=== PATIENT | female | born 1995 | race Caucasian/White ===

== ENCOUNTER 2021-12-31 08:42 | Emergency (ER) | payer MEDICAID, SELFPAY ==
[2021-12-31 08:51] VITALS: BP 98/46; PULSE 76; RESP 18; TEMP 36.6; BMI 28.2
--- NOTE | 2021-12-31 09:33 | ED.GENADULT ---
HPI - General Adult General Chief complaint: Sore Throat Stated complaint: Swollen lymph node right side, ear ache Time Seen by Provider: 12/31/21 08:46 Source: patient History of Present Illness HPI narrative: Patient is a 26-year-old woman with a 2 day history of sore throat, ear pain, swollen glands. No fever. She took her 1-year-old to the zoo the other day, otherwise no ill exposure. She has been drinking tea with honey, has not needed any medication for pain. Swallowing without difficulty, but throat is pretty sore. Sore throat is limited to the right side. She took a COVID test at home and it was negative. No cough or shortness of breath. No unusual rashes, vomiting, or other complaints. Related Data Home Medications Medication Instructions Recorded Confirmed No Known Home Medications 12/31/21 12/31/21 Allergies Allergy/AdvReac Type Severity Reaction Status Date / Time No Known Drug Allergies Allergy Verified 12/31/21 09:04 Review of Systems Status of ROS: Reports: 6 or more systems reviewed and unremarkable except as noted in History and below [facility] Medical History (Updated 12/31/21 @ 09:53 by Marbella Bran RN) No significant past medical history Social History Smoking Status: Never smoker Do you use any of these nicotine containing products: None Second hand tobacco smoke exposure: No How often do you have a drink containing alcohol: monthly or less How often do you have six or more drinks on one occasion: Never AUDIT-C Alcohol total score: 1 Non-prescribed substance use: denies use and other Non-prescribed substance use details: none service: No Exam Narrative: Exam Narrative: Afebrile, well-appearing. Voice is normal. Const: Vital Signs, click to edit/add: Vital Signs - 24 hr 12/31/21 08:51 12/31/21 09:51 Temperature 97.9 F 97.9 F Pulse Rate [Apical ] 76 Respiratory Rate 18 Blood Pressure [Ri ght Upper Arm] 98/46 L Documenting provider has reviewed patient's vital signs: yes Common normals: no apparent distress, oriented x3 and no limitations General appearance: cooperative and comfortable Orientation/consciousness: Yes awake, Yes oriented to person and Yes oriented to place HENMT: Common normals: normocephalic, external ears normal, TM's normal bilaterally and external nose normal Head and scalp: normocephalic Face and sinus: normal facial exam and sinuses nontender Nose: external nose normal and nares normal External ear: external ears normal Tympanic membrane: TM's normal bilaterally Throat: posterior oropharynx normal and uvula midline Other: Small amount of purulence on the right tonsil. No edema. Left tonsil is normal. No evidence of peritonsillar abscess. Eye: Common normals: PERRL and conjunctivae normal Conjunctiva: conjunctiva(e) normal Sclera: sclerae normal Pupil: PERRL Neck & C-Spine: Common normals: full ROM and no lymphadenopathy Resp: Common normals: normal respiratory effort and clear to auscultation bilaterally Effort & inspection: able to speak in complete sentences Auscultation: clear to auscultation bilaterally Neuro: Common normals: oriented x3 Sensorium/orientation: awake, oriented to person and oriented to place Course Course Hospital Course: We will obtain a stool of for strep screening. Discussed that tonsillitis can be caused by viruses, other bacteria or strep. If strep is positive will treat with antibiotics, otherwise recommend supportive care, she can take ibuprofen or Tylenol if needed, at this point she says she has not needed anything other than tea with honey. Return for acute worsening such as high fevers, inability to swallow secretions, severe pain. Vital Signs Vital signs: Initial Vital Signs Temperature 97.9 F 12/31/21 08:51 Temperature Source Temporal Artery Scan 12/31/21 08:51 Pulse Rate 76 12/31/21 08:51 Pulse Rhythm 12/31/21 08:51 Respiratory Rate 18 12/31/21 08:51 Respiratory Effort 12/31/21 08:51 Respiratory Depth Normal 12/31/21 08:51 Respiratory Pattern 12/31/21 08:51 Blood Pressure 98/46 L 12/31/21 08:51 Blood Pressure Mean 63 12/31/21 08:51 Blood Pressure Position Supine 12/31/21 08:51 Oxygen Delivery Method 12/31/21 08:51 Vital Signs Temperature 97.9 F 12/31/21 08:51 Pulse Rate 76 12/31/21 08:51 Respiratory Rate 18 12/31/21 08:51 Blood Pressure 98/46 L 12/31/21 08:51 Temperature 97.9 F 12/31/21 09:51 Pulse Rate 76 12/31/21 08:51 Respiratory Rate 18 12/31/21 08:51 Blood Pressure 98/46 L 12/31/21 08:51 Discharge Plan Discharge Clinical Impression: Acute tonsillitis Patient Disposition: Home, Self-Care Condition: Stable Instructions: Tonsillitis (ED) Additional Instructions: If needed, ibuprofen or Tylenol for pain. Otherwise, continue with tea and honey. Return for severe pain, inability to swallow secretions, high fever. We will call if strep screen is positive. Activity Level: No Restrictions Prescriptions: No Action No Known Home Medications 0RF Stand Alone Forms: [employer] Info Instructions
[2021-12-31 09:51] VITALS: TEMP 36.6
[2021-12-31 10:50] LABS: Strep A DNA Probe* NOT DETECTED (No Detected)
== END 2021-12-31 09:40 | disposition home or self-care (01) ==
LOC: ED 09:45
PROVIDERS: Emergency Provider Emergency Medicine
DX: J03.90 Acute tonsillitis, unspecified (principal)
CPT/HCPCS: 87651; 99283; 99284

== ENCOUNTER 2022-04-02 21:56 | Emergency (ER) | payer MEDICAID, SELFPAY ==
[2022-04-02 23:11] VITALS: BP 101/66; PULSE 99; RESP 18; TEMP 36.6; O2SAT 98; BMI 28.2
--- NOTE | 2022-04-02 23:23 | ED.EYEPROB ---
HPI - Eye Problem General Time Seen by Provider: 23:23 Date Seen: 04/02/22 Chief complaint: Eye Problems Stated complaint: Right eye injury Time Seen by Provider: 04/02/22 23:23 Source: patient and RN notes reviewed Mode of arrival: ambulatory Limitations: no limitations History of Present Illness HPI Narrative: Patient is a very pleasant 27-year-old female non who tonight was playing with her son and got poked in the eye. This occurred approximately 1700 hours. Unfortunately her pain has been increasing. She describes this as on the outer upper aspect of the eye. She is unable to open her eye at this time. It continues to tear as well. She has not taken any medication for pain. She denies use of contacts or any other previous I issue. She is preferring to stay in the dark is light causes her discomfort. Related Data Home Medications Medication Instructions Recorded Confirmed No Known Home Medications 12/31/21 04/02/22 Allergies Allergy/AdvReac Type Severity Reaction Status Date / Time No Known Drug Allergies Allergy Verified 04/02/22 23:20 [facility] Medical History (Updated 04/02/22 @ 23:43 by Clari Merchant MD) No significant past medical history Social History Smoking Status: Never smoker Do you use any of these nicotine containing products: None Second hand tobacco smoke exposure: No How often do you have a drink containing alcohol: monthly or less How often do you have six or more drinks on one occasion: Never AUDIT-C Alcohol total score: 1 Non-prescribed substance use: denies use and other Non-prescribed substance use details: none service: No Exam Narrative: Exam Narrative: Patient is clearly uncomfortable when I enter the room. It is dark. She is holding her eyes shut. She is cooperative and is able to open her eyes slightly. She does have pain with direct and consensual pupillary constriction. EOM is full. No obvious bleeding no obvious deformity. Tetracaine is applied to the right eye and patient has significant relief. EOM is full. Pupils are reactive. Pupil is clear. Floor sign staining is accomplished. Under slit lamp examination patient has a large corneal abrasion the 10 30 to 11:30 position right cornea. No significant thickness compromise. No foreign bodies are noted. Erythromycin ribbon is applied. Patient tolerates procedure well and is feeling significant relief. Const: Vital Signs, click to edit/add: Vital Signs - 24 hr 04/02/22 23:11 04/02/22 23:30 Temperature 97.8 F 97.8 F Pulse Rate [Femora l] 99 Respiratory Rate 18 Blood Pressure [Ri ght Upper Arm] 101/66 Pulse Oximetry 98 Oxygen Delivery Me thod Room Air Course Vital Signs Vital signs: Initial Vital Signs Temperature 97.8 F 04/02/22 23:11 Temperature Source Temporal Artery Scan 04/02/22 23:11 Pulse Rate 99 04/02/22 23:11 Respiratory Rate 18 04/02/22 23:11 Blood Pressure 101/66 04/02/22 23:11 Blood Pressure Mean 77 04/02/22 23:11 Blood Pressure Position Sitting 04/02/22 23:11 Pulse Oximetry 98 04/02/22 23:11 Oxygen Delivery Method 04/02/22 23:11 Vital Signs Temperature 97.8 F 04/02/22 23:11 Pulse Rate 99 04/02/22 23:11 Respiratory Rate 18 04/02/22 23:11 Blood Pressure 101/66 04/02/22 23:11 Pulse Oximetry 98 04/02/22 23:11 Oxygen Delivery Method 04/02/22 23:11 Temperature 97.8 F 04/02/22 23:30 Pulse Rate 99 04/02/22 23:11 Respiratory Rate 18 04/02/22 23:11 Blood Pressure 101/66 04/02/22 23:11 Pulse Oximetry 98 04/02/22 23:11 Oxygen Delivery Method 04/02/22 23:11 MDM - Eye Problem MDM Narrative Medical decision making narrative: 1. Corneal abrasion-patient will apply erythromycin 1/2 inch ribbon Q 6-8 hours. She will follow-up with [facility] tomorrow. I provided the phone number for her. Ibuprofen 800 mg is given here in the ED and I would like her to continue this every 8 hours at home if possible. Will also give her a small amount of Vicodin 5/325 1-2 tabs p.o. q.4-6 hours p.r.n.. 8. Via [employer]. 2. Disposition-patient will be discharged home. Should return for worsening symptoms. Tetanus updated in 2019. Medical Records Attestation: I reviewed the patient's medical records. Discharge Plan Discharge Clinical Impression: Corneal abrasion Patient Disposition: Home, Self-Care Condition: Improved Additional Instructions: Erythromycin ointment 1/2 inch to the bottom of the eyelid every 6-8 hours. Ibuprofen 800 mg every 8 hours as needed for pain. You may use Vicodin sparingly if you have continued pain. Please follow-up at [facility] for follow-up. The phone number is [phone]. Prescriptions: No Action No Known Home Medications Follow Up/Referrals: Provider,Not a Local [Primary Care Provider] - Stand Alone Forms: [employer] Info Instructions
[2022-04-02 23:30] VITALS: TEMP 36.6
[2022-04-02] MEDS: IBUPROFEN 400 MG TABLET 800 MG PO (23:30)
--- OUTSIDE RECORDS SUMMARY | 2022-04-02 23:51 | XMS_ITS | Encounter Summary ---
:1995 Author Organization [place] Address [address] [place] [id number] Care Team Providers Name Role Phone Thad Mckeon PA-C Primary Care Provider [phone] Thad Mckeon PA-C Unavailable [phone] Reason for Visit Reason Comments Derm Problem Entered automatically based on patient selection in [employer]. Encounter Details Date Type Department Care Team Description 06/25/2021 E-Visit [facility] Ben Riggins Derm P roblem (Entered [facility] automatically based ... Dena [address] [place] [phone] Social History Tobacco Use Types Packs/Day Years Used Date Former Smoker 0 0 Smokeless Tobacco: Never Used Alcohol Use Standard Drinks/Week Comments Not Currently 0 (1 standard drink = 0.6 oz pure alcoho l) very little Alcohol Habits Answer Date Recorded How often do you have a drink containing alcohol? Not asked How many drinks containing alcohol do you have on a Not aske d typical day when you are drinking? How often do you have six or more drinks on one occasion? No t asked Comment: very little 03/09/2019 Sex Assigned at Date Recorded Female 12/21/2020 8:52 AM CDT documented as of this encounter Miscellaneous Notes Telephone Encounter - Ben Riggins PA-C - 06/25/2021 3:08 PM CST Provider E-Visit time total (minutes): 3 [facility] documented in this encounter Plan of Treatment Upcoming Encounters Date Type Specialty Care Team Description 05/08/2022 Office Visit Family Practice Kyle Hidalgo PA-C [address] [address] [phone] (Wo rk) 05/08/2022 Lab Lab documented as of this encounter Visit Diagnoses Diagnosis Impetigo - Primary documented in this encounter Additional Health Concerns Assessment Noted Time PHQ-9 Depression Total Score: 7 01/15/2021 7:02 AM CDT documented as of this encounter Care Teams Bag Maker Relationship Specialty Start Date End Date Thad Mckeon, PCP - General Physician Clinical Research Spec - 02/17/14 AD Medical Thad Mckeon, Assigned PCP 12/23/20 [place] [id number] [address] [id number] documented as of this encounter
--- OUTSIDE RECORDS SUMMARY | 2022-04-02 23:51 | XMS_ITS | Encounter Summary ---
:1995 Author Organization [place] Address [address] [place] [address] Care Team Providers Name Role Phone Thad Mckeon PA-C Primary Care Provider [phone] Thad Mckeon PA-C Unavailable [phone] Encounter Details Date Type Department Care Team Description 03/31/2022 Travel Social History Tobacco Use Types Packs/Day Years [...] Date Recorded Female 12/21/2020 8:52 AM CDT COVID-19 Exposure Response Date Recorded In the last 10 days, have you been in contact with No / Unsu re 03/31/2022 3:21 PM CDT someone who was confirmed or suspected to have Coronavirus/COVID-19? documented as of this encounter Plan of Treatment Upcoming Encounters Date Type Specialty Care Team Description 05/08/2022 Office Visit Family Practice Kyle Hidalgo PA-C [address] [address] [phone] (Wo rk) 05/08/2022 Lab Lab documented as of this encounter Visit Diagnoses Not on filedocumented in this encounter Additional Health Concerns Assessment Noted Time PHQ-9 Depression Total Score: 7 01/15/2021 7:02 AM CDT documented as of this encounter Care Teams Vault Service Mechanic Relationship Specialty Start Date End Date Thad Mckeon, PCP - General Physician Steamer Operator - 02/17/14 AD Medical Thad Mckeon, Assigned PCP 12/23/[place] [address] [address] [address] documented as of this encounter
--- OUTSIDE RECORDS SUMMARY | 2022-04-02 23:51 | XMS_ITS | Encounter Summary ---
:1995 Author Organization [place] Address [address] [place] [address] Care Team Providers Name Role Phone Thad Mckeon PA-C Primary Care Provider [phone] Thad Mckeon PA-C Unavailable [phone] Reason for Visit Reason Comments A.D.H.D Encounter Details Date Type Department Care Team Description 02/26/2022 Virtual Visit [facility] Thad Mckeon ty (Primary Dx); Clinic [place] AD Persaud Attention deficit hyperactivity disorder (ADHD), predominantly inattentive type [id number] [address] [address] [place] [phone] Social History Tobacco Use Types Packs/Day Years [...] AM CDT documented as of this encounter Patient Instructions Patient InstructionsPeThad zepeda PA-C - 02/26/2022 2:30 PM CDT Gabapentin is the anxiety medication I was talking about using at a low dose at night. We could consider this or restarting your ADHD medication. documented in this encounter Progress Notes Thad Mckeon PA-C - 02/26/2022 2:30 PM CDT Ruthie is a 26 year old who is being evaluated via a billable video visit. How would you like to obtain your AVS? [facility] [employer] If the video visit is dropped, the invitation should be resent by: Text to cell phone: [phone] Will anyone else be joining your video visit? No Assessment & Plan 1. Anxiety Consider gabapentin for anxiety if she is not in a few months. Discussed using selective serotonin reuptake inhibitor medication which she has done in the past but not really done well on. Shesrikanthll let me know. 2. Attention deficit hyperactivity disorder (ADHD), predominantly inattentive type Will get in touch with me (messaging ok) if she wants to restart something for this. Return in about 3 months (around 05/29/2022) for depression/anxiety med check, ADHD med check. Thad Mckeon PA-C [facility] Ruthie is a 26 year old, presenting for the following health issues: A.D.H.D History of Present Illness Reason for visit: Past reasons. adhd trouble listening She eats 2-3 servings of fruits and vegetables daily.She consumes 0 sweetened beverage(s) daily.She exercises with enough effort to increase her heart rate 30 to 60 minutes per day. She exercises with enough effort to increase her heart rate 6 days per week. She is taking medications regularly. From [email or web address] message/evisit: adhd is heavy at the moment.. I have trouble focusing listening staying on task finishing the firsttest that I started without jumping to a new one I have trouble relaxing I cannot relax until the house is completely spotless I have troubles turning my brain off at night. And I feel that I am easilyaggravated when I don???t have my cleaning tasks done. And my anxiety isn???t as bad as my lack of focus but I feel like my anxiety would be better if I could focus a bit more. i???m also wondering if there???s a prescription estrogen or hormone balance that I could try some thing a little bit more holistic first diving into the ADD medication right away again if that does not work then I would like to explore our options with the ADD medicine again Trying for second baby- if not in a month or so she would consider Rx but now was just calling in to discuss options. Having trouble at work with focus and attention. Sleeping ok Review of Systems Constitutional, HEENT, cardiovascular, pulmonary, gi and gu systems are negative, except as otherwise noted. Objective Vitals: No vitals were obtained today due to virtual visit. Physical Exam GENERAL: Healthy, alert and no distress EYES: Eyes grossly normal to inspection. No discharge or erythema, or obvious scleral/conjunctival abnormalities. RESP: No audible wheeze, cough, or visible cyanosis. No visible retractions or increased work of breathing. SKIN: Visible skin clear. No significant rash, abnormal pigmentation or lesions. NEURO: Cranial nerves grossly intact. Mentation and speech appropriate for age. PSYCH: Mentation appears normal, affect normal/bright, judgement and insight intact, normal speech and appearance well-groomed. Video-Visit Details Video Start Time: 226p Type of service: Video Visit Video End Time:2:43 PM Originating Location (pt. Location): Home Distant Location (provider location): [facility] Platform used for Video Visit: Tori . .. documented in this encounter Plan of Treatment Upcoming Encounters Date Type Specialty Care Team Description 05/08/2022 Office Visit Family [facility] Kyle Hidalgo PA-C [address] [address] [place], [place] [address] (Wo rk) 05/08/2022 Lab Lab documented as of this encounter Visit Diagnoses Diagnosis Anxiety - Primary Anxiety state, unspecified Attention deficit hyperactivity disorder (ADHD), predominantly inattentive type documented in this encounter Additional Health Concerns Assessment Noted Time PHQ-9 Depression Total Score: 7 01/15/2021 7:02 AM CDT documented as of this encounter Care Teams Wireless Watcher Relationship Specialty Start Date End Date Thad Mckeon, PCP - General Physician Distillery Manager - 02/17/14 AD Medical Thad Mckeon, Assigned PCP 12/23/20 [address]anjiv [address] [facility] [place] [address] documented as of this encounter
--- OUTSIDE RECORDS SUMMARY | 2022-04-02 23:51 | XMS_ITS | Encounter Summary ---
:1995 Author Organization [place] Address [facility] [place] [place] [address] Care Team Providers Name Role Phone Thad Mckeon PA-C Primary Care Provider [phone] Thad Mckeon PA-C Unavailable [phone] Reason for Visit Reason Comments Derm Problem Entered automatically based on patient selection in [employer]. Encounter Details Date Type Department Care Team Description 07/11/2021 E-Visit [facility] Thad Mckeon ([facility] [place] PA-C automatically based ... [address] [address] [address] [place], [place] [id number] [phone] Social History Tobacco Use Types Packs/Day Years [...] Patient Instructions Patient InstructionsPeThad zepeda PA-C - 07/11/2021 4:15 PM FINANCIAL SERVICES OFFICER Dear Ruthie Nieto After reviewing your responses, I've been able to diagnose you with tinea which is a common skin condition caused by a fungal infection. There are many common names for this depending on where it is located and it's appearance (jock itch, athlete's foot, ringworm, etc). Based on your responses, I have recommended Lamisil or Gold Freed powder to treat this. Please followthe instructions on the medication. If you experience irritation of your skin, new rash, or any other new symptoms, you should stop using this medication and contact your primary care provider. If this treatment does not work for you in 2 weeks or after completing treatment, please plan to follow-up with your primary care provider to evaluate in-person. Self-care: Wash all items that come into contact with infected skin: Wash all towels, clothes, and bedding in hot water. Use laundry soap. Clean shower stalls, mats, and floors with a germ-killing or fungus-killing saw cleaner. Do not share personal items: Do not share towels, brushes, ross, or hair accessories. Keep your skin, hair, and nails clean and dry: Bathe every day, and dry your skin before you put medicine on the infected area. Wash your hands often. Do not scratch your sores. This may cause the infection to spread. Avoid infected pets: A patch of missing fur is a sign of infection in a pet. Take your infected pet to a housekeeping staff for treatment. Contact your primary healthcare provider if: You have a fever. Your infection continues to spread after 7 days of treatment. Your rash is not gone in 2 weeks. The area around your rash becomes red, warm, tender, swollen, or smells bad. You have questions or concerns about your condition or care. Thanks for choosing?us?as your health health care marketing specialist, Thad Mckeon PA-C NCIAL SERVICES OFFICER documented in this encounter Miscellaneous Notes Telephone Encounter - Thad Mckeon PA-C - 07/12/2021 10:06 AM FINANCIAL SERVICES OFFICER Provider E-Visit time total (minutes): 5 NCIAL SERVICES OFFICER documented in this encounter Plan of Treatment Upcoming Encounters Date Type Specialty Care Team Description 05/08/2022 Office Visit Family [facility] Kyle Hidalgo PA-C [address] [address] [phone] (Wo rk) 05/08/2022 Lab Lab documented as of this encounter Visit Diagnoses Diagnosis Rash and nonspecific skin eruption - Katerina nadeem Rash and other nonspecific skin eruption documented in this encounter Additional Health Concerns Assessment Noted Time PHQ-9 Depression Total Score: 7 01/15/2021 7:02 AM CDT documented as of this encounter Care Teams Contract Associate Manager Relationship Specialty Start Date End Date Thad Mckeon, PCP - General Physician Industrial Refrigeration Mechanic - 02/17/14 AD Medical Thad Mckeon, Assigned PCP 12/23/20 [place] [address] [address] [address] documented as of this encounter
--- OUTSIDE RECORDS SUMMARY | 2022-04-02 23:51 | XMS_ITS | Encounter Summary ---
:1995 Author Organization [place] Address [address] [place] [address] Care Team Providers Name Role Phone Thad Mckeon PA-C Primary Care Provider [phone] Thad Mckeon PA-C Unavailable [phone] Reason for Visit Reason Comments Video Visit Weight Problem Encounter Details Date Type Department Care Team Description 09/24/2021 Virtual Visit [facility] Thad Mckeon Class 1 obesity without serious comorbidity with body mass index (BMI) of 31.0 to 31.9 in adult, unspecified obesity type (Primary Dx); [facility] PA-C History of cold sores [address] [address] [place] [address] [id number] Social History Tobacco Use Types Packs/Day Years [...] AM CDT documented as of this encounter Progress Thad Gama PA-C - 09/24/2021 10:00 AM CDT Ruthie is a 26 year old who is being evaluated via a billable video visit. How would you like to obtain your AVS? MyChart If the video visit is dropped, the invitation should be resent by: Text to cell phone: [phone] Will anyone else be joining your video visit? No Video Start Time: 1018a Assessment & Plan Class 1 obesity without serious comorbidity with body mass index (BMI) of 31.0 to 31.9 in adult, unspecified obesity type Doing well- at some point still want BP and weight (this visit was to be in person but had to be changed due to household emergency). Will refill. - phentermine (ADIPEX-P) 15 MG capsule; Take 1 capsule (15 mg) by mouth every morning History of cold sores Refilled per request. - valACYclovir (VALTREX) 500 MG tablet; Take 1 tablet (500 mg) by mouth daily BMI: Estimated body mass index is 31.24 kg/m?? as calculated from the following: Height as of 02/20/21: 1.645 m (5' 4.75). Weight as of 02/20/21: 84.5 kg (186 lb 4.8 oz). Weight management plan: Discussed healthy diet and exercise guidelines Return in about 3 months (around 12/25/2021) for Physical Exam- Wellness. Thad Mckeon PA-C [facility] Ruthie is a 26 year old who presents for the following health issues HPI Medication Followup of Phentermine ?? Taking Medication as prescribed: yes ?? Side Effects: None ?? Medication Helping Symptoms: Unsure, no scale at home In [place] Ruthie tried Topamax to assist with weight loss but did not tolerate it well Now she just started on phentermine 08/23/21. BMI was right at 30/31 and she had concerns over this and looking ahead to having another in the next year or so. Does not have scale at home- does feel some appetite suppression with the medication but is able to still eat. No palpitations, headache or insomnia. Review of Systems Constitutional, HEENT, cardiovascular, pulmonary, [...] normal speech and appearance well-groomed. Video-Visit Details Type of service: Video Visit Video End Time:10:31 AM Originating Location (pt. Location): Home Distant Location (provider location): [facility] documented in this encounter Plan of Treatment Upcoming Encounters Date Type Specialty Care Team Description 05/08/2022 Office Visit [facility] Kyle Hidalgo PA-C [address] [place], [place] [address] (Wo rk) 05/08/2022 Lab Lab documented as of this encounter Visit Diagnoses Diagnosis Class 1 obesity without serious comorbid ity with body mass index (BMI) of 31.0 to 31.9 in adult, unspecified obesity type - Primary History of cold sores Personal history of other infectious and parasitic disease documented in this encounter Additional Health Concerns Assessment Noted Time PHQ-9 Depression Total Score: 7 01/15/2021 7:02 AM CDT documented as of this encounter Care Teams Superintendent Circus Relationship Specialty Start Date End Date Thad Mckeon, PCP - General Physician Rfid Manager - 02/17/14 AD Medical Thad Mckeon, Assigned PCP 12/23/20 [place] [address] [place] [address] documented as of this encounter
--- OUTSIDE RECORDS SUMMARY | 2022-04-02 23:51 | XMS_ITS | Encounter Summary ---
:1995 Author Organization [place] Address [address] [place] [address] Care Team Providers Name Role Phone Thad Mckeon PA-C Primary Care Provider [phone] Thad Mckeon PA-C Unavailable [phone] Reason for Referral Medication Prior Authorization - Authorized Specialty Diagnoses / Procedures Referred By Contact Refer red To Contact Diagnoses BMI 31.0-31.9,adult Thad Mckeon PA-C [address] [place] [address] Referral ID Status Reason Start Date Expiration Date Visits V isits Requested Authorized [id number] Authorized 07/24/2021 11/21/2021 1 1 [employer]AT[employer] INSTRUCTOR Reason for Visit Reason Comments Other Entered automatically based on patient selection in Private Practice. Encounter Details Date Type Department Care Team Description [facility] [place] [id number] [address] [address] [address]... [place], [place] [id number] [phone] Social History Tobacco Use Types Packs/Day Years [...] Patient Instructions Patient InstructionsPeThad zepeda PA-C - 08/23/2021 9:20 AM WASTEWATER TREATMENT PLANT INSTRUCTOR Thank you for choosing us for your care. I have placed an order for a prescription so that you can start treatment. View your full visit summary for details by clicking on the link below. Your pharmacist will able to address any questions you may have about the medication. If you're not feeling better within 5-7 days, please schedule an appointment. You can schedule an appointment right here in [facility], or call [phone] If the visit is for the same symptoms as your eVisit, we'll refund the cost of your eVisit if seen within seven days. [employer]ATER [employer]ANT INSTRUCTOR documented in this encounter Miscellaneous Notes Telephone Encounter - Thad Mckeon PA-C - 08/23/2021 9:37 AM WASTEWATER TREATMENT PLANT INSTRUCTOR Provider E-Visit time total (minutes): 5 [employer]ATER [employer]ATMENT [employer]ANT INSTRUCTOR documented in this encounter Plan of Treatment Upcoming Encounters Date Type Specialty Care Team Description 05/08/2022 Office Visit Family [facility] Kyle Hidalgo PA-C [address] [address] [place], [place] [address] (Wo rk) 05/08/2022 Lab Lab documented as of this encounter Visit Diagnoses Diagnosis BMI 31.0-31.9,adult - Primary Body Mass Index 31.0-31.9, adult documented in this encounter Additional Health Concerns Assessment Noted Time PHQ-9 Depression Total Score: 7 01/15/2021 7:02 AM CDT documented as of this encounter Care Teams Radiology Aide Relationship Specialty Start Date End Date Thad Mckeon, PCP - General Physician Mannequin Mold Maker - 02/17/14 AD Medical Thad Mckeon, Assigned PCP 12/23/20 [place] [address] [place] [address] documented as of this encounter
--- OUTSIDE RECORDS SUMMARY | 2022-04-02 23:51 | XMS_ITS | Encounter Summary ---
:1995 Author Organization [place] Address [facility] [place] [address] Care Team Providers Name Role Phone Thad Mckeon PA-C Primary Care Provider [phone] Thad Mckeon PA-C Unavailable [phone] Reason for Visit Reason Comments Other Entered automatically based on patient selection in [facility]. Encounter Details Date Type Department Care Team Description 02/21/2022 E-Visit [facility] Thad Mckeon Other (Entered Clinic [place] [id number] [address] [address]... [place], [place] [id number] [phone] Social History Tobacco Use Types Packs/Day Years [...] this encounter Miscellaneous Notes Telephone Encounter - Azul Lozano, RN - 02/24/2022 8:25 AM CDT Pt has video appt scheduled on 02/26/22. Azul Morris, RN Telephone Encounter - Thad Mckeon PA-C - 02/21/2022 9:40 AM CDT Provider E-Visit time total (minutes): Please see if she will schedule a video visit with me next week to talk more about all she included in this visit. Thanks! Thad documented in this encounter Plan of Treatment Upcoming Encounters Date Type Specialty Care Team Description 05/08/2022 Office Visit Family Practice Kyle Hidalgo PA-C [address] [address] [address] (Wo rk) 05/08/2022 Lab Lab documented as of this encounter Visit Diagnoses Diagnosis ERRONEOUS ENCOUNTER--DISREGARD - Primary documented in this encounter Additional Health Concerns Assessment Noted Time PHQ-9 Depression Total Score: 7 01/15/2021 7:02 AM CDT documented as of this encounter Care Teams Boat Carpenter Relationship Specialty Start Date End Date Thad Mckeon, PCP - General Physician Geothermal Powerplant Supervisor - 02/17/14 AD Medical Thad Mckeon, Assigned PCP 12/23/20 [place] [address] [address] [address] documented as of this encounter
--- OUTSIDE RECORDS SUMMARY | 2022-04-02 23:51 | XMS_ITS | Encounter Summary ---
:1995 Author Organization [place] Address [address] [place] [address] Care Team Providers Name Role Phone Thad Mckeon PA-C Primary Care Provider [phone] Thad Mckeon PA-C Unavailable [phone] Reason for Visit Reason Comments Telephone Weight Loss Encounter Details Date Type Department Care Team Description 03/12/2021 Virtual Visit [facility] Thad Mckeon Class 1 obesity without serious comorbidity with body mass index (BMI) of 31.0 to 31.9 in adult, unspecified obesity type (Primary Dx); [facility] Encounter for initial prescription of co ntraceptive pills; [address] [address] [address] [place] [phone] Social History Tobacco Use Types Packs/Day Years [...] Exposure Response Date Recorded In the last month, have you been in contact with No / Unsure 03/12/2021 10:20 AM CDT someone who was confirmed or suspected to have Coronavirus / COVID-19? documented as of this encounter Progress Notes Thad Mckeon PA-C - 03/12/2021 10:15 AM CDT Ruthie is a 26 year old who is being evaluated via a billable video visit. How would you like to obtain your AVS? MyChart If the video visit is dropped, the invitation should be resent by: Text to cell phone: [phone] Will anyone else be joining your video visit? No Video Start Time: 10:34 AM Assessment & Plan Class 1 obesity without serious comorbidity with body mass index (BMI) of 31.0 to 31.9 in adult, unspecified obesity type We decided on topamax after discussion of options. It seems that this will be a good option as she does wake at night and then will find herself eating. Start at night. Plan to increase dose as tolerated at night. Can add daytime dosing if she is doing well. She can mychart message me for this. - topiramate (TOPAMAX) 25 MG tablet; Take 1 tablet (25 mg) by mouth At Bedtime Encounter for initial prescription of contraceptive pills She is not on control right now. PAP is up to date. Physical in 6 months is fine. - levonorgestrel-ethinyl estradiol (AVIANE) 0.1-20 MG-MCG tablet; Take 1 tablet by mouth daily History of cold sores Needed daily dosing rather than dosing for outbreaks. - valACYclovir (VALTREX) 500 MG tablet; Take 1 tablet (500 mg) by mouth daily Return in about 6 months (around 09/09/2021) for Physical Exam- Wellness. Thad Mckeon PA-C [facility] Ruthie is a 26 year old who presents for the following health issues HPI Patient would like to discuss medication for weight loss. Had baby 10 months ago but feels that this is more than just baby weight. In the past she exercised, lifted weights. Is at a stand still with her weight right now. Walks twice daily, sit ups and squats. Eats organic, home cooked meals. Trying ketogenic. Eats breakfast and then generally not again until dinner. Doesn't snack throughout the day. Does admit that if she is up at 3am with her son she will start craving things that are not good for her. This is probably the hardest thing for her. Did not have glucose problems in . Recent thyroid lab was normal. Wt Readings from Last 4 Encounters: 02/20/21 84.5 kg (186 lb 4.8 oz) 03/09/19 74.1 kg (163 lb 6.4 oz) 08/12/18 71.3 kg (157 lb 1.6 oz) 11/12/17 72.6 kg (160 lb) Estimated body mass index is 31.24 kg/m?? as calculated from the following: Height as of 02/20/21: 1.645 m (5' 4.75). Weight as of 02/20/21: 84.5 kg (186 lb 4.8 oz). Complete Weight Managment Plan in the progress note from the Adult Preventative or Medicare smartsets, use phrase .WEIGHTPLAN, or choose an option from Weight Management Resources smartset below. Review of Systems Constitutional, HEENT, cardiovascular, pulmonary, [...] Type of service: Video Visit Video End Time:11:11 AM Originating Location (pt. Location): Home Distant Location ([facility] Platform used for Video Visit: Tori documented in this encounter Plan of Treatment Upcoming Encounters Date Type Specialty Care Team Description 05/08/2022 Office Visit Family Practice Kyle Hidalgo PA-C [address] [place] [address] (Wo rk) 05/08/2022 Lab Lab documented as of this encounter Visit Diagnoses Diagnosis Class 1 obesity without serious comorbid ity with body mass index (BMI) of 31.0 to 31.9 in adult, unspecified obesity type - Primary Encounter for initial prescription of co ntraceptive pills General counseling for prescription of o ral contraceptives History of cold sores Personal history of other infectious and parasitic disease documented in this encounter Additional Health Concerns Assessment Noted Time PHQ-9 Depression Total Score: 7 01/15/2021 7:02 AM CDT documented as of this encounter Care Teams Vat Washer Relationship Specialty Start Date End Date Thad Mckeon, PCP - General Physician Sleep Technician - 02/17/14 AD Medical Thad Mckeon, Assigned PCP 12/23/20 [place] [address] [place] [address] documented as of this encounter
--- OUTSIDE RECORDS SUMMARY | 2022-04-02 23:51 | XMS_ITS | Encounter Summary ---
:1995 Author Organization [place] Address [address] [place] [address] Care Team Providers Name Role Phone Thad Mckeon PA-C Primary Care Provider [phone] Thad Mckeon PA-C Unavailable [phone] Encounter Details Date Type Department Care Team Description 02/20/2021 Travel Social History Tobacco Use Types Packs/Day [...] been in contact with No / Unsure 02/20/2021 10:30 AM CDT someone who was confirmed or suspected to have Coronavirus / COVID-19? documented as of this encounter Plan of Treatment Upcoming Encounters Date Type Specialty Care Team Description 05/08/2022 Office Visit Family Practice Kyle Hidalgo PA-C [address] [address] [address] (Wo rk) 05/08/2022 Lab Lab documented as of this encounter Visit Diagnoses Not on filedocumented in this encounter Additional Health Concerns Assessment Noted Time PHQ-9 Depression Total Score: 7 01/15/2021 7:02 AM CDT documented as of this encounter Care Teams Steam Shovel Operator Relationship Specialty Start Date End Date Thad Mckeon, PCP - General Physician Movie Critic - 02/17/14 AD Medical Thad Mckeon, Assigned PCP 12/23/[place] [address] [address] [address] documented as of this encounter
--- OUTSIDE RECORDS SUMMARY | 2022-04-02 23:51 | XMS_ITS | Encounter Summary ---
:1995 Author Organization [place] Address [address] [place] [address] Care Team Providers Name Role Phone Thad Mckeon PA-C Primary Care Provider [phone] Thad Mckeon PA-C Unavailable [phone] Encounter Details Date Type Department Care Team Description 03/12/2021 Travel Social History Tobacco Use Types Packs/Day [...] Office Visit Family Practice Kyle Hidalgo PA-C [address] [address] [address] (Wo rk) 05/08/2022 Lab Lab documented as of this encounter Visit Diagnoses Not on filedocumented in this encounter Additional Health Concerns Assessment Noted Time PHQ-9 Depression Total Score: 7 01/15/2021 7:02 AM CDT documented as of this encounter Care Teams Plant Chief Relationship Specialty Start Date End Date Thad Mckeon, PCP - General Physician Crop Roller - 02/17/14 AD Medical Thad Mckeon, Assigned PCP 12/23/[place] [address] [address] [address] documented as of this encounter
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
--- OUTSIDE RECORDS SUMMARY | 2022-04-02 23:52 | XMS_ITS | Encounter Summary ---
:1995 Author Organization [place] Address [address] [place] [address]. [place] [address] Care Team Providers Name Role Phone Thad Mckeon PA-C Primary Care Provider [phone] Thad Mckeon PA-C Unavailable [phone] Thad Mckeon PA-C Unavailable [phone] Reason for Visit Reason Comments Derm Problem Encounter Details Date Type Department Care Team Description 10/05/2017 Office Visit [facility] Thad Mckeon [facility] AD Persaud ENCOUNTER--DISREGARD [place] [address] [facility] (Primary Dx) [facility], [address] [place] [address] [place], [place] [phone] (Wo rk) [address] [phone] Social History Tobacco Use Types Packs/Day Years Used Date Former Smoker Smokeless Tobacco: Never Used Alcohol Use Standard Drinks/Week Comments No 0 (1 standard drink = 0.6 oz pure alcoho l) Sex Assigned at Date Recorded Female 12/21/2020 8:52 AM CDT documented as of this encounter Progress Notes Thad Mckeon PA-C - 10/05/2017 8:00 AM CDT This encounter was opened in error. Please disregard. documented in this encounter Plan of Treatment Upcoming Encounters Date Type Specialty Care Team Description 05/08/2022 Office Visit Family [facility] Kyle Hidalgo PA-C [address] [address] [address] (Wo rk) 05/08/2022 Lab Lab documented as of this encounter Visit Diagnoses Diagnosis ERRONEOUS ENCOUNTER--DISREGARD - Primary documented in this encounter Additional Health Concerns Assessment Noted Time PHQ-9 Depression Total Score: 3 04/15/2017 10:35 AM CD T documented as of this encounter Care Teams Tire Buffer Relationship Specialty Start Date End Date Thad Mckeon, PCP - General Physician Ore Digger - 02/17/14 AD Medical Thad Mckeon, PCP - Assigned PCP 12/16/13 09/07/18 [place] [address] [address] [address] Thad Mckeon, Assigned PCP 12/16/13 [place] [address] [address] [address] documented as of this encounter
--- OUTSIDE RECORDS SUMMARY | 2022-04-02 23:52 | XMS_ITS | Encounter Summary ---
:1995 Author Organization [place] Address [address] [place] [address] Care Team Providers Name Role Phone Thad Mckeon PA-C Primary Care Provider [phone] Thad Mckeon PA-C Unavailable Reason for Visit Reason Onset Date Comments Depression Entered automaticall y based on patient selection in [facility]. Depression 07/23/2020 Encounter Details Date Type Department Care Team Description 07/23/2020 E-Visit [facility] Thad Mckeon (Entered Clinic Evelyne Persaud PA-C automatically based [address] [address] [address] on... [place], [place] [id number] [phone] Social History Tobacco Use Types Packs/Day Years Used Date Former Smoker Smokeless Tobacco: Never Used Alcohol Use Standard Drinks/Week Comments Yes 0 (1 standard drink = 0.6 oz [...] as of this encounter Patient Instructions Patient InstructionsThad Mckeon PA-C - 07/23/2020 4:35 AM BYPRODUCTS OPERATOR Images from the original note were not included. Depression: Tips to Help Yourself As your healthcare providers help treat your depression, you can also help yourself. Keep in mind that your illness affects you emotionally, physically, mentally, and socially. So full recovery will take time. Take care of your body and your soul, and be patient with yourself as you get better. Self-care ?? Educate yourself. Read about treatment and medicine options. If you have the energy, attend localconferences or support groups. Keep a list of useful websites and helpful books and use them as needed. This illness is not your fault. Don???t blame yourself for your depression. ?? Manage early symptoms. If you notice symptoms returning, experience triggers, or identify other factors that may lead to a depressive episode, get help as soon as possible. Ask trusted friends and family to monitor your behavior and let you know if they see anything of concern. ?? Work with your provider. Find a provider you can trust. Communicate honestly with that person andshare information on your treatment for depression and your reaction to medicines. ?? Be prepared for a crisis. Know what to do if you experience a crisis. Keep the phone number of a crisis hotline and know the location of your community's urgent care centers and the closest emergency department. ?? Hold off on big decisions. Depression can cloud your judgment. So wait until you feel better before making major life decisions, such as changing jobs, moving, or getting or . ?? Be patient. Recovering from depression is a process. Don???t be discouraged if it takes some timeto feel better. ?? Keep it simple. Depression saps your energy and concentration. So you won???t be able to do all the things you used to do. Set small goals and do what you can. ?? Be with others. Don???t isolate yourself--you???ll only feel worse. Try to be with other people. And take part in fun activities when you can. Go to a movie, ballgame, worship service, or social event. Talk openly with people you can trust. And accept help when it???s offered. Take care of your body People with depression often lose the desire to take care of themselves. That only makes their problems worse. During treatment and afterward, make a point to: ?? Exercise. It???s a great way to take care of your body. And studies have shown that exercise helps fight depression. Aim for 30 minutes of moderate activity a day. Walking in small blocks of time (5-10 minutes) is a good way to start, but anything that gets you moving (gardening, house cleaning) counts. ?? Don't use drugs and alcohol. These may ease the pain in the short term. But they???ll only make your problems worse in the long run. ?? Get relief from stress. Ask your healthcare provider for relaxation exercises and techniques to help relieve stress. Consider activities like meditation, yoga, or Johnathon Chi. ?? Eat right. A balanced and healthy diet helps keep your body healthy. ?? Get adequate sleep. Aim for 8 hours per night. Too much or too little sleep can cause other physical and emotional problems. [employer] last reviewed this educational content on 06/05/2019 ?? 6717-5691 [employer]. [address] [place] [address]. All rights reserved. This information is not intended as a substitute for professional medical care. Always follow your healthcare professional's instructions. ODUCTS OPERATOR documented in this encounter Miscellaneous Notes Telephone Encounter - Thad Mckeon PA-C - 07/23/2020 7:16 AM BYPRODUCTS OPERATOR Provider E-Visit time total (minutes): 10 PHQ 06/12/2016 04/15/2017 07/23/2020 PHQ-9 Total Score 10 3 14 Q9: Thoughts of better off /self-harm past 2 weeks Not at all Not at all Not at all BEATRIZ-7 SCORE 07/28/2016 04/15/2017 07/23/2020 Total Score - - - Total Score - - 17 (severe anxiety) Total Score 9 8 17 ODUCTS OPERATOR documented in this encounter Plan of Treatment Upcoming Encounters Date Type Specialty Care Team Description 05/08/2022 Office Visit Family [facility] Kyle Hidalgo PA-C [address] [address] [address] (Wo rk) 05/08/2022 Lab Lab documented as of this encounter Visit Diagnoses Diagnosis Moderate Depression [296.32] Major depressive disorder, recurrent epi sode, moderate Generalized anxiety disorder documented in this encounter Additional Health Concerns Assessment Noted Time PHQ-9 Depression Total Score: 14 07/24/2020 7:07 AM CS T documented as of this encounter Care Teams Boilermaker Pipe Fitter Relationship Specialty Start Date End Date Thad Mckeon, PCP - General Physician Boilermaker Fitter - 02/17/14 AD Medical Thad Mckeon, Assigned PCP 12/16/13 [place] [address] [address] [address] documented as of this encounter
--- OUTSIDE RECORDS SUMMARY | 2022-04-02 23:52 | XMS_ITS | Encounter Summary ---
:1995 Author Organization [place] Address [address] [place] [address] Care Team Providers Name Role Phone Thad Mckeon PA-C Primary Care Provider [phone] Thad Mckeon PA-C Unavailable [phone] Encounter Details Date Type Department Care Team Description 09/13/2018 Travel Social History Tobacco Use Types Packs/Day Years Used Date Former Smoker Smokeless Tobacco: Never Used Alcohol Use Standard Drinks/Week Comments No 0 (1 standard drink = 0.6 oz pure alcoho l) Sex Assigned at Date Recorded Female 12/21/2020 8:52 AM CDT documented as of this encounter Plan of Treatment Upcoming Encounters Date Type Specialty Care Team Description 05/08/2022 Office Visit Family Practice [facility] Hidalgo [facility]-C [address] [facility] [place], [place] [address] (Wo rk) 05/08/2022 Lab Lab documented as of this encounter Visit Diagnoses Not on filedocumented in this encounter Additional Health Concerns Assessment Noted Time PHQ-9 Depression Total Score: 3 04/15/2017 10:35 AM CD T documented as of this encounter Care Teams Electrotyper Relationship Specialty Start Date End Date Thad Mckeon, PCP - General Physician Firmware Software Verification Engineer - 02/17/14 AD Medical Thad Mckeon, Assigned PCP 12/16/13 [place] [address] [place] [address] documented as of this encounter
--- OUTSIDE RECORDS SUMMARY | 2022-04-02 23:52 | XMS_ITS | Encounter Summary ---
:1995 Author Organization [place] Address [address] [place] [address] Care Team Providers Name Role Phone Thad Mckeon PA-C Primary Care Provider [phone] Thad Mckeon PA-C Unavailable [phone] Encounter Details Date Type Department Care Team Description 03/09/2019 Travel Social History Tobacco Use Types Packs/Day [...] Office Visit Family Practice Kyle Hidalgo PA-C [address] [address] [place], [place] [address] (Wo rk) 05/08/2022 Lab Lab documented as of this encounter Visit Diagnoses Not on filedocumented in this encounter Additional Health Concerns Assessment Noted Time PHQ-9 Depression Total Score: 3 04/15/2017 10:35 AM CD T documented as of this encounter Care Teams Analysis Lead Relationship Specialty Start Date End Date Thad Mckeon, PCP - General Physician Sample Patternmaker - 02/17/14 AD Medical Tahd Mckeon, Assigned PCP 12/16/13 PASanjiv [address] [facility] [place] [address] documented as of this encounter
--- OUTSIDE RECORDS SUMMARY | 2022-04-02 23:52 | XMS_ITS | Encounter Summary ---
:1995 Author Organization [place] Address [address] [place] [address] Care Team Providers Name Role Phone Thad Mckeon PA-C Primary Care Provider [phone] Thad Mckeon PA-C Unavailable [phone] Encounter Details Date Type Department Care Team Description 02/15/2019 Travel Social History Tobacco Use Types Packs/Day [...] Office Visit Family Practice [facility] Hidalgo PA-C [address] [facility] [place], [place] [address] (Wo rk) 05/08/2022 Lab Lab documented as of this encounter Visit Diagnoses Not on filedocumented in this encounter Additional Health Concerns Assessment Noted Time PHQ-9 Depression Total Score: 3 04/15/2017 10:35 AM CD T documented as of this encounter Care Teams Imaging Technician Relationship Specialty Start Date End Date Thad Mckeon, PCP - General Physician Mexican Food Maker - 02/17/14 AD Medical Thad Mckeon, Assigned PCP 12/16/13 [place] [address] [place] [address] documented as of this encounter
--- OUTSIDE RECORDS SUMMARY | 2022-04-02 23:52 | XMS_ITS | Encounter Summary ---
:1995 Author Organization [place] Address [address] [place] [address] Care Team Providers Name Role Phone Thad Mckeon PA-C Primary Care Provider [phone] Thad Mckeon PA-C Unavailable [phone] Thad Mckeon PA-C Unavailable [phone] Encounter Details Date Type Department Care Team Description 08/12/2018 Travel Social History Tobacco Use Types Packs/Day [...] Office Visit Family Practice Kyle Hidalgo PA-C [address] [address] [place], [place] [address] (Wo rk) 05/08/2022 Lab Lab documented as of this encounter Visit Diagnoses Not on filedocumented in this encounter Additional Health Concerns Assessment Noted Time PHQ-9 Depression Total Score: 3 04/15/2017 10:35 AM CD T documented as of this encounter Care Teams Intensive Care Anaesthetist Relationship Specialty Start Date End Date Thad Mckeon, PCP - General Physician Boat Builder - 02/17/14 PALaceyC Medical Thad Mckeon, PCP - Assigned PCP 12/16/13 09/07/18 [place] [address] [address] 1917368 Thad Mckeon, Assigned PCP 12/16/13 [place] [address] [address] [address] documented as of this encounter
--- OUTSIDE RECORDS SUMMARY | 2022-04-02 23:52 | XMS_ITS | Encounter Summary ---
:1994 Author Organization [place] Address [facility] [place] [address] Care Team Providers Name Role Phone Thad Mckeon PA-C Primary Care Provider [phone] Thad Mckeon PA-C Unavailable [phone] Reason for Visit Reason Onset Date Comments Panel Management 09/24/2018 pap Encounter Details Date Type Department Care Team Description 09/24/2018 [facility] Thad Mckeon Panel Management (pap) Clinic [place]aud [address] [place] [address] [place], [place] [phone] (Wo rk) [address] [phone] Social History Tobacco Use Types Packs/Day Years Used Date Former Smoker Smokeless Tobacco: Never Used Alcohol Use Standard Drinks/Week Comments No 0 (1 standard drink = 0.6 oz pure alcoho l) Sex Assigned at Date Recorded Female 12/21/2020 8:52 AM CDT documented as of this encounter Miscellaneous Notes Telephone Encounter - Isa Saab MA - 10/12/2018 8:41 AM CDT 3rd attempt Letter sent Isa Saab MA Telephone Encounter - Isa Saab MA - 10/04/2018 11:07 AM CDT 2nd attempt LMTCB to clinic Isa Saab MA Telephone Encounter - Isa Saab MA - 09/24/2018 9:39 AM CDT Panel Management Review Patient has the following on her problem list: None Composite cancer screening Chart review shows that this patient is due/due soon for the following Pap Smear Summary: Patient is due/failing the following: PAP and PHYSICAL Action needed: Patient needs office visit for physical w/pap. Type of outreach: Sent Activehours message. Questions for provider review: None Isa Saab MA Chart routed to Care Team . documented in this encounter Plan of Treatment Upcoming Encounters Date Type Specialty Care Team Description 05/08/2022 Office Visit Family Practice Kyle Hidalgo PA-C [address] [address] [address] (Wo rk) 05/08/2022 Lab Lab documented as of this encounter Visit Diagnoses Not on filedocumented in this encounter Additional Health Concerns Assessment Noted Time PHQ-9 Depression Total Score: 3 04/15/2017 10:35 AM CD T documented as of this encounter Care Teams Transportation Maintenance Operator Relationship Specialty Start Date End Date Thad Mckeon, PCP - General Physician Senior C Software Developer - 02/17/14 AD Medical Thad Mckeon, Assigned PCP 12/16/13 [place] [address] [address] [address] documented as of this encounter
--- OUTSIDE RECORDS SUMMARY | 2022-04-02 23:52 | XMS_ITS | Encounter Summary ---
:1994 Author Organization [place] Address [facility] [place] [address] Care Team Providers Name Role Phone Thad Mckeon PA-C Primary Care Provider [phone] Thad Mckeon PA-C Unavailable [phone] Reason for Visit Reason Comments Telephone Urinary Problem Encounter Details Date Type Department Care Team Description 09/13/2018 Office Visit [facility] Thad Mckeon (Primary Dx); Clinic [place] AD Persaud Acne, unspecified acne type; [place] [address] Ye[address] infection of the vagina [address], [address] [place] [address] [place], [place] [phone] (Wo rk) [address] [phone] Social History Tobacco Use Types Packs/Day Years Used Date Former Smoker Smokeless Tobacco: Never Used Alcohol Use Standard Drinks/Week Comments No 0 (1 standard drink = 0.6 oz pure alcoho l) Sex Assigned at Date Recorded Female 12/21/2020 8:52 AM CDT documented as of this encounter Progress Notes Thad Mckeon PA-C - 09/13/2018 3:40 PM CDT Ruthie Nieto is a 23 year old female who is being evaluated via a telephone visit. The patient has been notified of following (by Juan Alberto) Isa Saab MA We have found that certain health care needs can be provided without the need for a physical exam. This service lets us provide the care you need with a short phone conversation. If a prescription is necessary we can send it directly to your pharmacy. If lab work is needed we can place an order for that and you can then stop by our lab to have the test done at a later time. This telephone visit will be conducted via 3 way call with the you (the patient) , the physician/provider, and a me all on the line at the same time. This allows your physician/provider to have the phone conversation with you while I will be taking notes for your medical record. We will have full access to your [facility] medical record during this entire phone call. Since this is like an office visit, will bill your insurance company for this service. Please check with your medical insurance if this type of telephone/virtual is covered . You may be responsible forthe cost of this service if insurance coverage is denied. The typical cost is $30 (10min), $59(11-20min) and $85 (21-30min) If during the course of the call the physician/provider feels a telephone visit is not appropriate, you will not be charged for this service Consent has been obtained for this service by care steam gigger: yes. See the scanned image in the medical record. Additional provider notes: Phone call earlier today: Patient calling with complaints of a bladder infections. Symptoms include low back pain, frequency,urgency and pain with urination. ?? Patient scheduled for a lab only appointment today at 10am for UA and then a telephone appointment at 3:40pm. Would like to be called sooner if possible as she has to work at 4pm. ?? [phone] ?? Sylvia Howell RN Ruthie reports low back pain, minor dysuria and vaginal itching. Also yesterday had horrible diarrheaand vomiting but this has resolved. Is in new relationship and that person just got tested for STD's. They are expecting those results today or tomorrow. She is not having any unusual discharge at thistime. No fever, no abd pain. Pertinent parts of the the patient's medical history reviewed and confirmed by the provider. Total time of call between patient and provider was 9 minutes Thad Mckeon PA-C ( signature) I have reviewed the note as documented above. This accurately captures the substance of my conversation with the patient Assessment/Plan: 1. Dysuria UA unimpressive but will culture to be sure. Treat first for yeast and await culture. If her partners STD screening comes back ++ agree to treat her empirically for this as well. - Wet prep - Urine Culture Aerobic Bacterial 2. Acne, unspecified acne type Refilled. - clindamycin phos-benzoyl perox (DUAC) 1.2-5 % external gel; Apply 0.5 inches topically At Bedtime Dispense: 45 g; Refill: 11 3. Yeast infection of the vagina Start treatment for yeast. If back pain and symptoms do not fully clear up she will follow up. Also due for PAP and she agrees to schedule this soon. - fluconazole (DIFLUCAN) 150 MG tablet; Take 1 tablet (150 mg) by mouth once for 1 dose Dispense: 1 tablet; Refill: 0 documented in this encounter Plan of Treatment Upcoming Encounters Date Type Specialty Care Team Description 05/08/2022 Office Visit Family [facility] Kyle Hidalgo PA-C [address] [place] [address] (Wo rk) 05/08/2022 Lab Lab documented as of this encounter Procedures Procedure Name Priority Date/Time Associated Diagnosis Comme nts WET PREPARATION Routine 09/13/2018 2:07 PM Dysuria Result s for this CDT procedure are i n the results section. URINE CULTURE Routine 09/13/2018 9:50 AM Dysuria Results for this CDT procedure are i n the results section. documented in this encounter Results (ABNORMAL) Wet prep (09/13/2018 2:07 PM CDT) Component Value Ref Test Analysis Performed At Patholo gist Range Method Time Signature Specimen Vagina [place] Description [facility] Wet Prep No clue cells 09/13/2018 [facility] seen 2:15 PM CDT [facility] [place] Wet Prep No Trichomonas 09/13/2018 [facility] seen 2:15 PM CDT [facility] Wet Prep Yeast seen (A) 09/13/2018 [facility] 2:15 PM CDT [facility] Specimen Anatomical Collection Method Collection Time Receive d Time (Source) Location / / Volume Laterality Specimen from 09/13/2018 2:07 PM 09/14/19 19 2:08 vagina CDT PM CDT (specimen) Thad Mckeon PA-C LAB - MICRO GENERAL ORDERABL ES Performing Organization Address City/[facility]/ZIP Code Phon e Number [address] [address] Urine Culture Aerobic Bacterial (09/13/2018 9:50 AM CDT) Patholo gist Method Time Signature Specimen Midstream [place] Description Urine [facility] Culture Micro No growth 09/14/2018 [facility] 11:45 AM [facility] [place] Specimen (Source) Anatomical Collection Method Collection Time Re ceived Time Location / / Volume Laterality Examination of 09/13/2018 9:50 09/13/2018 3:56 midstream urine AM CDT PM CDT specimen (procedure) Thad Mckeon PA-C LAB - MICRO GENERAL ORDERABL ES Performing Organization Address City/[facility] Code Phon e Number [address] [address] documented in this encounter Visit Diagnoses Diagnosis Dysuria - Primary Acne, unspecified acne type Yeast infection of the vagina Candidiasis of vulva and vagina documented in this encounter Additional Health Concerns Assessment Noted Time PHQ-9 Depression Total Score: 3 04/15/2017 10:35 AM CD T documented as of this encounter Care Teams Electrical Experimental Mechanic Relationship Specialty Start Date End Date Thad Mckeon, PCP - General Physician Analytics Developer - 02/17/14 AD Medical Thad Mckeon, Assigned PCP 12/16/13 [place] [address] [address] [address] documented as of this encounter
--- OUTSIDE RECORDS SUMMARY | 2022-04-02 23:52 | XMS_ITS | Encounter Summary ---
:1994 Author Organization [place] Address [facility] [address] Care Team Providers Name Role Phone Thad Mckeon PA-C Primary Care Provider [phone] Thad Mckeon PA-C Unavailable [phone] Reason for Visit Reason Onset Date Comments Urinary Problem 09/13/2018 Bladder infection? Encounter Details Date Type Department Care Team Description 09/13/2018 Telephone [facility] Thad Mckeon y Problem Clinic [place] (Bladder infection?) [address] [facility], [address] [place] [address] [address] [place] [address] [place], [place] [phone] (Wo rk) [address] [phone] Social History Tobacco Use Types Packs/Day Years Used Date Former Smoker Smokeless Tobacco: Never Used Alcohol Use Standard Drinks/Week Comments No 0 (1 standard drink = 0.6 oz pure alcoho l) Sex Assigned at Date Recorded Female 12/21/2020 8:52 AM CDT documented as of this encounter Miscellaneous Notes Telephone Encounter - Sylvia Howell RN - 09/13/2018 7:56 AM CDT Patient calling with complaints of a bladder infections. Symptoms include low back pain, frequency, urgency and pain with urination. Patient scheduled for a lab only appointment today at 10am for UA and then a telephone appointment at 3:40pm. Would like to be called sooner if possible as she has to work at 4pm. [phone] Sylvia Howell RN documented in this encounter Plan of Treatment Upcoming Encounters Date Type Specialty Care Team Description 05/08/2022 Office Visit Family Practice Kyle Hidalgo PA-C [address] [place], [place] [address] (Wo rk) 05/08/2022 Lab Lab documented as of this encounter Results (ABNORMAL) UA reflex to Microscopic and Culture (09/13/2018 9:50 AM CDT) [facility] Method Time Signature Color Urine Yellow 09/13/2018 [facility] 12:34 PM [facility]INICS [facility] Appearance Urine Clear 09/13/2018 [facility] 12:34 PM [facility] Glucose Urine Negative NEG^Negat 09/13/2018 [place] pepper mg/dL 12:34 PM [facility] Bilirubin Urine Negative NEG^Negat 09/13/2018 [facility] pepper 12:34 PM [facility] Ketones Urine Negative NEG^Negat 09/13/2018 [facility] pepper mg/dL 12:34 PM [facility] Specific [place]onson 1.010 1.003 - 09/13/2018 [place] Urine 1.035 12:34 PM [facility] Blood Urine Negative NEG^Negat 09/13/2018 [facility] pepper 12:34 PM [facility] pH Urine 6.5 5.0 - 7.0 09/13/2018 [place] pH 12:34 PM [facility] Protein Albumin Negative NEG^Negat 09/13/2018 [place] Urine pepper mg/dL 12:34 PM [facility] Urobilinogen 0.2 0.2 - 1.0 09/13/2018 [place] Urine EU/dL 12:34 PM [facility] Nitrite Urine Negative NEG^Negat 09/13/2018 [facility] pepper 12:34 PM [facility] Leukocyte Small (A) NEG^Negat 09/13/2018 [place] Esterase Urine pepper 12:34 PM CLINICS CDT [facility] Source Midstream 09/13/2018 [place] Urine 9:52 AM [facility] Specimen (Source) Anatomical Collection Method Collection Time Re ceived Time Location / / Volume Laterality Examination of 09/13/2018 9:50 09/13/2018 9:52 midstream urine AM CDT AM CDT specimen (procedure) Thad Mckeon PA-C LAB - URINE ORDERABLES Performing Organization Address City/State/ZIP Code Phon e Number [facility] [address] documented in this encounter Visit Diagnoses Diagnosis Dysuria - Primary documented in this encounter Additional Health Concerns Assessment Noted Time PHQ-9 Depression Total Score: 3 04/15/2017 10:35 AM CD T documented as of this encounter Care Teams Firmware Engineer Relationship Specialty Start Date End Date Thad Mckeon, PCP - General Physician Dressmaker Helper - 02/17/14 AD Medical Thad Mckeon, Assigned PCP 12/16/13 [place] [address] [place] [address] documented as of this encounter
--- OUTSIDE RECORDS SUMMARY | 2022-04-02 23:52 | XMS_ITS | Encounter Summary ---
:1995 Author Organization [place] Address [facility] [place] [address] Care Team Providers Name Role Phone Thad Mckeon PA-C Primary Care Provider [phone] Thad Mckeon PA-C Unavailable [phone] Thad Mckeon PA-C Unavailable [phone] Reason for Visit Reason Comments Recheck Medication Encounter Details Date Type Department Care Team Description 11/12/2017 Office Visit [facility] Thad Mckeon Screen for STD (sexually transmitted disease) (Primary Dx); [facility] [place] AD Persaud Attention deficit hyperactivity disorder (ADHD), predominantly inattentive type; [place] [address] History of cold sores; Road, [address] [place], [place] [id number] Social History Tobacco Use Types Packs/Day Years Used Date Former Smoker Smokeless Tobacco: Never Used Alcohol Use Standard Drinks/Week Comments No 0 (1 standard drink = 0.6 oz pure alcoho l) Sex Assigned at Date Recorded Female 12/21/2020 8:52 AM CDT documented as of this encounter Last Filed Vital Signs Vital Sign Reading Time Taken Comments Blood Pressure 100/64 11/12/2017 9:05 AM CDT Pulse 84 11/12/2017 9:05 AM CDT Temperature 36.4 ??C (97.6 ??F) 11/12/2017 9:05 AM CDT Respiratory Rate 16 11/12/2017 9:05 AM CDT Oxygen Saturation 100% 11/12/2017 9:05 AM CDT Inhaled Oxygen Concentration - - Weight 72.6 kg (160 lb) 11/12/2017 9:05 AM CDT Height 167.6 cm (5' 6) 11/12/2017 9:05 AM CDT Body Mass Index 25.82 11/12/2017 9:05 AM CDT documented in this encounter Progress Notes Thad Mckeon PA-C - 11/12/2017 9:00 AM CDT SUBJECTIVE: Ruthie Nieto is a 22 year old female who presents to clinic today for the following health issues: History of Present Illness Diet: Gluten-free/reduced Frequency of exercise: 2-3 days/week Duration of exercise: 30-45 minutes Taking medications regularly: Yes Medication side effects: None Additional concerns today: No Medication Followup of Ritalin ?? Taking Medication as prescribed: yes ?? Side Effects: Irritable if taken every day for like a week ?? Medication Helping Symptoms: yes Last visit for ADHD was in July. Ruthie is here to refill her Ritalin. No concerns over this today. She feels the dosing is still fine. 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 Additional concerns today is that she found a bump that may be a skin tag on her right upper thighand one on her left side of her vagina. She is still having concerns over the sexual encounter from last year and wants this to be checked today. Would like STD screening today as well. HPV questions. Herpes testing and future HIV testing again. She currently has a steady boyfriend. Gonorrhea and Chlamydia testing again today, no vaginal discharge symptoms today. Problem list and histories reviewed & adjusted, as indicated. Additional history: as documented ROS: Constitutional, HEENT, cardiovascular, pulmonary, gi and gu systems are negative, except as otherwise noted. OBJECTIVE: BP 100/64 (BP Location: Right arm, Patient Position: Sitting, Cuff Size: Adult Regular) Pulse 84 Temp 97.6 ??F (36.4 ??C) (Oral) Resp 16 Ht 5' 6 (1.676 m) Wt 160 lb (72.6 kg) SpO2 100% BMI 25.82 kg/m2 Body mass index is 25.82 kg/(m^2). GENERAL: healthy, alert and no distress (female): normal female external genitalia, normal urethral meatus, vaginal mucosa, no discharge MS: no gross musculoskeletal defects noted, no edema SKIN: macule - right upper, inner thigh- 2mm, flat, flesh colored PSYCH: mentation appears normal, affect normal/bright and anxious Diagnostic Test Results: pending ASSESSMENT/PLAN: 1. Screen for STD (sexually transmitted disease) Discussed that testing for HPV goes along usually with her PAP and that she is not due for that until 2019. I eased her concerns over this and she is willing to wait until then for screening. She was worried about the flat lesion on her thigh possibly being a wart so we treated it with liquid nitrogentoday x 3. Discussed other STD screening as well today. She is currently in a monogamous relationship and just having ongoing concerns regarding the encounter from last year. - Neisseria gonorrhoeae PCR - Chlamydia trachomatis PCR - Herpes Simplex Virus 1 and 2 IgG 2. Attention deficit hyperactivity disorder (ADHD), predominantly inattentive type Refilled today. - methylphenidate (RITALIN LA) 20 MG CP24; Take 20 mg by mouth daily Dispense: 30 capsule; Refill: 0 - methylphenidate (RITALIN LA) 20 MG CP24; Take 20 mg by mouth daily Dispense: 30 capsule; Refill: 0 - methylphenidate (RITALIN LA) 20 MG CP24; Take 20 mg by mouth daily Dispense: 30 capsule; Refill: 0 3. History of cold sores Refilled. - valACYclovir (VALTREX) 1000 mg tablet; Take 2 tablets (2,000 mg) by mouth 2 times daily For 1 day Dispense: 4 tablet; Refill: 5 4. Encounter for immunization Second injection given today. HPV again discussed. - HUMAN PAPILLOMA VIRUS (GARDASIL 9) [facility]ACCINE [facility] documented in this encounter Nursing Notes Isa Saab MA - 11/12/2017 9:00 AM CDT Prior to injection verified patient identity using patient's name and date of . Due to injection administration, patient instructed to remain in clinic for 15 minutes afterwards, and to report any adverse reaction to me immediately. Screening Questionnaire for Adult Immunization Are you sick today? No Do you have allergies to medications, food, a vaccine component or latex? No Have you ever had a serious reaction after receiving a vaccination? No Do you have a long-term health problem with heart disease, lung disease, asthma, kidney disease, metabolic disease (e.g. diabetes), anemia, or other blood disorder? No Do you have cancer, leukemia, HIV/AIDS, or any other immune system problem? No In the past 3 months, have you taken medications that affect your immune system, such as prednisone,other steroids, or anticancer drugs; drugs for the treatment of rheumatoid arthritis, Crohn???s disease, or psoriasis; or have you had radiation treatments? No Have you had a seizure, or a brain or other nervous system problem? No During the past year, have you received a transfusion of blood or blood products, or been given immune (gamma) globulin or antiviral drug? No For women: Are you or is there a chance you could become during the next month? No Have you received any vaccinations in the past 4 weeks? No Immunization questionnaire answers were all negative. Per orders of JARRET Tillman, injection of HPV given by Isa Saab. Patient instructed to remain in clinic for 15 minutes afterwards, and to report any adverse reaction to me immediately. Screening performed by Isa Saab on 11/12/2017 at 11:20 AM. documented in this encounter Plan of Treatment Upcoming Encounters Date Type Specialty Care Team Description 05/08/2022 Office Visit Family [facility] Kyle Hidalgo PA-C [address] [address] [place], [place] [address] (Wo rk) 05/08/2022 Lab Lab documented as of this encounter Procedures Procedure Name Priority Date/Time Associated Diagnosis Comme nts HC DESTRUCT BENIGN Routine 11/12/2017 1:32 PM Screen for STD LESION, UP TO 14 CDT (sexually transmitted disease) NEISSERIA Routine 11/12/2017 9:59 AM Screen for STD Results for this GONORRHOEAE PCR CDT (sexually procedure ar e in transmitted disease) the res ults section. CHLAMYDIA Routine 11/12/2017 9:59 AM Screen for STD Results for this TRACHOMATIS PCR CDT (sexually procedure ar e in transmitted disease) the res ults section. HERPES SIMPLEX VIRUS Routine 11/12/2017 9:44 AM Screen for STD Results for this TYPE 1 AND 2 IGG CDT (sexually procedure a re in transmitted disease) the res ults section. documented in this encounter Results Chlamydia trachomatis PCR (11/12/2017 9:59 AM CDT) Patholo gist Method Time Signature Specimen Vagina 11/12/2017 [facility] Description 10:01 AM CDT [facility] Chlamydia Negative NEG^Negat 11/13/2017 [facility] Trachomatis PCR pepper 1:52 PM CDT [facility] Comment: Negative for C. trachomatis rRNA by colin scription mediated amplification. A negative result by office machine embossograph operator media susana amplification does not preclude the presence of C. trachomatis infection because results are dependent on proper and adequate collection, absence of inhibitors, and sufficient rRNA to be detected. Specimen Anatomical Collection Method Collection Time Receive d Time (Source) Location / / Volume Laterality Specimen from 11/12/2017 9:59 AM 11/13/19 18 vagina CDT 10:00 AM CDT (specimen) Thad Mckeon PA-C LAB - MICRO GENERAL ORDERABL ES Performing Organization Address City/State/ZIP Code Phon e Number [id number] [place] [id number] [place] [address] Neisseria gonorrhoeae PCR (11/12/2017 9:59 AM CDT) Analysis Performed At Patho logist Time Signature Specimen Vagina 11/12/2017 [facility] Descrip 10:01 AM CDT [facility] N Gonorrhea Negative NEG^Negati 11/13/2017 [facility] PCR ve 1:52 PM CDT [facility] Comment: Negative for N. gonorrhoeae rRNA by oclin scription mediated amplification. A negative result by office machine embossograph operator media susana amplification does not preclude the presence of N. gonorrhoeae infection because results are dependent on proper and adequate collection, absence of inhibitors, and sufficient rRNA to be detected. Specimen Anatomical Collection Method Collection Time Receive d Time (Source) Location / / Volume Laterality Specimen from 11/12/2017 9:59 AM 11/13/19 18 vagina CDT 10:00 AM CDT (specimen) Thad Mckeon PA-C LAB - MICRO GENERAL ORDERABL ES Performing Organization Address City/[facility]/ZIP Code Phon e Number [address] [id number] (ABNORMAL) Herpes Simplex Virus 1 and 2 IgG (11/12/2017 9:44 AM CDT) Analysis Performed At Patho logist Time Signature Herpes Simplex >8.0 (H) 0.0 - 0.8 11/13/2017 [facility] Virus Type 1 AI 10:40 AM CDT [facility] Comment: Positive. ??IgG antibody to HSV-1 detect ed. Antibody index (AI) values reflect quali tative changes in antibody concentration that cannot be directly as sociated with clinical condition or disease state. Herpes Simplex <0.2 0.0 - 0.8 AI 11/13/2017 10:40 AM [facility] MD Virus Type 2 IgG CDT [facility] Comment: No HSV-2 IgG antibodies detected. Antibody index (AI) values reflect quali tative changes in antibody concentration that cannot be directly as sociated with clinical condition or disease state. Specimen Anatomical Collection Method Collection Time Receive d Time (Source) Location / / Volume Laterality Blood specimen 11/12/2017 9:44 AM 018 9:46 (specimen) CDT AM CDT Thad Mckeon PA-C LAB - BLOOD ORDERABLES Performing Organization Address City/[facility]/ZIP Code Phon e Number [address] documented in this encounter Visit Diagnoses Diagnosis Screen for STD (sexually transmitted dis ease) - Primary Screening examination for venereal disea se Attention deficit hyperactivity disorder (ADHD), predominantly inattentive type History of cold sores Personal history of other infectious and parasitic disease Encounter for immunization Need for other specified prophylactic va ccination against single bacterial disease documented in this encounter Additional Health Concerns Assessment Noted Time PHQ-9 Depression Total Score: 3 04/15/2017 10:35 AM CD T documented as of this encounter Care Teams Director Treasurer Relationship Specialty Start Date End Date Thad Mckeon, PCP - General Physician Children'S Tutor Nursery - 02/17/14 AD Medical Thad Mckeon, PCP - Assigned PCP 12/16/13 09/07/18 [place] [id number] [address] [id number] Thad Mckeon, Assigned PCP 12/16/13 [place] [id number] [address] [id number] documented as of this encounter
--- OUTSIDE RECORDS SUMMARY | 2022-04-02 23:52 | XMS_ITS | Encounter Summary ---
:1995 Author Organization [place] Address [address] [place] [address]. [place] [address] Care Team Providers Name Role Phone Thad Mckeon PA-C Primary Care Provider [phone] Thad Mckeon PA-C Unavailable [phone] Encounter Details Date Type Department Care Team Description 09/13/2018 [facility] Thad Mckeon [place]-C [address] [facility], [address] [place] [address] [address] [place] [address] [place] [address] [phone] Social History Tobacco Use Types Packs/Day Years Used Date Former Smoker Smokeless Tobacco: Never Used Alcohol Use Standard Drinks/Week Comments No 0 (1 standard drink = 0.6 oz pure alcoho l) Sex Assigned at Date Recorded Female 12/21/2020 8:52 AM CDT documented as of this encounter Miscellaneous Notes Telephone Encounter - Elisabeth Olmstead RN - 09/13/2018 1:31 PM CDT Patient wanting to know the plan of care for the UA that was taken this morning. Anxious during call. Wants to know if she has a bladder infection or a yeast infection as soon as possible. Elisabeth Olmstead RN Flex documented in this encounter Plan of Treatment Upcoming Encounters Date Type Specialty Care Team Description 05/08/2022 Office Visit Family [facility] Kyle Hidalgo PA-C [address] [address] [phone] (Wo rk) 05/08/2022 Lab Lab documented as of this encounter Visit Diagnoses Not on filedocumented in this encounter Additional Health Concerns Assessment Noted Time PHQ-9 Depression Total Score: 3 04/15/2017 10:35 AM CD T documented as of this encounter Care Teams Cotton Jammer Relationship Specialty Start Date End Date Thad Mckeon, PCP - General Physician Set Illustrator - 02/17/14 AD Medical Thad Mckeon, Assigned PCP 12/16/13 [place] [id number] [address] [id number] documented as of this encounter
--- OUTSIDE RECORDS SUMMARY | 2022-04-02 23:52 | XMS_ITS | Encounter Summary ---
:1995 Author Organization [place] Address [address] [place] [address]. [place] [address] Care Team Providers Name Role Phone Thad Mckeon PA-C Primary Care Provider [phone] Thad Mckeon PA-C Unavailable [phone] Reason for Visit Reason Onset Date Comments Refill Request 09/09/2018 valACYclovir (VALTRE X) 1000 mg tablet Encounter Details Date Type Department Care Team Description 09/09/2018 Refill [facility] Thad Mckeon Refill Request Clinic [place] AD [place] (valACYclovir (VALTREX) [facility], [address] [place] [address] 1000 mg tablet) [address] [place] [address] [place], [place] [phone] (Wo rk) [address] [phone] Social History Tobacco Use Types Packs/Day Years Used Date Former Smoker Smokeless Tobacco: Never Used Alcohol Use Standard Drinks/Week Comments No 0 (1 standard drink = 0.6 oz pure alcoho l) Sex Assigned at Date Recorded Female 12/21/2020 8:52 AM CDT documented as of this encounter Miscellaneous Notes Telephone Encounter - Sylvia Howell RN - 09/10/2018 10:21 AM CST Routing refill request to provider for review/approval because: Labs not current: No creatinine on file. Sylvia Howell RN PTIONIST SECRETARY Telephone Encounter - Joe Good - 09/10/2018 8:50 AM CST Requested Prescriptions Pending Prescriptions Disp Refills ??? valACYclovir (VALTREX) 1000 mg tablet [Pharmacy Med Name: VALACYCLOVIR HCL 1 GRAM TABLET] 4 tablet 3 Last Written Prescription Date: 07/29/2018 Last Fill Quantity: 4 tablet, # refills: 4 Last office visit: 08/12/2018 with prescribing provider: 08/12/2018 Future Office Visit: ' Sig: TAKE 2 TABLETS (2,000 MG) BY MOUTH 2 TIMES DAILY FOR 1 DAY Antivirals for Herpes Protocol Failed - 09/09/2018 4:30 PM Failed - Normal serum creatinine on file in past 12 months No lab results found. Passed - Patient is age 12 or older Passed - Recent (12 mo) or future (30 days) visit within the authorizing provider's specialty Patient had office visit in the last 12 months or has a visit in the next 30 days with authorizing provider or within the authorizing provider's specialty. See Patient Info tab in inbasket, or Choose Columns in Meds & Orders section of the refill encounter. Passed - Medication is active on med list Good Diaz XRT PTIONIST SECRETARY documented in this encounter Plan of Treatment Upcoming Encounters Date Type Specialty Care Team Description 05/08/2022 Office Visit Family [facility] Kyle Hidalgo PA-C [address] [address] [place], [place] [address] (Wo rk) 05/08/2022 Lab Lab documented as of this encounter Visit Diagnoses Diagnosis History of cold sores Personal history of other infectious and parasitic disease documented in this encounter Additional Health Concerns Assessment Noted Time PHQ-9 Depression Total Score: 3 04/15/2017 10:35 AM CD T documented as of this encounter Care Teams Seo Executive Relationship Specialty Start Date End Date Thad Mckeon, PCP - General Physician Heel Room Supervisor - 02/17/14 AD Medical Thad Mckeon, Assigned PCP 12/16/13 [place] [address] [place] [address] documented as of this encounter
--- OUTSIDE RECORDS SUMMARY | 2022-04-02 23:52 | XMS_ITS | Encounter Summary ---
:1995 Author Organization [place] Address [address] [place] [address] Care Team Providers Name Role Phone Thad Mckeon PA-C Primary Care Provider [phone] Thad Mckeon PA-C Unavailable [phone] Thad Mckeon PA-C Unavailable [phone] Reason for Visit Reason Onset Date Comments Medication Request 01/12/2018 Encounter Details Date Type Department Care Team Description 01/12/2018 Telephone [facility] Thad Mckeon Medication Request [place] [address] [facility], [address] [place] [address] [address] [place] [address] [place], [place] [phone] (Wo rk) [address] [phone] Social History Tobacco Use Types Packs/Day Years Used Date Former Smoker Smokeless Tobacco: Never Used Alcohol Use Standard Drinks/Week Comments No 0 (1 standard drink = 0.6 oz pure alcoho l) Sex Assigned at Date Recorded Female 12/21/2020 8:52 AM CDT documented as of this encounter Miscellaneous Notes Telephone Encounter - Lizz Canada RN - 01/12/2018 10:49 AM CDT PCP: The Pt called in to report that she accidently threw away both her Ritalin prescriptions from 12/13/17 and 01/13/18. I checked the [place] [employer] and the last fill of Ritalin was on 10/07/17. The Pt reports she takes the medication on an as needed basis and is now starting school back up. Advised the Pt that the provider can decide whether or not to fill the medications again at their discretion. Advised the Pt controlled substances need to be responsibility handed, including the paper script itself. Please advise. Lizz Canada, YNES -- [facility] documented in this encounter Plan of Treatment Upcoming Encounters Date Type Specialty Care Team Description 05/08/2022 Office Visit Family Practice Kyle Hidalgo PA-C [address] [address] [phone] (Wo rk) 05/08/2022 Lab Lab documented as of this encounter Visit Diagnoses Not on filedocumented in this encounter Additional Health Concerns Assessment Noted Time PHQ-9 Depression Total Score: 3 04/15/2017 10:35 AM CD T documented as of this encounter Care Teams Shake Cutter Relationship Specialty Start Date End Date Thad Mckeon, PCP - General Physician Oracle Adf Developer - 02/17/14 PA-C Medical Thad Mckeon, PCP - Assigned PCP 12/16/13 09/07/18 PA-C [address] [address] [id number] Thad Mckeon, Assigned PCP 12/16/13 PA-C [address] [address] [id number] documented as of this encounter
--- OUTSIDE RECORDS SUMMARY | 2022-04-02 23:52 | XMS_ITS | Encounter Summary ---
:1995 Author Organization [place] Address [address] [place] [address]. [place] [address] Care Team Providers Name Role Phone Thad Mckeon PA-C Primary Care Provider [phone] Thad Mckeon PA-C Unavailable [phone] Thad Mckeon PA-C Unavailable [phone] Reason for Visit Reason Onset Date Comments Pain 12/04/2017 Encounter Details Date Type Department Care Team Description 12/04/2017 Telephone [facility] [place] [address] [facility], [address] [place] [address] [address] [place] [address] [place] [address] [phone] Social History Tobacco Use Types Packs/Day Years Used Date Former Smoker Smokeless Tobacco: Never Used Alcohol Use Standard Drinks/Week Comments No 0 (1 standard drink = 0.6 oz pure alcoho l) Sex Assigned at Date Recorded Female 12/21/2020 8:52 AM CDT documented as of this encounter Miscellaneous Notes Telephone Encounter - Jessi Hendricks RN - 12/08/2017 11:19 AM CDT This has been done by PCP Jessi Hendricks RN Telephone Encounter - Jessi Hendricks RN - 12/04/2017 2:08 PM CDT Pt calling to check on STD labs- Loader Operator/Ground Leader did inform her of results. She is asking for pain med for dental pain- She states she had teeth pulled last week and was fittedfor bridge. My mouth just hurst so bad She states [facility] is closed today. She has tried OTC pain relievers they do not work Advised [facility] should have some one vocational examiner that she can discuss pain with and they should be able to give her RX if appropriate. She said the message just said go to the emergency room if you have a dental emergency Pt then hung up the phone I am at work I have to go RX monitoring program ([place]) reviewed: MEDICAL FIELD REPRESENTATIVE reviewed- no concerns Jessi Hendricks RN [employer] profile: [email or web address] documented in this encounter Plan of Treatment Upcoming Encounters Date Type Specialty Care Team Description 05/08/2022 Office Visit Family Practice Kyle Hidalgo PA-C [address] [address] [phone] (Wo rk) 05/08/2022 Lab Lab documented as of this encounter Visit Diagnoses Not on filedocumented in this encounter Additional Health Concerns Assessment Noted Time PHQ-9 Depression Total Score: 3 04/15/2017 10:35 AM CD T documented as of this encounter Care Teams Manufacturing Planner Relationship Specialty Start Date End Date Thad Mckeon, PCP - General Physician Drawing In Machine Tender - 02/17/14 AD Medical Thad Mckeon, PCP - Assigned PCP 12/16/13 09/07/18 [place] [address] [address] [id number] Thad Mckeon, Assigned PCP 12/16/13 [place] [address] [place] [address] documented as of this encounter
--- OUTSIDE RECORDS SUMMARY | 2022-04-02 23:52 | XMS_ITS | Encounter Summary ---
:1995 Author Organization [facility] Address [facility] [place] [address] Care Team Providers Name Role Phone Thad Mckeon PA-C Primary Care Provider [phone] Thad Mckeon PA-C Unavailable [phone] Reason for Visit Reason Comments Breast Problem Encounter Details Date Type Department Care Team Description 02/20/2021 Office Visit [facility] Thad Mckeon ous cyst (Primary Dx); Clinic Arcadiaginger Persaud PA-C Insect stings, undetermined intent, subs equent encounter; [address] [address] [address] Cellulitis of right lower extremity; [place] Hair loss [id number] [phone] Social History Tobacco Use Types Packs/Day Years [...] / COVID-19? documented as of this encounter Last Filed [...] Mass Index 31.24 02/20/2021 10:38 AM CDT documented in this encounter Patient Instructions Patient InstructionsPeThad zepeda PA-C - 02/20/2021 10:45 AM CDT Images from the original note were not included. Patient Education Epidermoid Cyst, No Infection An epidermoid cyst is a small abnormal growth in the top layers of the skin. It's filled with keratin, the same proteins that make up your hair and nails. An epidermoid cyst may incorrectly be called asebaceous cyst. Some general facts about epidermoid cysts: ?? An epidermoid cyst is a sac filled with material from skin secretions. It can grow anywhere on the body. But it's most often found on the face, behind the ears, and on the chest or upper back. It often has an open, enlarged pore in the middle of it. ?? The material in the cyst is often cheesy, fatty, or oily. The material can be thick (like cottagecheese) or liquid. ?? The area around the cyst may smell bad. If the cyst breaks open, the material inside it often smells bad too. ?? The cyst is usually firm and you can usually move it slightly if you try. ?? The cyst can be smaller than a pea or as large as a few inches. ?? It's usually not painful, unless it becomes inflamed or infected. Causes Epidermoid cysts are caused when skin (epidermal) cells move under the skin surface, or are covered over by it. These cells continue to multiply, like skin does normally. They then form a wall around themselves (cyst) and secrete normal skin material (keratin). In most cases, epidermoid cysts occur for no known reason. They may also occur because of an injury to the skin or from acne ?? Symptoms Symptoms of an epidermoid cyst include: ?? Feeling a lump just beneath the skin ?? It may or may not be painful ?? The cyst may or may not smell bad ?? The cyst may become inflamed or red ?? The cyst may leak fluid or thick material Home care Epidermoid cysts often go away without any treatment. If your cyst doesn???t go away, and it bothersyou, it may be drained or removed. If the cyst drains on its own, it may return. Resist the temptation to squeeze, pop, stick a needle in it, or cut it open. This often leads to an infection and scarring. If it gets severely inflamed or infected, seek medical care. Be sure to clean the cyst area when bathing or showering. Watch for the signs of infection listed below. Follow-up care Follow up with your healthcare provider, or as advised. When to seek medical advice Call your healthcare provider right away if any of these occur: ?? Swelling, redness, or pain ?? Pus coming from the cyst ?? Fever [employer] last reviewed this educational content on 01/03/2019 ?? [id number] [employer]. All rights reserved. This information is not intended as a substitute for professional medical care. Always follow your healthcare professional's instructions. documented in this encounter Progress Notes Thad Mckeon PA-C - 02/20/2021 10:45 AM CDT Assessment & Plan Sebaceous cyst Discussed this today. Hand out given on AVS. This is most likely benign and not of significant concern- if it becomes larger, painful or signs of infection she will let me know. Insect stings, undetermined intent, subsequent encounter - cephALEXin (KEFLEX) 500 MG capsule; Take 1 capsule (500 mg) by mouth 3 times daily for 10 days Cellulitis of right lower extremity I do think we should try an abx at this point. It may be just allergic/inflammation still but will have her start Keflex- follow up if not improving. - cephALEXin (KEFLEX) 500 MG capsule; Take 1 capsule (500 mg) by mouth 3 times daily for 10 days Hair loss Check labs. Likely due to recent . - CBC with platelets; Future - TSH with free T4 reflex; Future - CBC with platelets - TSH with free T4 reflex BMI: Estimated body mass index is 31.24 kg/m?? as calculated from the following: Height as of this encounter: 1.645 m (5' 4.75). Weight as of this encounter: 84.5 kg (186 lb 4.8 oz). Weight management plan: Discussed healthy diet and exercise guidelines Return in about 1 week (around 2021) for if symptoms worsen or fail to improve. Thad Mckeon PA-C [facility] [place] Hendricks is a 25 year old who presents for the following health issues HPI Concern - lump under right armpit Onset: about 1 month ago Description: Intensity: moderate, 6/10 Progression of Symptoms: same Accompanying Signs & Symptoms: hair loss Previous history of similar problem: no Precipitating factors: Worsened by: nothing Alleviating factors: Improved by: nothing Therapies tried and outcome: warm compress-did not help with the symptoms. She has had concerns about this before. It has not necessarily changed. Sometimes painful but not bothering her too much. Just has concerns about what it could be. Hair loss- childbirth 9 months ago and now clumps of hair loss. Insect bite- was stung by a wasp on 02/15/21. Treated in the ED and given prednisone but she was unable to tolerate this. It is spreading more. Pain and itching have been improving. Review of Systems Constitutional, HEENT, cardiovascular, pulmonary, gi and gu systems are negative, except as otherwise noted. Objective BP 92/60 (BP Location: Right arm, Patient Position: Sitting, Cuff Size: Adult Large) Pulse 80 Temp 98 ??F (36.7 ??C) (Oral) Resp 16 Ht 1.645 m (5' 4.75) Wt 84.5 kg (186 lb 4.8 oz) LMP (LMPUnknown) SpO2 98% No BMI 31.24 kg/m?? Body mass index is 31.24 kg/m??. Physical Exam GENERAL: healthy, alert and no distress BREAST: axillary findings: - small smooth, mobile cyst present in right axilla. MS: no gross musculoskeletal defects noted, no edema SKIN: insect bite visible on right thigh above the knee. Slight warmth noted, non tender. The area has grown to approx 10 cm in size. PSYCH: mentation appears normal, affect normal/bright LYMPH: no cervical, supraclavicular, axillary, or inguinal adenopathy Results for orders placed or performed in visit on 02/20/21 (from the past 24 hour(s)) CBC with platelets Result Value Ref Range WBC Count 8.7 4.0 - 11.0 10e3/uL RBC Count 4.92 3.80 - 5.20 10e6/uL Hemoglobin 14.5 11.7 - 15.7 g/dL Hematocrit 43.2 35.0 - 47.0 % MCV 88 78 - 100 fL MCH 29.5 26.5 - 33.0 pg MCHC 33.6 31.5 - 36.5 g/dL RDW 13.2 10.0 - 15.0 % Platelet Count 303 150 - 450 10e3/uL documented in this encounter Nursing Notes Michelle Perrin CMA - 02/20/2021 10:45 AM CDT Chief Complaint Patient presents with ??? Breast Problem Initial BP 92/60 (BP Location: Right arm, Patient Position: Sitting, Cuff Size: Adult Large) Pulse80 Temp 98 ??F (36.7 ??C) (Oral) Resp 16 Ht 1.645 m (5' 4.75) Wt 84.5 kg (186 lb 4.8 oz) LMP (LMP Unknown) SpO2 98% No BMI 31.24 kg/m?? Estimated body mass index is 31.24kg/m?? as calculated from the following: Height as of this encounter: 1.645 m (5' 4.75). Weight as of this encounter: 84.5 kg (186 lb 4.8 oz). BP completed using cuff size large right arm Michelle Perrin CMA documented in this encounter Plan of Treatment Upcoming Encounters Date Type Specialty Care Team Description 05/08/2022 Office Visit Family Practice Kyle Hidalgo PA-C [address] [place] [place] [address] (Wo rk) 05/08/2022 Lab Lab documented as of this encounter Procedures Procedure Name Priority Date/Time Associated Diagnosis Comme nts TSH WITH FREE T4 Routine 02/20/2021 11:07 AM Hair loss Resu lts for this REFLEX CDT procedure are i n the results section. CBC WITH PLATELETS Routine 02/20/2021 11:07 AM Hair loss Re sults for this CDT procedure are i n the results section. documented in this encounter Results TSH with free T4 reflex (02/20/2021 11:07 AM CDT) P athologist Signature TSH 0.88 0.40 - 4.00 02/21/2021 [facility] mU/L 11:30 AM CDT Specimen Anatomical Collection Method / Collection Time Recei quinten Time (Source) Location / Volume Laterality Blood STRUCTURE OF RIGHT Venipuncture / 02/20/2021 11:07 HAND / Unknown Unknown AM CDT 11:07 AM CDT Thad Mckeon PA-C LAB - BLOOD ORDERABLES Performing Organization Address City/State/ZIP Code Phon e Number OX LABORATORY [place], [place] [phone] [facility] [id number] [place] [address] Lab (no room number, 1st floor of clinic) OX LAB[facility]ATORY [place], [place] [phone] [facility] [phone], [facility] [address] Lab (no room number, 1st floor of clinic) CBC with platelets (02/20/2021 11:07 AM CDT) P athologist Signature WBC Count 8.7 4.0 - 11.0 02/20/2021 LABORATORY 10e3/uL 11:45 AM CDT RBC Count 4.92 3.80 - 02/20/2021 LABORATORY 5.20 11:45 AM CDT 10e6/uL Hemoglobin 14.5 11.7 - 02/20/2021 LABORATORY 15.7 g/dL 11:45 AM CDT Hematocrit 43.2 35.0 - 02/20/2021 LABORATORY 47.0 % 11:45 AM CDT MCV 88 78 - 100 02/20/2021 LABORATORY fL 11:45 AM CDT MCH 29.5 26.5 - 02/20/2021 LABORATORY 33.0 pg 11:45 AM CDT MCHC 33.6 31.5 - 02/20/2021 LABORATORY 36.5 g/dL 11:45 AM CDT RDW 13.2 10.0 - 02/20/2021 LABORATORY 15.0 % 11:45 AM CDT Platelet Count 303 150 - 450 02/20/2021 LABORATORY 10e3/uL 11:45 AM CDT Specimen Anatomical Collection Method / Collection Time Recei quinten Time (Source) Location / Volume Laterality Blood STRUCTURE OF RIGHT Venipuncture / 02/20/2021 11:07 UPPER LIMB / Unknown AM CDT 11:07 AM CDT Unknown Thad Mckeon PA-C LAB - BLOOD ORDERABLES Performing Organization Address City/State/ZIP Code Phon e Number LABORATORY [facility] [place] [address] Lab [address] [facility] Lab (no room number, 1st floor of clinic) LABORATORY [facility] [place] [address], Clinic [facility] [place] Lab [facility] [address] [facility] Lab (no room number, 1st floor of clinic) documented in this encounter Visit Diagnoses Diagnosis Sebaceous cyst - Primary Insect stings, undetermined intent, subs equent encounter Cellulitis of right lower extremity Cellulitis and abscess of leg, except fo ot Hair loss Alopecia, unspecified documented in this encounter Additional Health Concerns Assessment Noted Time PHQ-9 Depression Total Score: 7 01/15/2021 7:02 AM CDT documented as of this encounter Care Teams Coding Coordinator Relationship Specialty Start Date End Date Thad Mckeon, PCP - General Physician Special Education Kindergarten Teacher - 02/17/14 AD Medical Thad Mckeon, Assigned PCP 12/23/20 [place] [address] [place] [address] documented as of this encounter
--- OUTSIDE RECORDS SUMMARY | 2022-04-02 23:52 | XMS_ITS | Encounter Summary ---
:1995 Author Organization [facility] Address [address] [place] [address] Care Team Providers Name Role Phone Thad Mckeon PA-C Primary Care Provider [phone] Thad Mckeon PA-C Unavailable [phone] Thad Mckeon PA-C Unavailable [phone] Reason for Visit Reason Comments Derm Problem Refill Request Encounter Details Date Type Department Care Team Description 08/12/2018 Office Visit [facility] Jeyson Lopez (Primary Dx); Clinic Lynne Paez MD Attention deficit hyperactivity disorder (ADHD), predominantly inattentive type; [place] [address] [facility] [address] [place] [phone] Social History Tobacco Use Types Packs/Day Years Used Date Former Smoker Smokeless Tobacco: Never Used Alcohol Use Standard Drinks/Week Comments No 0 (1 standard drink = 0.6 oz pure alcoho l) Sex Assigned at Date Recorded Female 12/21/2020 8:52 AM CDT documented as of this encounter Last Filed Vital Signs Vital Sign Reading Time Taken Comments Blood Pressure 106/54 08/12/2018 10:52 AM SENIOR NET APPLICATION DEVELOPER Pulse 104 08/12/2018 10:52 AM SENIOR NET APPLICATION DEVELOPER Temperature 36.5 ??C (97.7 ??F) 08/12/2018 10:52 AM SENIOR NET APPLICATION DEVELOPER Respiratory Rate 16 08/12/2018 10:52 AM SENIOR NET APPLICATION DEVELOPER Oxygen Saturation - - Inhaled Oxygen Concentration - - Weight 71.3 kg (157 lb 1.6 oz) 08/12/2018 10:52 AM SENIOR NET APPLICATION DEVELOPER Height 167.6 cm (5' 6) 08/12/2018 10:52 AM SENIOR NET APPLICATION DEVELOPER Body Mass Index 25.36 08/12/2018 10:52 AM SENIOR NET APPLICATION DEVELOPER documented in this encounter Progress Notes Jeyson Lopze MD - 08/12/2018 10:40 AM CST Images from the original note were not included. HPI SUBJECTIVE: Ruthie Nieto is a 23 year old female who presents to clinic today for the following health issues: Rash ?? Duration: 3 days ?? Description Location: under bottom lip Itching: mild ?? Intensity: mild ?? Accompanying signs and symptoms: redness and crusty ?? History (similar episodes/previous evaluation): YES-similar episodes ?? Precipitating or alleviating factors: New exposures: None Recent travel: no ?? Therapies tried and outcome: patient requesting a oral pill Persistent crusting sore on chin. No injury, just seemed to start on it's own. Otherwise feeling well, no flu or URI sx. Does get cold sores, this is very different. Is concerned about potential spread. Also wondering about grabbing next round of Ritalin. 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 Uses med for school, work, will not necessarily use when off of work or school. Review of Systems Constitutional: Negative for fever and malaise/fatigue. HENT: Negative for congestion and sore throat. Respiratory: Negative for cough. Skin: Positive for rash. Physical Exam Constitutional: No distress. HENT: Head: Right Ear: Tympanic membrane, external ear and ear canal normal. Left Ear: Tympanic membrane, external ear and ear canal normal. Mouth/Throat: Oropharynx is clear and moist. No oropharyngeal exudate. Eyes: Conjunctivae are normal. Cardiovascular: Normal rate, regular rhythm and normal heart sounds. Pulmonary/Chest: Effort normal and breath sounds normal. Lymphadenopathy: She has no cervical adenopathy. Skin: Skin is warm and dry. No rash noted. Nursing note and vitals reviewed. (L01.00) Impetigo (primary encounter diagnosis) Comment: printed Rx for oral provided, advised to try topical first, may fill oral in 3d if not resolving Plan: mupirocin (BACTROBAN) 2 % external ointment, cefdinir (OMNICEF) 300 MG capsule (F90.0) Attention deficit hyperactivity disorder (ADHD), predominantly inattentive type Comment: stable use, refill Plan: methylphenidate (RITALIN LA) 20 MG 24 hr capsule, methylphenidate (RITALIN LA) 20 MG 24 hr capsule, methylphenidate (RITALIN LA) 20 MG 24 hr capsule (Z23) Need for HPV vaccination Comment: Plan: HUMAN PAPILLOMAVIRUS VACCINE, ADMIN 1st VACCINE RTC in 6m Jeyson Lopez MD OR NET APPLICATION DEVELOPER documented in this encounter Nursing Notes Michelle Perrin CMA - 08/12/2018 10:40 AM CST Chief Complaint Patient presents with ??? Derm Problem ??? Refill Request Initial BP 106/54 (BP Location: Right arm, Patient Position: Sitting, Cuff Size: Adult Regular) Pulse 104 Temp 97.7 ??F (36.5 ??C) (Oral) Resp 16 Ht 1.676 m (5' 6) Wt 71.3 kg (157 lb 1.6 oz) LMP 07/19/2018 BMI 25.36 kg/m?? Estimated body mass index is 25.36 kg/m?? as calculated from thefollowing: Height as of this encounter: 1.676 m (5' 6). Weight as of this encounter: 71.3 kg (157 lb 1.6 oz). BP completed using cuff size regular right arm Michelle Perrin CMA OR NET APPLICATION DEVELOPER Isa Saab MA - 08/12/2018 10:40 AM CST Screening Questionnaire for Adult Immunization Are you [...] answers were all negative. Per orders of Dr. Lopez, injection of HPV given by Isa Saab. Patient instructed to remain in clinic for 15 minutes afterwards, and to report any adverse reaction to me immediately. Screening performed by Isa Saab on 08/12/2018 at 11:32 AM. OR NET APPLICATION DEVELOPER documented in this encounter Plan of Treatment Upcoming Encounters Date Type Specialty Care Team Description 05/08/2022 Office Visit [facility] Kyle Hidalgo PA-C [address] [facility] [place] [place] [address] (Wo rk) 05/08/2022 Lab Lab documented as of this encounter Visit Diagnoses Diagnosis Impetigo - Primary Attention deficit hyperactivity disorder (ADHD), predominantly inattentive type Need for HPV vaccination Need for prophylactic vaccination and in oculation against other viral diseases documented in this encounter Additional Health Concerns Assessment Noted Time PHQ-9 Depression Total Score: 3 04/15/2017 10:35 AM CD T documented as of this encounter Care Teams Client Account Representative Relationship Specialty Start Date End Date Thad Mckeon, PCP - General Physician Skinning Machine Feeder - 02/17/14 AD Medical Thad Mckeon, PCP - Assigned PCP 12/16/13 09/07/18 PA-C [address] [address] [address] Thad Mckeon, Assigned PCP 12/16/13 ZULEIKA-C [address] [place] [id number] documented as of this encounter
--- OUTSIDE RECORDS SUMMARY | 2022-04-02 23:52 | XMS_ITS | Encounter Summary ---
:1995 Author Organization [facility] Address [address] [place] [address] Care Team Providers Name Role Phone Thad Mckeon PA-C Primary Care Provider [phone] Thad Mckeon PA-C Unavailable [phone] Thad Mckeon PA-C Unavailable [phone] Encounter Details Date Type Department Care Team Description 07/07/2018 Office Visit [facility] Thad Mckeon GINA W (Primary Dx) Clinic [place] [address] [address] [facility], [address] [place] [address] [place], [place] [phone] (Wo rk) [address] [phone] Social History Tobacco Use Types Packs/Day Years Used Date Former Smoker Smokeless Tobacco: Never Used Alcohol Use Standard Drinks/Week Comments No 0 (1 standard drink = 0.6 oz pure alcoho l) Sex Assigned at Date Recorded Female 12/21/2020 8:52 AM CDT documented as of this encounter Progress Notes Thad Mckeon PA-C - 07/07/2018 9:40 AM CST Patient no-showed today's appointment; appointment was for physical. 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 documented in this encounter Plan of Treatment Upcoming Encounters Date Type Specialty Care Team Description 05/08/2022 Office Visit Family [facility] Kyle Hidalgo PA-C [address] [address] [place] [address] (Wo rk) 05/08/2022 Lab Lab documented as of this encounter Visit Diagnoses Diagnosis NO SHOW - Primary documented in this encounter Additional Health Concerns Assessment Noted Time PHQ-9 Depression Total Score: 3 04/15/2017 10:35 AM CD T documented as of this encounter Care Teams General Activities Therapist Relationship Specialty Start Date End Date Thad Mckeon, PCP - General Physician Body And Fender Worker - 02/17/14 AD Medical Thad Mckeon, PCP - Assigned PCP 12/16/13 09/07/18 AD [id number] [address] [id number] Thad Mckeon, Assigned PCP 12/16/13 [place] [address] [place] [place] [id number] documented as of this encounter
--- OUTSIDE RECORDS SUMMARY | 2022-04-02 23:52 | XMS_ITS | Encounter Summary ---
:1995 Author Organization [facility] Address [address] [place] [address]. [place] [address] Care Team Providers Name Role Phone Thad Mckeon PA-C Primary Care Provider [phone] Thad Mckeon PA-C Unavailable [phone] Thad Mckeon PA-C Unavailable [phone] Reason for Visit Reason Onset Date Comments Medication Refill 07/29/2018 valACYclovir (VALTRE X) 1000 mg tablet Encounter Details Date Type Department Care Team Description 07/29/2018 Refill [facility] Thad Mckeon ti Refill Clinic [place] Persaud (valACYclovir (VALTREX) [facility], [address] [place] [address] 1000 mg tablet) [address] [place] [address] [place], [place] [phone] (Wo rk) [address] [phone] Social History Tobacco Use Types Packs/Day Years Used Date Former Smoker Smokeless Tobacco: Never Used Alcohol Use Standard Drinks/Week Comments No 0 (1 standard drink = 0.6 oz pure alcoho l) Sex Assigned at Date Recorded Female 12/21/2020 8:52 AM CDT documented as of this encounter Miscellaneous Notes Telephone Encounter - Sylvia Howell RN - 07/29/2018 2:28 PM CST Routing refill request to provider for review/approval because: Labs not current: No current creatinine on file. Sylvia Howell RN QUALITY MANAGER Telephone Encounter - Diana Valerio - 07/29/2018 1:35 PM CST Images from the original note were not included. Requested Prescriptions Pending Prescriptions Disp Refills ??? valACYclovir (VALTREX) 1000 mg tablet [Pharmacy Med Name: VALACYCLOVIR HCL 1 GRAM TABLET] 4 tablet 4 Last Written Prescription Date: 11/12/17 Last Fill Quantity: 4, # refills: 5 Last Office Visit: 05/04/2018 Mike Return in about 3 months (around 08/04/2018) for Med Check. Future Office Visit: Sig: TAKE 2 TABLETS (2,000 MG) BY MOUTH 2 TIMES DAILY FOR 1 DAY Antivirals for Herpes Protocol Failed - 07/29/2018 12:41 PM Failed - Normal serum creatinine on [...] - Medication is active on med list QUALITY MANAGER documented in this encounter Plan of Treatment Upcoming Encounters Date Type Specialty Care Team Description 05/08/2022 Office Visit Family [facility] Kyle Hidalgo PA-C [address] [address] [place] [address] (Wo rk) 05/08/2022 Lab Lab documented as of this encounter Visit Diagnoses Diagnosis History of cold sores Personal history of other infectious and parasitic disease documented in this encounter Additional Health Concerns Assessment Noted Time PHQ-9 Depression Total Score: 3 04/15/2017 10:35 AM CD T documented as of this encounter Care Teams Applied Psychology Professor Relationship Specialty Start Date End Date Thad Mckeon, PCP - General Physician Tooling Mechanic - 02/17/14 AD Medical Thad Mckeon, PCP - Assigned PCP 12/16/13 09/07/18 [place] [address] [address] [id number] Thad Mckeon, Assigned PCP 12/16/13 [place] [address] [address] [id number] documented as of this encounter
--- OUTSIDE RECORDS SUMMARY | 2022-04-02 23:52 | XMS_ITS | Encounter Summary ---
:1995 Author Organization [facility] Address [facility] [place] [address] Care Team Providers Name Role Phone Thad Chaidez PA-C Primary Care Provider [phone] Thad Chaidez PA-C Unavailable [phone] Reason for Visit Reason Comments Fertility options Physical physical and pap Encounter Details Date Type Department Care Team Description 03/09/2019 [facility] at a [facility] care facility (Primary Dx); Clinic Lynne Persaud PA-C History of cold sores; [place] [address] [facility] Screening for cervical cancer [facility], [address] [place] [address] [place], [place] [phone] (Wo rk) [id number] [phone] Social History Tobacco Use Types Packs/Day Years [...] Sign Reading Time Taken Comments Blood Pressure 110/70 03/09/2019 1:20 PM CDT Pulse 100 03/09/2019 1:20 PM CDT Temperature 36.7 ??C (98.1 ??F) 03/09/2019 1:20 PM CDT Respiratory Rate 16 03/09/2019 1:20 PM CDT Oxygen Saturation - - Inhaled Oxygen Concentration - - Weight 74.1 kg (163 lb 6.4 oz) 03/09/2019 1:20 PM CDT Height - - Body Mass Index 26.37 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 See your health care provider every year in order to o Review health changes. o Discuss preventive care. o Review your medicines if your doctor has prescribed any. ??? You should be tested each year for STDs (sexually transmitted diseases). ??? Talk to your provider about how often you should have cholesterol testing. ??? Get a Pap test every three years. If you have an abnormal result, your doctor may have you test more often. ??? If you are at risk for diabetes, you should have a diabetes test (fasting glucose). Shots: ??? Get a flu shot each year. ??? Get a tetanus shot every 10 years. ??? Consider getting the shot (vaccine) that prevents cervical cancer (Gardasil). Nutrition: ??? Eat at least 5 servings of fruits and vegetables each day. ??? Eat whole-grain bread, whole-wheat pasta and brown rice instead of white grains and rice. ??? Get adequate Calcium and Vitamin D. Lifestyle ??? Exercise at least 150 minutes a week each week (30 minutes a day, 5 days a week). This will helpyou control your weight and prevent disease. ??? Limit alcohol to one drink per day. ??? No smoking. ??? Wear sunscreen to prevent skin cancer. ??? See your dentist every six months for an exam and cleaning. documented in this encounter Progress Notes Thad Chaidez PA-C - 03/09/2019 1:20 PM CDT SUBJECTIVE: CC: Ruthie Jensen is an 24 year old woman who presents for preventive health visit. Healthy Habits: ?? Do you get at least three servings of calcium containing foods daily (dairy, green leafy vegetables, etc.)? yes ?? Amount of exercise or daily activities, outside of work: 3 day(s) per week ?? Problems taking medications regularly No ?? Medication side effects: No ?? Have you had an eye exam in the past two years? no ?? Do you see a dentist twice per year? yes ?? Do you have sleep apnea, excessive snoring or daytime drowsiness?no FERTILITY OPTIONS: Not getting positives ever with the ovulation kits. Periods lately all clots not painful though. Every 30 days cycle. Has been actively trying to get with her boyfriend for 7 months. Today's PHQ-2 Score: PHQ-2 (??1998 Pfizer) 03/09/2019 11/12/2017 Q1: Little interest or pleasure in doing things 0 0 Q2: Feeling down, depressed or hopeless 0 0 PHQ-2 Score 0 0 Q1: Little interest or pleasure in doing things - Not at all Q2: Feeling down, depressed or hopeless - Not at all PHQ-2 Score - 0 Abuse: Current or Past(Physical, Sexual or Emotional)- NO Do you feel safe in your environment? YES Social History Tobacco Use ??? Smoking status: Former Smoker ??? Smokeless tobacco: Never Used Substance Use Topics ??? Alcohol use: Yes Alcohol/week: 0.0 oz Comment: very little If you drink alcohol do you typically have >3 drinks per day or >7 drinks per week? No Reviewed orders with patient. Reviewed health maintenance and updated orders accordingly - Yes Labs reviewed in EPIC Mammogram not appropriate for this patient based on age. Pertinent mammograms are reviewed under the imaging tab. History of abnormal Pap smear: NO - age 21-29 PAP every 3 years recommended PAP / HPV 08/20/2015 PAP NIL Reviewed and updated as needed this visit by clinical staff Tobacco Allergies Meds Problems Med Hx Surg Hx Fam Hx Soc Hx Reviewed and updated as needed this visit by Provider ROS: CONSTITUTIONAL: NEGATIVE for fever, chills, change in weight INTEGUMENTARU/SKIN: NEGATIVE for worrisome rashes, moles or lesions EYES: NEGATIVE for vision changes or irritation ENT: NEGATIVE for ear, mouth and throat problems RESP: NEGATIVE for significant cough or SOB BREAST: NEGATIVE for masses, tenderness or discharge CV: NEGATIVE for chest pain, palpitations or peripheral edema GI: NEGATIVE for nausea, abdominal pain, heartburn, or change in bowel habits : NEGATIVE for unusual urinary or vaginal symptoms. Periods are regular. MUSCULOSKELETAL: NEGATIVE for significant arthralgias or myalgia NEURO: NEGATIVE for weakness, dizziness or paresthesias PSYCHIATRIC: NEGATIVE for changes in mood or affect OBJECTIVE: BP 110/70 (BP Location: Right arm, Patient Position: Sitting, Cuff Size: Adult Regular) Pulse 100 Temp 98.1 ??F (36.7 ??C) (Oral) Resp 16 Wt 74.1 kg (163 lb 6.4 oz) LMP 02/21/2019 BMI 26.37kg/m?? EXAM: GENERAL: healthy, alert and no distress EYES: Eyes grossly normal to inspection, PERRL and conjunctivae and sclerae normal HENT: ear canals and TM's normal, nose and mouth without ulcers or lesions NECK: no adenopathy, no asymmetry, masses, or scars and thyroid normal to palpation RESP: lungs clear to auscultation - no rales, rhonchi or wheezes BREAST: normal without masses, tenderness or nipple discharge and no palpable axillary masses or adenopathy CV: regular rate and rhythm, normal S1 S2, no S3 or S4, no murmur, click or rub, no peripheral edemaand peripheral pulses strong ABDOMEN: soft, nontender, no hepatosplenomegaly, no masses and bowel sounds normal MS: no gross musculoskeletal defects noted, no edema SKIN: no suspicious lesions or rashes NEURO: Normal strength and tone, mentation intact and speech normal PSYCH: mentation appears normal, affect normal/bright Diagnostic Test Results: Labs reviewed in Epic ASSESSMENT/PLAN: 1. Routine general medical examination at a health care facility She is a very difficult blood draw, will pend labs for future right now. - Lipid panel reflex to direct LDL Fasting; Future - Comprehensive metabolic panel; Future - TSH with free T4 reflex; Future - CBC with platelets; Future - Vitamin D Deficiency; Future 2. History of cold sores Refilled. - valACYclovir (VALTREX) 1000 mg tablet; Take 2 tablets (2,000 mg) by mouth 2 times daily For 1 day Dispense: 4 tablet; Refill: 3 3. Screening for cervical cancer - Pap imaged thin layer screen reflex to HPV if ASCUS - recommend age 25 - 29 COUNSELING: Reviewed preventive health counseling, as reflected in patient instructions Estimated body mass index is 26.37 kg/m?? as calculated from the following: Height as of 08/12/18: 1.676 m (5' 6). Weight as of this encounter: 74.1 kg (163 lb 6.4 oz). Weight management plan: Discussed healthy diet and exercise guidelines reports that she has quit smoking. She has never used smokeless tobacco. Counseling Resources: ATP IV Guidelines Pooled Cohorts Equation Calculator Breast Cancer Risk Calculator FRAX Risk Assessment ICSI Preventive Guidelines Dietary Guidelines for Americans, 2009 [employer] My[employer]ate ASA Prophylaxis Lung CA Screening Thad Chaidez PA-C [facility] documented in this encounter Nursing Notes Michelle Perrin CMA - 03/09/2019 1:20 PM CDT Chief Complaint Patient presents with ??? Fertility options ??? Physical physical and pap Initial BP 110/70 (BP Location: Right arm, Patient Position: Sitting, Cuff Size: Adult Regular) Pulse 100 Temp 98.1 ??F (36.7 ??C) (Oral) Resp 16 Wt 74.1 kg (163 lb 6.4 oz) LMP 02/21/2019 BMI 26.37 kg/m?? Estimated body mass index is 26.37 kg/m?? as calculated from the following: Height as of 08/12/18: 1.676 m (5' 6). Weight as of this encounter: 74.1 kg (163 lb 6.4 oz). BP completed using cuff size regular RIGHT arm Michelle Perrin CMA documented in this encounter Plan of Treatment Upcoming Encounters Date Type Specialty Care Team Description 05/08/2022 Office Visit [facility] Kyle Hidalgo PA-C [address] [place], [place] [address] (Wo rk) 05/08/2022 Lab Lab documented as of this encounter Procedures Procedure Name Priority Date/Time Associated Diagnosis Comme nts PAP IMAGED THIN Routine 03/09/2019 1:59 PM Screening for Resul ts for this LAYER SCREEN CDT cervical cancer procedure ar e in the results section. documented in this encounter Results Pap imaged thin layer screen reflex to HPV if ASCUS - recommend age 25 - 29 (03/09/2019 1:59 PM CDT) Component Value Ref Test Analysis Performed At [facility] Range Method Time Signature PAP NIL COPATH Copath Report COPATH Patient Name: RUTIHE JENSEN MR#: [id number] Specimen #: [id number] Collected: 03/09/2019 Received: 03/11/2019 Reported: 03/15/2019 13:46 Ordering Phy(s): THAD CHAIDEZ For improved result formatting, select 'View Enhanced Report Format' under Linked Documents section. SPECIMEN/STAIN PROCESS: Pap imaged thin layer prep screening (Surepath, FocalPoint w ith guided screening) ? Pap-Cyto x 1, Pap with reflex to HPV if ASCUS x 1 SOURCE: Cervical, endocervical ---- Pap imaged thin layer prep screening (Surepath, FocalPoint with guided screening) SPECIMEN ADEQUACY: Satisfactory for evaluation. -Transformation zone component absent. CYTOLOGIC INTERPRETATION: Negative for intraepithelial lesion or malignancy Electronically signed out by: Beatrice RICH (ASCP) CLINICAL HISTORY: LMP: 02/21/2019 Previous normal pap Date of Last Pap: 08/20/2015, Papanicolaou Test Limitations: ??Cervical cytology is a sc reening test with limited sensitivity; regular screening is critical for cancer prevention; Pap tests are p rimarily effective for the diagnosis/prevention of squamous cell carcinoma, not adenocarcinomas or other cancer s. COLLECTION SITE: Client: ??[facility] Location: [facility] (R) The technical component of this testing was completed at the [facility], with the professional compo nent performed at the [facility], [address], [place] [address] ([phone]) Specimen (Source) Anatomical Collection Method Collection Time Re ceived Time Location / / Volume Laterality Cytologic 03/09/2019 1:59 03/11/2019 material PM CDT 10:40 AM CDT (specimen) Thad Chaidez PA-C LAB - [facility] CLINICAL SPECIM EN Performing Organization Address City/State/ZIP Code Phon e Number COPATH documented in this encounter Visit Diagnoses Diagnosis Routine general medical examination at a health care facility - Primary History of cold sores Personal history of other infectious and parasitic disease Screening for cervical cancer Screening for malignant neoplasm of the cervix documented in this encounter Additional Health Concerns Assessment Noted Time PHQ-9 Depression Total Score: 3 04/15/2017 10:35 AM CD T documented as of this encounter Care Teams Computer Forensics Technician Relationship Specialty Start Date End Date Thad Chaidez, PCP - General Physician Pulpwood Dealer - 02/17/14 [facility] Thad Chaidez, Assigned PCP 12/16/13 [place] [id number] [facility] [place] [address] documented as of this encounter
--- OUTSIDE RECORDS SUMMARY | 2022-04-02 23:52 | XMS_ITS | Encounter Summary ---
:1995 Author Organization [facility] Address [address] [place] [id number] Care Team Providers Name Role Phone Thad Mckeon PA-C Primary Care Provider [phone] Thad Mckeon PA-C Unavailable [phone] Thad Mckeon PA-C Unavailable [phone] Reason for Visit Reason Onset Date Comments Medication Refill 09/15/2017 traZODone (DESYREL) 50 MG tablet Encounter Details Date Type Department Care Team Description 09/15/2017 Refill [facility] Thad Mckeon [facility] [place] Persaud (traZODone (DESYREL) [id number] MG tablet) [address] [place] [address] [place], [place] [phone] (Wo rk) [address] [phone] Social History Tobacco Use Types Packs/Day Years Used Date Former Smoker Smokeless Tobacco: Never Used Alcohol Use Standard Drinks/Week Comments No 0 (1 standard drink = 0.6 oz pure alcoho l) Sex Assigned at Date Recorded Female 12/21/2020 8:52 AM CDT documented as of this encounter Miscellaneous Notes Telephone Encounter - Ana Laura Hicks - 10/09/2017 3:27 PM CDT Alprazolam Rx was faxed to [facility], pharmacy will notify patient when ready to be picked up. 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 Sylvia Howell RN Telephone Encounter - Diana Valerio - 09/15/2017 10:38 AM CDT Requested Prescriptions Pending Prescriptions Disp Refills ??? traZODone (DESYREL) 50 MG tablet [Pharmacy Med Name: TRAZODONE 50 MG TABLET] 30 tablet 1 Last Written Prescription Date: 07/13/17 Last Fill Quantity: 30, # refills: 1 Last Office Visit: 07/13/2017 Future Office Visit: Sig: TAKE 1 TABLET (50 MG) BY MOUTH NIGHTLY NEEDED FOR SLEEP Serotonin Modulators Failed 09/15/2017 1:56 AM Failed - No positive test in past 12 months Passed - Recent (12 mo) or future (30 days) visit within the authorizing provider's specialty Patient had office visit in the last 12 months or has a visit in the next 30 days with authorizing provider or within the authorizing provider's specialty. See Patient Info tab in inbasket, or Choose Columns in Meds & Orders section of the refill encounter. Passed - Patient is age 18 or older Passed - No active on record documented in this encounter Plan of Treatment Upcoming Encounters Date Type Specialty Care Team Description 05/08/2022 Office Visit Family Practice Kyle Hidalgo PA-C [address] [place], [place] [address] (Wo rk) 05/08/2022 Lab Lab documented as of this encounter Visit Diagnoses Diagnosis Insomnia, unspecified type documented in this encounter Additional Health Concerns Assessment Noted Time PHQ-9 Depression Total Score: 3 04/15/2017 10:35 AM CD T documented as of this encounter Care Teams Technology Recruiter Relationship Specialty Start Date End Date Thad Mckeon, PCP - General Physician Industrial Hygiene Technician - 02/17/14 [facility] Thad Mckeon, PCP - Assigned PCP 12/16/13 09/07/18 [place] [id number] [address] [address] Thad Mckeon, Assigned PCP 12/16/13 [place] [address] [address] [address] documented as of this encounter
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
--- OUTSIDE RECORDS SUMMARY | 2022-04-02 23:52 | XMS_ITS | Encounter Summary ---
:1995 Author Organization [facility] Address [facility]ly [facility] [place] [address] Care Team Providers Name Role Phone Thad Mckeon PA-C Primary Care Provider [phone] Thad Mckeon PA-C Unavailable [phone] Reason for Visit Reason Comments Other Entered automatically based on patient selection in [facility]. Encounter Details Date Type Department Care Team Description 01/14/2021 E-Visit [facility] Thad Mckeon Other (Entered Clinic Evelyne [place] [address] [address] [address] [address]... [place], [place] [id number] [phone] Social History Tobacco Use Types Packs/Day Years [...] Patient Instructions Patient InstructionsPeThad zepeda PA-C - 01/14/2021 10:40 AM CDT Thank you for choosing us for your care. Based on your symptoms and length of illness, I do not think that you need a prescription at this time. Please follow the care advise I've provided and use the over the counter medications to help relieve your symptoms. View your full visit summary for details by clicking on the link below. If you're not feeling better within 2-3 days, please respond to this message and we can consider if a prescription is needed. You can schedule an appointment right here in [facility], or call [phone] the visit is for the same symptoms as your eVisit, we'll refund the cost of your eVisit if seen within seven days. documented in this encounter Miscellaneous Notes Telephone Encounter - Thad Mckeon PA-C - 01/14/2021 10:57 AM CDT Provider E-Visit time total (minutes): 5 documented in this encounter Plan of Treatment Upcoming Encounters Date Type Specialty Care Team Description 05/08/2022 Office Visit [facility] [facility]C [address] [facility] [place] [address] (Wo rk) 05/08/2022 Lab Lab documented as of this encounter Visit Diagnoses Diagnosis Axillary mass, unspecified laterality - Primary documented in this encounter Additional Health Concerns Assessment Noted Time PHQ-9 Depression Total Score: 7 01/15/2021 7:02 AM CDT documented as of this encounter Care Teams Shellfish Dredge Operator Relationship Specialty Start Date End Date Thad Mckeon, PCP - General Physician Control Supervisor - 02/17/14 AD Medical Thad Mckeon, Assigned PCP 12/23/[place] [address] [address] [address] documented as of this encounter
--- OUTSIDE RECORDS SUMMARY | 2022-04-02 23:52 | XMS_ITS | Encounter Summary ---
:1995 Author Organization [facility] Address [address] [place] [address] Care Team Providers Name Role Phone Thad Mckeon PA-C Primary Care Provider [phone] Thad Mckeon PA-C Unavailable [phone] Thad Mckeon PA-C Unavailable [phone] Reason for Visit Reason Onset Date Comments No Show 10/15/2017 Encounter Details Date Type Department Care Team Description 10/15/2017 Office Visit [facility] Thad Mckeon NO [place] W (Primary Dx) Clinic [place] Persaud [address] [address] [address] [facility], [address] [place] [address] [place], [place] [phone] (Wo rk) [id number] [phone] Social History Tobacco Use Types Packs/Day Years Used Date Former Smoker Smokeless Tobacco: Never Used Alcohol Use Standard Drinks/Week Comments No 0 (1 standard drink = 0.6 oz pure alcoho l) Sex Assigned at Date Recorded Female 12/21/2020 8:52 AM CDT documented as of this encounter Progress Notes Isa Saab MA - 10/15/2017 8:00 AM CDT HPI This patient was a no show for this scheduled appointment. documented in this encounter Plan of Treatment Upcoming Encounters Date Type Specialty Care Team Description 05/08/2022 Office Visit Family [facility] Kyle Hidalgo PA-C [address] [address] [address] (Wo rk) 05/08/2022 Lab Lab documented as of this encounter Visit Diagnoses Diagnosis NO SHOW - Primary documented in this encounter Additional Health Concerns Assessment Noted Time PHQ-9 Depression Total Score: 3 04/15/2017 10:35 AM CD T documented as of this encounter Care Teams Marine Insulator Relationship Specialty Start Date End Date Thad Mckeon, PCP - General Physician [employer]ometric[employer] Professor - 02/17/14 AD Medical Thad Mckeon, PCP - Assigned PCP 12/16/13 09/07/18 [place] [address] [address] [place] [address] Thad Mckeon, Assigned PCP 12/16/13 [place] [address] [address] [address] documented as of this encounter
--- OUTSIDE RECORDS SUMMARY | 2022-04-02 23:52 | XMS_ITS | Encounter Summary ---
:1995 Author Organization [facility] Address [address] [place] [id number] Care Team Providers Name Role Phone Thad Mckeon PA-C Primary Care Provider [phone] Thad Mckeon PA-C Unavailable [phone] Reason for Visit Reason Comments Flank Pain Encounter Details Date Type Department Care Team Description 02/03/2020 Emergency [facility] RameshElmer ferrer, Flank pain; [facility] Emergency Dep t Kidney stone; [address] [facility] Non-intractable vomiting wit h nausea, unspecified vomiting type; [place], [place] , incidental [id number] [facility] [address] [place] [address] (Wo rk) Social History Tobacco Use Types [...] Sign Reading Time Taken Comments Blood Pressure 118/72 02/03/2020 4:25 AM CDT Pulse 88 02/03/2020 4:25 AM CDT Temperature 37.1 ??C (98.7 ??F) 02/03/2020 1:49 AM CDT Respiratory Rate 18 02/03/2020 4:25 AM CDT Oxygen Saturation 99% 02/03/2020 4:25 AM CDT Inhaled Oxygen Concentration - - Weight - - Height - - Body Mass Index - - documented in this encounter Discharge Instructions Discharge InstructionsElmer Mac MD - 02/03/2020 4:00 AM CDT Discharge Instructions Kidney Stones Kidney stones are a common problem that can cause a lot of pain but fortunately are usually not dangerous and can be generally treated with medicine at home. However, sometimes your condition may be worse than it seemed at first, or may get worse with time. You need to follow-up with your regular doctor within 3 days. Most kidney stones will pass on their own, but occasionally stones may need to be removed by an urologist. We will send you home with a urine strainer. Be sure to urinate into this, or urinate into a container and pour the urine through the fine filter to catch the kidney stone as it comes out. The stone will seem like a pebble or grain of sand. Be sure to save this in a Ziploc?? bag and take it to the doctor???s office with you. Return to the Emergency Department if: Your pain is not controlled. You are vomiting and can???t keep fluids or medications down. You develop fever (>101). You feel much more ill or develop new symptoms. What can I do to help myself? Be sure to drink plenty of fluids. Staying active is good, and may help the stone to pass. You may do whatever you feel up to doing without restrictions. Treatment: Non-steroidal anti-inflammatory drugs (NSAIDs). This includes prescription medicines like Toradol?? (ketorolac) and non-prescription medicines like Advil?? (ibuprofen) and Nuprin?? (ibuprofen). These pain relievers are very effective for kidney stones. Narcotic pain pills. If you have been given a narcotic such as Vicodin?? (hydrocodone with acetaminophen), Percocet?? (oxycodone with acetaminophen), or codeine, do not drive for four hours after you have taken it. If the narcotic contains Tylenol?? (acetaminophen), do not take Tylenol?? with it. All narcotics will cause constipation, so eat a high fiber diet. Nausea medication. Nausea and vomiting are common with kidney stones, so your physician may send youhome with medicine for this. Flomax?? (tamsulosin). This medicine is sometimes used for men with prostate problems, but also can help kidney stones to pass. This medicine can lower blood pressure, and you may feel faint, especially when you first stand up. Be sure to get up gradually, sit down if you feel faint, and avoid activity where feeling faint would be dangerous, such as climbing ladders. If you were given a prescription for [...] call or return to the Emergency Department. Opioid Medication Information Pain medications are among the most commonly prescribed medicines, so we are including this information for all our patients. If you did not receive pain medication or get a prescription for pain medicine, you can ignore it. You may have been given a prescription for an opioid (narcotic) pain medicine and/or have received apain medicine while here in the Emergency Department. These medicines can make you drowsy or impaired. You must not drive, operate dangerous equipment, or engage in any other dangerous activities whiletaking these medications. If you drive while taking these medications, you could be arrested for DUI, or driving under the influence. Do not drink any alcohol while you are taking these medications. Opioid pain medications can cause addiction. If you have a history of chemical dependency of any type, you are at a higher risk of becoming addicted to pain medications. Only take these prescribed medications to treat your pain when all other options have been tried. Take it for as short a time and asfew doses as possible. Store your pain pills in a secure place, as they are frequently stolen and provide a dangerous opportunity for children or visitors in your house to start abusing these powerful medications. We will not replace any lost or stolen medicine. As soon as your pain is better, you should flush all your remaining medication. Many prescription pain medications contain Tylenol?? (acetaminophen), including Vicodin??, Tylenol #3??, [place]??, Lortab??, and Percocet??. You should not take any extra pills of Tylenol?? if you are using these prescription medications or you can get very sick. Do not ever take more than 3000 mg of acetaminophen in any 24 hour period. All opioids tend to cause constipation. Drink plenty of water and eat foods that have a lot of fiber, such as fruits, vegetables, prune juice, apple juice and high fiber cereal. Take a laxative if you don???t move your bowels at least every other day. Miralax??, Milk of Magnesia, Colace??, or Senna?? can be used to keep you regular. Remember that you can always come back to the Emergency Department if you are not able to see your regular doctor in the amount of time listed above, if you get any new symptoms, or if there is anything that worries you. documented in this encounter Medications at Time of Discharge Medication Sig Dispensed Refills Start Date End Date HYDROcodone-acetaminophen Take 1 tablet by 10 tablet 0 01/0503/12/2021 (NORCO) 5-325 MG tablet mouth every 6 hours as needed for severe pain valACYclovir (VALTREX) Take 2 tablets 4 tablet 3 9 02/21/2021 1000 mg (2,000 mg) by mouth tabletIndications: 2 times daily For 1 History of cold sores day documented as of this encounter ED Notes Clari Yeung RN - 02/03/2020 2:33 AM CDT Pt had large emesis. Olga Canas RN - 02/03/2020 1:48 AM CDT Pt to ER with c/o left flank pain hx of recent kidney stone pt is 25 weeks preg now with increasing pain Elmer Mac MD - 02/03/2020 1:46 AM CDT History Chief Complaint: Flank Pain HPI Ruthie Nieto is a 25 week 24 year old female who is who presents with flank pain. Per the patient, she's had left-sided non-radiating flank pain for the past two days along with urinary frequency. She was diagnosed with kidney stones yesterday and passed 1. An ultrasound was not performed and she was diagnosed based on a urinalysis. Today, she woke up about 1.5 hours ago with sharp pain. She took 1 regular strenght Tylenol for the pain. Denies dysuria, abdominal cramping, constipation, or recent falls or trauma. Allergies: No known drug allergies. Medications: Valtrex Past Medical History: Anxiety ADHD Past Surgical History: Ankle surgery, unspecified [place] teeth extraction Family History: Brother: Anxiety disorder Father: Anxiety disorder, depression, psoriasis Mother: Anxiety disorder, depression Sister: Anxiety disorder Social History: Smoking Status: Former Smoker (Quit 2016) Smokeless Tobacco: Never Used Alcohol Use: Not Currently Drug Use: Negative PCP: Thad Mckeon Marital Status: Single Review of Systems Gastrointestinal: Negative for constipation. Genitourinary: Positive for flank pain and frequency. Negative for dysuria. All other systems reviewed and are negative. Physical Exam Patient Vitals for the past 24 hrs: BP Temp Temp src Pulse Resp SpO2 02/03/20 0149 115/66 98.7 ??F (37.1 ??C) Oral 97 18 100 % Physical Exam General: The patient is alert, in no respiratory distress. HENT: Mucous membranes moist. Cardiovascular: Regular rate and rhythm. Good pulses in all four extremities. Normal capillary refill and skin turgor. Respiratory: Lungs are clear. No nasal flaring. No retractions. No wheezing, no crackles. Gastrointestinal: Abdomen soft. No guarding, no rebound. No palpable hernias. Gravid abdomen. Minimal left flank tenderness. Musculoskeletal: No gross deformity. Skin: No rashes or petechiae. Neurologic: The patient is alert and oriented x3. GCS 15. No testable cranial nerve deficit. Followscommands with clear and appropriate speech. Gives appropriate answers. Good strength in all extremities. No gross neurologic deficit. Gross sensation intact. Pupils are round and reactive. No meningismus. Lymphatic: No cervical adenopathy. No lower extremity swelling. Psychiatric: The patient is non-tearful. Emergency Department Course Imaging: Radiology findings were communicated with the patient who voiced understanding of the findings. US Renal Complete Final Result IMPRESSION: 1. Mild bilateral hydronephrosis, right greater than left. 2. Left intrarenal stones. US Renal Complete 1. Mild bilateral hydronephrosis, right greater than left. 2. Left intrarenal stones. Reading per radiology. Laboratory: Laboratory findings were communicated with the patient who voiced understanding of the findings. BMP: Calcium 8.3(L) o/w WNL (Creatinine 0.56) UA with micro: Blood Moderate(A), RBC 23(H), Bacteria Few(A), Squamous epithelial 2(H), Mucous Present(A) o/w WNL Urine Culture: In process Interventions: 0210: Oxycodone, 5 mg, Oral 0314: Zofran, 4 mg, IV 0315: Morphine, 4 mg, IV 0344: Morphine, 4 mg, IV Emergency Department Course: 0155 Nursing notes and vitals reviewed. 0200 I performed an exam of the patient as documented above. 0211 The patient provided a urine sample here in the emergency department. This was sent for laboratory testing, findings above. 0235 The patient was sent for an US while in the emergency department, results above. 0310 IV was inserted and blood was drawn for laboratory testing, results above. Patient rechecked and updated. 0425 Findings and plan explained to the patient. Patient discharged home with instructions regardingsupportive care, medications, and reasons to return. The importance of close follow-up was reviewed.The patient was prescribed hydrocodone-acetaminophen. Impression & Plan Medical Decision Making: Ruthie Nieto is a 24 year old female who presents to the emergency department today for evaluation of left flank pain. The patient reports that she has passed a kidney stone raising the risk this being a kidney stone as a cause. I did question her about trauma vaginal bleeding discharge or lossof fluid to suggest a related complication. There was no trauma. I felt this is not related to diverticulitis or other cause. BMP was checked due to the likelihood of kidney stone creatinine is normal. An ultrasound was performed which showed hydronephrosis bilaterally and kidney stones on the left. This would fit her clinical picture a CT scan or x-ray are not indicated I discussed with the patient. I did not want start her on Flomax or ibuprofen. She was written for pain medication discharged to follow-up with both her OB as well as urology as an outpatient but her pain is improved. Patient was discharged home comfortable without significant pain to close follow-up. Diagnosis: ICD-10-CM 1. Flank pain R10.9 2. Kidney stone N20.0 3. Non-intractable vomiting with nausea, unspecified vomiting type R11.2 4. , incidental Z33.1 Disposition: Patient was discharged home. Discharge Medications: New Prescriptions HYDROCODONE-ACETAMINOPHEN (NORCO) 5-325 MG TABLET Take 1 tablet by mouth every 6 hours as needed for severe pain Scribe Disclosure: I, Shane Salinas, am serving as a scribe at 1:57 AM on 02/03/2020 to document services personally performed by Elmer Mac MD based on my observations and the provider's statements to me. [facility] EMERGENCY DEPARTMENT Elmer Mac MD 02/03/20 0407 documented in this encounter Miscellaneous Notes Result Encounter Note - Ravindra Patterson RN - 02/03/2020 4:27 AM CDT Emergency Dept/Urgent Care discharge antibiotic (if prescribed): None No changes in treatment per Urine culture protocol. documented in this encounter Plan of Treatment Upcoming Encounters Date Type Specialty Care Team Description 05/08/2022 Office Visit Family [facility] Kyle Hidalgo PA-C [id number] [address] [phone] (Wo rk) 05/08/2022 Lab Lab documented as of this encounter Procedures Procedure Name Priority Date/Time Associated Comments Diagnosis BASIC METABOLIC PANEL STAT 02/03/2020 3:10 AM Results for this CDT procedure are i n the results section. US RENAL COMPLETE STAT 02/03/2020 2:59 AM Resu lts for this CDT procedure are i n the results section. ROUTINE UA WITH STAT 02/03/2020 2:11 AM Result s for this MICROSCOPIC CDT procedure are i n the results section. URINE CULTURE STAT 02/03/2020 2:11 AM Flank pain Results for this CDT procedure are i n the results section. documented in this encounter Results (ABNORMAL) Basic metabolic panel (02/03/2020 3:10 AM CDT) P athologist Signature Sodium 136 133 - 144 02/03/2020 [facility] mmol/L 3:48 AM [facility] Potassium 3.5 3.4 - 5.3 02/03/2020 [facility] mmol/L 3:48 AM [facility] Chloride 108 94 - 109 02/03/2020 [facility] mmol/L 3:48 AM [facility] Carbon Dioxide 22 20 - 32 02/03/2020 [facility] mmol/L 3:53 AM [facility] Anion Gap 6 3 - 14 02/03/2020 [facility] mmol/L 3:53 AM [facility] Glucose 91 70 - 99 02/03/2020 [facility] mg/dL 3:53 AM [facility] Urea Nitrogen 9 7 - 30 02/03/2020 [facility] mg/dL 3:53 AM [facility] Creatinine 0.56 0.52 - 02/03/2020 [facility] 1.04 mg/dL 3:53 AM [facility] GFR Estimate >90 >60 02/03/2020 [facility] mL/min/{1. 3:53 AM [facility] 73_m2} HOSPITAL Comment: Non GFR Calc Starting 06/22/2018, serum creatinine ba sed estimated GFR (eGFR) will be calculated using the Chronic Kidney Dise ase Epidemiology Collaboration (CKD-EPI) equation. GFR Estimate If >90 >60 mL/min/{1.73_m2} 02/03/2020 3: 53 AM [facility] CDT HOSPITAL Comment: GFR Calc Starting 06/22/2018, serum creatinine ba sed estimated GFR (eGFR) will be calculated using the Chronic Kidney Dise ase Epidemiology Collaboration (CKD-EPI) equation. Calcium 8.3 (L) 8.5 - 10.1 mg/dL 02/03/2020 3:53 AM CDT [facility] Specimen Anatomical Collection Method Collection Time Receive d Time (Source) Location / / Volume Laterality Blood specimen 02/03/2020 3:10 AM 020 3:16 (specimen) CDT AM CDT Elmer Mac MD LAB - BLOOD ORDERABLES Performing Organization Address City/State/ZIP Code Phon e Number M [place] [address] [address] [place], [place] [address] [phone] [facility] [address] [place], [place] [address] [place] [address] US Renal Complete (02/03/2020 2:59 AM CDT) Anatomical Region Laterality Modality Abdomen/Pelvis Ultrasound Specimen (Source) Anatomical Collection Method Collection Time Re ceived Time Location / / Volume Laterality 02/03/2020 2:35 AM CDT Impressions 02/03/2020 3:26 AM CDT IMPRESSION: 1. ??Mild bilateral hydronephrosis, righ t greater than left. 2. ??Left intrarenal stones. Narrative 02/03/2020 3:26 AM CDT EXAM: US RENAL COMPLETE LOCATION: [facility] DATE/TIME: 02/03/2020 2:35 AM INDICATION: Hematuria. . COMPARISON: None. TECHNIQUE: Routine bilateral renal and b ladder ultrasound. FINDINGS: RIGHT KIDNEY: 11.2 x 4.7 x 5.2 cm. Mild hydronephrosis. LEFT KIDNEY: 11.8 x 5.8 x 5.1 cm. Mild h ydronephrosis. A few intrarenal stones measuring up to 8 mm. BLADDER: Normal. Procedure Note Santy Arauz MD - 02/03/2020Form atting of this note might be different from the original. EXAM: US RENAL COMPLETE LOCATION: [facility] DATE/TIME: 02/03/2020 2:35 AM INDICATION: Hematuria. . COMPARISON: None. TECHNIQUE: Routine bilateral renal and b ladder ultrasound. FINDINGS: RIGHT KIDNEY: 11.2 x 4.7 x 5.2 cm. Mild hydronephrosis. LEFT KIDNEY: 11.8 x 5.8 x 5.1 cm. Mild h ydronephrosis. A few intrarenal stones measuring up to 8 mm. BLADDER: Normal. IMPRESSION: 1. Mild bilateral hydronephrosis, right greater than left. 2. Left intrarenal stones. Elmer Mac MD IMG US ORDERABLES Urine Culture (02/03/2020 2:11 AM CDT) Component Value Ref Test Analysis Performed At [facility] Range Method Time Signature Specimen Midstream Urine INFECTIOUS Description [facility] Special Specimen received 02/03/2020 INFECTIOUS Requests in preservative 5:10 AM [facility] Culture Micro 10,000 to 50,000 colonies/mL 020 INFECTIOUS urogenital morgan 6:45 AM CDT [facility] Susceptibility testing not routinely done [facility], [facility] Specimen (Source) Anatomical Collection Method Collection Time Re ceived Time Location / / Volume Laterality Examination of 02/03/2020 2:11 02/03/2020 2:21 midstream urine AM CDT AM CDT specimen (procedure) Elmer Mac MD LAB - MICRO GENERAL ORDERABL ES Performing Organization Address City/State/ZIP Code Phon e Number INFECTIOUS [facility] [address] [facility] [address] LABORATORY, [facility] (ABNORMAL) UA with Microscopic (02/03/2020 2:11 AM CDT) [facility] Method Time Signature Color Urine Straw 02/03/2020 [facility] 2:31 AM [facility] Appearance Urine Clear 02/03/2020 [facility] 2:31 AM [facility] Glucose Urine Negative NEG^Negat 02/03/2020 [place] pepper mg/dL 2:31 AM [facility] Bilirubin Urine Negative NEG^Negat 02/03/2020 [place] pepper 2:31 AM [facility] Ketones Urine Negative NEG^Negat 02/03/2020 [place] pepper mg/dL 2:31 AM [facility] Specific [place] 1.008 1.003 - 02/03/2020 [facility] Urine 1.035 2:31 AM [facility] Blood Urine Moderate (A) NEG^Negat 02/03/2020 [place] pepper 2:31 AM [facility] pH Urine 6.5 5.0 - 7.0 02/03/2020 [place] pH 2:31 AM [facility] Protein Albumin Negative NEG^Negat 02/03/2020 [place] Urine pepper mg/dL 2:31 AM [facility] Urobilinogen Normal 0.0 - 2.0 02/03/2020 [place] mg/dL mg/dL 2:31 AM [facility] Nitrite Urine Negative NEG^Negat 02/03/2020 [place] pepper 2:31 AM [facility] Leukocyte Negative NEG^Negat 02/03/2020 [place] Esterase Urine pepper 2:31 AM [facility] Source Midstream 02/03/2020 [place] Urine 2:11 AM [facility] WBC Urine 5 0 - 5 02/03/2020 [facility] /HPF 2:31 AM [facility] RBC Urine 23 (H) 0 - 2 02/03/2020 [place] /HPF 2:31 AM [facility] Bacteria Urine Few (A) NEG^Negat 02/03/2020 [place] pepper /HPF 2:31 AM [facility] Squamous 2 (H) 0 - 1 02/03/2020 [place] Epithelial /HPF /HPF 2:31 AM [facility] Mucous Urine Present (A) NEG^Negat 02/03/2020 [place] pepper /LPF 2:31 AM [facility] Specimen (Source) Anatomical Collection Method Collection Time Re ceived Time Location / / Volume Laterality Examination of 02/03/2020 2:11 02/03/2020 2:21 midstream urine AM [facility] specimen (procedure) Elmer Mac MD LAB - URINE ORDERABLES Performing Organization Address City/State/ZIP Code Phon e Number M [facility] [address] [place], [place] [address] [facility] [address] [place], [place] [address] [phone] documented in this encounter Visit Diagnoses Diagnosis Flank pain Abdominal pain, unspecified site Kidney stone Calculus of kidney Non-intractable vomiting with nausea, un specified vomiting type , incidental state, incidental documented in this encounter Administered Medications Inactive Administered Medications - up to 3 most recent administrations Medication Order MAR Action Action Date Dose Rate Site lidocaine (LMX4) cream Topical, EVERY 1 HOUR PRN, pain, with VA D insertion or accessing implanted port., Starting on Thu02/03/20 at 0312, Do NOT give if patient has a history of allergy to any local anesthetic or any adin prod uct. Apply at least 30 minutes prior to VAD insertion or port access. In divided dos es as needed for size of site for insertion with MAX Dose: 2.5 g (?? of 5 g tube) lidocaine 1 % 0.1-1 mL 0.1-1 mL, Other, EVERY 1 HOUR PRN, mild pain with VAD insertion., Starting on Thu02/03/20 at 0312, Do NOT give if patient has a history of allergy to any local anesthetic or any adin product. MAX dose 1 mL subcu taneous OR intradermal in divided doses as needed for VAD insertion. morphine (PF) 4 MG/ML injection Starting on Thu02/03/20 at 0313, For 1 d Missael gallegos Pamela: cabinet override For ordered IV doses 0.1-15 mg give IV Push undiluted over 4-5 minutes. morphine (PF) injection 4 mg Given 02/03/2020 3:44 AM CDT 4 mg 4 mg, Intravenous, ONCE PRN, other, pain control or improvement in physical function. Hold dose for analgesic side effects., Starting on Thu02/03/20 at 0312, For 1 dose, Notify the provider to assess for uncontrolled pain or analgesic side effects. Hold while on IV BALLOON TESTER or with regular IV opioid dosing. For ordered IV doses 0.1-15 mg give IV Push undiluted over 4-5 minutes. Given 02/03/2020 3:15 AM CDT 4 mg ondansetron (ZOFRAN) injection 4 mg Given 02/03/2020 3:14 AM CDT 4 mg 4 mg, Intravenous, EVERY 30 MIN PRN, nausea, vomiting, Administer over 2-5 Minutes, Starting on Thu02/03/20 at 0312, For 3 doses, May repeat in 30 minutes as needed, up to 3 doses. Irritant. For ordered IV doses 0.1-4 mg, give IV Push undiluted over 2-5 minutes. oxyCODONE (ROXICODONE) tablet 5 mg Given 02/03/2020 2:10 AM CDT 5 mg 5 mg, Oral, ONCE, On Thu02/03/20 at 0206, For 1 dose sodium chloride (PF) 0.9% PF flush 3 mL 3 mL, Intracatheter, EVERY 1 MIN PRN, li ne flush, for peripheral IV flush post IV meds, Starting on Thu02/03/20 at 0312 sodium chloride (PF) 0.9% PF flush 3 mL 3 mL, Intracatheter, EVERY 8 HOURS, Firs t dose on Thu02/03/20 at 0313, And Q1H PRN, to lock peripheral IV dormant line. documented in this encounter Active and Recently Administered Medications Times are shown in CDT. Scheduled Medication Order 02/01/2020 02/02/2020 02/03/2020 morphine (PF) injection 4 mg 034 2 (Canceled Entry - Provider: Orders Generic Provider - Comment: Automatically canceled at discontinue of medication order) 4 mg, Intravenous, ONCE, Administer over 4-5 Minutes, Thu02/03/20 at 0342, For 1 dose, For ordered IV doses 0.1-15 mg give IV Push undiluted over 4-5 minutes. ondansetron (ZOFRAN-ODT) ODT tab 4 mg 0247 (Canceled Entry - Provider: Orders Generic Provider - Comment: Automatically canceled at discontinue of medication order) 4 mg, Oral, ONCE, Thu02/03/20 at 0247, F or 1 dose, With dry hands, peel back foil backing and gently remove tablet. Do not push oral disintegrating tablet through foil backing. Administer immediately on tongue and oral disintegrating tablet d issolves in seconds, then swallow with saliva. Liquid not required. oxyCODONE (ROXICODONE) tablet 5 mg (COMPLETED) 0210 (Given - Provider: Clari Yeung RN) 5 mg, Oral, ONCE, Thu02/03/20 at 0206, For 1 dose sodium chloride (PF) 0.9% PF flush 3 mL 0313 (Canceled Entry - Provider: Orders Generic Provider - Comment: Automatically canceled at discontinue of medication order) 3 mL, Intracatheter, EVERY 8 HOURS, Firs t dose on Thu02/03/20 at 0313, And Q1H PRN, to lock peripheral IV dormant line. PRN Medication Order 02/01/2020 02/02/2020 02/03/2020 lidocaine (LMX4) cream Topical, EVERY 1 HOUR PRN, pain, with VA D insertion or accessing implanted port., Starting Thu02/03/20 at 0312, Do NOT give if patient has a history of allergy to any local anesthetic or any adin pro duct. Apply at least 30 minutes prior to VAD insertion or port access. In divided doses as needed for size of site for insertion with MAX Dose: 2.5 g (?? of 5 g tube) lidocaine 1 % 0.1-1 mL 0.1-1 mL, Other, EVERY 1 HOUR PRN, mild pain with VAD insertion., Starting Thu02/03/20 at 0312, Do NOT give if patient has a history of allergy to any local anesthetic or any adin product. MAX dose 1 mL subcutaneous OR intradermal in divided doses as needed for V AD insertion. morphine (PF) injection 4 mg (COMPLETED) 314 (Given - Provider: Olga Canas, RN)343 (Given - Provider: Olga Canas, RN) 4 mg, Intravenous, ONCE PRN, other, pain control or improvement in physical function. Hold dose for analgesic side effects., Starting Thu02/03/20 at 0312, For 1 dose, Notify the provider to assess for u ncontrolled pain or analgesic side effec ts. Hold while on IV BALLOON TESTER or with regular IV opioid dosing. For ordered IV doses 0.1-15 mg give IV Push undiluted over 4-5 minutes. ondansetron (ZOFRAN) injection 4 mg 313 (Given - Provider: Olga Canas, RN) 4 mg, Intravenous, EVERY 30 MIN PRN, romana sea, vomiting, Administer over 2-5 Minutes, Starting Thu02/03/20 at 0312, For 3 doses, May repeat in 30 minutes as needed, up to 3 doses. Irritant. For ordered IV doses 0.1-4 mg, give IV Push undiluted over 2-5 minutes. sodium chloride (PF) 0.9% PF flush 3 mL 3 mL, Intracatheter, EVERY 1 MIN PRN, li ne flush, for peripheral IV flush post IV meds, Starting Thu02/03/20 at 0312 documented in this encounter Additional Health Concerns Assessment Noted Time PHQ-9 Depression Total Score: 3 04/15/2017 10:35 AM CD T documented as of this encounter Care Teams Crown Buffer Relationship Specialty Start Date End Date Thad Mckeon, PCP - General Physician Pattern Marking Supervisor - 02/17/14 AD Medical Thad Mckeon, Assigned PCP 12/16/13 [place] [address] [place] [address] documented as of this encounter
--- OUTSIDE RECORDS SUMMARY | 2022-04-02 23:52 | XMS_ITS | Encounter Summary ---
:1995 Author Organization [place] Address [address] [place] [address] Care Team Providers Name Role Phone Thad Mckeon PA-C Primary Care Provider [phone] Thad Mckeon PA-C Unavailable [phone] Encounter Details Date Type Department Care Team Description 09/13/2018 [facility] Dysuria Laboratory [address] [place] [address] Social History Tobacco Use Types Packs/Day Years [...] Office Visit Family Practice Kyle Hidalgo PA-C [address] [address] [place], [place] [address] (Wo rk) 05/08/2022 Lab Lab documented as of this encounter Procedures Procedure Name Priority Date/Time Associated Comments Diagnosis URINE MICROSCOPIC Routine 09/13/2018 9:50 AM Dysuria Resu lts for this CDT procedure are i n the results section. UA MACROSCOPIC WITH Routine 09/13/2018 9:50 AM Dysuria Re sults for this REFLEX TO MICROSCOPIC CDT proced ure are in AND CULTURE the results section. documented in this encounter Results (ABNORMAL) Urine Microscopic (09/13/2018 9:50 AM CDT) Analysis Performed At Patho logist Time Signature WBC Urine 0 - 5 OTO5^0 - 5 09/13/2018 [facility] /HPF 12:34 PM CDT [facility] RBC Urine O - 2 OTO2^O - 2 09/13/2018 [facility] /HPF 12:34 PM CDT [facility] Squamous Few FEW^Few 09/13/2018 [place] Epithelial /LPF /LPF 12:34 PM CDT [facility] Urine [place] Bacteria Urine Few (A) NEG^Negati 09/13/2018 [place] ve /HPF 12:34 PM CDT [facility] Specimen Anatomical Collection Method Collection Time Receive d Time (Source) Location / / Volume Laterality 09/13/2018 9:50 AM 9 9:52 CDT AM CDT Thad Mckeon PA-C LAB - URINE ORDERABLES Performing Organization Address City/State/ZIP Code Phon e Number [facility] [place] [address] (ABNORMAL) UA reflex to Microscopic and Culture (09/13/2018 9:50 AM CDT) Patholo gist Method Time Signature Color Urine Yellow 09/13/2018 [facility] 12:34 PM [facility] Appearance Urine Clear 09/13/2018 [facility] 12:34 PM [facility] Glucose Urine Negative NEG^Negat 09/13/2018 [place] pepper mg/dL 12:34 PM [facility] Bilirubin Urine Negative NEG^Negat 09/13/2018 [place] pepper 12:34 PM [facility] Ketones Urine Negative NEG^Negat 09/13/2018 [place] pepper mg/dL 12:34 PM [facility] Specific Fate 1.010 1.003 - 09/13/2018 [place] Urine 1.035 12:34 PM [facility] Blood Urine Negative NEG^Negat 09/13/2018 [place] pepper 12:34 PM [facility] pH Urine 6.5 5.0 - 7.0 09/13/2018 [place] pH 12:34 PM [facility] Protein Albumin Negative NEG^Negat 09/13/2018 [place] Urine pepper mg/dL 12:34 PM [facility] Urobilinogen 0.2 0.2 - 1.0 09/13/2018 [place] Urine EU/dL 12:34 PM [facility] Nitrite Urine Negative NEG^Negat 09/13/2018 [place] pepper 12:34 PM [facility] Leukocyte Small (A) NEG^Negat 09/13/2018 [place] Esterase Urine pepper 12:34 PM [facility] Source Midstream 09/13/2018 [place] Urine 9:52 AM T [facility] Specimen (Source) Anatomical Collection Method Collection Time Re ceived Time Location / / Volume Laterality Examination of 09/13/2018 9:50 09/13/2018 9:52 [place]stream urine AM CDT AM CDT specimen (procedure) Thad Mckeon PA-C LAB - URINE ORDERABLES Performing Organization Address City/State/ZIP Code Phon e Number [facility] [address] [place] [address] documented in this encounter Visit Diagnoses Diagnosis Dysuria documented in this encounter Additional Health Concerns Assessment Noted Time PHQ-9 Depression Total Score: 3 04/15/2017 10:35 AM CD T documented as of this encounter Care Teams Youth Advocate Relationship Specialty Start Date End Date Thad Mckeon, PCP - General Physician Time Stamp Assembler - 02/17/14 AD Medical Thad Mckeon, Assigned PCP 12/16/13 [place] [address] [place] [address] documented as of this encounter
--- OUTSIDE RECORDS SUMMARY | 2022-04-02 23:52 | XMS_ITS | Encounter Summary ---
:1995 Author Organization [place] Address [address] [place] [address] Care Team Providers Name Role Phone Thad Mckeon PA-C Primary Care Provider [phone] Thad Mckeon PA-C Unavailable [phone] Thad Mckeon PA-C Unavailable [phone] Encounter Details Date Type Department Care Team Description 06/23/2018 Travel Social History Tobacco Use Types Packs/Day [...] Office Visit Family Practice Kyle Hidalgo PA-C [address] [place], [place] [address] (Wo rk) 05/08/2022 Lab Lab documented as of this encounter Visit Diagnoses Not on filedocumented in this encounter Additional Health Concerns Assessment Noted Time PHQ-9 Depression Total Score: 3 04/15/2017 10:35 AM CD T documented as of this encounter Care Teams Manager Labor Relations Relationship Specialty Start Date End Date Thad Mckeon, PCP - General Physician School Secretary - 02/17/14 [facility] Medical Thad Mckeon, PCP - Assigned PCP 12/16/13 09/07/18 [place] [address] [address] [id number] Thad Mckeon, Assigned PCP 12/16/13 [place] [address] [address] [address] documented as of this encounter
--- OUTSIDE RECORDS SUMMARY | 2022-04-02 23:52 | XMS_ITS | Encounter Summary ---
:1995 Author Organization [place] Address [address] [place] [address] Care Team Providers Name Role Phone Thad Mckeon PA-C Primary Care Provider [phone] Thad Mckeon PA-C Unavailable [phone] Encounter Details Date Type Department Care Team Description 02/16/2021 Travel Social History Tobacco Use Types Packs/Day [...] Office Visit Family Practice Kyle Hidalgo PA-C [address] [address] [address] (Wo rk) 05/08/2022 Lab Lab documented as of this encounter Visit Diagnoses Not on filedocumented in this encounter Additional Health Concerns Assessment Noted Time PHQ-9 Depression Total Score: 7 01/15/2021 7:02 AM CDT documented as of this encounter Care Teams Education Supervisor Relationship Specialty Start Date End Date Thad Mckeon, PCP - General Physician Security Professional - 02/17/14 AD Medical Thad Mckeon, Assigned PCP 12/23/20 [place] [address] [address] [address] documented as of this encounter
--- OUTSIDE RECORDS SUMMARY | 2022-04-02 23:52 | XMS_ITS | Encounter Summary ---
:1995 Author Organization [place] Address [facility] [place] [address] Care Team Providers Name Role Phone Thad Mckeon PA-C Primary Care Provider [phone] Thad Mckeon PA-C Unavailable [phone] Reason for Visit Reason Comments Other Entered automatically based on patient selection in [employer]. Encounter Details Date Type Department Care Team Description 12/21/2020 E-Visit [facility] Thad Mckeon Other (Entered Clinic [place]ely[place] [address] [address] [address] [address]... [place], [place] [id number] [phone] Social History Tobacco Use Types Packs/Day Years [...] Patient Instructions Patient InstructionsPeThad zepeda PA-C - 12/21/2020 9:00 AM CDT Thank you for choosing us [...] can schedule an appointment right here in [employer], or call [phone] If the visit is for the same symptoms as your eVisit, we'll refund the cost of your eVisit if seen within seven days. Thank you for choosing us for your care. Given your symptoms, I would like you to do a lab-only visit to determine what is causing them. I have placed the orders. Please schedule an appointment with the lab right here in [employer], or call [phone]. I will let you know when the results are back and next steps to take. documented in this encounter Miscellaneous Notes Telephone Encounter - Thad Mckeon PA-C - 12/22/2020 7:19 AM CDT Provider E-Visit time total (minutes): 5 documented in this encounter Plan of Treatment Upcoming Encounters Date Type Specialty Care Team Description 05/08/2022 Office Visit Family Practice Kyle Hidalgo PA-C [address] [address] [address] (Wo rk) 05/08/2022 Lab Lab Scheduled Orders Name Type Priority Associated Diagnoses Order S chedule UA reflex to Microscopic Lab Routine Vaginal itching Expected: 12/22/2020 and Culture (Approximate), Expires: 12/22/2021 documented as of this encounter Visit Diagnoses Diagnosis Vaginal itching - Primary Pruritus of genital organs documented in this encounter Additional Health Concerns Assessment Noted Time PHQ-9 Depression Total Score: 14 07/24/2020 7:07 AM CS T documented as of this encounter Care Teams Floral Clerk Relationship Specialty Start Date End Date Thad Mckeon, PCP - General Physician Food Cooking Machine Operator - 02/17/14 PA-C Medical Thad Mckeon, Assigned PCP 12/16/13 PA-C [address] [place] [address] documented as of this encounter
--- OUTSIDE RECORDS SUMMARY | 2022-04-02 23:52 | XMS_ITS | Encounter Summary ---
:1995 Author Organization [place] Address [facility] [address] Care Team Providers Name Role Phone Thad Mckeon PA-C Primary Care Provider [phone] Thad Mckeon PA-C Unavailable [phone] Thad Mckeon PA-C Unavailable [phone] Reason for Visit Reason Comments RECHECK STD screening Encounter Details Date Type Department Care Team Description 07/13/2017 Office Visit [facility] Thad Mckeon Attenfabian ion deficit hyperactivity disorder (ADHD), predominantly inattentive type (Primary Dx); Clinic [place] AD Persaud Screen for STD (sexually transmitted dis ease); [place] [address] [address] Acne, unspecified acne type; Road, [address] [place], [place] Need for HPV vaccine; [place] [address] History of cold sores; [id number] Insomnia, unspecified type Social History Tobacco Use Types Packs/Day Years Used Date Former Smoker Smokeless Tobacco: Never Used Alcohol Use Standard Drinks/Week Comments No 0 (1 standard drink = 0.6 oz pure alcoho l) Sex Assigned at Date Recorded Female 12/21/2020 8:52 AM CDT documented as of this encounter Last Filed Vital Signs Vital Sign Reading Time Taken Comments Blood Pressure 96/60 07/13/2017 8:48 AM TIME STAMP ASSEMBLER Pulse 84 07/13/2017 8:48 AM TIME STAMP ASSEMBLER Temperature 36.7 ??C (98 ??F) 07/13/2017 8:48 AM TIME STAMP ASSEMBLER Respiratory Rate 16 07/13/2017 8:48 AM TIME STAMP ASSEMBLER Oxygen Saturation - - Inhaled Oxygen Concentration - - Weight 72.6 kg (160 lb) 07/13/2017 8:48 AM TIME STAMP ASSEMBLER Height - - Body Mass Index 25.82 04/15/2017 9:45 AM CDT documented in this encounter Patient Instructions Patient InstructionsSchIsa regan MA - 07/13/2017 8:25 AM CST Preventive Health Recommendations Female Ages 18 to 25 Yearly exam: ??? See your health care provider every year in order to o Review health changes. o Discuss preventive care. o Review your medicines if your doctor has prescribed any. ??? You should be tested each year for STDs (sexually transmitted diseases). ??? After age 20, talk to your provider about how often you should have cholesterol testing. ??? Starting at age 21, get a Pap test every three years. If [...] instead of white grains and rice. ??? Talk to your provider about Calcium and Vitamin D. Lifestyle ??? Exercise at least 150 minutes a week each week (30 minutes a day, 5 days a week). This will helpyou control your weight and prevent disease. ??? Limit alcohol to one drink per day. ??? No smoking. ??? Wear sunscreen to prevent skin cancer. ??? See your dentist every six months for an exam and cleaning. STAMP ASSEMBLER documented in this encounter Progress Notes Thad Mckeon PA-C - 07/13/2017 8:40 AM CST SUBJECTIVE: Ruthie Nieto is a 22 year old female who presents to clinic today for the following health issues: Patient here for follow up to previous visit for more STD screenings. Last fall she was exposed to and contracted Chlamydia. This was a very upsetting experience for Ruthie. She was re-screened for Chlamydia a couple weeks later but we discussed that testing for other STD's such as HIV should wait for a couple months after potential exposure. She is here for that today. She does ask for Gonorrhea/Chlamydia screening today as she has had a new sexual partner since this time. She is not having any symptoms. She notes that she is not sleeping as well lately. Wondering Trazodone refill. Cold sores- worse in winter. Taking Valtrex more often than usual. In two weeks had three outbreaks. Ritalin- due for refills. Takes daily and this is working well for her. Problem list and histories reviewed & adjusted, as indicated. Additional history: as documented Labs reviewed in [facility] Reviewed and updated as needed this visit by clinical staff Tobacco Allergies Meds Problems Med Hx Surg Hx Fam Hx Soc Hx Reviewed and updated as needed this visit by Provider ROS: Constitutional, HEENT, cardiovascular, pulmonary, gi and gu systems are negative, except as otherwise noted. OBJECTIVE: BP 96/60 (BP Location: Right arm, Patient Position: Sitting, Cuff Size: Adult Regular) Pulse 84 Temp 98 ??F (36.7 ??C) (Oral) Resp 16 Wt 160 lb (72.6 kg) BMI 25.82 kg/m2 Body mass index is 25.82 kg/(m^2). GENERAL: healthy, alert and no distress CV: regular rate and rhythm, normal S1 S2, no S3 or S4, no murmur MS: no gross musculoskeletal defects noted, no edema SKIN: no suspicious lesions or rashes PSYCH: mentation appears normal, affect normal/bright and a little anxious Diagnostic Test Results: pending ASSESSMENT/PLAN: 1. Attention deficit hyperactivity disorder (ADHD), predominantly inattentive type Refilled. 3 month refills OK with phone visit. 6 month OV follow up. - methylphenidate (RITALIN LA) 20 MG CP24; Take 20 mg by mouth daily Dispense: 30 capsule; Refill: 0 - methylphenidate (RITALIN LA) 20 MG CP24; Take 20 mg by mouth daily Dispense: 30 capsule; Refill: 0 - methylphenidate (RITALIN LA) 20 MG CP24; Take 20 mg by mouth daily Dispense: 30 capsule; Refill: 0 2. Screen for STD (sexually transmitted disease) Screening done today. Follow up per labs. - HIV Antigen Antibody Combo - Hepatitis C Screen Reflex to HCV RNA Quant and Genotype - Anti Treponema - Chlamydia trachomatis PCR - Neisseria gonorrhoeae PCR 3. Acne, unspecified acne type Refilled. - clindamycin-benzoyl Per, Refr, (DUAC) 1.2-5 % GEL; Apply 0.5 inches topically At Bedtime Dispense:45 g; Refill: 11 4. Need for HPV vaccine - C HUMAN PAPILLOMA VIRUS VACCINE (GARDASIL 9) 3 DOSE IM 5. History of cold sores Discussed if rate of cold sore outbreaks continue as they were a couple weeks ago we may want to consider daily dosing. If it calms down then this is fine for now. - valACYclovir (VALTREX) 1000 mg tablet; Take 2 tablets (2,000 mg) by mouth 2 times daily For 1 day Dispense: 4 tablet; Refill: 5 6. Insomnia, unspecified type Refilled. Follow up if insomnia continues. - traZODone (DESYREL) 50 MG tablet; Take 1 tablet (50 mg) by mouth nightly as needed for sleep Dispense: 30 tablet; Refill: 1 Thad Mckeon PA-C [facility] STAMP ASSEMBLER documented in this encounter Plan of Treatment Upcoming Encounters Date Type Specialty Care Team Description 05/08/2022 Office Visit Family Practice Kyle Hidalgo PA-C [address] [address] [place] [address] (Wo rk) 05/08/2022 Lab Lab documented as of this encounter Procedures Procedure Name Priority Date/Time Associated Diagnosis Comme nts NEISSERIA Routine 07/13/2017 9:38 AM Screen for STD Results for this GONORRHOEAE PCR TIME STAMP ASSEMBLER (sexually procedure ar e in transmitted disease) the res ults section. CHLAMYDIA Routine 07/13/2017 9:38 AM Screen for STD Results for this TRACHOMATIS PCR TIME STAMP ASSEMBLER (sexually procedure ar e in transmitted disease) the res ults section. HIV ANTIGEN ANTIBODY Routine 07/13/2017 9:14 AM Screen for STD Results for this COMBO TIME STAMP ASSEMBLER (sexually procedure are i n transmitted disease) the res ults section. HEPATITIS C SCREEN Routine 07/13/2017 9:14 AM Screen for STD R esults for this REFLEX TO HCV RNA TIME STAMP ASSEMBLER (sexually procedure are in QUANT AND GENOTYPE transmitted disease) t he results section. ANTI TREPONEMA Routine 07/13/2017 9:14 AM Screen for STD Resul ts for this TIME STAMP ASSEMBLER (sexually procedure are i n transmitted disease) the res ults section. documented in this encounter Results Neisseria gonorrhoeae PCR (07/13/2017 9:38 AM TIME STAMP ASSEMBLER) Analysis Performed At [facility] logist Time Signature Specimen Vagina 07/13/[address] [facility] Descrip 9:44 AM TIME STAMP ASSEMBLER [facility] N Gonorrhea Negative NEG^Negati 07/14/2017 [facility] PCR ve 1:30 PM TIME STAMP ASSEMBLER TESTING LAB Comment: Negative for N. gonorrhoeae rRNA by colin scription mediated amplification. A negative result by cash register balancer media susana amplification does not preclude the presence of N. gonorrhoeae infection because results are dependent on proper and adequate collection, absence of inhibitors, and sufficient rRNA to be detected. Specimen Anatomical Collection Method Collection Time Receive d Time (Source) Location / / Volume Laterality Specimen from 07/13/2017 9:38 AM 07/13/19 18 9:43 vagina TIME STAMP ASSEMBLER AM TIME STAMP ASSEMBLER (specimen) Thad Mckeon PA-C LAB - MICRO GENERAL ORDERABL ES Performing Organization Address City/State/ZIP Code Phon e Number [facility] [address] [place] [address] [facility] [address] [place] [address] Chlamydia trachomatis PCR (07/13/2017 9:38 AM TIME STAMP ASSEMBLER) Patholo gist Method Time Signature Specimen Vagina 07/13/2017 [place] Description 9:44 AM TIME STAMP ASSEMBLER [facility] Chlamydia Negative NEG^Negat 07/14/2017 [facility] Trachomatis PCR pepper 1:30 PM TIME STAMP ASSEMBLER TESTING LAB Comment: Negative for C. trachomatis rRNA by colin scription mediated amplification. A negative result by cash register balancer media susana amplification does not preclude the presence of C. trachomatis infection because results are dependent on proper and adequate collection, absence of inhibitors, and sufficient rRNA to be detected. Specimen Anatomical Collection Method Collection Time Receive d Time (Source) Location / / Volume Laterality Specimen from 07/13/2017 9:38 AM 07/13/19 9:43 vagina TIME STAMP ASSEMBLER AM TIME STAMP ASSEMBLER (specimen) Thad Mckeon PA-C LAB - MICRO GENERAL ORDERABL ES Performing Organization Address City/[facility]/ZIP Code Phon e Number [facility] [address] [place] [id number] [place] [address] Anti Treponema (07/13/2017 9:14 AM TIME STAMP ASSEMBLER) Analysis Performed At Path logist Time Signature Treponema Negative NEG^Negati 07/14/2017 [facility] ve 10:42 AM TIME STAMP ASSEMBLER [facility] Specimen Anatomical Collection Method Collection Time Receive d Time (Source) Location / / Volume Laterality Blood specimen 07/13/2017 9:14 AM 018 9:19 (specimen) TIME STAMP ASSEMBLER AM TIME STAMP ASSEMBLER Thad Mckeon PA-C LAB - BLOOD ORDERABLES Performing Organization Address City/[facility]/ZIP Code Phon e Number [address] Hepatitis C Screen Reflex to HCV RNA Quant and Genotype (07/13/2017 9:14 AM TIME STAMP ASSEMBLER) Patholo gist Method Time Signature Hepatitis C Nonreactive NR^Nonrea 07/13/2017 [facility] Antibody ctive 9:07 PM TIME STAMP ASSEMBLER [facility] Comment: Assay performance characteristics have n ot been established for newborns, infants, and children Specimen Anatomical Collection Method Collection Time Receive d Time (Source) Location / / Volume Laterality Blood specimen 07/13/2017 9:14 AM 018 9:19 (specimen) TIME STAMP ASSEMBLER AM TIME STAMP ASSEMBLER Thad Mckeon PA-C LAB - BLOOD ORDERABLES Performing Organization Address City/[facility]/ZIP Code Phon e Number [place] [id number] [facility] HIV Antigen Antibody Combo (07/13/2017 9:14 AM TIME STAMP ASSEMBLER) [facility] Method Time Signature HIV Antigen Nonreactive NR^Nonrea 07/13/2017 [facility] ctive 9:01 PM TIME STAMP ASSEMBLER [place] [facility] Comment: HIV-1 p24 Ag & HIV-1/HIV-2 Ab N ot Detected Specimen Anatomical Collection Method Collection Time Receive d Time (Source) Location / / Volume Laterality Blood specimen 07/13/2017 9:14 AM 018 9:19 (specimen) TIME STAMP ASSEMBLER AM TIME STAMP ASSEMBLER Thad Mckeon PA-C LAB - BLOOD ORDERABLES Performing Organization Address City/State/ZIP Code Phon e Number [address] documented in this encounter Visit Diagnoses Diagnosis Attention deficit hyperactivity disorder (ADHD), predominantly inattentive type - Primary Screen for STD (sexually transmitted dis ease) Screening examination for venereal disea se Acne, unspecified acne type Need for HPV vaccine Need for prophylactic vaccination and in oculation against other viral diseases History of cold sores Personal history of other infectious and parasitic disease Insomnia, unspecified type documented in this encounter Additional Health Concerns Assessment Noted Time PHQ-9 Depression Total Score: 3 04/15/2017 10:35 AM CD T documented as of this encounter Care Teams Gravity Prospector Relationship Specialty Start Date End Date Thad Mckeon PCP - General Physician Glazier Stained Glass - 02/17/14 AD Medical Thad Mckeon, PCP - Assigned PCP 12/16/13 09/07/18 [place] [address] [place] [address] Thad Mckeon, Assigned PCP 12/16/13 [place] [address] [address] [place] [id number] documented as of this encounter
--- OUTSIDE RECORDS SUMMARY | 2022-04-02 23:52 | XMS_ITS | Encounter Summary ---
:1995 Author Organization [place] Address [address] [place] [address] Care Team Providers Name Role Phone Thad Mckeon PA-C Primary Care Provider [phone] Thad Mckeon PA-C Unavailable [phone] Thad Mckeon PA-C Unavailable [phone] Reason for Visit Reason Onset Date Comments Telephone 05/04/2018 Recheck Medication 05/04/2018 A.D.H.D 05/04/2018 Encounter Details Date Type Department Care Team Description 05/04/2018 Virtual Visit [facility] Thad Mckeon [facility] tion deficit hyperactivity disorder (ADHD), predominantly inattentive type; [facility] [place] Anxiety [place] [address] [facility], [address] [place] [address] [phone] Social History Tobacco Use Types Packs/Day Years Used Date Former Smoker Smokeless Tobacco: Never Used Alcohol Use Standard Drinks/Week Comments No 0 (1 standard drink = 0.6 oz pure alcoho l) Sex Assigned at Date Recorded Female 12/21/2020 8:52 AM CDT documented as of this encounter Progress Notes Thad Mckeon PA-C - 05/04/2018 4:40 PM CDT Ruthie Nieto is a 23 year old female who is being evaluated via a telephone visit. The patient has been notified of following (by Nathaniel Saab MA We have found that certain [...] We will have full access to your [facility] medical record during this entire phone call. [...] been obtained for this service by care meat service team member: yes. See the scanned image in the medical record. Additional provider notes: Patient calling in today to discuss medications. Needs refills today. 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 She has been taking her Ritalin daily. Has been out of it for about two weeks and can feel the difference in motivation and feels very tired without it. Anxiety is low right now. 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 Wondering about refilling in case of need at that time. Has not been taking xanax at all lately. I have reviewed the note as documented above. This accurately captures the substance of my conversation with the patient, Thad Mckeon PA-C Total time of call between patient and provider was 8 minutes Assessment/Plan: 1. Attention deficit hyperactivity disorder (ADHD), predominantly inattentive type Refilled today. Follow up 3 months. - methylphenidate (RITALIN LA) 20 MG CP24; Take 20 mg by mouth daily Dispense: 30 capsule; Refill: 0 - methylphenidate (RITALIN LA) 20 MG CP24; Take 20 mg by mouth daily Dispense: 30 capsule; Refill: 0 - methylphenidate (RITALIN LA) 20 MG CP24; Take 20 mg by mouth daily Dispense: 30 capsule; Refill: 0 2. Anxiety Refilled today. - ALPRAZolam (XANAX) 0.5 MG tablet; TAKE 1 TABLET BY MOUTH 3 TIMES DAILY NEEDED FOR ANXIETY Dispense: 20 tablet; Refill: 0 documented in this encounter Plan of Treatment Upcoming Encounters Date Type Specialty Care Team Description 05/08/2022 Office Visit Family Practice Kyle Hidalgo PA-C [address] [address] [address] (Wo rk) 05/08/2022 Lab Lab documented as of this encounter Visit Diagnoses Diagnosis Attention deficit hyperactivity disorder (ADHD), predominantly inattentive type Anxiety Anxiety state, unspecified documented in this encounter Additional Health Concerns Assessment Noted Time PHQ-9 Depression Total Score: 3 04/15/2017 10:35 AM CD T documented as of this encounter Care Teams Block Tester Relationship Specialty Start Date End Date Thad Mckeon, PCP - General Physician Wire Harness Design Engineer - 02/17/14 AD Medical Thad Mckeon, PCP - Assigned PCP 12/16/13 09/07/18 [place] [address] [address] [place] [address] Thad Mckeon, Assigned PCP 12/16/13 [place] [address] [place] [place] [address] documented as of this encounter
--- OUTSIDE RECORDS SUMMARY | 2022-04-02 23:52 | XMS_ITS | Encounter Summary ---
:1995 Author Organization [place] Address [facility] [place] [address] Care Team Providers Name Role Phone Thad Mckeon PA-C Primary Care Provider [phone] Thad Mckeon PA-C Unavailable [phone] Reason for Visit Reason Comments Allergic Rhinitis Entered automatically based on patient selection in [employer]. Encounter Details Date Type Department Care Team Description 02/18/2021 E-Visit [facility] Thad Mckeon Allerg ic Rhinitis Clinic Evelyne Persaud PA-C (Entered automatically [address] [address] [address] [place], [place] [address] [phone] Social History Tobacco Use Types Packs/Day Years [...] / COVID-19? documented as of this encounter Patient Instructions Patient InstructionsPeThad zepeda PA-C - 02/18/2021 10:50 AM CDT Jonathan Hendricks- I won't charge for this visit since we saw each other today! Thanks for choosing us as your health ocular care aide, Thad Mckeon PA-C documented in this encounter Miscellaneous Notes Telephone Encounter - Thad Mckeon PA-C - 02/20/2021 1:12 PM CDT Provider E-Visit time total (minutes): 0 documented in this encounter Plan of Treatment Upcoming Encounters Date Type Specialty Care Team Description 05/08/2022 Office Visit Family Practice Kyle Hidalgo PA-C [address] [address] [address] (Wo rk) 05/08/2022 Lab Lab documented as of this encounter Visit Diagnoses Diagnosis ERRONEOUS ENCOUNTER--DISREGARD - Primary documented in this encounter Additional Health Concerns Assessment Noted Time PHQ-9 Depression Total Score: 7 01/15/2021 7:02 AM CDT documented as of this encounter Care Teams Manager Card Relationship Specialty Start Date End Date Thad Mckeon, PCP - General Physician Landing Worker - 02/17/14 AD Medical Thad Mckeon, Assigned PCP 12/23/[place] [address] [address] [place] [address] documented as of this encounter
--- OUTSIDE RECORDS SUMMARY | 2022-04-02 23:52 | XMS_ITS | Encounter Summary ---
:1995 Author Organization [place] Address [facility] [place] [address] Care Team Providers Name Role Phone Thad Mckeon PA-C Primary Care Provider [phone] Thad Mckeon PA-C Unavailable [phone] Thad Mckeon PA-C Unavailable [phone] Reason for Visit Reason Onset Date Comments Medication Refill 10/07/2017 ALPRAZolam (XANAX) 0 .5 MG tablet Encounter Details Date Type Department Care Team Description 10/07/2017 Refill [facility] Thad Mckeon tion Refill Clinic [place] Persaud (ALPRAZolam (XANAX) [address] MG tablet) [address] [place] [address] [place], [place] [phone] (Wo rk) [address] [phone] Social History Tobacco Use Types Packs/Day Years Used Date Former Smoker Smokeless Tobacco: Never Used Alcohol Use Standard Drinks/Week Comments No 0 (1 standard drink = 0.6 oz pure alcoho l) Sex Assigned at Date Recorded Female 12/21/2020 8:52 AM CDT documented as of this encounter Miscellaneous Notes Telephone Encounter - Diana Valerio - 10/07/2017 1:59 PM CDT ALPRAZolam (XANAX) 0.5 MG tablet Sig: Take 1 tablet (0.5 mg) by mouth 3 times daily as needed for anxiety Last Written Prescription Date: 05/12/17 Last Fill Quantity: 20, # refills: 0 Last Office Visit with [facility] prescribing provider: 07/13/2017 Next 5 appointments (look out 90 days) Oct 15, 2017 8:00 AM CDT SHORT with Thad Mckeon PA-C [facility] [address] [place] [address], [address] [address] Routing refill request to provider for review/approval because: Drug not on the [facility], [facility] or [facility] refill protocol or controlled substance DUC Osorio October 07, 2017 1:59 PM documented in this encounter Plan of Treatment Upcoming Encounters Date Type Specialty Care Team Description 05/08/2022 Office Visit Family Practice Kyle Hidalgo PA-C [address] [address] [place] [place] [address] (Wo rk) 05/08/2022 Lab Lab documented as of this encounter Visit Diagnoses Diagnosis Anxiety Anxiety state, unspecified documented in this encounter Additional Health Concerns Assessment Noted Time PHQ-9 Depression Total Score: 3 04/15/2017 10:35 AM CD T documented as of this encounter Care Teams Search Optimization Analyst Relationship Specialty Start Date End Date Thad Mckeon, PCP - General Physician Lye Boiler - 02/17/14 AD Medical Thad Mckeon, PCP - Assigned PCP 12/16/13 09/07/18 [place] [address] [address] [address] Thad Mckeon, Assigned PCP 12/16/13 [place] [address] [place] [address] documented as of this encounter
--- OUTSIDE RECORDS SUMMARY | 2022-04-02 23:53 | XMS_ITS | Encounter Summary ---
:1995 Author Organization [facility] Address [address] [place] [address] Care Team Providers Name Role Phone hTad Mckeon PA-C Primary Care Provider [phone] Thad Mckeon PA-C Unavailable [phone] Thad Mckeon PA-C Unavailable [phone] Reason for Visit Reason Onset Date Comments Refill Request 10/08/2016 Ritalin Encounter Details Date Type Department Care Team Description 10/08/2016 Refill [facility] Thad Mckeon Refill Request Clinic [place] ([place]) [address] [place] [address] [place], [place] [phone] (Wo rk) [address] [phone] Social History Tobacco Use Types Packs/Day Years Used Date Former Smoker Smokeless Tobacco: Never Used Alcohol Use Standard Drinks/Week Comments No 0 (1 standard drink = 0.6 oz pure alcoho l) Sex Assigned at Date Recorded Female 12/21/2020 8:52 AM CDT documented as of this encounter Miscellaneous Notes Telephone Encounter - Rene Wick - 10/24/2016 10:00 AM CDT 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 John Paul Hicks Flat Knitter 10/24/16 Telephone Encounter - Thad Mckeon PA-C - 10/16/2016 5:19 PM CDT I understand Telephone Encounter - Irasema Jose RN - 10/14/2016 1:17 PM CDT Pt. Calls back unhappy about message below. Advised to schedule an lab only appt. But pt. became angry about having to do so; she reports she took a home test and it was negative and states this is all that she should have to do given she may have missed carried. Triage informed patient of result note: Notes Recorded by Thad Mckeon PA-C on 10/06/2016 at 12:53 PM Please call Ruthie. ??Her hcg is going down. ??We do need to keep going until it is zero. ??Have her come in on Thursday for another check. Has lab only appt for tomorrow at 10:00am Routing to PCP as fyi. Anything else needed? Irasema Jose RN, BSN, PHN Telephone Encounter - Sylvia Howell RN - 10/14/2016 9:01 AM CDT LMOM for patient to call clinic back. Sylvia Howell RN Telephone Encounter - Thad Mckeon PA-C - 10/10/2016 3:31 PM CDT Regarding the message on 10/02/16......Im concerned about her making these decisions on her own. I understand her distress with the blood draws however.... I need her to understand it would be me giving her the Rx that is a risky category in . Can she do one more Hcg for me before I give her this Rx please? Let me know what she says. Thad Maza Telephone Encounter - Sylvia Howell RN - 10/08/2016 3:44 PM CDT WELCOME HOSTESS checked 10/08/2016: 08/14/2016 METHYLPHENIDATE ER 20 MG CAP 30.00 07/28/2016 METHYLPHENIDATE LA 20 MG CAP 15.00 07/28/2016 ALPRAZOLAM 0.5 MG TABLET 20.00 06/13/2016 METHYLPHENIDATE 10 MG TABLET 30.00 06/12/2016 ALPRAZOLAM 0.5 MG TABLET 20.00 04/14/2016 ALPRAZOLAM 0.5 MG TABLET 15.00 03/14/2016 TEMAZEPAM 15 MG CAPSULE 30.00 01/17/2016 TEMAZEPAM 15 MG CAPSULE 30.00 01/15/2016 ALPRAZOLAM 0.5 MG TABLET 10.00 12/25/2015 ALPRAZOLAM 0.5 MG TABLET 10.00 12/20/2015 TEMAZEPAM 15 MG CAPSULE 30.00 11/23/2015 TEMAZEPAM 15 MG CAPSULE 30.00 10/10/2015 HYDROCODON-ACETAMINOPHEN 5-325 15.00 Sylvia Howell RN Telephone Encounter - Rene Wick - 10/08/2016 12:50 PM CDT Controlled Substance Refill Request for Ritalin Problem List Complete: No PROVIDER TO CONSIDER COMPLETION OF PROBLEM LIST AND OVERVIEW/CONTROLLED SUBSTANCE AGREEMENT Last Written Prescription Date: 08/14/2016 Last Fill Quantity: 30, # refills: 0 Last Office Visit with [facility] primary care provider: 08/14/2016 Future Office visit: Controlled substance agreement on file: No. Processing: Patient will bean picker machine operator in clinic WELCOME HOSTESS checked in past 6 months? No, route to RN documented in this encounter Plan of Treatment Upcoming Encounters Date Type Specialty Care Team Description 05/08/2022 Office Visit Family Practice Kyle Hidalgo PA-C [address] [address] [address] (Wo rk) 05/08/2022 Lab Lab documented as of this encounter Visit Diagnoses Diagnosis ADD (attention deficit hyperactivity dis order, inattentive type) Attention deficit disorder with hyperact ivity documented in this encounter Additional Health Concerns Assessment Noted Time PHQ-9 Depression Total Score: 10 06/13/2016 7:26 AM CS T documented as of this encounter Care Teams Elevator Mechanic Apprentice Relationship Specialty Start Date End Date Thad Mckeon, PCP - General Physician Metal Sprayer - 02/17/14 AD Medical Thad Mckeon, PCP - Assigned PCP 12/16/13 09/07/18 [place] [address] [address] [address] Thad Mckeon, Assigned PCP 12/16/13 [place] [address] [address] [address] documented as of this encounter
--- OUTSIDE RECORDS SUMMARY | 2022-04-02 23:53 | XMS_ITS | Encounter Summary ---
:1995 Author Organization [place] Address [facility] [place] [address] Care Team Providers Name Role Phone Thad Mckeon PA-C Primary Care Provider [phone] Thad Mckeon PA-C Unavailable [phone] Thad Mckeon PA-C Unavailable [phone] Reason for Visit Reason Onset Date Comments Refill Request 07/09/2016 venlafaxine (EFFEXOR -XR) 37.5 MG 24 hr capsule Encounter Details Date Type Department Care Team Description 07/09/2016 Refill [facility] Thad Mckeon Refill Request Clinic [place] (venlafaxine [address] [place] (EFFEXOR-XR) 37.5 MG 24 [address] [place] [address] hr capsule) [place], [place] [phone] (Wo rk) [address] [phone] Social History Tobacco Use Types Packs/Day Years Used Date Former Smoker Smokeless Tobacco: Never Used Alcohol Use Standard Drinks/Week Comments No 0 (1 standard drink = 0.6 oz pure alcoho l) Sex Assigned at Date Recorded Female 12/21/2020 8:52 AM CDT documented as of this encounter Miscellaneous Notes Telephone Encounter - Katelyn Rivera, YNES - 07/09/2016 8:44 AM CST Due for one month follow up visit, letter sent to schedule appt Prescription approved per [facility] Refill Protocol Katelyn Rivera RN BS OPEDICS TEACHER Telephone Encounter - Diana Valerio - 07/09/2016 8:08 AM CST venlafaxine (EFFEXOR-XR) 37.5 MG 24 hr capsule Sig: Take 1 capsule daily for 14 days, then take 2 capsules daily. Last Written Prescription Date: 06/12/16 Last Fill Quantity: 46, # refills: 0 Last Office Visit with [facility] primary care provider: 06/12/2016 Last PHQ-9 score on record= PHQ-9 SCORE 06/12/2016 Total Score - Total Score 10 DUC Osorio OPEDICS TEACHER documented in this encounter Plan of Treatment Upcoming Encounters Date Type Specialty Care Team Description 05/08/2022 Office Visit Family Practice Kyle Hidalgo PA-C [address] [address] [address] (Wo rk) 05/08/2022 Lab Lab documented as of this encounter Visit Diagnoses Diagnosis Anxiety - Primary Anxiety state, unspecified documented in this encounter Additional Health Concerns Assessment Noted Time PHQ-9 Depression Total Score: 10 06/13/2016 7:26 AM CS T documented as of this encounter Care Teams Machinist Apprentice Relationship Specialty Start Date End Date Thad Mckeon, PCP - General Physician Geothermal Heat Pump Machinist - 02/17/14 AD Medical Thad Mckeon, PCP - Assigned PCP 12/16/13 09/07/18 [place] [address] [address] [address] Thad Mckeon, Assigned PCP 12/16/13 [place] [address] [address], [place] [address] documented as of this encounter
--- OUTSIDE RECORDS SUMMARY | 2022-04-02 23:53 | XMS_ITS | Encounter Summary ---
:1995 Author Organization [place] Address [address] [place] [address]. [place] [address] Care Team Providers Name Role Phone hTad Mckeon PA-C Primary Care Provider [phone] Thad Mckeon PA-C Unavailable [phone] Thad Mckeon PA-C Unavailable [phone] Reason for Visit Reason Onset Date Comments STD 05/11/2017 Encounter Details Date Type Department Care Team Description 05/11/2017 Telephone [facility] [place] [address] [facility], [address] [place] [address] [address] [place] [address] [place] [address] [phone] Social History Tobacco Use Types Packs/Day Years Used Date Former Smoker Smokeless Tobacco: Never Used Alcohol Use Standard Drinks/Week Comments No 0 (1 standard drink = 0.6 oz pure alcoho l) Sex Assigned at Date Recorded Female 12/21/2020 8:52 AM CDT documented as of this encounter Miscellaneous Notes Telephone Encounter - Sylvia Howell RN - 05/12/2017 11:04 AM CST Patient was seen today by Thad and symptoms were discussed. Sylvia Howell RN NTIA PROGRAM DIRECTOR Telephone Encounter - Thad Mckeon PA-C - 05/11/2017 2:00 PM DEMENTIA PROGRAM DIRECTOR Did her symptoms go away and come back? Any itching? It is not recommended to retest this soon if wedo retest. She could have a yeast infection from the ABX however. Thad NTIA PROGRAM DIRECTOR Telephone Encounter - Jessi Hendricks RN - 05/11/2017 10:24 AM CST Pt calling c/o I am still having symptoms Recent positive chlamydia. She is having smelly discharge She took full dose of the Zithromax, has not been sexually active since last encounter. She states the last person she was with got tested for everything and he was negative except for the chlamydia. Pt wonders if should have extended treatment for chlamydia. Maintenance Shop Manager advised should be seen if still symptomatic. Pt declined OV - Wants PCP to review and advised Jessi Hendricks RN NTIA PROGRAM DIRECTOR documented in this encounter Plan of Treatment Upcoming Encounters Date Type Specialty Care Team Description 05/08/2022 Office Visit Family Practice [facility]idal[facility] [address] [facility] [place] [place] [address] (Wo rk) 05/08/2022 Lab Lab documented as of this encounter Visit Diagnoses Not on filedocumented in this encounter Additional Health Concerns Assessment Noted Time PHQ-9 Depression Total Score: 3 04/15/2017 10:35 AM CD T documented as of this encounter Care Teams Pie Chef Relationship Specialty Start Date End Date Thad Mckeon PCP - General Physician Milliner Helper - 02/17/14 AD Medical Thad Mckeon PCP - Assigned PCP 12/16/13 09/07/18 [facility] [address] [place] [address] Thad Mckeon, Assigned PCP 12/16/13 [facility] [address] [place] [address] documented as of this encounter
--- OUTSIDE RECORDS SUMMARY | 2022-04-02 23:53 | XMS_ITS | Encounter Summary ---
:1995 Author Organization [place] Address [address] [place] [address] Care Team Providers Name Role Phone Thad Mckeon PA-C Primary Care Provider [phone] Thad Mckeon PA-C Unavailable [phone] Thad Mckeon PA-C Unavailable [phone] Reason for Visit Reason Onset Date Comments No Show 05/19/2016 Encounter Details Date Type Department Care Team Description 05/19/2016 Office Visit [facility] Thad Mckeon NO GINA W (Primary Dx) Clinic [place] [address] [place] [address] [facility], [address] [place] [address] [place], [place] [phone] (Wo rk) [address] [phone] Social History Tobacco Use Types Packs/Day Years Used Date Former Smoker Smokeless Tobacco: Never Used Alcohol Use Standard Drinks/Week Comments No 0 (1 standard drink = 0.6 oz pure alcoho l) Sex Assigned at Date Recorded Female 12/21/2020 8:52 AM CDT documented as of this encounter Progress Notes Tamia Morfin - 05/19/2016 11:22 AM CST This patient was a no show for this scheduled appointment. CLEANER documented in this encounter Plan of Treatment Upcoming Encounters Date Type Specialty Care Team Description 05/08/2022 Office Visit Family [facility] Kyle Hidalgo PA-C [address] [address] [address] (Wo rk) 05/08/2022 Lab Lab documented as of this encounter Visit Diagnoses Diagnosis NO SHOW - Primary documented in this encounter Additional Health Concerns Assessment Noted Time PHQ-9 Depression Total Score: 8 03/15/2016 7:23 AM CDT documented as of this encounter Care Teams Lead Massage Therapist Relationship Specialty Start Date End Date Thad Mckeon, PCP - General Physician Risk Assessor - 02/17/14 AD Medical Thad Mckeon, PCP - Assigned PCP 12/16/13 09/07/18 [place] [address] [address] [id number] Thad Mckeon, Assigned PCP 12/16/13 [place] [address] [address] [place] [address] documented as of this encounter
--- OUTSIDE RECORDS SUMMARY | 2022-04-02 23:53 | XMS_ITS | Encounter Summary ---
:1995 Author Organization [place] Address [facility] [place] [address] Care Team Providers Name Role Phone Thad Mckeon PA-C Primary Care Provider [phone] Thad Mckeon PA-C Unavailable [phone] Thad Mckeon PA-C Unavailable [phone] Reason for Visit Reason Comments Recheck Medication Encounter Details Date Type Department Care Team Description 07/28/2016 Office Visit [facility] Thad Mckeon (Primary Dx); Clinic [place] AD Persaud ADD (attention deficit hyperactivity dis order, inattentive type); [place] [address] [facility] Screen for STD (sexually transmitted dis ease); Road, [address] [place], [place] Need for diphtheria-tetanus- pertussis (Tdap) vaccine [place], [place] [phone] Social History Tobacco Use Types Packs/Day Years Used Date Former Smoker Smokeless Tobacco: Never Used Alcohol Use Standard Drinks/Week Comments No 0 (1 standard drink = 0.6 oz pure alcoho l) Sex Assigned at Date Recorded Female 12/21/2020 8:52 AM CDT documented as of this encounter Last Filed Vital Signs Vital Sign Reading Time Taken Comments Blood Pressure 90/58 07/28/2016 9:55 AM SALES AND CATERING COORDINATOR Pulse 80 07/28/2016 9:55 AM SALES AND CATERING COORDINATOR Temperature 36.8 ??C (98.2 ??F) 07/28/2016 9:55 AM SALES AND CATERING COORDINATOR Respiratory Rate 24 07/28/2016 9:55 AM SALES AND CATERING COORDINATOR Oxygen Saturation - - Inhaled Oxygen Concentration - - Weight 79.8 kg (176 lb) 07/28/2016 9:55 AM SALES AND CATERING COORDINATOR Height - - Body Mass Index 28.41 10/23/2015 9:59 AM CDT documented in this encounter Progress Notes Thad Mckeon PA-C - 07/28/2016 9:17 AM CST SUBJECTIVE: Ruthie Nieto is a 21 year old female who presents to clinic today for the following health issues: Anxiety Follow-Up ?? Status since last visit: Improved ?? Other associated symptoms: ?? Complicating factors: Significant life event: No Current substance abuse: None Depression symptoms: No BEATRIZ-7 SCORE 01/16/2016 03/14/2016 06/12/2016 Total Score - - - Total Score 15 7 7 GAD7 ?? Amount of exercise or physical activity: None ?? Problems taking medications regularly: No ?? Medication side effects: none ?? Diet: regular (no restrictions) Doing well on Effexor, less anxiety and feeling no side effects to mention. Would like to continue. PROBLEMS TO ADD ON... STD check- new partner and wants to have testing for everything. Feeling very anxious however about this today, does not like blood draws. ADD meds today? Tested in childhood. Last time took something was late HS, 10/11th grade. Thinks wason quite high dose at that time. Problem list and histories reviewed & adjusted, as indicated. Additional history: as documented Problem list, Medication list, Allergies, and Medical/Social/Surgical histories reviewed in EPIC andupdated as appropriate. ROS: Constitutional, HEENT, cardiovascular, pulmonary, gi and gu systems are negative, except as otherwise noted. OBJECTIVE: BP 90/58 mmHg Pulse 80 Temp(Src) 98.2 ??F (36.8 ??C) (Oral) Resp 24 Wt 176 lb (79.833 kg) Body mass index is 28.42 kg/(m^2). GENERAL: healthy, alert and no distress MS: no gross musculoskeletal defects noted, no edema SKIN: no suspicious lesions or rashes PSYCH: mentation appears normal, anxious, judgement and insight intact and appearance well groomed Diagnostic Test Results: none ASSESSMENT/PLAN: 1. Anxiety Stay at 75mg for now, doing well. Follow up 6 months, sooner prn. - venlafaxine (EFFEXOR-XR) 75 MG 24 hr capsule; Take 1 capsule (75 mg) by mouth daily Dispense: 90 capsule; Refill: 1 - ALPRAZolam (XANAX) 0.5 MG tablet; Take 1 tablet (0.5 mg) by mouth 3 times daily as needed for anxiety Dispense: 20 tablet; Refill: 0 2. ADD (attention deficit hyperactivity disorder, inattentive type) Trial of this for 2 weeks, call to update me on dosing. - methylphenidate (RITALIN LA) 20 MG CP24; Take 20 mg by mouth daily Dispense: 15 capsule; Refill: 0 3. Screen for STD (sexually transmitted disease) - Chlamydia trachomatis PCR - Neisseria gonorrhoeae PCR - HIV Antigen Antibody Combo - Anti Treponema - Hepatitis C Screen Reflex to HCV RNA Quant and Genotype 4. Need for uisrpkjyot-dfjomeq-zzpedfhyr (Tdap) vaccine - TDAP (ADACEL AGES 11-64) Thad Mckeon PA-C [facility] S AND CATERING COORDINATOR documented in this encounter Nursing Notes Isa Saab MA - 07/28/2016 10:20 AM CST Screening Questionnaire for Adult Immunization [...] No Immunization questionnaire answers were all negative. MNVFC doesn't apply on this patient Per orders of JARRTE Tillman, injection of Tdap given by Isa Saab. Patient instructed toremain in clinic for 20 minutes afterwards, and to report any adverse reaction to me immediately. Screening performed by Isa Saab on 07/28/2016 at 10:20 AM. S AND CATERING COORDINATOR Isa Saab MA - 07/28/2016 9:58 AM CST Chief Complaint Patient presents with ??? Recheck Medication Initial BP 90/58 mmHg Pulse 80 Temp(Src) 98.2 ??F (36.8 ??C) (Oral) Resp 24 Wt 176 lb (79.833 kg) Estimated body mass index is 28.42 kg/(m^2) as calculated from the following: Height as of 10/22/16: 5' 6 (1.676 m). Weight as of this encounter: 176 lb (79.833 kg). BP completed using cuff size: regular Isa Saab MA S AND CATERING COORDINATOR documented in this encounter Plan of Treatment Upcoming Encounters Date Type Specialty Care Team Description 05/08/2022 Office Visit Family Practice Kyle Hidalgo PA-C [address] [address] [phone] (Wo rk) 05/08/2022 Lab Lab documented as of this encounter Procedures Procedure Name Priority Date/Time Associated Diagnosis Comme nts NEISSERIA Routine 07/28/2016 10:46 Screen for STD Results f or this GONORRHOEAE PCR AM SALES AND CATERING COORDINATOR (sexually procedure ar e in transmitted disease) the res ults section. CHLAMYDIA Routine 07/28/2016 10:46 Screen for STD Results f or this TRACHOMATIS PCR AM SALES AND CATERING COORDINATOR (sexually procedure ar e in transmitted disease) the res ults section. HIV ANTIGEN ANTIBODY Routine 07/28/2016 10:21 Screen for STD R esults for this COMBO AM SALES AND CATERING COORDINATOR (sexually procedure are i n transmitted disease) the res ults section. HEPATITIS C SCREEN Routine 07/28/2016 10:21 Screen for STD Res ults for this REFLEX TO HCV RNA AM SALES AND CATERING COORDINATOR (sexually procedure are in QUANT AND GENOTYPE transmitted disease) t he results section. ANTI TREPONEMA Routine 07/28/2016 10:21 Screen for STD Results for this AM SALES AND CATERING COORDINATOR (sexually procedure are i n transmitted disease) the res ults section. documented in this encounter Results Neisseria gonorrhoeae PCR (07/28/2016 10:46 AM SALES AND CATERING COORDINATOR) Component Value Ref Test Analysis Performed At Fits.me Range Method Time Signature Specimen Vagina [facility] N Gonorrhea Negative NEG [facility] Negative for N. gonorrhoeae rRNA by transcripti on mediated amplification. [facility] A negative result by transc ription mediated amplification does not preclude the [facility] presence of N. gonorrhoeae infection because re sults are dependent on proper BANK and adequate collection, absence of inhibitors, and suffici ent rRNA to be detected. Specimen Anatomical Collection Method Collection Time Receive d Time (Source) Location / / Volume Laterality Specimen from 07/28/2016 10:46 07/28/2016 vagina AM SALES AND CATERING COORDINATOR 10:51 AM SALES AND CATERING COORDINATOR (specimen) Thad Mckeon PA-C LAB - MICRO GENERAL ORDERABL ES Performing Organization Address City/State/ZIP Code Phon e Number [address] [address] [facility] [place] [address] Chlamydia trachomatis PCR (07/28/2016 10:46 AM SALES AND CATERING COORDINATOR) Component Value Ref Test Analysis Performed At [facility] Range Method Time Signature Specimen Vagina [facility] Chlamydia Negative NEG [facility] Trachomatis Negative for C. trachomatis rRNA by aircraft mechanic electrical and radio mediated amplification. [facility] PCR A negative result by transc ription mediated amplification does not preclude the [facility] presence of C. trachomatis infection because re sults are dependent on proper BANK and adequate collection, absence of inhibitors, and suffici ent rRNA to be detected. Specimen Anatomical Collection Method Collection Time Receive d Time (Source) Location / / Volume Laterality Specimen from 07/28/2016 10:46 07/28/2016 vagina AM SALES AND CATERING COORDINATOR 10:51 AM SALES AND CATERING COORDINATOR (specimen) Thad Mckeon PA-C LAB - MICRO GENERAL ORDERABL ES Performing Organization Address City/State/ZIP Code Phon e Number [address] [address] Hepatitis C Screen Reflex to HCV RNA Quant and Genotype (07/28/2016 10:21 AM SALES AND CATERING COORDINATOR) Component Value Ref Test Analysis Performed At [facility] gist Range Method Time Signature Hepatitis C Nonreactive NR [facility] Antibody Assay performance character istics have not been established for newborns, [place] MEDICAL infants, and children [facility] Specimen Anatomical Collection Method Collection Time Receive d Time (Source) Location / / Volume Laterality Blood specimen 07/28/2016 10:21 7 (specimen) AM SALES AND CATERING COORDINATOR 10:26 AM SALES AND CATERING COORDINATOR Thad Mckeon PA-C LAB - BLOOD ORDERABLES Performing Organization Address City/State/ZIP Code Phon e Number [address] [address] [place] Anti Treponema (07/28/2016 10:21 AM SALES AND CATERING COORDINATOR) Analysis Performed At Path logist Time Signature Treponema Negative NEG [facility] Antibody [facility] Specimen Anatomical Collection Method Collection Time Receive d Time (Source) Location / / Volume Laterality Blood specimen 07/28/2016 10:21 7 (specimen) AM SALES AND CATERING COORDINATOR 10:26 AM SALES AND CATERING COORDINATOR Thad Mckeon PA-C LAB - BLOOD ORDERABLES Performing Organization Address City/State/ZIP Code Phon e Number [address] [address] [facility] HIV Antigen Antibody Combo (07/28/2016 10:21 AM SALES AND CATERING COORDINATOR) [facility] gist Method Time Signature HIV Antigen Nonreactive NR [facility] Antibody HIV-1 p24 Ag & HIV-1/HIV-2 Ab Not Detected [place] [facility] Combo [facility] Specimen Anatomical Collection Method Collection Time Receive d Time (Source) Location / / Volume Laterality Blood specimen 07/28/2016 10:21 7 (specimen) AM SALES AND CATERING COORDINATOR 10:26 AM SALES AND CATERING COORDINATOR Thad Mckeon PA-C LAB - BLOOD ORDERABLES Performing Organization Address City/State/ZIP Code Phon e Number [facility] [address] [place] [address] [place] documented in this encounter Visit Diagnoses Diagnosis Anxiety - Primary Anxiety state, unspecified ADD (attention deficit hyperactivity dis order, inattentive type) Attention deficit disorder with hyperact ivity Screen for STD (sexually transmitted dis ease) Screening examination for venereal disea se Need for flnrubmayt-euctylo-aefbvybff (T dap) vaccine Need for prophylactic vaccination with c ombined fklyzinfhf-souzupo-snlevjbkg (DTP) vaccine documented in this encounter Additional Health Concerns Assessment Noted Time PHQ-9 Depression Total Score: 10 06/13/2016 7:26 AM CS T documented as of this encounter Care Teams Chief Vendor Quality Relationship Specialty Start Date End Date Thad Mckeon, PCP - General Physician [employer] Apprentice - 02/17/14 AD Medical Thad Mckeon, PCP - Assigned PCP 12/16/13 09/07/18 [place] [id number] [address] [place] [id number] Thad Mckeon, Assigned PCP 12/16/13 [place] [id number] [address] [address] documented as of this encounter
--- OUTSIDE RECORDS SUMMARY | 2022-04-02 23:53 | XMS_ITS | Encounter Summary ---
:1995 Author Organization [place] Address [address] [place] [address] Care Team Providers Name Role Phone Thad Mckeon PA-C Primary Care Provider [phone] Thad Mckeon PA-C Unavailable [phone] Thad Mckeon PA-C Unavailable [phone] Reason for Visit Reason Onset Date Comments Medication Request 04/14/2016 Alprazolam 0.5mg Encounter Details Date Type Department Care Team Description 04/14/2016 [facility] Thad Mckeon Mediclizett tion Request Clinic [place] AD Persaud (Alprazolam 0.5mg) [facility], [address] [place] [address] [address] [place] [address] [place], [place] [phone] (Wo rk) [address] [phone] Social History Tobacco Use Types Packs/Day Years Used Date Former Smoker Smokeless Tobacco: Never Used Alcohol Use Standard Drinks/Week Comments No 0 (1 standard drink = 0.6 oz pure alcoho l) Sex Assigned at Date Recorded Female 12/21/2020 8:52 AM CDT documented as of this encounter Miscellaneous Notes Telephone Encounter - Page, Jessi Salas RN - 05/03/2016 9:36 AM CDT Contact pt she did get RX and we did schedule appt for 05/19/16 Jessi Hendricks RN Telephone Encounter - Thad Mckeon PA-C - 04/14/2016 3:34 PM CDT Oh my goodness, this poor girl. Please make sure she schedules something soon. I will refill Rx. Thad Telephone Encounter - Sylvia Howell RN - 04/14/2016 9:58 AM CDT Patient calling requesting a refill of her Alprazolam 0.5mg. States she has not had to use it in a long time, but her boyfriend just committed suicide and is having a difficult time right now. Requesting a refill to get her through the next week or so and then she will schedule a follow up appointmentwith Thad. Please approve. [phone] Sylvia Howell RN documented in this encounter Plan of Treatment Upcoming Encounters Date Type Specialty Care Team Description 05/08/2022 Office Visit Family [facility] Hidalgo [facility]-C [address] [facility] [place] [address] (Wo rk) 05/08/2022 Lab Lab documented as of this encounter Visit Diagnoses Diagnosis Anxiety - Primary Anxiety state, unspecified documented in this encounter Additional Health Concerns Assessment Noted Time PHQ-9 Depression Total Score: 8 03/15/2016 7:23 AM CDT documented as of this encounter Care Teams Branch Examiner Relationship Specialty Start Date End Date Thad Mckeon, PCP - General Physician Director Economic - 02/17/14 AD Medical Thad Mckeon, PCP - Assigned PCP 12/16/13 09/07/18 PA-C [address] [address], [place] [address] Thad Mckeon, Assigned PCP 12/16/13 PA-C [address] [address] [address] documented as of this encounter
--- OUTSIDE RECORDS SUMMARY | 2022-04-02 23:53 | XMS_ITS | Encounter Summary ---
:1995 Author Organization [place] Address [address] [place] [address] Care Team Providers Name Role Phone Thad Mckeon PA-C Primary Care Provider [phone] Thad Mckeon PA-C Unavailable [phone] Thad Mckeon PA-C Unavailable [phone] Reason for Visit Reason Onset Date Comments Telephone 03/14/2016 Recheck Medication 03/14/2016 Encounter Details Date Type Department Care Team Description 03/14/2016 Virtual Visit [facility] Thad Mckeon ty (Primary Dx); Clinic [place] AD Persaud Other insomnia [place] [address] [facility], [address] [place] [phone] Social History Tobacco Use Types Packs/Day Years Used Date Former Smoker Smokeless Tobacco: Never Used Alcohol Use Standard Drinks/Week Comments No 0 (1 standard drink = 0.6 oz pure alcoho l) Sex Assigned at Date Recorded Female 12/21/2020 8:52 AM CDT documented as of this encounter Progress Notes Thad Mckeon PA-C - 03/14/2016 9:19 AM CDT Ruthie Nieto is a 21 year old female who is being evaluated via a telephone visit. The patient has been notified of following: This telephone visit will be conducted via a call between you and your physician/provider. We have found that certain health care [...] the test done at a later time. We will bill your insurance company for this service. Please check with your medical insurance if this type of visit is covered. You may be responsible for the cost of this type of visit if insurance coverage is denied. The typical cost is $30 (10min), $59 (11-20min) and $85 (21-30min). Most often these visits are shorter than 10 minutes. If during the course of the call the physician/provider feels a telephone visit is not appropriate, you will not be charged for this service. Consent has been obtained for this service by 2 care team members: yes. See the scanned image in themedical record. Ruthie Nieto complains of Telephone and Recheck Medication I have reviewed and updated the patient's Past Medical History, Social History, Family History and Medication List. ALLERGIES Review of patient's allergies indicates no known allergies. Isa Saab MA (MA signature) Additional provider notes: Ruthie calling for med review and anxiety check in. Has a couple new meds per derm for her face. Things are going OK. Got out of her exercise routine due to a wedding and somerecent stress. OFP against former fiance due to some threats. Feeling a little edgy. Able to fall asleep but waking 2-3 times at night. PHQ-9 score: PHQ-9 SCORE 03/14/2016 Total Score - Total Score 8 BEATRIZ-7 SCORE 08/16/2014 01/16/2016 03/14/2016 Total Score 2 - - Total Score - 15 7 Assessment/Plan: 1. Anxiety Offered mental health referral, she declined for now. Follow up in office in 6 months, sooner prn. - escitalopram (LEXAPRO) 20 MG tablet; Take 1 tablet (20 mg) by mouth daily Dispense: 90 tablet; Refill: 1 2. Other insomnia Ok to try taking 2 tabs to see if helps stay asleep longer. Call for refill sooner if needed. - temazepam (RESTORIL) 15 MG capsule; Take 1-2 capsules (15-30 mg) by mouth nightly as needed for sleep Dispense: 30 capsule; Refill: 3 I have reviewed the note as documented above. This accurately captures the substance of my conversation with the patient, Thad Mckeon PA-C Total time of call between patient and provider was 6 minutes documented in this encounter Plan of Treatment Upcoming Encounters Date Type Specialty Care Team Description 05/08/2022 Office Visit [facility][1] Kyle Hidalgo PA-C [address] [address] [phone] (Wo rk) 05/08/2022 Lab Lab documented as of this encounter Visit Diagnoses Diagnosis Anxiety - Primary Anxiety state, unspecified Other insomnia documented in this encounter Additional Health Concerns Assessment Noted Time PHQ-9 Depression Total Score: 8 03/15/2016 7:23 AM CDT documented as of this encounter Care Teams Facilities Management Executive Relationship Specialty Start Date End Date Thad Mckeon, PCP - General Physician Direct Marketing Specialist - 02/17/14 AD Medical Thad Mckeon, PCP - Assigned PCP 12/16/13 09/07/18 [place] [id number] [address] [address] Thad Mckeon, Assigned PCP 12/16/13 [place] [address] [address] [address] documented as of this encounter
--- OUTSIDE RECORDS SUMMARY | 2022-04-02 23:53 | XMS_ITS | Encounter Summary ---
:1995 Author Organization [facility] Address [address] [place] [address] Care Team Providers Name Role Phone Thad Mckeon PA-C Primary Care Provider [phone] Thad Mckeon PA-C Unavailable [phone] Thad Mckeon PA-C Unavailable [phone] Reason for Visit Reason Comments ER F/U Encounter Details Date Type Department Care Team Description 09/25/2016 Office Visit [facility] Thad Mckeon in early Clinic [place] (Primary [place] [address] [facility], [address] [place] [address] [place], [place] [phone] (Wo rk) [address] [phone] Social History Tobacco Use Types Packs/Day Years Used Date Former Smoker Smokeless Tobacco: Never Used Alcohol Use Standard Drinks/Week Comments No 0 (1 standard drink = 0.6 oz pure alcoho l) Sex Assigned at Date Recorded Female 12/21/2020 8:52 AM CDT documented as of this encounter Last Filed Vital Signs Vital Sign Reading Time Taken Comments Blood Pressure 94/56 09/25/2016 11:16 AM CDT Pulse 76 09/25/2016 11:16 AM CDT Temperature 36.7 ??C (98 ??F) 09/25/2016 11:16 AM CDT Respiratory Rate 20 09/25/2016 11:16 AM CDT Oxygen Saturation - - Inhaled Oxygen Concentration - - Weight 74.8 kg (165 lb) 09/25/2016 11:16 AM CDT Height - - Body Mass Index 26.63 09/24/2016 3:12 PM CDT documented in this encounter Progress Notes Thad Mckeon PA-C - 09/25/2016 11:00 AM CDT SUBJECTIVE: Ruthie Nieto is a 21 year old female who presents to clinic today for the following health issues: ED/UC Followup: Facility: [facility] Date of visit: 09/24/16 Reason for visit: vaginal bleeding with Current Status: still bleeding a little bit Ruthie had a positive urine test here in the clinic two days ago. Yesterday she began having vaginal bleeding with mild cramping. Dark bleeding and some clots in toilet. This started yesterdayat about 12:30 pm. Went to the ED at [facility] after calling here. They did an US that was non conclusive for confirming an intrauterine . Additionally they were not able to get blood from her todo a blood type or serum HCG. She is here today for follow up. She has not had anymore bleeding and denies any pain or vaginal discharge. Problem list and histories reviewed & adjusted, as indicated. Additional history: as documented Reviewed and updated as needed this visit by clinical staff Tobacco Allergies Meds Problems Med Hx Surg Hx Fam Hx Soc Hx Reviewed and updated as needed this visit by Provider ROS: Constitutional, HEENT, cardiovascular, pulmonary, gi and gu systems are negative, except as otherwise noted. OBJECTIVE: BP 94/56 (BP Location: Right arm, Patient Position: Chair, Cuff Size: Adult Regular) Pulse 76 Temp 98 ??F (36.7 ??C) (Oral) Resp 20 Wt 165 lb (74.8 kg) LMP 08/27/2016 (Approximate) BMI 26.63 kg/m2 Body mass index is 26.63 kg/(m^2). GENERAL: healthy, alert and no distress MS: no gross musculoskeletal defects noted, no edema SKIN: no suspicious lesions or rashes PSYCH: mentation appears normal, affect normal/bright Diagnostic Test Results: Results for orders placed or performed in visit on 09/25/16 HCG quantitative Result Value Ref Range HCG Quantitative Serum 35 (H) 0 - 5 IU/L ASSESSMENT/PLAN: 1. Bleeding in early Will check HCG today but blood draw was very difficult for her. Sent STAT. Not able to obtain enoughfor Typing. Will have to do serial testing. She is not currently having pain or bleeding. She would like to wait until Thursday for the next testing due to her difficulty with blood draws. I think this is OK and she will go to the ED if she develops pain or bleeding sooner. - HCG quantitative Thad Mckeon PA-C [facility] documented in this encounter Nursing Notes Isa Saab MA - 09/25/2016 11:00 AM CDT Chief Complaint Patient presents with ??? ER F/U Initial BP 94/56 (BP Location: Right arm, Patient Position: Chair, Cuff Size: Adult Regular) Pulse76 Temp 98 ??F (36.7 ??C) (Oral) Resp 20 Wt 165 lb (74.8 kg) LMP 08/27/2016 (Approximate) BMI 26.63 kg/m2 Estimated body mass index is 26.63 kg/(m^2) as calculated from the following: Height as of 09/24/16: 5' 6 (1.676 m). Weight as of this encounter: 165 lb (74.8 kg). Medication Reconciliation: complete Isa Saab MA documented in this encounter Plan of Treatment Upcoming Encounters Date Type Specialty Care Team Description 05/08/2022 Office Visit Family Practice Kyle Hidalgo PA-C [address] TASHA CORDON [address] (Wo rk) 05/08/2022 Lab Lab documented as of this encounter Procedures Procedure Name Priority Date/Time Associated Comments Diagnosis HCG QUANTITATIVE Routine 09/25/2016 11:39 Bleeding in early Re sults for this AM CDT procedure are i n the results section. documented in this encounter Results (ABNORMAL) HCG quantitative (10/01/2016 9:37 AM CDT) [facility] gist Method Time Signature HCG Quantitative 11 (H) 0 - 5 [place] Serum IU/L [facility] Specimen Anatomical Collection Method Collection Time Receive d Time (Source) Location / / Volume Laterality Blood specimen 10/01/2016 9:37 AM 017 9:38 (specimen) CDT AM CDT Thad Mckeon PA-C LAB - BLOOD ORDERABLES Performing Organization Address City/[facility]/ZIP [facility] Phon e Number [facility] [address] [place] [address] (ABNORMAL) HCG quantitative (09/25/2016 11:39 AM CDT) [facility] gist Method Time Signature HCG Quantitative 35 (H) 0 - 5 [place] Serum IU/L [facility] Specimen Anatomical Collection Method Collection Time Receive d Time (Source) Location / / Volume Laterality Blood specimen 09/25/2016 11:39 7 (specimen) AM CDT 11:40 AM CDT Thad Mckeon PA-C LAB - BLOOD ORDERABLES Performing Organization Address City/[facility] Phon e Number [facility] [address] [place] [address] documented in this encounter Visit Diagnoses Diagnosis Bleeding in early - Primary Unspecified hemorrhage in early pregnanc y, unspecified as to episode of care documented in this encounter Additional Health Concerns Assessment Noted Time PHQ-9 Depression Total Score: 10 06/13/2016 7:26 AM CS T documented as of this encounter Care Teams Buffing Machine Operator Relationship Specialty Start Date End Date Thad Mckeon, PCP - General Physician Mathematics Lecturer - 02/17/14 AD Medical Thad Mckeon, PCP - Assigned PCP 12/16/13 09/07/18 [place] [address] KRYSTLE MARTINEZ, TASHA [id number] Thad Mckeon, Assigned PCP 12/16/13 [place] [address] KRYSTLE MARTINEZ, TASHA [id number] documented as of this encounter
--- OUTSIDE RECORDS SUMMARY | 2022-04-02 23:53 | XMS_ITS | Encounter Summary ---
:1995 Author Organization [facility] Address [address] [place] [address] Care Team Providers Name Role Phone Thad Mckeon PA-C Primary Care Provider [phone] Thad Mckeon PA-C Unavailable [phone] Thad Mckeon PA-C Unavailable [phone] Reason for Visit Reason Onset Date Comments Refill Request 02/13/2017 Valtrex Encounter Details Date Type Department Care Team Description 02/13/2017 Refill [facility] Thad Mckeon Refill Request Clinic [place]aud (Valtrex) [address] [place] [address] [place], [place] [phone] (Wo rk) [address] [phone] Social History Tobacco Use Types Packs/Day Years Used Date Former Smoker Smokeless Tobacco: Never Used Alcohol Use Standard Drinks/Week Comments No 0 (1 standard drink = 0.6 oz pure alcoho l) Sex Assigned at Date Recorded Female 12/21/2020 8:52 AM CDT documented as of this encounter Miscellaneous Notes Telephone Encounter - Sylvia Howell RN - 02/13/2017 2:24 PM CDT Prescription approved per [facility] Refill Protocol. Sylvia Howell, RN Telephone Encounter - Janee Stallings - 02/13/2017 7:44 AM CDT Valtrex-pt has job interview and has cold sores Last Written Prescription Date: 08/14/16 Last Fill Quantity: 4, # refills: 6 Last Office Visit with [facility] or [facility] prescribing provider: 09/25/16 w/Thad Mckeon No results found for: CR documented in this encounter Plan of Treatment Upcoming Encounters Date Type Specialty Care Team Description 05/08/2022 Office Visit Family Practice Kyle Hidalgo PA-C [address] TASHA CORDON [phone] (Wo rk) 05/08/2022 Lab Lab documented as of this encounter Visit Diagnoses Diagnosis History of cold sores Personal history of other infectious and parasitic disease documented in this encounter Additional Health Concerns Assessment Noted Time PHQ-9 Depression Total Score: 10 06/13/2016 7:26 AM CS T documented as of this encounter Care Teams Contact And Service Clerks Supervisor Relationship Specialty Start Date End Date Thad Mckeon, PCP - General Physician Hardboard Press Operator - 02/17/14 [facility] Thad Mckeon, PCP - Assigned PCP 12/16/13 09/07/18 RODRIGOC [address] TASHA GUARDADO [address] Thad Mckeon, Assigned PCP 12/16/13 PALaceyC [address] TASHA GUARDADO [address] documented as of this encounter
--- OUTSIDE RECORDS SUMMARY | 2022-04-02 23:53 | XMS_ITS | Encounter Summary ---
:1994 Author Organization [facility] Address [address] [place] [address] Care Team Providers Name Role Phone Thad Mckeon PA-C Primary Care Provider [phone] Thad Mckeon PA-C Unavailable [phone] Thad Mckeon PA-C Unavailable [phone] Reason for Visit Reason Onset Date Comments Telephone 08/14/2016 RECHECK 08/14/2016 Encounter Details Date Type Department Care Team Description 08/14/2016 Virtual Visit [facility] Thad Mckeon ( attention deficit hyperactivity disorder, inattentive type) (Primary Dx); Clinic [place]aud History of cold sores [place] [address] [facility], [address] [place] [address] [phone] Social History Tobacco Use Types Packs/Day Years Used Date Former Smoker Smokeless Tobacco: Never Used Alcohol Use Standard Drinks/Week Comments No 0 (1 standard drink = 0.6 oz pure alcoho l) Sex Assigned at Date Recorded Female 12/21/2020 8:52 AM CDT documented as of this encounter Progress Notes Ana Laura Hicks - 08/14/2016 11:51 AM CST Spoke with pt informed that Rx is at front end architect ready and for order picker/assembler. John Paul Hicks Multi Township Assessor Thad Rinaldi PA-C - 08/14/2016 8:42 AM CST Ruthie Nieto is a 21 year old [...] themedical record. Ruthie Nieto complains of Telephone I have reviewed and updated the patient's Past Medical History, Social History, Family History and Medication List. ALLERGIES Review of patient's allergies indicates no known allergies. Isa Saba MA (MA signature) Additional provider notes: Ruthie is calling to discuss her start of medication for ADD. We discussedthis at an OV on 07/28/16 and decided to start her on Ritalin. She is now taking 20mg ritalin daily without problem. No sleep problems or trouble with appetite. She would like to continue on this. 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 Describes lesions on mouth/lips with pain and tingling. Uses nail english remover and organic powder to drythem out. Tried Abreva but didn't work. Wondering about an Rx. Assessment/Plan: 1. ADD (attention deficit hyperactivity disorder, inattentive type) Refilled for 3 months, follow up at that time. - methylphenidate (RITALIN LA) 20 MG CP24; Take 20 mg by mouth daily Dispense: 30 capsule; Refill: 0 - methylphenidate (RITALIN LA) 20 MG CP24; Take 20 mg by mouth daily Dispense: 30 capsule; Refill: 0 - methylphenidate (RITALIN LA) 20 MG CP24; Take 20 mg by mouth daily Dispense: 30 capsule; Refill: 0 2. History of cold sores - valACYclovir (VALTREX) 1000 mg tablet; Take 2 tablets (2,000 mg) by mouth 2 times daily Dispense: 4 tablet; Refill: 6 I have reviewed the note as documented above. This accurately captures the substance of my conversation with the patient, Thad Mckeon PA-C Total time of call between patient and provider was 7 minutes MOTIVE PRODUCT SPECIALIST documented in this encounter Plan of Treatment Upcoming Encounters Date Type Specialty Care Team Description 05/08/2022 Office Visit [facility] Kyle Hidalgo PA-C [address] [facility] [place], [place] [address] (Wo rk) 05/08/2022 Lab Lab documented as of this encounter Visit Diagnoses Diagnosis ADD (attention deficit hyperactivity dis order, inattentive type) - Primary Attention deficit disorder with hyperact ivity History of cold sores Personal history of other infectious and parasitic disease documented in this encounter Additional Health Concerns Assessment Noted Time PHQ-9 Depression Total Score: 10 06/13/2016 7:26 AM CS T documented as of this encounter Care Teams Bicycle Mechanic Relationship Specialty Start Date End Date Thad Mckeon, PCP - General Physician Hurricane Tracker - 02/17/14 AD Medical Thad Mckeon, PCP - Assigned PCP 12/16/13 09/07/18 [place] [address] TASHA GUARDADO [address] Thad Mckeon, Assigned PCP 12/16/13 [place] [address] TASHA GUARDADO [address] documented as of this encounter
--- OUTSIDE RECORDS SUMMARY | 2022-04-02 23:53 | XMS_ITS | Encounter Summary ---
:1994 Author Organization [facility] Address [address] [place] [address] Care Team Providers Name Role Phone Thad Mckeon PA-C Primary Care Provider [phone] Thad Mckeon PA-C Unavailable [phone] Thad Mckeon PA-C Unavailable [phone] Reason for Visit Reason Onset Date Comments Refill Request 01/14/2016 Escitalopram 10mg 05/21 Refill Request 01/14/2016 Trazodone 50mg Encounter Details Date Type Department Care Team Description 01/14/2016 Refill [facility] Thad Mckeon Refill Request Clinic [place] AD Persaud (Escitalopram 10mg [facility], [id number] [place] [address] 01/14/16); Refill [address] [place] [address] Request (Trazodone 50mg [place], [place] [phone] (Wo rk) 01/14/16) [address] [phone] Social History Tobacco Use Types Packs/Day Years Used Date Former Smoker Smokeless Tobacco: Never Used Alcohol Use Standard Drinks/Week Comments No 0 (1 standard drink = 0.6 oz pure alcoho l) Sex Assigned at Date Recorded Female 12/21/2020 8:52 AM CDT documented as of this encounter Miscellaneous Notes Telephone Encounter - Marbella Rolle - 09/25/2016 11:43 AM CDT Encounter found during QC. Close encounter. Telephone Encounter - Marbella Rolle - 01/14/2016 9:48 AM CDT Escitalopram 10mg Last Written Prescription Date: 12/18/15 Last Fill Quantity: 30, # refills: 0 Last Office Visit with [facility] primary care provider: 11/21/15 Next 5 appointments (look out 90 days) Jan 15, 2016 6:00 PM SHORT with Thad Mckeon PA-C [facility] [address] [address] Last PHQ-9 score on record= PHQ-9 SCORE 08/16/2014 Total Score 2 Trazodone 50mg Last Written Prescription Date: 11/21/15 Last Fill Quantity: 30, # refills: 0 Last Office Visit with [facility], P or [facility] prescribing provider: 11/21/15 Future Office visit: Next 5 appointments (look out 90 days) Jan 15, 2016 6:00 PM SHORT with Thad Mckeon PA-C [facility] [address] [address] Routing refill request to provider for review/approval because: Drug not active on patient's medication list documented in this encounter Plan of Treatment Upcoming Encounters Date Type Specialty Care Team Description 05/08/2022 Office Visit Family Practice Kyle Hidalgo PA-C [address] [address] MARTINEZ [place] [address] (Wo rk) 05/08/2022 Lab Lab documented as of this encounter Visit Diagnoses Diagnosis Anxiety - Primary Anxiety state, unspecified documented in this encounter Care Teams Topographical Field Assistant Relationship Specialty Start Date End Date Thad Mckeon, PCP - General Physician Marine Animal Trainer - 02/17/14 AD Medical Thad Mckeon, PCP - Assigned PCP 12/16/13 09/07/18 [place] [address] TASHA GUARDADO [id number] Thad Mckeon, Assigned PCP 12/16/13 [place] [address] TASHA GUARDADO [id number] documented as of this encounter
--- OUTSIDE RECORDS SUMMARY | 2022-04-02 23:53 | XMS_ITS | Encounter Summary ---
:1994 Author Organization [facility] Address [address] [place] [address] Care Team Providers Name Role Phone Thad Mckeon PA-C Primary Care Provider [phone] Thad Mckeon PA-C Unavailable [phone] Thad Mckeon PA-C Unavailable [phone] Encounter Details Date Type Department Care Team Description 09/29/[address] [facility] Ble eding in early [facility] (Primary Dx) [facility], [address] [place] [address] Social History Tobacco Use [...] Office Visit Family Practice Kyle Hidalgo PA-C [address] [address] [place], [place] [address] (Wo rk) 05/08/2022 Lab Lab documented as of this encounter Procedures Procedure Name Priority Date/Time Associated Comments Diagnosis HCG QUANTITATIVE Routine 09/29/2016 9:41 AM Bleeding in early Results for this CDT procedure are i n the results section. documented in this encounter Results (ABNORMAL) HCG, quantitative, (09/29/2016 9:41 AM CDT) [facility] gist Method Time Signature HCG Quantitative 25 (H) 0 - 5 [place] Serum IU/L [facility] Specimen Anatomical Collection Method Collection Time Receive d Time (Source) Location / / Volume Laterality Blood specimen 09/29/2016 9:41 AM 017 9:46 (specimen) CDT AM CDT Thad Mckeon PA-C LAB - BLOOD ORDERABLES Performing Organization Address City/State/ZIP Code Phon e Number [facility] [address] [place] [address] documented in this encounter Visit Diagnoses Diagnosis Bleeding in early - Primary Unspecified hemorrhage in early pregnanc y, unspecified as to episode of care documented in this encounter Additional Health Concerns Assessment Noted Time PHQ-9 Depression Total Score: 10 06/13/2016 7:26 AM CS T documented as of this encounter Care Teams Biopsychologist Relationship Specialty Start Date End Date Tahd Mckeon, PCP - General Physician Car Sander - 02/17/14 AD Medical Thad Mckeon, PCP - Assigned PCP 12/16/13 09/07/18 [place] [address] TASHA GUARDADO [address] Thad Mckeon, Assigned PCP 12/16/13 [place] [address] TASHA GUARDADO [address] documented as of this encounter
--- OUTSIDE RECORDS SUMMARY | 2022-04-02 23:53 | XMS_ITS | Encounter Summary ---
:1994 Author Organization [facility] Address [address] [place] [address]. [place] [address] Care Team Providers Name Role Phone Thad Mckeon PA-C Primary Care Provider [phone] Thad Mckeon PA-C Unavailable [phone] Thad Mckeon PA-C Unavailable [phone] Reason for Visit Reason Onset Date Comments Refill Request 03/11/2016 escitalopram (LEXAPR O) 20 MG tablet Encounter Details Date Type Department Care Team Description 03/11/2016 Refill [facility] Thad Mckeon Refill Request Clinic [place] AD [place]aud (escitalopram (LEXAPRO) [facility], [address] [place] [address] 20 MG tablet) [address] [place] [address] [place], [place] [phone] (Wo rk) [address] [phone] Social History Tobacco Use Types Packs/Day Years Used Date Former Smoker Smokeless Tobacco: Never Used Alcohol Use Standard Drinks/Week Comments No 0 (1 standard drink = 0.6 oz pure alcoho l) Sex Assigned at Date Recorded Female 12/21/2020 8:52 AM CDT documented as of this encounter Miscellaneous Notes Telephone Encounter - Aidee Harris RN - 03/13/2016 12:08 PM CDT Pt called back and scheduled telephone visit for tomorrow Aidee Harris RN, BSN Telephone Encounter - Aidee Harris RN - 03/13/2016 9:22 AM CDT LMTRC See plan below Aidee Harris RN, MONETN Telephone Encounter - Diana Valerio - 03/11/2016 11:45 AM CDT escitalopram (LEXAPRO) 20 MG tablet Last Written Prescription Date: 01/15/16 Last Fill Quantity: 30, # refills: 1 Last Office Visit with [facility] primary care provider: 01/15/16 Last PHQ-9 score on record= PHQ-9 SCORE 01/16/2016 Total Score - Total Score 4 From last Visit: ? ASSESSMENT/PLAN:? 1. Anxiety Increase Lexapro to 20mg, follow up phone or OV for refills. MARC Osorio documented in this encounter Plan of Treatment Upcoming Encounters Date Type Specialty Care Team Description 05/08/2022 Office Visit Family Practice Kyle Hidalgo PA-C [address] [address] [place] [address] (Wo rk) 05/08/2022 Lab Lab documented as of this encounter Visit Diagnoses Diagnosis Anxiety - Primary Anxiety state, unspecified documented in this encounter Additional Health Concerns Assessment Noted Time PHQ-9 Depression Total Score: 4 01/17/2016 7:15 AM CDT documented as of this encounter Care Teams Card Clothier Relationship Specialty Start Date End Date Thad Mckeon, PCP - General Physician Contact Acid Plant Operator - 02/17/14 AD Medical Thad Mckeon, PCP - Assigned PCP 12/16/13 09/07/18 [place] [address] TASHA GUARDADO [id number] Thad Mckeon, Assigned PCP 12/16/13 RODRIGOC [address] TASHA GUARDADO [id number] documented as of this encounter
--- OUTSIDE RECORDS SUMMARY | 2022-04-02 23:53 | XMS_ITS | Encounter Summary ---
:1994 Author Organization [facility] Address [address] [place] [address] Care Team Providers Name Role Phone Thad Mckeon PA-C Primary Care Provider [phone] Thad Mckeon PA-C Unavailable [phone] Thad Mckeon PA-C Unavailable [phone] Reason for Visit Reason Onset Date Comments No Show 07/08/2016 Encounter Details Date Type Department Care Team Description 07/08/2016 Office Visit [facility] Thad Mckeon NO GINA W (Primary Dx) Clinic [place] [address] [place] [address] [facility], [address] [place] [address] [place], [place] [phone] (Wo rk) [address] [phone] Social History Tobacco Use Types Packs/Day Years Used Date Former Smoker Smokeless Tobacco: Never Used Alcohol Use Standard Drinks/Week Comments No 0 (1 standard drink = 0.6 oz pure alcoho l) Sex Assigned at Date Recorded Female 12/21/2020 8:52 AM CDT documented as of this encounter Progress Notes Isa Saab, GERA - 07/08/2016 9:16 AM CST This patient was a no show for this scheduled appointment. MONITOR documented in this encounter Plan of Treatment Upcoming Encounters Date Type Specialty Care Team Description 05/08/2022 Office Visit Family [facility] Kyle Hidalgo PA-C [address] TASHA CORDON [address] (Wo rk) 05/08/2022 Lab Lab documented as of this encounter Visit Diagnoses Diagnosis NO SHOW - Primary documented in this encounter Additional Health Concerns Assessment Noted Time PHQ-9 Depression Total Score: 10 06/13/2016 7:26 AM CS T documented as of this encounter Care Teams Certified Home Health Aide Relationship Specialty Start Date End Date Thad Mckeon, PCP - General Physician Jackhammer Splitter Operator - 02/17/14 AD Medical Thad Mckeon, PCP - Assigned PCP 12/16/13 09/07/18 [place] [address] TASHA GUARDADO [address] Thad Mckeon, Assigned PCP 12/16/13 [place] [address] TASHA GUARDADO [address] documented as of this encounter
--- OUTSIDE RECORDS SUMMARY | 2022-04-02 23:53 | XMS_ITS | Encounter Summary ---
:1995 Author Organization [facility] Address [address] [place] [address] Care Team Providers Name Role Phone Thad Mckeon PA-C Primary Care Provider [phone] Thad Mckeon PA-C Unavailable [phone] Thad Mckeon PA-C Unavailable [phone] Reason for Visit Reason Comments Derm Problem Encounter Details Date Type Department Care Team Description 05/19/2017 Office Visit [facility] Thad Mckeon Local infection of [facility] [place] skin and subcutaneous [address] [address] [facility] ([facility], [address] [place] [phone] Social History Tobacco Use Types Packs/Day Years Used Date Former Smoker Smokeless Tobacco: Never Used Alcohol Use Standard Drinks/Week Comments No 0 (1 standard drink = 0.6 oz pure alcoho l) Sex Assigned at Date Recorded Female 12/21/2020 8:52 AM CDT documented as of this encounter Last Filed Vital Signs Vital Sign Reading Time Taken Comments Blood Pressure 100/66 05/19/2017 9:07 AM REGIONAL OPERATIONS MANAGER Pulse 92 05/19/2017 9:07 AM REGIONAL OPERATIONS MANAGER Temperature 36.3 ??C (97.4 ??F) 05/19/2017 9:07 AM REGIONAL OPERATIONS MANAGER Respiratory Rate 20 05/19/2017 9:07 AM REGIONAL OPERATIONS MANAGER Oxygen Saturation - - Inhaled Oxygen Concentration - - Weight 70.8 kg (156 lb) 05/19/2017 9:07 AM REGIONAL OPERATIONS MANAGER Height - - Body Mass Index 25.18 04/15/2017 9:45 AM CDT documented in this encounter Progress Notes Thad Mckeon PA-C - 05/19/2017 9:00 AM CST SUBJECTIVE: Ruthie Nieto is a 22 year old female who presents to clinic today for the following health issues: Rash ?? Duration: couple days ?? Description Location: mid back Itching: moderate - was, not today ?? Intensity: moderate ?? Accompanying signs and symptoms: None ?? History (similar episodes/previous evaluation): None ?? Precipitating or alleviating factors: New exposures: clothes detergant recently Recent travel: no ?? Therapies tried and outcome: anti-itch cream, benadryl Ruthie is her for eval of a body rash. She has concerns over scabies as she read up about this due toher symptoms. She believes it could be possible with her last boyfriend, she never slept at his place but he was in her bed. He is not returning her calls right now so she is unsure of his symptoms. He is the personfrom which she contracted Chlamydia however. She is still having some vaginal concerns but today it is a small bump on the outer right side of her genitalia. It is painful mostly because she tried popping it this AM. She did put heat on it also which made it feel better. No vaginal discharge noted. Problem list and histories reviewed & adjusted, as indicated. Additional history: as documented Reviewed and updated as needed this visit by clinical staffTobacco Allergies Problems Med Hx Surg Hx Fam Hx Soc Hx Reviewed and updated as needed this visit by Provider ROS: Constitutional, HEENT, cardiovascular, pulmonary, gi and gu systems are negative, except as otherwise noted. OBJECTIVE: BP 100/66 (BP Location: Right arm, Patient Position: Sitting, Cuff Size: Adult Regular) Pulse 92 Temp 97.4 ??F (36.3 ??C) (Oral) Resp 20 Wt 156 lb (70.8 kg) LMP 04/19/2017 BMI 25.18 kg/m2 Body mass index is 25.18 kg/(m^2). GENERAL: healthy, alert and no distress (female): normal female external genitalia, normal urethral meatus, vaginal mucosa, no discharge-left side of labia majora with two sebaceous, small 1-2mm lesion present MS: no gross musculoskeletal defects noted, no edema SKIN: a few scattered papules noted on her back that are lightly erythematous and not concerning PSYCH: mentation appears normal, affect normal/bright and anxious Diagnostic Test Results: none ASSESSMENT/PLAN: 1. Local infection of skin and subcutaneous tissue Discussed no popping or picking at the genital area. Can put on ABX ointment and do Sitz bath. - mupirocin (BACTROBAN) 2 % ointment; Apply topically 3 times daily for 5 days Dispense: 22 g; Refill: 1 Thad Mckeon PA-C [facility] ONAL OPERATIONS MANAGER documented in this encounter Plan of Treatment Upcoming Encounters Date Type Specialty Care Team Description 05/08/2022 Office Visit Family Practice Kyle Hidalgo PA-C [address] [address] [phone] (Wo rk) 05/08/2022 Lab Lab documented as of this encounter Visit Diagnoses Diagnosis Local infection of skin and subcutaneous tissue - Primary Unspecified local infection of skin and subcutaneous tissue documented in this encounter Additional Health Concerns Assessment Noted Time PHQ-9 Depression Total Score: 3 04/15/2017 10:35 AM CD T documented as of this encounter Care Teams Machine Feeder Raw Stock Relationship Specialty Start Date End Date Thad Mckeon, PCP - General Physician Media Planner / Buyer - 02/17/14 AD Medical Thad Mckeon, PCP - Assigned PCP 12/16/13 09/07/18 [place] [id number] [address] [id number] Thad Mckeon, Assigned PCP 12/16/13 [place] [id number] [address] [address] documented as of this encounter
--- OUTSIDE RECORDS SUMMARY | 2022-04-02 23:53 | XMS_ITS | Encounter Summary ---
:1995 Author Organization [facility] Address [address] [place] [address] Care Team Providers Name Role Phone Thad Mckeon PA-C Primary Care Provider [phone] Thad Mckeon PA-C Unavailable [phone] Thad Mckeon PA-C Unavailable [phone] Encounter Details Date Type Department Care Team Description 05/26/2017 Orders Only [facility] Ble eding in early ; [facility] Exposure to chlamydia; [facility] for STD (sexually transmitted disease) [address] [place] [address] Social History Tobacco Use [...] Office Visit Family Practice Kyle Hidalgo PA-C [address] [address] [place], [place] [address] (Wo rk) 05/08/2022 Lab Lab documented as of this encounter Procedures Procedure Name Priority Date/Time Associated Diagnosis Comme nts NEISSERIA Routine 05/26/2017 8:16 AM Exposure to Results f or this GONORRHOEAE PCR ORACLE HRMS CONSULTANT chlamydia procedure are in Screen for STD the results (sexually section. transmitted disease) CHLAMYDIA Routine 05/26/2017 8:16 AM Exposure to Results f or this TRACHOMATIS PCR ORACLE HRMS CONSULTANT chlamydia procedure are in Screen for STD the results (sexually section. transmitted disease) documented in this encounter Results Neisseria gonorrhoeae PCR (05/26/2017 8:16 AM ORACLE HRMS CONSULTANT) Analysis Performed At Patho logist Time Signature Specimen Urine 05/26/2017 [facility] Descrip 8:18 AM ORACLE HRMS CONSULTANT [facility] N Gonorrhea Negative NEG^Negati 05/27/2017 INFECTIOUS PCR ve 1:29 PM ORACLE HRMS CONSULTANT DIS[facility]STIC LAB[facility] Comment: Negative for N. gonorrhoeae rRNA by colin scription mediated amplification. A negative result by plate worker media susana amplification does not preclude the presence of N. gonorrhoeae infection because results are dependent on proper and adequate collection, absence of inhibitors, and sufficient rRNA to be detected. Specimen Anatomical Collection Method Collection Time Receive d Time (Source) Location / / Volume Laterality Urine specimen 05/26/2017 8:16 AM 017 8:18 (specimen) ORACLE HRMS CONSULTANT AM ORACLE HRMS CONSULTANT Thad Mckeon PA-C LAB - MICRO GENERAL ORDERABL ES Performing Organization Address City/State/ZIP Code Phon e Number INFECTIOUS DISEASES [address] [place] [address] DIAGNOSTIC LABORATORY, [facility] [place] [address] [place] [facility] [address] [place], [place] [phone] [place] [address] DIAGNOSTIC LABORATORY Chlamydia trachomatis PCR (05/26/2017 8:16 AM ORACLE HRMS CONSULTANT) Patholo gist Method Time Signature Specimen Urine 05/26/2017 [facility] Description 8:18 AM [facility] Chlamydia Negative NEG^Negat 05/27/2017 INFECTIOUS Trachomatis PCR pepper 1:29 PM ORACLE HRMS CONSULTANT DISE[facility] DI[facility]STIC LABOR[facility] Comment: Negative for C. trachomatis rRNA by colin scription mediated amplification. A negative result by plate worker media susana amplification does not preclude the presence of C. trachomatis infection because results are dependent on proper and adequate collection, absence of inhibitors, and sufficient rRNA to be detected. Specimen Anatomical Collection Method Collection Time Receive d Time (Source) Location / / Volume Laterality Urine specimen 05/26/2017 8:16 AM 017 8:18 (specimen) ORACLE HRMS CONSULTANT AM ORACLE HRMS CONSULTANT Thad Mckeon PA-C LAB - MICRO GENERAL ORDERABL ES Performing Organization Address City/State/ZIP Code Phon e Number INFECTIOUS DISEASES [address] [place] [address] DIAGNOSTIC LABORATORY, [facility] [address] [place] [address] [phone] [place] [facility]ECTI[facility] [address] [place], [place] [phone] [place] [address] DIAGNOSTIC LABORATORY documented in this encounter Visit Diagnoses Diagnosis Bleeding in early Unspecified hemorrhage in early pregnanc y, unspecified as to episode of care Exposure to chlamydia Contact with or exposure to venereal dis eases Screen for STD (sexually transmitted dis ease) Screening examination for venereal disea se documented in this encounter Additional Health Concerns Assessment Noted Time PHQ-9 Depression Total Score: 3 04/15/2017 10:35 AM CD T documented as of this encounter Care Teams Senior Controls Engineer Relationship Specialty Start Date End Date Thad Mckeon, PCP - General Physician Rnp - 02/17/14 AD Medical Thad Mckeon, PCP - Assigned PCP 12/16/13 09/07/18 [place] [id number] [address] [place], [place] [id number] Thad Mckeon, Assigned PCP 12/16/13 [place] [address] [address] [place] [id number] documented as of this encounter
--- OUTSIDE RECORDS SUMMARY | 2022-04-02 23:53 | XMS_ITS | Encounter Summary ---
:1995 Author Organization [facility] Address [address] [place] [address]. [place] [address] Care Team Providers Name Role Phone Thad Mckeon PA-C Primary Care Provider [phone] Thad Mckeon PA-C Unavailable [phone] Thad Mckeon PA-C Unavailable [phone] Reason for Referral Mental Health Outpatient - Closed Specialty Diagnoses / Procedures Referred By Contact Refer red To Contact Diagnoses Anxiety Thad Mckeon, BEHAVIORAL HEALTHCARE AD PROVIDER [address] [address] [place] [address] [place] [address] Phone: [phone] Referral ID Status Reason Start Date Expiration Date Visits Requ ested Visits Authorized [id number] Closed 06/12/2016 06/12/2017 1 1 N BUILDING MATERIALS DISTRIBUTOR Reason for Visit Reason Comments Attention Deficit Disorder Encounter Details Date Type Department Care Team Description 06/12/2016 Office Visit [facility] Thad Mckeon (a ttention deficit disorder) (Primary Dx); Clinic [place] [address] [facility], [address] [place] [address] [place], [place] [phone] (Wo rk) [address] [phone] Social History Tobacco Use Types Packs/Day Years Used Date Former Smoker Smokeless Tobacco: Never Used Alcohol Use Standard Drinks/Week Comments No 0 (1 standard drink = 0.6 oz pure alcoho l) Sex Assigned at Date Recorded Female 12/21/2020 8:52 AM CDT documented as of this encounter Last Filed Vital Signs Vital Sign Reading Time Taken Comments Blood Pressure 90/62 06/12/2016 9:02 AM GREEN BUILDING MATERIALS DISTRIBUTOR Pulse 80 06/12/2016 9:02 AM GREEN BUILDING MATERIALS DISTRIBUTOR Temperature 36.6 ??C (97.8 ??F) 06/12/2016 9:02 AM GREEN BUILDING MATERIALS DISTRIBUTOR Respiratory Rate 16 06/12/2016 9:02 AM GREEN BUILDING MATERIALS DISTRIBUTOR Oxygen Saturation - - Inhaled Oxygen Concentration - - Weight 77.1 kg (170 lb) 06/12/2016 9:02 AM GREEN BUILDING MATERIALS DISTRIBUTOR Height - - Body Mass Index 27.44 10/23/2015 9:59 AM CDT documented in this encounter Progress Notes Thad Mckeon PA-C - 06/11/2016 4:27 PM CST SUBJECTIVE: Ruthie Nieto is a 21 year old female who presents to clinic today for the following health issues: ?? ADD - patient would like to discuss history of ADD. Would like to talk about getting back on something for it. Having difficulty focusing on things. Diagnosed in elementary school. Took Concerta from 6th grade to 11th. Wasn't sure she liked the medication. It did make her focus but did not feel like she could be spontaneous. Wondering today aboutstarting something again. Depression and Anxiety Follow-Up ?? Status since last visit: Worsened ?? Other associated symptoms:None ?? Complicating factors: ?? Significant life event: Yes- of ex boyfriend ?? Current substance abuse: None PHQ-9 SCORE 08/16/2014 01/16/2016 03/14/2016 Total Score 2 - - Total Score - 4 8 BEATRIZ-7 SCORE 08/16/2014 01/16/2016 03/14/2016 Total Score 2 - - Total Score - 15 7 PHQ-9 Citizen Of [place] PHQ-9 Any Language GAD7 Ex boyfriend (committed suicide). States she is doing OK. Is not getting any therapy. Having some financial stress, living with her parents currently. Has NOT been taking medication, Lexapro. Still feeling anxious, having crying/panic attacks. Worried about taking too many pills as she found out her ex boyfriend had an addiction to certain pills. Problem list and histories reviewed & adjusted, as indicated. Additional history: as documented Problem list, Medication list, Allergies, and Medical/Social/Surgical histories reviewed in [facility] andupdated as appropriate. ROS: Constitutional, HEENT, cardiovascular, pulmonary, gi and gu systems are negative, except as otherwise noted. OBJECTIVE: BP 90/62 mmHg Pulse 80 Temp(Src) 97.8 ??F (36.6 ??C) (Oral) Resp 16 Wt 170 lb (77.111 kg) Body mass index is 27.45 kg/(m^2). GENERAL: healthy, alert and no distress MS: no gross musculoskeletal defects noted, no edema SKIN: no suspicious lesions or rashes NEURO: Normal strength and tone, mentation intact and speech normal PSYCH: mentation appears normal, affect flat, judgement and insight intact and appearance well groomed Diagnostic Test Results: none ASSESSMENT/PLAN: 1. ADD (attention deficit disorder) Perhaps will be different than stimulant and help with depression, anxiety as well. Discussed med and side effects, follow up one month. - atomoxetine (STRATTERA) 40 MG capsule; Take 1 capsule (40 mg) by mouth daily Dispense: 30 capsule;Refill: 1 2. Anxiety Could consider adding something like Buspar daily as well. Discussed, will wait until follow up appointment. Encouraged seeing therapist, referral placed. - atomoxetine (STRATTERA) 40 MG capsule; Take 1 capsule (40 mg) by mouth daily Dispense: 30 capsule;Refill: 1 - ALPRAZolam (XANAX) 0.5 MG tablet; Take 1 tablet (0.5 mg) by mouth 3 times daily as needed for anxiety Dispense: 20 tablet; Refill: 0 - MENTAL HEALTH REFERRAL PHQ-9 SCORE 01/16/2016 03/14/2016 06/12/2016 Total Score - - - Total Score 4 8 10 BEATRIZ-7 SCORE 01/16/2016 03/14/2016 06/12/2016 Total Score - - - Total Score 15 7 7 Thad Mckeon PA-C [facility] N BUILDING MATERIALS DISTRIBUTOR documented in this encounter Nursing Notes Isa Saab MA - 06/12/2016 9:05 AM CST Chief Complaint Patient presents with ??? Attention Deficit Disorder Initial BP 90/62 mmHg Pulse 80 Temp(Src) 97.8 ??F (36.6 ??C) (Oral) Resp 16 Wt 170 lb (77.111 kg) Estimated body mass index is 27.45 kg/(m^2) as calculated from the following: Height as of 10/23/15: 5' 6 (1.676 m). Weight as of this encounter: 170 lb (77.111 kg). BP completed using cuff size: karina Saab MA N BUILDING MATERIALS DISTRIBUTOR documented in this encounter Plan of Treatment Upcoming Encounters Date Type Specialty Care Team Description 05/08/2022 Office Visit Family Practice Kyle Hidalgo PA-C [address] [address] [phone] (Wo rk) 05/08/2022 Lab Lab Scheduled Referrals Name Type Priority Associated Diagnoses Order S [facility] MENTAL HEALTH REFERRAL Referral Routine Anxiety Order ed: 06/12/2016 documented as of this encounter Visit Diagnoses Diagnosis ADD (attention deficit disorder) - Prima ry Attention deficit disorder without menti on of hyperactivity Anxiety Anxiety state, unspecified documented in this encounter Additional Health Concerns Assessment Noted Time PHQ-9 Depression Total Score: 10 06/13/2016 7:26 AM CS T documented as of this encounter Care Teams Body Corporate Manager Relationship Specialty Start Date End Date Thad Mckeon, PCP - General Physician Stereotype Molder - 02/17/14 AD Medical Thad Mckeon, PCP - Assigned PCP 12/16/13 09/07/18 [place] [address] [address] [address] Thad Mckeon, Assigned PCP 12/16/13 [place] [address] [address] [address] documented as of this encounter
--- OUTSIDE RECORDS SUMMARY | 2022-04-02 23:53 | XMS_ITS | Encounter Summary ---
:1995 Author Organization [facility] Address [address] [place] [address] Care Team Providers Name Role Phone Thad Mckeon PA-C Primary Care Provider [phone] Thad Mckeon PA-C Unavailable [phone] Thad Mckeon PA-C Unavailable [phone] Reason for Visit Reason Onset Date Comments Lab Result Notice 04/17/2017 Encounter Details Date Type Department Care Team Description 04/17/2017 Telephone [facility] Belkis Redman, Lab Result Notice [place] DINA PROFESSIONAL SYSTEM ADMINISTRATOR [address] [facility], [address] [place] [address] [address] [place] [address] [place], [place] [phone] (Wo rk) [address] [phone] Social History Tobacco Use Types Packs/Day Years Used Date Former Smoker Smokeless Tobacco: Never Used Alcohol Use Standard Drinks/Week Comments No 0 (1 standard drink = 0.6 oz pure alcoho l) Sex Assigned at Date Recorded Female 12/21/2020 8:52 AM CDT documented as of this encounter Miscellaneous Notes Telephone Encounter - Belkis Redman APRN CNP - 04/17/2017 8:49 AM CDT Patient requested phone call and message with lab results. Called patient; no answer. Left message that all results are negative. Belkis Redman CNP documented in this encounter Plan of Treatment Upcoming Encounters Date Type Specialty Care Team Description 05/08/2022 Office Visit Family [facility] Kyle Hidalgo PA-C [address] [address] [phone] (Wo rk) 05/08/2022 Lab Lab documented as of this encounter Visit Diagnoses Not on filedocumented in this encounter Additional Health Concerns Assessment Noted Time PHQ-9 Depression Total Score: 3 04/15/2017 10:35 AM CD T documented as of this encounter Care Teams Community Facilitator Relationship Specialty Start Date End Date Thad Mckeon, PCP - General Physician Mandrel Maker - 02/17/14 AD Medical Thad Mckeon, PCP - Assigned PCP 12/16/13 09/07/18 [place] [address] [address] [address] Thad Mckeon, Assigned PCP 12/16/13 [place] [address] [address] [address] documented as of this encounter
--- OUTSIDE RECORDS SUMMARY | 2022-04-02 23:53 | XMS_ITS | Encounter Summary ---
:1995 Author Organization [facility] Address [address] [place] [address] Care Team Providers Name Role Phone Thad Mckeon PA-C Primary Care Provider [phone] Thad Mckeon PA-C Unavailable [phone] Thad Mckeon PA-C Unavailable [phone] Reason for Visit Reason Onset Date Comments Formulary Issue 06/12/2016 Strattspencer pabon Encounter Details Date Type Department Care Team Description 06/12/2016 Telephone [facility] Thad Mckeon adelaida Issue Clinic [place] (Strattera too [facility], [address] [place] [address]) [address] [place] [address] [place], [place] [phone] (Wo rk) [address] [phone] Social History Tobacco Use Types Packs/Day Years Used Date Former Smoker Smokeless Tobacco: Never Used Alcohol Use Standard Drinks/Week Comments No 0 (1 standard drink = 0.6 oz pure alcoho l) Sex Assigned at Date Recorded Female 12/21/2020 8:52 AM CDT documented as of this encounter Miscellaneous Notes Telephone Encounter - Rene Wick - 06/13/2016 10:55 AM CST Pt picked up rx with ID RACT LEAD Telephone Encounter - Jessi Hendricks RN - 06/13/2016 10:42 AM CST Pt notified of below and appt scheduled for f/u Jessi Hendricks RN RACT LEAD Telephone Encounter - Sylvia Howell RN - 06/13/2016 7:57 AM CST RX placed up front for patient to picker tender helper. Left a message on voice mail for patient to call clinic back to give information regarding rx's. Sylvia Howell RN RACT LEAD Telephone Encounter - Thad Mckeon PA-C - 06/12/2016 4:24 PM CONTRACT LEAD Lets see how she does with Effexor. I'd like to control her anxiety better and depression as well. Please tell her this one may help her more with this. We could then try a low dose of Ritalin (this iswhat her formulary prefers). She will have to come pick this up. Have her see me in a month. Thad Maza RACT LEAD Telephone Encounter - Sylvia Howell RN - 06/12/2016 2:45 PM CST Patient calling stating she was just seen and that the rx Strattera is too expensive. $80 with insurance for 1 month. Patient requesting alternative. She also states that she will go back on her anti-depressant escitalopram if that's what you recommend. [phone] Sylvia Howell RN RACT LEAD documented in this encounter Plan of Treatment Upcoming Encounters Date Type Specialty Care Team Description 05/08/2022 Office Visit Family [facility] Kyle Hidalgo PA-C [address] [address] [address] (Wo rk) 05/08/2022 Lab Lab documented as of this encounter Visit Diagnoses Diagnosis Anxiety - Primary Anxiety state, unspecified ADD (attention deficit disorder) Attention deficit disorder without menti on of hyperactivity documented in this encounter Additional Health Concerns Assessment Noted Time PHQ-9 Depression Total Score: 10 06/13/2016 7:26 AM CS T documented as of this encounter Care Teams Assistant Manager Retail Relationship Specialty Start Date End Date Thad Mckeon, PCP - General Physician Disability Manager - 02/17/14 AD Medical Thad Mckeon, PCP - Assigned PCP 12/16/13 09/07/18 [place] [address] [address] [address] Thad Mckeon, Assigned PCP 12/16/13 [place] [address] [address] [address] documented as of this encounter
--- OUTSIDE RECORDS SUMMARY | 2022-04-02 23:53 | XMS_ITS | Encounter Summary ---
:1995 Author Organization [facility] Address [address] [place] [address] Care Team Providers Name Role Phone Thad Mckeon PA-C Primary Care Provider [phone] Thad Mckeon PA-C Unavailable [phone] Thad Mckeon PA-C Unavailable [phone] Reason for Visit Reason Comments Vaginal Bleeding Encounter Details Date Type Department Care Team Description 09/24/2016 [facility] Francisco Montalvo MD Vaginal bleeding Emergency Dept [facility] ZULEIKA Huizar E Neymar [facility] [address] [place], [place] [phone] Social History Tobacco Use Types Packs/Day Years Used Date Former Smoker Smokeless Tobacco: Never Used Alcohol Use Standard Drinks/Week Comments No 0 (1 standard drink = 0.6 oz pure alcoho l) Sex Assigned at Date Recorded Female 12/21/2020 8:52 AM CDT documented as of this encounter Last Filed Vital Signs Vital Sign Reading Time Taken Comments Blood Pressure 111/63 09/24/2016 4:50 PM CDT Pulse 103 09/24/2016 3:12 PM CDT Temperature 36.8 ??C (98.2 ??F) 09/24/2016 3:12 PM CDT Respiratory Rate 18 09/24/2016 3:12 PM CDT Oxygen Saturation 100% 09/24/2016 5:05 PM CDT Inhaled Oxygen Concentration - - Weight 65.8 kg (145 lb) 09/24/2016 3:12 PM CDT Height 167.6 cm (5' 6) 09/24/2016 3:12 PM CDT Body Mass Index 23.4 09/24/2016 3:12 PM CDT documented in this encounter Discharge Instructions Discharge InstructionsFrancisco Adame MD - 09/24/2016 5:27 PM CDT Images from the original note were not included. If you change your mind, get beta hcg blood drawn at your physician or OB Bleeding During Early If you???ve had bleeding early in your , you???re not alone. Many other women havehad early bleeding, too. And in most cases, nothing is wrong. But your health care provider still needs to know about it. He or she may want to do tests to find out why you???re bleeding. Call your health care provider if you notice bleeding during . Bleeding may occur when the embryo implants on the uterine wall a week or two after fertilization. What causes early bleeding? The cause of bleeding early in is often unknown. But many factors early on in may lead to bleeding or spotting, including sexual intercourse, which may cause bleeding in any trimester. Here are some other causes: ?? Implantation of the embryo on the uterine wall ?? Subchorionic hemorrhage (bleeding between the sac membrane and the uterus) ?? Miscarriage ?? Ectopic (tubal) If you notice spotting Spotting (very light bleeding) is the most common type of bleeding in early . If you noticeit, call your health care provider. Chances are, he or she will tell you that you can care for yourself at home. . Ultrasound can help check the health of your fetus. If tests are needed Depending on how much you bleed, your doctor or other health care provider may ask you to come in for some tests. A pelvic exam, for instance, can help see how far along your is. You also mayhave an ultrasound or a Doppler test. These imaging tests use sound waves to check the health of your fetus. The ultrasound may be done on your belly or inside your vagina. Your doctor also may order aspecial blood test. This test compares your hormone levels in blood samples taken 2 days apart. The results can help your doctor learn more about the implantation of the embryo. Your blood type will also need to be checked to evaluate whether you will need to be treated for Rh sensitization.?? Warning signs If your bleeding doesn???t stop or if you notice any of the following, seek?? medical help right away: ?? Soaking a sanitary pad each hour ?? Bleeding like you???re having a period ?? Cramping or severe abdominal pain ?? Feeling dizzy or faint ?? Tissue passing through your vagina ?? Bleeding at any time after the first trimester Questions you may be asked Though not normal, bleeding early in is common. If you???ve noticed any bleeding, you may be concerned. But keep in mind that bleeding alone doesn???t mean something is wrong. Call your health care provider right away, though. He or she may ask you questions like these to help find the causeof your bleeding: ?? When did your bleeding start? ?? Is your bleeding very light (spotting) or is it like a period? ?? Is the blood bright red or brownish? ?? Have you had sexual intercourse recently? ?? Have you had pain or cramping? ?? Have you felt dizzy or faint? Monitoring your Bleeding will often stop as quickly as it began. Your may go on a normal path again. You may need to make a few extra visits. But you and your baby will most likely be fine. ?? [id number] [employer]. [address] [place] [address], [place] [address]. All rights reserved. This information is not intended as a substitute for professional medical care. Always follow your healthcare professional's instructions. documented in this encounter Medications at Time of Discharge Medication Sig Dispensed Refills Start Date End Date ALPRAZolam (XANAX) 0.5 MG Take 1 tablet (0.5 20 tablet 0 05/12/2017 tabletIndications: mg) by mouth 3 Anxiety times daily as needed for anxiety clindamycin-benzoyl Per, Apply 0.5 inches 45 g 11 01/1407/13/2017 Refr, (DUAC) 1.2-5 % topically At GELIndications: Acne, Bedtime unspecified acne type methylphenidate (RITALIN 0 08/14/2016 04/15/2017 LA) 20 MG CP24 Vit-Fe Take 1 tablet by 100 tablet 3 09/23/201605/2017 Fumarate-FA ( mouth daily MULTIVITAMIN PLUS IRON) 27-0.8 MG TABS per tabletIndications: test positive tretinoin (RETIN-A) 0.025 Reported on 6 09/13/2018 % cream 09/25/2016 valACYclovir (VALTREX) Take 2 tablets 4 tablet 6 7 02/13/2017 1000 mg (2,000 mg) by mouth tabletIndications: 2 times daily History of cold sores documented as of this encounter ED Notes Ruthie Gooden RN - 09/24/2016 5:26 PM CDT RN attempted venipuncture after LMX had been applied for >45 minutes. Pt anxious and crying priorto and during the procedure. RN unable to gain venous access and pt told me to stop. RN immediately withdrew the needle. Pt stated she just wanted to leave. RN told pt I would let the physician know and get her discharge paperwork ready. MD Deep made aware. Pt walked out at 1730, prior to receiving dc instructions. Ruthie Gooden RN - 09/24/2016 4:00 PM CDT LMX applied to right and Left AC. NCIONT Jayla Heredia RN - 09/24/2016 3:13 PM CDT ABCs intact. Pt LMP unknown, sometime in August. Pt had + tests and home and has seen an OB MD. Pt c/o bleeding with clots today. Pt has some cramping last night, none today. Francisco Adame MD - 09/24/2016 2:52 PM CDT History Chief Complaint: Vaginal Bleeding HPI Ruthie Nieto is a 21 year old female currently by in clinic testing, LMP in August one month ago, who presents with vaginal bleeding. The patient reports two days ago she noticedsome light pink vaginal bleeding. Today the patient's bleeding darkened and she believes she saw some blood clots. She was concerned which prompts her visit. No nausea or vomiting. Allergies: The patient has no known allergies to medications. Medications: vitamins Valtrex Xanax Past Medical History: ADD Anxiety Past Surgical History: Orthopedic surgery Family History: Cancer Diabetes Social History: Single. The patient is a former smoker. The patient denies alcohol consumption. Review of Systems Gastrointestinal: Negative for nausea and vomiting. Genitourinary: Positive for vaginal bleeding. All other systems reviewed and are negative. Physical Exam First Vitals: BP: 114/41 Pulse: 103 Temp: 98.2 ??F (36.8 ??C) Resp: 18 Height: 167.6 cm (5' 6) Weight: 65.8 kg (145 lb) SpO2: 100 % Physical Exam Constitutional: She appears well-developed and well-nourished. Cardiovascular: Normal rate, regular rhythm, normal heart sounds and intact distal pulses. Exam reveals no gallop and no friction rub. No murmur heard. Pulmonary/Chest: Effort normal and breath sounds normal. No respiratory distress. She has no wheezes. She has no rales. Abdominal: Soft. Bowel sounds are normal. She exhibits no distension and no mass. There is no tenderness. Genitourinary: Genitourinary Comments: deferred Neurological: She is alert. Skin: Skin is warm and dry. No rash noted. Psychiatric: She has a normal mood and affect. Emergency Department Course Imaging: Radiographic findings were communicated with the patient who voiced understanding of the findings. US OB <14 weeks w Transvaginal: No intrauterine is identified. In the setting of a positive test, differential considerations include an intrauterine too early to visualize, an in progress, or possibly an ectopic . Clinical correlation and close followup are recommended. Results per radiology. Emergency Department Course: Nursing notes and vitals reviewed. I performed an exam of the patient as documented above. The above imaging study(s) were ordered with results noted above. Findings and plan explained to the Patient. Patient discharged home with instructions regarding supportive care, medications, and reasons to return. The importance of close follow-up was reviewed. Impression & Plan Medical Decision Making: Ruthie Nieto is a 21 year old female who presents with intermittent vaginal bleeding and positive test yesterday. Patient was quite hesitant on getting blood drawn. Patient did not allow lab to draw her Rh despite our lengthy conversation about Rh incompatibility.. She also did not let us draw HGB, HCG quant, when our nurse was trying to establish butterfly, she pulled her arm away. We did place LMX on her arm to ease the pain of blood draw. Her ultrasound did not show any IUP so I discussed with her that it would be useful to see what her HCG is to determine if she is having miscarriage or if this was early . She refused any blood draw therefore no further intervention was undertaken. She left after refusing further evaluation. [facility]. Diagnosis: ICD-10-CM 1. Vaginal bleeding N93.9 Disposition: Discharged. Skyler Steve, jose serving as a scribe at 5:32 PM on 09/24/2016 to document services personally performed by Dr. Adame, based on my observations and the provider's statements to me [facility] EMERGENCY DEPARTMENT Francisco Adame MD 09/24/16 [id number] documented in this encounter Plan of Treatment Upcoming Encounters Date Type Specialty Care Team Description 05/08/2022 Office Visit Family Practice Kyle Hidalgo PA-C [id number] [address] [phone] (Wo rk) 05/08/2022 Lab Lab documented as of this encounter Procedures Procedure Name Priority Date/Time Associated Comments Diagnosis US OB <14 WEEKS WITH STAT 09/24/2016 4:50 PM R esults for this TRANSVAGINAL SINGLE CDT procedur e are in the results section. RHOGAM ORDER Routine 09/24/2016 3:30 PM Results f or this CDT procedure are i n the results section. documented in this encounter Results US OB < 14 Weeks w Transvaginal (09/24/2016 4:50 PM CDT) Anatomical Region Laterality Modality Abdomen/Pelvis Ultrasound Specimen (Source) Anatomical Location Collection Method / Collectio n Time Received Time / Laterality Volume Impressions 09/24/2016 4:57 PM CDT IMPRESSION: No intrauterine is identified. In the setting of a positive test, differential considerations include an intrauterine too early to visu jeremy, an in progress, or possibly an ectopic pregnan cy. Clinical correlation and close followup are recommended. JOHN MIN MD Narrative 09/24/2016 4:57 PM CDT US OB <14 WEEKS WITH TRANSVAGINAL SINGLE 09/24/2016 4:50 PM HISTORY: Bleeding during early . TECHNIQUE: Transabdominal and transvagin al imaging were performed. COMPARISON: None. FINDINGS: No intrauterine gestational sa c is identified. No embryonic pole or embryonic cardiac activity is id entified. The endometrial stripe measures 0.4 cm, and is within no rmal limits. The ovaries are unremarkable. Blood flow is identified w ithin both ovaries. No adnexal masses are identified. No free fluid is identified within the pelvis. Procedure Note John Min MD - 09/24/2016Forma tting of this note might be different from the original. US OB <14 WEEKS WITH TRANSVAGINAL SINGLE 09/24/2016 4:50 PM HISTORY: Bleeding during early . TECHNIQUE: Transabdominal and transvagin al imaging were performed. COMPARISON: None. FINDINGS: No intrauterine gestational sa c is identified. No embryonic pole or embryonic cardiac activity is id entified. The endometrial stripe measures 0.4 cm, and is within no rmal limits. The ovaries are unremarkable. Blood flow is identified w ithin both ovaries. No adnexal masses are identified. No free fluid is identified within the pelvis. IMPRESSION: No intrauterine is identified. In the setting of a positive test, differential considerations include an intrauterine too early to visu jeremy, an in progress, or possibly an ectopic pregnan cy. Clinical correlation and close followup are recommended. JOHN MIN MD Francisco Adame MD [facility] ORDERABLES Rho (D) immune globulin (RhoGam) Lab Study (09/24/2016 3:30 PM CDT) [facility] Method Time Signature Rhogam Order Order received [facility] Rhogam Study/[facility] Specimen Anatomical Collection Method Collection Time Receive d Time (Source) Location / / Volume Laterality 09/24/2016 3:30 PM 7 3:44 CDT PM CDT Francisco Adame MD LAB - BLOOD BANK PRODUCT ORD ER Performing Organization Address City/State/ZIP Code Phon e Number [place] [address] [place], [place] [address] [phone] [facility] [address] [place], [place] [address] [place] [address] documented in this encounter Visit Diagnoses Diagnosis Vaginal bleeding Other specified noninflammatory disorder of vagina documented in this encounter Administered Medications Inactive Administered Medications - up to 3 most recent administrations Medication Order MAR Action Action Date Dose Rate Site Blood Bank will determine if patient is eligible for and the proper dosage of Rho (D) immune globulin (RhoGam) CONTINUOUS PRN, Starting on Thu09/24/16 at 1528, Until Thu09/24/16 at 1944, Blood Bank will determine if patient is eligible for and the proper dosage of Rho (D) immune globulin (RhoGam) based on laboratory results a nd will enter appropriate dosing order. If appropriate dose is greater than the standard dose (300 mcg), provider will be notified. documented in this encounter Active and Recently Administered Medications Times are shown in CDT. PRN Medication Order 09/22/2016 09/23/2016 09/24/2016 Blood Bank will determine if patient is eligible for and the proper dosage of Rho (D) immune globulin (RhoGam) CONTINUOUS PRN, Starting Thu09/24/16 at 1528, Until Thu09/24/16 at 1944, Blood Bank will determine if patient is eligible for and the proper dosage of Rho (D) immune globulin (RhoGam) based on laborator y results and will enter appropriate dos ing order. If appropriate dose is greater than the standard dose (300 mcg), provider will be notified. documented in this encounter Additional Health Concerns Assessment Noted Time PHQ-9 Depression Total Score: 10 06/13/2016 7:26 AM CS T documented as of this encounter Care Teams Supervisor Pyrotechnic Loading Relationship Specialty Start Date End Date Thad Mckeon, PCP - General Physician Athletic Field Custodian - 02/17/14 [facility] Medical Thad Mckeon, PCP - Assigned PCP 12/16/13 09/07/18 [place] [id number] [address] [id number] Thad Mckeon, Assigned PCP 12/16/13 [place] [id number] [address] [id number] documented as of this encounter
--- OUTSIDE RECORDS SUMMARY | 2022-04-02 23:53 | XMS_ITS | Encounter Summary ---
:1995 Author Organization [facility] Address [address] [place] [address] Care Team Providers Name Role Phone Thad Mckeon PA-C Primary Care Provider [phone] Thad Mckeon PA-C Unavailable [phone] Thad Mckeon PA-C Unavailable [phone] Reason for Visit Reason Onset Date Comments Erroneous encounter-disregard 09/24/2016 Encounter Details Date Type Department Care Team Description 09/24/2016 [facility] Thad Mckeon [facility] AD Persaud encounter-disregard [address] [place] [address] [place], [place] [phone] (Wo rk) [phone] [phone] Social History Tobacco Use Types Packs/Day Years [...] Office Visit Family Practice Kyle Hidalgo PA-C [address] [address] [phone] (Wo rk) 05/08/2022 Lab Lab documented as of this encounter Visit Diagnoses Not on filedocumented in this encounter Additional Health Concerns Assessment Noted Time PHQ-9 Depression Total Score: 10 06/13/2016 7:26 AM CS T documented as of this encounter Care Teams Travel Administrator Relationship Specialty Start Date End Date Thad Mckeon, PCP - General Physician Conveyor Monitor - 02/17/14 AD Medical Thad Mckeon, PCP - Assigned PCP 12/16/13 09/07/18 [place] [id number] [address] [id number] Thad Mckeon, Assigned PCP 12/16/13 [place] [id number] [address] [id number] documented as of this encounter
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
--- OUTSIDE RECORDS SUMMARY | 2022-04-02 23:53 | XMS_ITS | Encounter Summary ---
:1995 Author Organization [place] Address [address] [place] [address] Care Team Providers Name Role Phone Thad Mckeon PA-C Primary Care Provider [phone] Thad Mckeon PA-C Unavailable [phone] Thad Mckeon PA-C Unavailable [phone] Reason for Visit Reason Onset Date Comments No Show 07/07/2017 Encounter Details Date Type Department Care Team Description 07/07/[address] [facility] Thad Mckeon NO GINA W (Primary Dx) Clinic [place] [address] [place] [address] [facility], [address] [place] [address] [place], [place] [phone] (Wo rk) [address] [phone] Social History Tobacco Use Types Packs/Day Years Used Date Former Smoker Smokeless Tobacco: Never Used Alcohol Use Standard Drinks/Week Comments No 0 (1 standard drink = 0.6 oz pure alcoho l) Sex Assigned at Date Recorded Female 12/21/2020 8:52 AM CDT documented as of this encounter Progress Notes Isa Saab, GERA - 07/07/2017 8:00 AM CST This patient was a no show for this scheduled appointment. DYER documented in this encounter Plan of Treatment Upcoming Encounters Date Type Specialty Care Team Description 05/08/2022 Office Visit Family Practice Kyle Hidalgo PA-C [address] [address] [phone] (Wo rk) 05/08/2022 Lab Lab documented as of this encounter Visit Diagnoses Diagnosis NO SHOW - Primary documented in this encounter Additional Health Concerns Assessment Noted Time PHQ-9 Depression Total Score: 3 04/15/2017 10:35 AM CD T documented as of this encounter Care Teams Transportation Operations Manager Relationship Specialty Start Date End Date Thad Mckeon, PCP - General Physician Principle Software Engineer - 02/17/14 AD Medical Thad Mckeon, PCP - Assigned PCP 12/16/13 09/07/18 [place] [id number] [address] [address] Thad Mckeon, Assigned PCP 12/16/13 [place] [address] [address] [address] documented as of this encounter
--- OUTSIDE RECORDS SUMMARY | 2022-04-02 23:53 | XMS_ITS | Encounter Summary ---
:1995 Author Organization [place] Address [facility] [place] [address] Care Team Providers Name Role Phone Thad Mckeon PA-C Primary Care Provider [phone] Thad Mckeon PA-C Unavailable [phone] Thad Mckeon PA-C Unavailable [phone] Reason for Visit Reason Comments RECHECK Vaginal Problem Encounter Details Date Type Department Care Team Description 05/12/2017 Office Visit [facility] Thad Mckeon re to chlamydia (Primary Dx); Clinic [place] AD [place] Screen for STD (sexually transmitted dis ease); [place] [address] [facility], [address] [place] [address] [place], [place] [phone] (Wo rk) [address] [phone] Social History Tobacco Use Types Packs/Day Years Used Date Former Smoker Smokeless Tobacco: Never Used Alcohol Use Standard Drinks/Week Comments No 0 (1 standard drink = 0.6 oz pure alcoho l) Sex Assigned at Date Recorded Female 12/21/2020 8:52 AM CDT documented as of this encounter Last Filed Vital Signs Vital Sign Reading Time Taken Comments Blood Pressure 96/66 05/12/2017 8:48 AM PULVERIZER Pulse 74 05/12/2017 8:48 AM PULVERIZER Temperature 36.6 ??C (97.8 ??F) 05/12/2017 8:48 AM PULVERIZER Respiratory Rate 20 05/12/2017 8:48 AM PULVERIZER Oxygen Saturation - - Inhaled Oxygen Concentration - - Weight 70.9 kg (156 lb 4.8 oz) 05/12/2017 8:48 AM PULVERIZER Height - - Body Mass Index 25.23 04/15/2017 9:45 AM CDT documented in this encounter Patient Instructions Patient InstructionsPeThad zepeda PA-C - 05/12/2017 8:40 AM PULVERIZER May 27- lab appointment Jul 06 let's follow everything up with appointment with me. ERIZER documented in this encounter Progress Notes Thad Mckeon PA-C - 05/12/2017 8:40 AM CST SUBJECTIVE: Ruthie Nieto is a 22 year old female who presents to clinic today for the following health issues: Follow up from chlamydia - still having symptoms. Actually feeling better today. Some minor skin irritation but thinks it could be from shaving. Yesterday she had sent a zumatek message with concerns. She has been very worried with this diagnosis so she decided to come in today just to discuss. She also took her last xanax today so wondering about a refill. She is wondering about when she can retest for chlamydia and also wondering about full STD testing (for HIV etc). Problem list and histories reviewed & adjusted, as indicated. Additional history: as documented Labs reviewed in EPIC Reviewed and updated as needed this visit by clinical staff Reviewed and updated as needed this visit by Provider ROS: Constitutional, HEENT, cardiovascular, pulmonary, gi and gu systems are negative, except as otherwise noted. OBJECTIVE: BP 96/66 Pulse 74 Temp 97.8 ??F (36.6 ??C) (Oral) Resp 20 Wt 156 lb 4.8 oz (70.9 kg) LMP 04/19/2017 BMI 25.23 kg/m2 Body mass index is 25.23 kg/(m^2). GENERAL: healthy, alert and no distress MS: no gross musculoskeletal defects noted, no edema SKIN: no suspicious lesions or rashes PSYCH: mentation appears normal, affect normal/bright and anxious No further exam 15 minutes total of this face to face visit was with discussion and counselling regarding STD's and anxiety equal to >%50 of visit. Diagnostic Test Results: none ASSESSMENT/PLAN: 1. Exposure to chlamydia Future orders put in for 2 weeks from now. She can retest at that time to ensure this infection has cleared. Not recommended to test sooner. Her symptoms from yesterday have cleared so she is feeling alittle better about this for now. Does not feel like she needs to do a wet prep today. - Chlamydia trachomatis PCR; Future - Neisseria gonorrhoeae PCR; Future 2. Screen for STD (sexually transmitted disease) See above. She will come in for OV later this winter for blood testing and to follow up with this issue and to discuss anxiety. - Chlamydia trachomatis PCR; Future - Neisseria gonorrhoeae PCR; Future 3. Anxiety Refilled. Does not use often. Will follow up OV in 3 months, sooner prn. - ALPRAZolam (XANAX) 0.5 MG tablet; Take 1 tablet (0.5 mg) by mouth 3 times daily as needed for anxiety Dispense: 20 tablet; Refill: 0 Thad Mckeon PA-C [facility] ERIZER documented in this encounter Nursing Notes Dianna Slater, TRUCK JUMPER - 05/12/2017 8:40 AM CST Chief Complaint Patient presents with ??? RECHECK ??? Vaginal Problem Initial BP 96/66 Pulse 74 Temp 97.8 ??F (36.6 ??C) (Oral) Resp 20 Wt 156 lb 4.8 oz (70.9 kg) LMP 04/19/2017 BMI 25.23 kg/m2 Estimated body mass index is 25.23 kg/(m^2) as calculated from the following: Height as of 04/15/17: 5' 6 (1.676 m). Weight as of this encounter: 156 lb 4.8 oz (70.9 kg). Medication Reconciliation: complete Dianna Slater CMA (AAMA) ERIZER documented in this encounter Plan of Treatment Upcoming Encounters Date Type Specialty Care Team Description 05/08/2022 Office Visit Family Practice Kyle Hidalgo PA-C [address] [address] [address] (Wo rk) 05/08/2022 Lab Lab documented as of this encounter Visit Diagnoses Diagnosis Exposure to chlamydia - Primary Contact with or exposure to venereal dis eases Screen for STD (sexually transmitted dis ease) Screening examination for venereal disea se Anxiety Anxiety state, unspecified documented in this encounter Additional Health Concerns Assessment Noted Time PHQ-9 Depression Total Score: 3 04/15/2017 10:35 AM CD T documented as of this encounter Care Teams Surveillance Dual Rate Officer Relationship Specialty Start Date End Date Thad Mckeon, PCP - General Physician Refrigeration Technician - 02/17/14 AD Medical Thad Mckeon, PCP - Assigned PCP 12/16/13 09/07/18 [place] [id number] [address] [id number] Thad Mckeon, Assigned PCP 12/16/13 [place] [address] [address] [address] documented as of this encounter
--- OUTSIDE RECORDS SUMMARY | 2022-04-02 23:53 | XMS_ITS | Encounter Summary ---
:1995 Author Organization [place] Address [address] [place] [address]. [place] [address] Care Team Providers Name Role Phone Thad Mckeon PA-C Primary Care Provider [phone] Thad Mckeon PA-C Unavailable [phone] Thad Mckeon PA-C Unavailable [phone] Reason for Visit Reason Onset Date Comments STD 05/08/2017 Encounter Details Date Type Department Care Team Description 05/08/[address] [facility] [place] [address] [facility], [address] [place] [address] [address] [place] [address] [place] [address] [phone] Social History Tobacco Use Types Packs/Day Years Used Date Former Smoker Smokeless Tobacco: Never Used Alcohol Use Standard Drinks/Week Comments No 0 (1 standard drink = 0.6 oz pure alcoho l) Sex Assigned at Date Recorded Female 12/21/2020 8:52 AM CDT documented as of this encounter Miscellaneous Notes Telephone Encounter - Sylvia Howell RN - 05/11/2017 11:12 AM CST Patient notified. She is still having symptoms. F/u appointment scheduled. Sylvia Howell RN INTERN Telephone Encounter - Belkis Redman APRN CNP - 05/08/2017 1:51 PM CDT Retesting is not recommended because the antibiotics are known to be very effective. Belkis Redman CNP Telephone Encounter - Jessi Hendricks RN - 05/08/2017 10:52 AM CDT Pt is very nervous about recent positive STD test. She would like to retest after a time to make sure she is clear. Discussed with pt to practice safe sex and wear condom at all times as this is the only way to prevent STD's Please advise if ok to recheck for chlamydia with lab only and when this should be done. Jessi Hendricks RN documented in this encounter Plan of Treatment Upcoming Encounters Date Type Specialty Care Team Description 05/08/2022 Office Visit Family Practice Kyle Hidalgo PA-C [address] [address] [phone] (Wo rk) 05/08/2022 Lab Lab documented as of this encounter Visit Diagnoses Not on filedocumented in this encounter Additional Health Concerns Assessment Noted Time PHQ-9 Depression Total Score: 3 04/15/2017 10:35 AM CD T documented as of this encounter Care Teams Academic Affairs Director Relationship Specialty Start Date End Date Thad Mckeon, PCP - General Physician Wood Carving Lathe Operator - 02/17/14 AD Medical Thad Mckeon, PCP - Assigned PCP 12/16/13 09/07/18 [place] [address] [address] [address] Thad Mckeon, Assigned PCP 12/16/13 [place] [address] [place] [address] documented as of this encounter
--- OUTSIDE RECORDS SUMMARY | 2022-04-02 23:53 | XMS_ITS | Encounter Summary ---
:1995 Author Organization [place] Address [address] [place] [address] Care Team Providers Name Role Phone Thad Mckeon PA-C Primary Care Provider [phone] Thad Mckeon PA-C Unavailable [phone] Thad Mckeon PA-C Unavailable [phone] Reason for Visit Reason Comments Confirmation Of pt took 3 home UPT that were all positive, this is her first , she does no t know when her last period was Encounter Details Date Type Department Care Team Description 09/23/[address] [facility] Thad Mckeon Missed period (Primary Dx); Clinic [place] test positive [place] [address] [facility], [address] [place] [address] [place], [place] [phone] (Wo rk) [address] [phone] Social History Tobacco Use Types Packs/Day Years Used Date Former Smoker Smokeless Tobacco: Never Used Alcohol Use Standard Drinks/Week Comments No 0 (1 standard drink = 0.6 oz pure alcoho l) Sex Assigned at Date Recorded Female 12/21/2020 8:52 AM CDT documented as of this encounter Last Filed Vital Signs Vital Sign Reading Time Taken Comments Blood Pressure 100/62 09/23/2016 9:52 AM CDT Pulse 66 09/23/2016 9:52 AM CDT Temperature 36.6 ??C (97.9 ??F) 09/23/2016 9:52 AM CDT Respiratory Rate 12 09/23/2016 9:52 AM CDT Oxygen Saturation 97% 09/23/2016 9:52 AM CDT Inhaled Oxygen Concentration - - Weight 76.1 kg (167 lb 11.2 oz) 09/23/2016 9:52 AM CDT Height 167.6 cm (5' 6) 09/23/2016 9:52 AM CDT Body Mass Index 27.07 09/23/2016 9:52 AM CDT documented in this encounter Progress Notes Thad Mckeon PA-C - 09/23/2016 9:40 AM CDT SUBJECTIVE: Ruthie Nieto is a 21 year old female who presents to clinic today for the following health issues: Pt is here for confirmation. She has had 3 home positive UPT's. She does not know when herlast period was and she has noted that she has had some breast tenderness, no complaints of morning sickness or other sx's. Ruthie thinks possibly LMP was 08/25/16 if she had to guess. It was a little diff than usual in that it was only about 4 days in length which was short for her. She did an at home test at that point which was negative. She then stopped her OCP's thinking she could not get as she had been with one person for 5 years without control and never had become . She is now here today to confirm her 3 at home tests that have been ++. She is currently dating the father. She is feeling OK, just a bit overwhelmed. She has stopped all her medications. States mood is fine right now. No nausea, some breast tenderness. Problem list and histories reviewed & adjusted, as indicated. Additional history: as documented Labs reviewed in [employer] Reviewed and updated as needed this visit by clinical staff Tobacco Allergies Med Hx Surg Hx Fam Hx Soc Hx Reviewed and updated as needed this visit by Provider ROS: Constitutional, HEENT, cardiovascular, pulmonary, gi and gu systems are negative, except as otherwise noted. OBJECTIVE: BP 100/62 (BP Location: Right arm, Patient Position: Chair, Cuff Size: Adult Regular) Pulse 66 Temp 97.9 ??F (36.6 ??C) (Oral) Resp 12 Ht 5' 6 (1.676 m) Wt 167 lb 11.2 oz (76.1 kg) LMP (LMP Unknown) SpO2 97% ? Unknown BMI 27.07 kg/m2 Body mass index is 27.07 kg/(m^2). GENERAL: healthy, alert and no distress MS: no gross musculoskeletal defects noted, no edema SKIN: no suspicious lesions or rashes PSYCH: mentation appears normal, affect normal/bright No further exam 15 minutes total with discussion and counselling equal to >%50 of visit. Diagnostic Test Results: Results for orders placed or performed in visit on 09/23/16 (from the past 24 hour(s)) Beta HCG qual IFA urine Result Value Ref Range Beta HCG Qual IFA Urine Positive (A) NEG ASSESSMENT/PLAN: 1. Missed period LMP: 08/25/16 SUZY: 06/01/17 Ww: 4 Dd: 1 - Beta HCG qual IFA urine 2. test positive Discussed a few options for OB providers. She will make a decision and then make a nurse OB appointment before 10-12 weeks. She will contact clinic if needed for assistance. Discussed avoiding etoh andcertain foods, cat litter etc. - Vit-Fe Fumarate-FA ( MULTIVITAMIN PLUS IRON) 27-0.8 MG TABS per tablet; Take 1 tablet by mouth daily Dispense: 100 tablet; Refill: 3 Thad Mckeon PA-C [facility] documented in this encounter Nursing Notes Sybil Perea CMA - 09/23/2016 9:40 AM CDT Chief Complaint Patient presents with ??? Confirmation Of pt took 3 home UPT that were all positive, this is her first , she does not know when her last period was Initial BP 100/62 (BP Location: Right arm, Patient Position: Chair, Cuff Size: Adult Regular) Pulse 66 Temp 97.9 ??F (36.6 ??C) (Oral) Resp 12 Ht 5' 6 (1.676 m) Wt 167 lb 11.2 oz (76.1 kg) LMP (LMP Unknown) SpO2 97% ? Unknown BMI 27.07 kg/m2 Estimated body mass index is 27.07 kg/(m^2) ascalculated from the following: Height as of this encounter: 5' 6 (1.676 m). Weight as of this encounter: 167 lb 11.2 oz (76.1 kg). Medication Reconciliation: complete Pt will get HPV vaccine later- she is currently Sybil Perea CMA documented in this encounter Plan of Treatment Upcoming Encounters Date Type Specialty Care Team Description 05/08/2022 Office Visit Family Practice Kyle Hidalgo PA-C [address] [place], [place] [address] (Wo rk) 05/08/2022 Lab Lab documented as of this encounter Procedures Procedure Name Priority Date/Time Associated Comments Diagnosis BETA HCG QUALITATIVE Routine 09/23/2016 9:45 AM Missed period Results for this IFA URINE CDT procedure are i n the results section. documented in this encounter Results (ABNORMAL) Beta HCG qual IFA urine (09/23/2016 9:45 AM CDT) [facility] Method Time Signature Beta HCG Qual Positive (A) NEG [facility] Urine [facility] Specimen Anatomical Collection Method Collection Time Receive d Time (Source) Location / / Volume Laterality Urine specimen 09/23/2016 9:45 AM 017 9:46 (specimen) CDT AM CDT Thad Mckeon PA-C LAB - URINE ORDERABLES Performing Organization Address City/State/ZIP Code Phon e Number [facility] [place] [address] documented in this encounter Visit Diagnoses Diagnosis Missed period - Primary Irregular menstrual cycle test positive examination or test, positive result documented in this encounter Additional Health Concerns Assessment Noted Time PHQ-9 Depression Total Score: 10 06/13/2016 7:26 AM CS T documented as of this encounter Care Teams Grades 1 Thru 6 Home Teacher Relationship Specialty Start Date End Date Thad Mckeon, PCP - General Physician Tower Truck Driver - 02/17/14 PA-C Medical Thad Mckeon, PCP - Assigned PCP 12/16/13 09/07/18 [place] [id number] [address] [id number] Thad Mckeon, Assigned PCP 12/16/13 [place] [id number] [address] [id number] documented as of this encounter
--- OUTSIDE RECORDS SUMMARY | 2022-04-02 23:53 | XMS_ITS | Encounter Summary ---
:1995 Author Organization [facility] Address [address] [place] [address] Care Team Providers Name Role Phone Thad Chaidez PA-C Primary Care Provider [phone] Thad Chaidez PA-C Unavailable [phone] Thad Chaidez PA-C Unavailable [phone] Encounter Details Date Type Department Care Team Description 10/01/2016 Orders Only M [facility] Ble eding in early [facility], [address] [place] [address] Social History Tobacco Use Types Packs/Day Years Used Date Former Smoker Smokeless Tobacco: Never Used Alcohol Use Standard Drinks/Week Comments No 0 (1 standard drink = 0.6 oz pure alcoho l) Sex Assigned at Date Recorded Female 12/21/2020 8:52 AM CDT documented as of this encounter Miscellaneous Notes Addendum Note - Thad Chaidez PA-C - 10/06/2016 12:54 PM CDT Addended by: THAD CHAIDEZ on: 10/06/2016 12:54 PM Modules accepted: Orders documented in this encounter Plan of Treatment Upcoming Encounters Date Type Specialty Care Team Description 05/08/2022 Office Visit Family Practice Kyle Hidalgo PA-C [address] [address] [phone] (Wo rk) 05/08/2022 Lab Lab documented as of this encounter Procedures Procedure Name Priority Date/Time Associated Comments Diagnosis HCG QUANTITATIVE Routine 10/01/2016 9:37 AM Bleeding in early Results for this CDT procedure are i n the results section. documented in this encounter Results (ABNORMAL) HCG quantitative (10/01/2016 9:37 AM CDT) [facility] gist Method Time Signature HCG Quantitative 11 (H) 0 - 5 [place] Serum IU/L [facility] Specimen Anatomical Collection Method Collection Time Receive d Time (Source) Location / / Volume Laterality Blood specimen 10/01/2016 9:37 AM 017 9:38 (specimen) CDT AM CDT Thad Chaidez PA-C LAB - BLOOD ORDERABLES Performing Organization Address City/State/ZIP Code Phon e Number [facility] [address] [place] [address] documented in this encounter Visit Diagnoses Diagnosis Bleeding in early Unspecified hemorrhage in early pregnanc y, unspecified as to episode of care documented in this encounter Additional Health Concerns Assessment Noted Time PHQ-9 Depression Total Score: 10 06/13/2016 7:26 AM CS T documented as of this encounter Care Teams Languages And Literature Instructor Relationship Specialty Start Date End Date Thad Chaidez, PCP - General Physician Civil Lawyer - 02/17/14 AD Medical Thad Chaidez, PCP - Assigned PCP 12/16/13 09/07/18 [place] [id number] [address] [id number] Thad Chaidze, Assigned PCP 12/16/13 [place] [address] [address] [id number] documented as of this encounter
--- OUTSIDE RECORDS SUMMARY | 2022-04-02 23:53 | XMS_ITS | Encounter Summary ---
:1995 Author Organization [facility] Address [address] [place] [address] Care Team Providers Name Role Phone Thad Mckeon PA-C Primary Care Provider [phone] Thad Mckeon PA-C Unavailable [phone] Thad Mckeon PA-C Unavailable [phone] Reason for Visit Reason Onset Date Comments Nurse Advice Line 10/02/2016 nurse Encounter Details Date Type Department Care Team Description 10/02/2016 Telephone [facility] Thad Mckeon Nurse Advice Line Clinic [place] (nurse) [address] [place] [address] [place], [place] [phone] (Wo rk) [address] [phone] Social History Tobacco Use Types Packs/Day Years Used Date Former Smoker Smokeless Tobacco: Never Used Alcohol Use Standard Drinks/Week Comments No 0 (1 standard drink = 0.6 oz pure alcoho l) Sex Assigned at Date Recorded Female 12/21/2020 8:52 AM CDT documented as of this encounter Miscellaneous Notes Telephone Encounter - Ana Laura Hicks - 10/06/2016 4:19 PM CDT Pt called to cx her appointment for lab draw on 10/08 she states she will call if anything new happensbut she doesn't need to put her self through that referring to the needle pokes and time here at the office. John Paul Hicks Rags Laborer 10/06/16 Telephone Encounter - Katelyn Rivera RN - 10/03/2016 8:22 AM CDT Message given to pt Katelyn Rivera RN, BS Clinical Nurse Triage. Telephone Encounter - Sylvia Howell RN - 10/03/2016 8:18 AM CDT LMOM for patient to call clinic back. Sylvia Howell RN Telephone Encounter - Carrie Petty MD - 10/02/2016 4:00 PM CDT The levels are dropping, this appears to be a misscarriage. Please have her make a Follow up appointment if having cramps or any pain, or if her periods do not come back soon. Telephone Encounter - Katelyn Rivera RN - 10/02/2016 3:33 PM CDT Pt called, anxious about getting test results HCG Quantitative Serum Date Value Ref Range Status 10/01/2016 11 (H) 0 - 5 IU/L Final 3.27.17 was 25 # [phone] Please call her with results Route to AP Katelyn Rivera RN, BS Clinical Nurse Triage. documented in this encounter Plan of Treatment Upcoming Encounters Date Type Specialty Care Team Description 05/08/2022 Office Visit Family Practice Kyle Hidalgo PA-C [address] [address] [phone] (Wo rk) 05/08/2022 Lab Lab documented as of this encounter Visit Diagnoses Not on filedocumented in this encounter Additional Health Concerns Assessment Noted Time PHQ-9 Depression Total Score: 10 06/13/2016 7:26 AM CS T documented as of this encounter Care Teams Subcontracts Manager Relationship Specialty Start Date End Date Thad Mckeon, PCP - General Physician Quality Process Engineer - 02/17/14 AD Medical Thad Mckeon, PCP - Assigned PCP 12/16/13 09/07/18 [place] [address] [address] [id number] Thad Mckeon, Assigned PCP 12/16/13 [place] [address] [address] [id number] documented as of this encounter
--- OUTSIDE RECORDS SUMMARY | 2022-04-02 23:53 | XMS_ITS | Encounter Summary ---
:1995 Author Organization [facility] Address [address] [place] [address] Care Team Providers Name Role Phone Thad Mckeon PA-C Primary Care Provider [phone] Thad Mckeon PA-C Unavailable [phone] Thad Mckeon PA-C Unavailable [phone] Reason for Visit Reason Comments No Show Encounter Details Date Type Department Care Team Description 07/22/2016 Office Visit [facility] Thad Mckeon NO GINA W (Primary Dx) Clinic [place] [address] [place] [address] [facility], [address] [place] [address] [place], [place] [phone] (Wo rk) [address] [phone] Social History Tobacco Use Types Packs/Day Years Used Date Former Smoker Smokeless Tobacco: Never Used Alcohol Use Standard Drinks/Week Comments No 0 (1 standard drink = 0.6 oz pure alcoho l) Sex Assigned at Date Recorded Female 12/21/2020 8:52 AM CDT documented as of this encounter Progress Notes Joslyn Alvarado - 07/22/2016 10:29 AM CST This patient was a no show for this scheduled appointment. [employer] documented in this encounter Plan of Treatment Upcoming Encounters Date Type Specialty Care Team Description 05/08/2022 Office Visit Family [facility] Kyle Hidalgo PA-C [address] [address] [phone] (Wo rk) 05/08/2022 Lab Lab documented as of this encounter Visit Diagnoses Diagnosis NO SHOW - Primary documented in this encounter Additional Health Concerns Assessment Noted Time PHQ-9 Depression Total Score: 10 06/13/2016 7:26 AM CS T documented as of this encounter Care Teams County Treasurer Relationship Specialty Start Date End Date Thad Mckeon, PCP - General Physician Dining Room Server - 02/17/14 AD Medical Thad Mckeon, PCP - Assigned PCP 12/16/13 09/07/[place] [address] [address] [address] Thad Mckeon, Assigned PCP 12/16/13 [place] [address] [address] [address] documented as of this encounter
--- OUTSIDE RECORDS SUMMARY | 2022-04-02 23:53 | XMS_ITS | Encounter Summary ---
:1995 Author Organization [facility] Address [address] [place] [address] Care Team Providers Name Role Phone Thad Mckeon PA-C Primary Care Provider Thad Mckeon PA-C Unavailable [phone] Thad Mckeon PA-C Unavailable [phone] Reason for Visit Reason Onset Date Comments Nurse Advice Line 08/12/2016 letter Encounter Details Date Type Department Care Team Description 08/12/2016 Telephone [facility] Thad Mckeon Nurse Advice Line Clinic [place] (letter) [address] [facility], [address] [place] [address] [address] [place] [address] [place], [place] [phone] (Wo rk) [address] [phone] Social History Tobacco Use Types Packs/Day Years Used Date Former Smoker Smokeless Tobacco: Never Used Alcohol Use Standard Drinks/Week Comments No 0 (1 standard drink = 0.6 oz pure alcoho l) Sex Assigned at Date Recorded Female 12/21/2020 8:52 AM CDT documented as of this encounter Miscellaneous Notes Telephone Encounter - Lalita Richard RN - 08/12/2016 2:38 PM CST Pt calls, never received letter on results from 07/28/16, informed, see letter Lalita Richard RN, BSN Message handled by Nurse Triage. SERVER documented in this encounter Plan of Treatment Upcoming Encounters Date Type Specialty Care Team Description 05/08/2022 Office Visit Family Practice Kyle Hidalgo PA-C [address] [address] [phone] (Wo rk) 05/08/2022 Lab Lab documented as of this encounter Visit Diagnoses Not on filedocumented in this encounter Additional Health Concerns Assessment Noted Time PHQ-9 Depression Total Score: 10 06/13/2016 7:26 AM CS T documented as of this encounter Care Teams Biometry Teacher Relationship Specialty Start Date End Date Thad Mckeon, PCP - General Physician Open Hearth Furnace Laborer - 02/17/14 AD Medical Thad Mckeon, PCP - Assigned PCP 12/16/13 09/07/18 [place] [address] [address] [id number] Thad Mckeon, Assigned PCP 12/16/13 [place] [address] [address] [address] documented as of this encounter
--- OUTSIDE RECORDS SUMMARY | 2022-04-02 23:53 | XMS_ITS | Encounter Summary ---
:1995 Author Organization [facility] Address [address] [place] [address] Care Team Providers Name Role Phone Thad Mckeon PA-C Primary Care Provider [phone] Thad Mckeon PA-C Unavailable [phone] Thad Mckeon PA-C Unavailable [phone] Reason for Visit Reason Onset Date Comments Lab Result Notice 05/29/2017 Cultures Encounter Details Date Type Department Care Team Description 05/29/2017 Telephone [facility] Thad Mckeon Lab Re sult Notice Clinic [place] (Cultures) [facility], [address] [place] [address] [address] [place] [address] [place], [place] [phone] (Wo rk) [address] [phone] Social History Tobacco Use Types Packs/Day Years Used Date Former Smoker Smokeless Tobacco: Never Used Alcohol Use Standard Drinks/Week Comments No 0 (1 standard drink = 0.6 oz pure alcoho l) Sex Assigned at Date Recorded Female 12/21/2020 8:52 AM CDT documented as of this encounter Miscellaneous Notes Telephone Encounter - Sylvia Howell RN - 05/29/2017 10:24 AM CST Patient notified. Sylvia Howell RN COMPLIANCE ANALYST Telephone Encounter - Sylvia Howell RN - 05/29/2017 10:03 AM CST Notes Recorded by Thad Mckeon PA-C on 05/29/2017 at 8:31 AM Please call patient with results. She has been worried about this. STD screening is negative for gonorrhea and chlamydia. Thanks! Thad SAUL for patient to call clinic back. Sylvia Howell RN COMPLIANCE ANALYST documented in this encounter Plan of Treatment Upcoming Encounters Date Type Specialty Care Team Description 05/08/2022 Office Visit Family [facility] Kyle Hidalgo PA-C [address] [address] [phone] (Wo rk) 05/08/2022 Lab Lab documented as of this encounter Visit Diagnoses Not on filedocumented in this encounter Additional Health Concerns Assessment Noted Time PHQ-9 Depression Total Score: 3 04/15/2017 10:35 AM CD T documented as of this encounter Care Teams Film Printer Relationship Specialty Start Date End Date Thad Mckeon, PCP - General Physician Timber Hewer - 02/17/14 AD Medical Thad Mckeon, PCP - Assigned PCP 12/16/13 09/07/18 [place] [address] [address] [id number] Thad Mckeon, Assigned PCP 12/16/13 [place] [address] [address]O [id number] documented as of this encounter
--- OUTSIDE RECORDS SUMMARY | 2022-04-02 23:53 | XMS_ITS | Encounter Summary ---
:1995 Author Organization [facility] Address [address] [place] [address] Care Team Providers Name Role Phone Thad Mckeon PA-C Primary Care Provider [phone] Thad Mckeon PA-C Unavailable [phone] Thad Mckeon PA-C Unavailable [phone] Reason for Visit Reason Comments STD check Encounter Details Date Type Department Care Team Description 05/06/2017 Office Visit [facility] Belkis Martinez Vaginal discharge (Primary Dx); [facility] [place] SophiaDINA FUNERAL ASSISTANT Chlamydia infection [place] [address] [address], [address] [place] [address] [place], [place] [phone] (Wo rk) [id number] [phone] Social History Tobacco Use Types Packs/Day Years Used Date Former Smoker Smokeless Tobacco: Never Used Alcohol Use Standard Drinks/Week Comments No 0 (1 standard drink = 0.6 oz pure alcoho l) Sex Assigned at Date Recorded Female 12/21/2020 8:52 AM CDT documented as of this encounter Last Filed Vital Signs Vital Sign Reading Time Taken Comments Blood Pressure 100/70 05/06/2017 10:49 AM CDT Pulse 83 05/06/2017 10:49 AM CDT Temperature 37.1 ??C (98.8 ??F) 05/06/2017 10:49 AM CDT Respiratory Rate - - Oxygen Saturation 99% 05/06/2017 10:49 AM CDT Inhaled Oxygen Concentration - - Weight 71.2 kg (157 lb) 05/06/2017 10:49 AM CDT Height - - Body Mass Index 25.34 04/15/2017 9:45 AM CDT documented in this encounter Progress Notes Belkis Martinez, DINA FUNERAL ASSISTANT - 05/06/2017 10:40 AM CDT HPI SUBJECTIVE: Ruthie Nieto is a 22 year old female who presents to clinic today for the following health issues: Vaginal Symptoms ?? Duration: 1wk ?? Description vaginal discharge - white ?? Intensity: moderate ?? Accompanying signs and symptoms (fever/dysuria/abdominal or back pain): None ?? History Sexually active: not at present, but has had sexual intercourse since last std screening on 04/15/2017 Possibility of : No Recent antibiotic use: was on amox up until last week, started 04/14 ?? Precipitating or alleviating factors: None ?? Therapies tried and outcome: none Outcome: n/a No vaginal itching, abdominal pain, back pain or urinary symptoms. Has had chlamydia in the past andis wondering about that. No known exposure to STDs. LMP: ~3 weeks ago; should be getting it soon Problem list and histories reviewed & adjusted, as indicated. Additional history: as documented Current Outpatient Prescriptions Medication Sig Dispense Refill ??? valACYclovir (VALTREX) 1000 mg tablet Take 2 tablets (2,000 mg) by mouth 2 times daily For 1 day4 tablet 5 ??? methylphenidate (RITALIN LA) 20 MG CP24 Take 20 mg by mouth daily 30 capsule 0 ??? [START ON 05/16/2017] methylphenidate (RITALIN LA) 20 MG CP24 Take 20 mg by mouth daily 30 capsule 0 ??? [START ON 06/16/2017] methylphenidate (RITALIN LA) 20 MG CP24 Take 20 mg by mouth daily 30 capsule 0 ??? methylphenidate (RITALIN LA) 20 MG CP24 Take 20 mg by mouth daily 30 capsule 0 ??? ALPRAZolam (XANAX) 0.5 MG tablet Take 1 tablet (0.5 mg) by mouth 3 times daily as needed for anxiety 20 tablet 0 ??? tretinoin (RETIN-A) 0.025 % cream Reported on 09/25/2016 11 ??? clindamycin-benzoyl Per, Refr, (DUAC) 1.2-5 % GEL Apply 0.5 inches topically At Bedtime 45 g 11 ??? amoxicillin (AMOXIL) 500 MG capsule TAKE 1 TABLET 4 TIMES A DAY UNTIL GONE 0 No Known Allergies Reviewed and updated as needed this visit by clinical staffTobacco Allergies Meds Med Hx Surg Hx Fam Hx Soc Hx Reviewed and updated as needed this visit by Provider ROS: Constitutional, HEENT, cardiovascular, pulmonary, gi and gu systems are negative, except as otherwise noted. OBJECTIVE: BP 100/70 (BP Location: Right arm, Patient Position: Chair, Cuff Size: Adult Regular) Pulse 83 Temp 98.8 ??F (37.1 ??C) Wt 157 lb (71.2 kg) LMP 03/21/2017 (Exact Date) SpO2 99% BMI 25.34 kg/m2 Body mass index is 25.34 kg/(m^2). GENERAL: healthy, alert and no distress RESP: lungs clear to auscultation - no rales, rhonchi or wheezes CV: regular rate and rhythm, normal S1 S2, no S3 or S4, no murmur, click or rub ABDOMEN: soft, nontender, no hepatosplenomegaly, no masses and bowel sounds normal BACK: no CVA tenderness Diagnostic Test Results: Results for orders placed or performed in visit on 05/06/17 Wet prep Result Value Ref Range Specimen Description Vagina Wet Prep No Trichomonas seen Wet Prep No clue cells seen Wet Prep No yeast seen ASSESSMENT/PLAN: 1. Vaginal discharge Wet prep normal. Monitor symptoms; will wait for GC results. - Wet prep - Neisseria gonorrhoeae PCR - Chlamydia trachomatis PCR RTC prn Belkis Martinez APRN CNP [facility] ROS Physical Exam documented in this encounter Nursing Notes Robbie Love CMA - 05/06/2017 10:40 AM CDT Chief Complaint Patient presents with ??? STD check Initial BP 100/70 (BP Location: Right arm, Patient Position: Chair, Cuff Size: Adult Regular) Pulse 83 Temp 98.8 ??F (37.1 ??C) Wt 157 lb (71.2 kg) LMP 03/21/2017 (Exact Date) SpO2 99% BMI 25.34 kg/m2 Estimated body mass index is 25.34 kg/(m^2) as calculated from the following: Height as of 04/15/17: 5' 6 (1.676 m). Weight as of this encounter: 157 lb (71.2 kg). Medication Reconciliation: complete.Robbie Cagle MA documented in this encounter Miscellaneous Notes Addendum Note - Belkis Martinez APRN CNP - 05/07/2017 3:06 PM CDT Addended by: BELKIS MARTINEZ on: 05/07/2017 03:06 PM Modules accepted: Orders documented in this encounter Plan of Treatment Upcoming Encounters Date Type Specialty Care Team Description 05/08/2022 Office Visit [facility] [address] [facility] [place] [place] [address] (Wo rk) 05/08/2022 Lab Lab documented as of this encounter Procedures Procedure Name Priority Date/Time Associated Comments Diagnosis NEISSERIA GONORRHOEAE Routine 05/06/2017 10:59 Vaginal dischar ge Results for this PCR AM CDT procedure are i n the results section. CHLAMYDIA TRACHOMATIS Routine 05/06/2017 10:59 Vaginal dischar ge Results for this PCR AM CDT procedure are i n the results section. WET PREPARATION Routine 05/06/2017 10:58 Vaginal discharge Res ults for this AM CDT procedure are i n the results section. documented in this encounter Results (ABNORMAL) Chlamydia trachomatis PCR (05/06/2017 10:59 AM CDT) [facility] Method Time Signature Specimen Vagina 05/06/2017 [facility] Description 11:05 AM CDT [facility] Chlamydia Positive (A) NEG^Negat 05/07/2017 [facility] Trachomatis PCR pepper 12:59 PM CDT [facility] Comment: Positive for C. trachomatis rRNA by colin scription mediated amplification. As is true for all non-culture methods, a positive specimen obtained from a patient after therapeutic treatment jesus manuel ot be interpreted as indicating the presence of viable C. trachomatis. Report sent to printer [id number] @[id number] 05/07/17 gd Specimen Anatomical Collection Method Collection Time Receive d Time (Source) Location / / Volume Laterality Specimen from 05/06/2017 10:59 05/06/2017 vagina AM CDT 11:04 AM CDT (specimen) Belkis Martinez APRN, CNP LAB - MICRO GENERAL [place] [facility] Performing Organization Address City/[facility] Code Phon e Number [address] [address] [facility] [place] [address] Neisseria gonorrhoeae PCR (05/06/2017 10:59 AM CDT) Analysis Performed At Patho logist Time Signature Specimen Vagina 05/06/2017 [facility] Descrip 11:05 AM CDT [facility] N Gonorrhea Negative NEG^Negati 05/07/2017 [facility] PCR ve 12:59 PM CDT [facility] Comment: Negative for N. gonorrhoeae rRNA by colin scription mediated amplification. A negative result by land leasing information clerk media susana amplification does not preclude the presence of N. gonorrhoeae infection because results are dependent on proper and adequate collection, absence of inhibitors, and sufficient rRNA to be detected. Specimen Anatomical Collection Method Collection Time Receive d Time (Source) Location / / Volume Laterality Specimen from 05/06/2017 10:59 05/06/2017 vagina AM CDT 11:04 AM CDT (specimen) Belkis Martinez APRN, CNP LAB - MICRO GENERAL [place] [facility] Performing Organization Address City/[facility] Code Phon e Number [address] [address] [facility] [place] [address] Wet prep (05/06/2017 10:58 AM CDT) Component Value Ref Test Analysis Performed At [facility] gist Range Method Time Signature Specimen Vagina [facility] Description CLINICS [place] Wet Prep No Trichomonas 05/06/2017 [facility] seen 11:12 AM CLINICS CDT [place] Wet Prep No clue cells 05/06/2017 [facility] seen 11:12 AM CLINICS CDT [place] Wet Prep No yeast seen 05/06/2017 [facility] 11:12 AM CLINICS CDT [place] Specimen Anatomical Collection Method Collection Time Receive d Time (Source) Location / / Volume Laterality Specimen from 05/06/2017 10:58 05/06/2017 vagina AM CDT 11:03 AM CDT (specimen) Belkis Martinez APRN FUNERAL ASSISTANT LAB - MICRO GENERAL [place] Performing Organization Address City/State/ZIP Code Phon e Number [facility] [place], [place] [id number] documented in this encounter Visit Diagnoses Diagnosis Vaginal discharge - Primary Leukorrhea, not specified as infective Chlamydia infection Unspecified chlamydial infection, in con ditions classified elsewhere and of unspecified site documented in this encounter Additional Health Concerns Assessment Noted Time PHQ-9 Depression Total Score: 3 04/15/2017 10:35 AM CD T documented as of this encounter Care Teams Motor Coach Operator Relationship Specialty Start Date End Date Thad Mckeon, PCP - General Physician Distillery Worker General - 02/17/14 PA-C Medical Thad Mckeon, PCP - Assigned PCP 12/16/13 09/07/18 [place] [id number] [address] [address] Thad Mckeon, Assigned PCP 12/16/13 [place] [id number] [address] [address] documented as of this encounter
--- OUTSIDE RECORDS SUMMARY | 2022-04-02 23:53 | XMS_ITS | Encounter Summary ---
:1995 Author Organization [place] Address [facility] [place] [address] Care Team Providers Name Role Phone Thad Mckeon PA-C Primary Care Provider [phone] Thad Mckeon PA-C Unavailable [phone] Thad Mckeon PA-C Unavailable [phone] Reason for Visit Reason Comments Physical Pharyngitis Encounter Details Date Type Department Care Team Description 04/15/2017 Office Visit [facility] Belkis Redman Routine general medical examination at a health care facility (Primary Dx); [facility] DINA Cortes [facility] History of cold sores; [place] [address] [address] Attention deficit hyperactivity disorder (ADHD), predominantly inattentive type; Road, [address] [place], [place] Screen for STD (sexually tra nsmitted disease); [place] [address] Throat pain; [id number] Has daytime drowsiness Social History Tobacco Use Types Packs/Day Years Used Date Former Smoker Smokeless Tobacco: Never Used Alcohol Use Standard Drinks/Week Comments No 0 (1 standard drink = 0.6 oz pure alcoho l) Sex Assigned at Date Recorded Female 12/21/2020 8:52 AM CDT documented as of this encounter Last Filed Vital Signs Vital Sign Reading Time Taken Comments Blood Pressure 112/80 04/15/2017 9:45 AM CDT Pulse 88 04/15/2017 9:45 AM CDT Temperature 36.6 ??C (97.8 ??F) 04/15/2017 9:45 AM CDT Respiratory Rate 20 04/15/2017 9:45 AM CDT Oxygen Saturation - - Inhaled Oxygen Concentration - - Weight 70.3 kg (155 lb) 04/15/2017 9:45 AM CDT Height 167.6 cm (5' 6) 04/15/2017 9:45 AM CDT Body Mass Index 25.02 04/15/2017 9:45 AM CDT documented in this encounter Patient Instructions Patient InstructionsIsa Saab MA - 04/15/2017 9:46 AM CDT If sore throat is persisting over the next 1-2 weeks please return for follow up. Preventive Health Recommendations Female Ages 18 to [...] cleaning. documented in this encounter Progress Notes Belkis Redman APRN CNP - 04/15/2017 9:40 AM CDT SUBJECTIVE: CC: Ruthie Nieto is an 22 year old woman who presents for preventive health visit. Physical Annual: Getting at least 3 servings of Calcium per day:: Yes Bi-annual eye exam:: Yes Dental care twice a year:: NO Sleep apnea or symptoms of sleep apnea:: Daytime drowsiness Frequency of exercise:: 2-3 days/week Duration of exercise:: 15-30 minutes Taking medications regularly:: Yes Medication side effects:: None Additional concerns today:: No Sore throat for the past 4-5 days. On antibiotics for gum infection; started amoxicillin yesterday from her dentist. No fevers, body aches, chills or headaches. She had unprotected intercourse a few days ago with a new partner. She would like to be tested for gonorrhea and chlamydia. No known exposure and currently not experiencing any symptoms. 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 Easily distracted. Would like to restart Ritalin. Has been onand off the medication since age 6. No side effects to medication. Today's PHQ-2 Score: PHQ-2 (??1999 Pfizer) 04/15/2017 Q1: Little interest or pleasure in doing things 0 Q2: Feeling down, depressed or hopeless 0 PHQ-2 Score 0 Q1: Little interest or pleasure in doing things Not at all Q2: Feeling down, depressed or hopeless Not at all PHQ-2 Score 0 Abuse: Current or Past(Physical, Sexual or Emotional)- No Do you feel safe in your environment - Yes Social History Substance Use Topics ??? Smoking status: Former Smoker ??? Smokeless tobacco: Never Used ??? Alcohol use No The patient does not drink >3 drinks per day nor >7 drinks per week. Reviewed orders with patient. Reviewed health maintenance and updated orders accordingly - Yes BP Readings from Last 3 Encounters: 04/15/17 112/80 09/25/16 94/56 09/24/16 111/63 Wt Readings from Last 3 Encounters: 04/15/17 155 lb (70.3 kg) 09/25/16 165 lb (74.8 kg) 09/24/16 145 lb (65.8 kg) Current Outpatient Prescriptions Medication Sig Dispense Refill ??? AMOXICILLIN PO ??? ALPRAZolam (XANAX) 0.5 MG tablet Take 1 tablet (0.5 mg) by mouth 3 times daily as needed for anxiety 20 tablet 0 ??? tretinoin (RETIN-A) 0.025 % cream Reported on 09/25/2016 11 ??? clindamycin-benzoyl Per, Refr, (DUAC) 1.2-5 % GEL Apply 0.5 inches topically At Bedtime 45 g 11 ??? valACYclovir (VALTREX) 1000 mg tablet Take 2 tablets (2,000 mg) by mouth 2 times daily 4 tablet 1 ??? methylphenidate (RITALIN LA) 20 MG CP24 Take 20 mg by mouth daily 30 capsule 0 No Known Allergies Mammogram not appropriate for this patient based on age. Pertinent mammograms are reviewed under the imaging tab. History of abnormal Pap smear: NO - age 21-29 PAP every 3 years recommended Lab Results Component Value Date PAP NIL 08/20/2015 Reviewed and updated as needed this visit by clinical staffTobacco Allergies Problems Med Hx Surg Hx Fam Hx Soc Hx Reviewed and updated as needed this visit by Provider History reviewed. No pertinent past medical history. Past Surgical History: Procedure Laterality Date ??? ORTHOPEDIC SURGERY ROS: C: NEGATIVE for fever, chills, change in weight I: NEGATIVE for worrisome rashes, moles or lesions E: NEGATIVE for vision changes or irritation ENT: NEGATIVE for ear, mouth and throat problems POSITIVE for sore throat R: NEGATIVE for significant cough or SOB CV: NEGATIVE for chest pain, palpitations or peripheral edema GI: NEGATIVE for nausea, abdominal pain, heartburn, or change in bowel habits : NEGATIVE for unusual urinary or vaginal symptoms. Periods are regular. M: NEGATIVE for significant arthralgias or myalgia N: NEGATIVE for weakness, dizziness or paresthesias P: NEGATIVE for changes in mood or affect OBJECTIVE: BP 112/80 (BP Location: Right arm, Patient Position: Sitting, Cuff Size: Adult Regular) Pulse 88 Temp 97.8 ??F (36.6 ??C) (Oral) Resp 20 Ht 5' 6 (1.676 m) Wt 155 lb (70.3 kg) LMP 03/21/2017 (Exact Date) ? Unknown BMI 25.02 kg/m2 EXAM: GENERAL: healthy, alert and no distress EYES: Eyes grossly normal to inspection, PERRL and conjunctivae and sclerae normal HENT: ear canals and TM's normal, nose and mouth without ulcers or lesions, oropharynx and tonsillarerythema, no tonsillar enlargement, scant white/london exudate on R tonsil NECK: no adenopathy, no asymmetry, masses, or [...] normal PSYCH: mentation appears normal, affect normal/bright ASSESSMENT/PLAN: 1. Routine general medical examination at a health care facility Discussed doing labs today. She has a fear of needles and declines lab work. 2. History of cold sores Refilled. - valACYclovir (VALTREX) 1000 mg tablet; Take 2 tablets (2,000 mg) by mouth 2 times daily For 1 day Dispense: 4 tablet; Refill: 5 3. Attention deficit hyperactivity disorder (ADHD), predominantly inattentive type Has been off Ritalin for the past several months, but noticing more lack of focus the more she is off of medication. Restart today; follow up in 3 mos. - methylphenidate (RITALIN LA) 20 MG CP24; Take 20 mg by mouth daily Dispense: 30 capsule; Refill: 0 - methylphenidate (RITALIN LA) 20 MG CP24; Take 20 mg by mouth daily Dispense: 30 capsule; Refill: 0 - methylphenidate (RITALIN LA) 20 MG CP24; Take 20 mg by mouth daily Dispense: 30 capsule; Refill: 0 4. Screen for STD (sexually transmitted disease) - Chlamydia trachomatis PCR - Neisseria gonorrhoeae PCR 5. Throat pain RST negative; will cx. If symptoms persist over the next 1-2 weeks consider mono. - Rapid strep screen - Beta strep group A culture 6. Has daytime drowsiness Discussed checking labs; TSH, CBC and Vitamin D. She has a fear of needles and does not want any labwork done today. If problem persists she will return. COUNSELING: Reviewed preventive health counseling, as reflected in patient instructions Regular exercise Healthy diet/nutrition reports that she has quit smoking. She has never used smokeless tobacco. Estimated body mass index is 25.02 kg/(m^2) as calculated from the following: Height as of this encounter: 5' 6 (1.676 m). Weight as of this encounter: 155 lb (70.3 kg). Counseling Resources: ATP IV Guidelines Pooled Cohorts Equation Calculator Breast Cancer Risk Calculator FRAX Risk Assessment ICSI Preventive Guidelines Dietary Guidelines for Americans, 2009 [employer] ASA Prophylaxis Lung CA Screening Belkis Redman APRN CNP [facility] documented in this encounter Nursing Notes Isa Saab MA - 04/15/2017 9:40 AM CDT Chief Complaint Patient presents with ??? Physical ??? Pharyngitis Initial BP 112/80 (BP Location: Right arm, Patient Position: Sitting, Cuff Size: Adult Regular) Pulse 88 Temp 97.8 ??F (36.6 ??C) (Oral) Resp 20 Ht 5' 6 (1.676 m) Wt 155 lb (70.3 kg) LMP 03/21/2017 (Exact Date) ? Unknown BMI 25.02 kg/m2 Estimated body mass index is 25.02 kg/(m^2) as calculated from the following: Height as of this encounter: 5' 6 (1.676 m). Weight as of this encounter: 155 lb (70.3 kg). Medication Reconciliation: complete Isa Saab MA documented in this encounter Plan of Treatment Upcoming Encounters Date Type Specialty Care Team Description 05/08/2022 Office Visit Family Practice Kyle Hidalgo PA-C [address] [address] [place], [place] [address] (Wo rk) 05/08/2022 Lab Lab documented as of this encounter Procedures Procedure Name Priority Date/Time Associated Diagnosis Comme nts BETA HEMOLYTIC STREP Routine 04/15/2017 10:38 Throat pain Res ults for this GROUP A CULTURE AM CDT procedure ar e in the results section. RAPID STREP SCREEN Routine 04/15/2017 10:29 Throat pain Resul ts for this THROAT SWAB AM CDT procedure are i n the results section. NEISSERIA Routine 04/15/2017 10:25 Screen for STD Results f or this GONORRHOEAE PCR AM CDT (sexually procedure ar e in transmitted disease) the res ults section. CHLAMYDIA Routine 04/15/2017 10:25 Screen for STD Results f or this TRACHOMATIS PCR AM CDT (sexually procedure ar e in transmitted disease) the res ults section. documented in this encounter Results Beta strep group A culture (04/15/2017 10:38 AM CDT) Component Value Ref Test Analysis Performed At [facility] Method Time Signature Specimen Throat [facility] Culture Micro No beta 04/16/2017 [facility] hemolytic 3:09 PM CDT [facility] Streptococcus [facility] Group A isolated Specimen Anatomical Collection Method Collection Time Receive d Time (Source) Location / / Volume Laterality Specimen from 04/15/2017 10:38 04/15/2017 throat AM CDT 10:43 AM CDT (specimen) Belkis Redman APRN [facility] - MICRO [facility] Performing Organization Address City/State/ZIP Code Phon e Number [facility] [id number] [place] [address] Rapid strep screen (04/15/2017 10:29 AM CDT) Component Value Ref Test Analysis Performed At [facility] Method Time Signature Specimen Throat [facility] Rapid Strep A NEGATIVE: No 04/15/2017 [facility] Screen Group A 10:41 AM CLINICS streptococcal CDT [facility] antigen detected by immunoassay, await culture report. Specimen Anatomical Collection Method Collection Time Receive d Time (Source) Location / / Volume Laterality Specimen from 04/15/2017 10:29 04/15/2017 throat AM CDT 10:34 AM CDT (specimen) Belkis Cortes Feroz ARROYO [facility]CRO GENERAL [facility] Performing Organization Address City/[facility] Code Phon e Number [address] [address] Neisseria gonorrhoeae PCR (04/15/2017 10:25 AM CDT) Analysis Performed At Patho logist Time Signature Specimen Vagina 04/15/2017 [facility] Descrip 10:31 AM CDT [facility] N Gonorrhea Negative NEG^Negati 04/16/2017 [facility] PCR ve 1:23 PM CDT [facility] [facility] Comment: Negative for N. gonorrhoeae rRNA by colin scription mediated amplification. A negative result by pineapple plantation manager media susana amplification does not preclude the presence of N. gonorrhoeae infection because results are dependent on proper and adequate collection, absence of inhibitors, and sufficient rRNA to be detected. Specimen Anatomical Collection Method Collection Time Receive d Time (Source) Location / / Volume Laterality Specimen from 04/15/2017 10:25 04/15/2017 vagina AM CDT 10:30 AM CDT (specimen) Belkis Cortes Feroz ARROYO CNP LAB - MICRO [facility] AMBER Performing Organization Address City/[facility]/ZIP Code Phon e Number [address] [address] Chlamydia trachomatis PCR (04/15/2017 10:25 AM CDT) Patholo gist Method Time Signature Specimen Vagina 04/15/2017 [facility] Description 10:31 AM CDT [facility] Chlamydia Negative NEG^Negat 04/16/2017 [facility] Trachomatis PCR pepper 1:23 PM CDT [facility] Comment: Negative for C. trachomatis rRNA by colin scription mediated amplification. A negative result by pineapple plantation manager media susana amplification does not preclude the presence of C. trachomatis infection because results are dependent on proper and adequate collection, absence of inhibitors, and sufficient rRNA to be detected. Specimen Anatomical Collection Method Collection Time Receive d Time (Source) Location / / Volume Laterality Specimen from 04/15/2017 10:25 04/15/2017 vagina AM CDT 10:30 AM CDT (specimen) Belkis Redman YOUTH MANAGER [facility] Performing Organization Address City/State/ZIP Code Phon e Number [address] [address] documented in this encounter Visit Diagnoses Diagnosis Routine general medical examination at a health care facility - Primary History of cold sores Personal history of other infectious and parasitic disease Attention deficit hyperactivity disorder (ADHD), predominantly inattentive type Screen for STD (sexually transmitted dis ease) Screening examination for venereal disea se Throat pain Has daytime drowsiness documented in this encounter Additional Health Concerns Assessment Noted Time PHQ-9 Depression Total Score: 3 04/15/2017 10:35 AM CD T documented as of this encounter Care Teams Bone Process Operator Relationship Specialty Start Date End Date Thad Mckeon, PCP - General Physician Slot Technician - 02/17/14 PA-C Medical Thad Mckeon, PCP - Assigned PCP 12/16/13 09/07/18 PA-C [address] [place], [place] [id number] Thad Mckeon, Assigned PCP 12/16/13 PALacey[facility] [address] [place], [place] [id number] documented as of this encounter
--- OUTSIDE RECORDS SUMMARY | 2022-04-02 23:54 | XMS_ITS | Encounter Summary ---
:1995 Author Organization [place] Address [address] [place] [id number] Care Team Providers Name Role Phone Thad Mkceon PA-C Primary Care Provider [phone] Thad Mckeon PA-C Unavailable [phone] Thad Mckeon PA-C Unavailable [phone] Reason for Visit Reason Onset Date Comments Nurse Advice Line 12/25/2015 medication for flyin g Encounter Details Date Type Department Care Team Description 12/25/2015 Telephone [facility] Thad Mckeon Nurse Advice Line [facility] [place] AD Persaud (medication for [facility], [address] [place] [address] [address] AVGodfrey flying) [address] [place] [address] [place], [place] [phone] (Wo rk) [id number] [phone] Social History Tobacco Use Types Packs/Day Years Used Date Former Smoker Smokeless Tobacco: Never Used Alcohol Use Standard Drinks/Week Comments No 0 (1 standard drink = 0.6 oz pure alcoho l) Sex Assigned at Date Recorded Female 12/21/2020 8:52 AM CDT documented as of this encounter Miscellaneous Notes Telephone Encounter - Alem Mullins - 12/25/2015 9:26 AM CDT Patient is leaving tomorrow and his nervous getting on the flight, she would like to know if Mike who prescribe her something for the flight. Patient's pharmacy is [facility] next door to the clinic. 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
--- OUTSIDE RECORDS SUMMARY | 2022-04-02 23:54 | XMS_ITS | Encounter Summary ---
:1995 Author Organization [facility] Address [address] [place] [address] Care Team Providers Name Role Phone Thad Mckeon PA-C Primary Care Provider [phone] Thad Mckeon PA-C Unavailable [phone] Thad Mckeon PA-C Unavailable [phone] Reason for Visit Reason Comments Recheck Medication Depression *NEED PHQ-9* Anxiety *NEED BEATRIZ-7* Encounter Details Date Type Department Care Team Description 02/17/2014 Office Visit [facility] Thad Mckeon y (Primary Dx); Clinic [place] AD Persaud Screening examination for venereal disea se [place] [address] [facility], [address] [place] [address] [place], [place] [phone] (Wo rk) [address] [phone] Social History Tobacco Use Types Packs/Day Years Used Date Former Smoker Smokeless Tobacco: Never Used Alcohol Use Standard Drinks/Week Comments No 0 (1 standard drink = 0.6 oz pure alcoho l) Sex Assigned at Date Recorded Female 12/21/2020 8:52 AM CDT documented as of this encounter Last Filed Vital Signs Vital Sign Reading Time Taken Comments Blood Pressure 100/70 02/17/2014 10:01 AM CDT Pulse 80 02/17/2014 10:01 AM CDT Temperature 36.3 ??C (97.4 ??F) 02/17/2014 10:01 AM CDT Respiratory Rate 20 02/17/2014 10:01 AM CDT Oxygen Saturation - - Inhaled Oxygen Concentration - - Weight 88 kg (194 lb) 02/17/2014 10:01 AM CDT Height 166.4 cm (5' 5.5) 02/17/2014 10:01 AM CDT Body Mass Index 31.79 02/17/2014 10:01 AM CDT documented in this encounter Progress Notes Thad Salinas PA-C - 02/17/2014 8:17 AM CDT SUBJECTIVE: Ruthie Nieto is a 18 year old female who presents to clinic today for the following health issues: Depression Followup ?? Status since last visit: Improved ?? See PHQ-9 for current symptoms. Other associated symptoms: None ?? Complicating factors: Significant life event: No Current substance abuse: None Anxiety or Panic symptoms: No PHQ-9 Guyanese PHQ-9 Any Language ?? Amount of exercise or physical activity: 2-3 days/week for an average of 30- 45 minutes ?? Problems taking medications regularly: No ?? Medication side effects: none ?? Diet: regular (no restrictions) History Substance Use Topics ??? Smoking status: Former Smoker ??? Smokeless tobacco: Never Used ??? Alcohol Use: No Medication Followup of Ativan, Celexa ?? Taking Medication as prescribed: yes ?? Side Effects: None ?? Medication Helping Symptoms: Yes, see huge improvement Ruthie is a 18 yoF who has been suffering from increased anxiety due to life stressors as of late andwas started on Celexa and prn Ativan ~3 wks ago. Since beginning these medications, her symptoms have much improved. She is sleeping better and her stress levels have greatly decreased. She has recently accepted a new job and is in the process of getting back to school, both have been positive experiences. Even though medications have improved her anxiety, she is still takes 1/2 tab of ativan if she is feeling overly stressed and takes another 1/2 tab when wakes up in the middle of the night. Does not take every night. She is currently out of her Ativan and would like a refill. No side effects fromCelexa and is happy with the current 20 mg dose. Denies any recent palpitations, sob, or chest pain. Problem list and histories reviewed & adjusted, as indicated. Additional history: as documented Problem list, Medication list, Allergies, and Medical/Social/Surgical histories reviewed in EPIC andupdated as appropriate. ROS: Constitutional, HEENT, cardiovascular, pulmonary, gi and gu systems are negative, except as otherwise noted. OBJECTIVE: BP 100/70 Pulse 80 Temp(Src) 97.4 ??F (36.3 ??C) (Oral) Resp 20 Ht 5' 5.5 (1.664 m) Wt 194 lb (87.998 kg) BMI 31.78 kg/m2 ? No Body mass index is 31.78 kg/(m^2). GENERAL APPEARANCE: healthy, alert and no distress SKIN: no suspicious lesions or rashes PSYCH: mentation appears normal and affect normal/bright No further exam 15 minutes total with discussion and counselling equal to >%50 of visit. Diagnostic test results: none ASSESSMENT/PLAN: (300.00) Anxiety (primary encounter diagnosis) Comment: Sxs are much improved. Patient is content with current medication dosage, but still using ativan periodically. Even though it does not sound like she is using Ativan often, the ultimate goal would be to get her sxs controlled with Celexa only. Plan: LORazepam (ATIVAN) 0.5 MG tablet, citalopram (CELEXA) 20 MG tablet -For now medications were refilled at current dosages. It was explained to the patient that the goal is to eventually d/c Ativan completely. Future dosage increase of Celexa was discussed if the current 20 mg dose not treat her symptoms completely. She is willing to try this, but since she is feelingso well right now she would like to attempt to get to that point on the 20 mg dose. (V74.5) Screening examination for venereal disease Comment: Plan: NEISSERIA GONORRHOEA PCR, CHLAMYDIA TRACHOMATIS PCR Follow up with Provider in 1 month for med check. CAROLINA Goodwin I have also seen and examined this patient and agree with the history, exam, assessment and plan. AD Miller PA-C [facility] documented in this encounter Nursing Notes Isa Saab MA - 02/17/2014 10:04 AM CDT Chief Complaint Patient presents with ??? Recheck Medication ??? Depression *NEED PHQ-9* ??? Anxiety *NEED BEATRIZ-7* Initial BP 100/70 Pulse 80 Temp(Src) 97.4 ??F (36.3 ??C) (Oral) Resp 20 Ht 5' 5.5 (1.664 m) Wt 194 lb (87.998 kg) BMI 31.78 kg/m2 ? No Estimated body mass index is 31.78 kg/(m^2) as calculated from the following: Height as of this encounter: 5' 5.5 (1.664 m). Weight as of this encounter: 194 lb (87.998 kg). BP completed using cuff size: regular Isa Saab MA documented in this encounter Plan of Treatment Upcoming Encounters Date Type Specialty Care Team Description 05/08/2022 Office Visit Family [facility] Kyle Hidalgo [facility]-C [address] [facility] [place] [place] [address] (Wo rk) 05/08/2022 Lab Lab documented as of this encounter Procedures Procedure Name Priority Date/Time Associated Diagnosis Comme nts NEISSERIA Routine 02/17/2014 10:29 Screening Results for this GONORRHOEAE PCR AM CDT Examination For procedure are in Venereal Disease the results section. CHLAMYDIA Routine 02/17/2014 10:29 Screening Results for this TRACHOMATIS PCR AM CDT Examination For procedure are in Venereal Disease the results section. documented in this encounter Results CHLAMYDIA TRACHOMATIS PCR (02/17/2014 10:29 AM CDT) Component Value Ref Test Analysis Performed At [facility] AtTask Range Method Time Signature Specimen Urine [facility] Chlamydia Negative NEG [facility] Trachomatis Negative for C. trachomatis rRNA by lawn care technician mediated amplification. MICROBIOLOGY PCR A negative result by transc ription mediated amplification does not preclude the presence of C. trachomatis infection because re sults are dependent on proper and adequate collection, absence of inhibitors, and suffici ent rRNA to be detected. Specimen Anatomical Collection Method Collection Time Receive d Time (Source) Location / / Volume Laterality Urine specimen 02/17/2014 10:29 4 (specimen) AM CDT 10:30 AM CDT Thad Mckeon PA-C LAB - MICRO GENERAL ORDERABL ES Performing Organization Address [facility] [place] [address] [facility] MICROBIOLOGY NEISSERIA GONORRHOEA PCR (02/17/2014 10:29 AM CDT) Component Value Ref Test Analysis Performed At [facility] Range Method Time Signature Specimen Urine [facility] N Gonorrhea Negative NEG [facility] PCR Negative for N. gonorrhoeae rRNA by transcripti on mediated amplification. MICROBIOLOGY A negative result by transc ription mediated amplification does not preclude the presence of N. gonorrhoeae infection because re sults are dependent on proper and adequate collection, absence of inhibitors, and suffici ent rRNA to be detected. Specimen Anatomical Collection Method Collection Time Receive d Time (Source) Location / / Volume Laterality Urine specimen 02/17/2014 10:29 4 (specimen) AM CDT 10:30 AM CDT Thad Mckeon PA-C LAB - MICRO GENERAL ORDERABL ES Performing Organization Address [facility] [place] [address] [facility] MICROBIOLOGY documented in this encounter Visit Diagnoses Diagnosis Anxiety - Primary Anxiety state, unspecified Screening examination for venereal disea se documented in this encounter Care Teams Septic Tank Cleaner Relationship Specialty Start Date End Date Thad Mckeon, PCP - General Physician Security Assistant - 02/17/14 AD Medical Thad Mckeon, PCP - Assigned PCP 12/16/13 09/07/18 [place] [address] [place] [address] Thad Mckeon, Assigned PCP 12/16/13 [place] [address] [address] [place], [place] [address] documented as of this encounter
--- OUTSIDE RECORDS SUMMARY | 2022-04-02 23:54 | XMS_ITS | Encounter Summary ---
:1995 Author Organization [facility] Address [address] [place] [address] Care Team Providers Name Role Phone Unavailable Primary Care Provider Unavailable Encounter Details Date Type Department Care Team Description 10/07/2006 Operative Report Rox Hernandez MD (Waiter/Waitress Informal) [place] [address] (Wo rk) Social History Tobacco Use Types Packs/Day Years Used Date Never Assessed Sex Assigned at Date Recorded Female 12/21/2020 8:52 AM CDT documented as of this encounter Progress Notes Interface, Waiter/Waitress Informal - 10/15/2006 10:24 AM CDT FINAL 1st Class A Lineman: 2nd Class A Lineman: PREOPERATIVE DIAGNOSIS: Healed bimalleolar fracture, left ankle. POSTOPERATIVE DIAGNOSIS: Healed bimalleolar fracture, left ankle. PROCEDURE: Removal of two K-wires and tension band, medial aspect of the left ankle. BRIEF HISTORY: Ruthie Jensen had a bimalleolar fracture that she sustained a number of months ago. This was treated with ORIF of the medial malleolar fragment which was displaced and the lateral malleolus which was a Salter I fracture and undisplaced was not treated surgically. She subsequently went on to a solid union and through the course of rehabilitation, regained her ability to function well. They were advised at time of the injury and surgery that due to her still growing, that the K-wires and tension band would need to be removed and that is the reason for coming to surgery at this time. Preoperatively, I explained to her and her dad the procedure, anticipated outcome, recovery, risks andcomplications of wound healing, infection, neurovascular injury, and incomplete relief of symptoms. DESCRIPTION OF PROCEDURE: With the patient under general anesthesia, she was given a gram of Ancef IV. The left lower extremity was prepped and draped in a sterile manner, elevated, exsanguinated, kun tourniquet about the thigh set at 300 mmHg. Through the previous incision, the lower aspect skin and subcu tissues were divided and then with dissection and the posterior K-wire was identified, the tension band and then the anterior K-wire. There were then removed without difficulty. The wound was irrigated with saline solution. Closure was used to reapproximate the deep tissues with 3-0 Vicryl. Subcu tissues were closed in running stitch of 3-0 Vicryl and the skin with a subcuticular closure reinforced with Steri-Strips. Lidocaine 1%, Marcaine 0.5% with epinephrine was then injected for postoperative pain management. A sterile dressing of Adaptic, 4 x 4s, cast padding, and an Andrey was then applied. She tolerated the procedure satisfactorily. Electronically signed on 10/15/2006 10:23 by ROX HERNANDEZ MD MT: [email or web address] Name: RUTHIE JENSEN MRN: [id number] Account: [id number] : 1995 Procedure Date: 10/07/2006 Document: [id number] cc: Jose Thurman MD documented in this encounter Plan of Treatment Upcoming Encounters Date Type Specialty Care Team Description 05/08/2022 Office Visit [facility] Kyle Hidalgo PA-C [address] [address] [place] [address] (Wo rk) 05/08/2022 Lab Lab documented as of this encounter Visit Diagnoses Not on filedocumented in this encounter
--- OUTSIDE RECORDS SUMMARY | 2022-04-02 23:54 | XMS_ITS | Encounter Summary ---
:1995 Author Organization [place] Address [facility] [place] [address] Care Team Providers Name Role Phone Unavailable Primary Care Provider Unavailable Encounter Details Date Type Department Care Team Description 10/02/2006 Admission H&P Jose King MD (Infrastructure Administrator) [facility] [address] [place] [phone] (Wo rk) Social History Tobacco Use Types Packs/Day Years Used Date Never Assessed Sex Assigned at Date Recorded Female 12/21/2020 8:52 AM CDT documented as of this encounter Progress Notes Jose King - 03/01/2007 3:49 PM CDT FINAL INDICATION: Ruthie Jesnen will have surgery for removal of pin from left ankle with Dr. Hernandez on 10/07/2006 at [facility]. HISTORY: The patient is a 11-year-old female who had a fracture of her left ankle on 05/31/06. She has done very since that was treated with open reduction and internal fixation by Dr. Hernandez and has had the opportunity now to have the pin removed. She has no complaints with her ankle currently. PAST MEDICAL HISTORY: Unremarkable. PAST SURGICAL HISTORY: No other surgeries or significant past medical history. MEDICATIONS: None. ALLERGIES: No known drug allergies. FAMILY HISTORY: Non-contributory. REVIEW OF SYSTEMS: Completely unremarkable. PHYSICAL EXAMINATION: Ruthie is a very healthy-appearing 11-year-old female, height 5' 3-3/4, weight 156. VITALS: Pulse 76 and regular, respiratory rate 12, blood pressure 110/70. HEENT: Negative. Neck normal. LUNGS: Clear to A&P. CARDIOVASCULAR: Normal S1 and S2 without murmur. ABDOMEN: Normal. EXTREMITIES: There are some mild type changes on her lateral upper arms bilaterally. She has a medial ankle surgical scar on the left with range of motion normal and ligaments stable. Otherwise extremities are negative. IMPRESSION: As above. PLAN: I see no contraindication to surgery. Electronically signed on 03/01/2007 15:48 by JOSE KING MD MT: kk Name: RUTHIE JENSEN Account: [id number] : 1995 Admitted: [id number] Document: [id number] cc: Dane Hernandez MD documented in this encounter Plan of Treatment Upcoming Encounters Date Type Specialty Care Team Description 05/08/2022 Office Visit Family Practice Kyle Hidalgo PA-C [address] [address] [place], [place] [address] (Wo rk) 05/08/2022 Lab Lab documented as of this encounter Visit Diagnoses Not on filedocumented in this encounter
--- OUTSIDE RECORDS SUMMARY | 2022-04-02 23:54 | XMS_ITS | Encounter Summary ---
:1995 Author Organization [place] Address [facility] [place] [address] Care Team Providers Name Role Phone Thad Mckeon PA-C Primary Care Provider [phone] Thad Mckeon PA-C Unavailable [phone] Thad Mckeon PA-C Unavailable [phone] Reason for Visit Reason Comments Sleep Problem Derm Problem acne Encounter Details Date Type Department Care Team Description 11/21/[address] [facility] Thad Mckeon Other insomnia (Primary Dx); Clinic [place] AD Persaud Anxiety; [place] [address] [facility] Screen for STD (sexually transmitted dis ease) [facility], [address] [place] [address] [place], [place] [phone] (Wo rk) [address] [phone] Social History Tobacco Use Types Packs/Day Years Used Date Former Smoker Smokeless Tobacco: Never Used Alcohol Use Standard Drinks/Week Comments No 0 (1 standard drink = 0.6 oz pure alcoho l) Sex Assigned at Date Recorded Female 12/21/2020 8:52 AM CDT documented as of this encounter Last Filed Vital Signs Vital Sign Reading Time Taken Comments Blood Pressure 110/60 11/21/2015 10:55 AM CDT Pulse 88 11/21/2015 10:55 AM CDT Temperature 36.8 ??C (98.3 ??F) 11/21/2015 10:55 AM CDT Respiratory Rate 16 11/21/2015 10:55 AM CDT Oxygen Saturation - - Inhaled Oxygen Concentration - - Weight 84.4 kg (186 lb) 11/21/2015 10:55 AM CDT Height - - Body Mass Index 30.02 10/23/2015 9:59 AM CDT documented in this encounter Progress Notes Thad Mckeon PA-C - 11/21/2015 10:50 AM CDT HPI SUBJECTIVE: Ruthie Nieto is a 20 year old female who presents to clinic today for the following health issues: Insomnia ?? Duration: ongoing ?? Description Frequency of insomnia: nightly Time to fall asleep: 15 minutes Middle of night awakening: nightly german professor awakening: nightly ?? Accompanying signs and symptoms: none ?? History Similar episodes in past: YES Previous evaluation/sleep study: no ?? Precipitating or alleviating factors: New stressful situation: YES Caffeine intake after lunchtime: no OTC decongestants: no Any new medications: YES- control ?? Therapies tried and outcome: Trazadone Not sleeping well. Can fall asleep but waking up to 4 times nightly. Restless and can't stop thoughts from racing. Walking dog 30-45 minutes daily during each day. Feeling well but admits it could be time to restart SSRI again. Asking for STD screening this time. No symptoms. Ex-fiance in second mental [facility]. ACNE/ IS CONCERNED ABOUT BREAKOUTS/ HAS WEDDING TO BE IN THIS SUMMER. Problem list and histories reviewed & adjusted, as indicated. Additional history: as documented Problem list, Medication list, Allergies, and Medical/Social/Surgical histories reviewed in EPIC andupdated as appropriate. ROS: Constitutional, HEENT, cardiovascular, pulmonary, gi and gu systems are negative, except as otherwise noted. OBJECTIVE: BP 110/60 mmHg Pulse 88 Temp(Src) 98.3 ??F (36.8 ??C) (Oral) Resp 16 Wt 186 lb (84.369 kg) LMP 10/09/2015 (Approximate) Body mass index is 30.04 kg/(m^2). GENERAL: healthy, alert and no distress MS: no gross musculoskeletal defects noted, no edema SKIN: acne PSYCH: mentation appears normal, affect normal/bright Diagnostic Test Results: none ASSESSMENT/PLAN: 1. Other insomnia Try two tabs at night to see if that helps stay asleep. Call in 5 days if not helpful. Will then consider Restoril. - traZODone (DESYREL) 50 MG tablet; Take 1 tablet (50 mg) by mouth nightly as needed for sleep Dispense: 30 tablet; Refill: 0 2. Anxiety Discussed possible side effects of anti-depressant medications. Also discussed time to efficacy of about 6-8 weeks as well as expected duration of treatment. Follow-up one month, sooner prn. - escitalopram (LEXAPRO) 10 MG tablet; Take 1 tablet (10 mg) by mouth daily Dispense: 30 tablet; Refill: 1 3. Screen for STD (sexually transmitted disease) - Chlamydia trachomatis PCR Thad Mckeon PA-C [facility] Physical Exam documented in this encounter Nursing Notes Isa Saab MA - 11/21/2015 10:58 AM CDT Chief Complaint Patient presents with ??? Sleep Problem ??? Derm Problem acne Initial BP 110/60 mmHg Pulse 88 Temp(Src) 98.3 ??F (36.8 ??C) (Oral) Resp 16 Wt 186 lb (84.369 kg) LMP 10/09/2015 (Approximate) Estimated body mass index is 30.04 kg/(m^2) as calculated from the following: Height as of 16: 5' 6 (1.676 m). Weight as of this encounter: 186 lb (84.369 kg). BP completed using cuff size: regular Isa Saab MA documented in this encounter Plan of Treatment Upcoming Encounters Date Type Specialty Care Team Description 05/08/2022 Office Visit Family Practice Kyle Hidalgo PA-C [address] [address] [place] [place] [address] (Wo rk) 05/08/2022 Lab Lab documented as of this encounter Procedures Procedure Name Priority Date/Time Associated Diagnosis Comme nts CHLAMYDIA Routine 11/21/2015 11:12 Screen for STD Results f or this TRACHOMATIS PCR AM CDT (sexually procedure ar e in transmitted disease) the res ults section. documented in this encounter Results Chlamydia trachomatis PCR (11/21/2015 11:12 AM CDT) Component Value Ref Test Analysis Performed At [facility] gist Range Method Time Signature Specimen Vagina [facility] Chlamydia Negative NEG [facility] Negative for C. trachomatis rRNA by software configuration engineer mediated amplification. [place] [facility] PCR A negative result by transc ription mediated amplification does not preclude the [facility] presence of C. trachomatis infection because re sults are dependent on proper BANK and adequate collection, absence of inhibitors, and suffici ent rRNA to be detected. Specimen Anatomical Collection Method Collection Time Receive d Time (Source) Location / / Volume Laterality Specimen from 11/21/2015 11:12 11/21/2015 vagina AM CDT 11:17 AM CDT (specimen) Thad Mckeon PA-C LAB - MICRO GENERAL ORDERABL ES Performing Organization Address City/State/ZIP Code Phon e Number [id number] [place] [address] [place], [place] [id number] documented in this encounter Visit Diagnoses Diagnosis Other insomnia - Primary Anxiety Anxiety state, unspecified Screen for STD (sexually transmitted dis ease) Screening examination for venereal disea se documented in this encounter Care Teams District Attorney Relationship Specialty Start Date End Date Thad Mckeon, PCP - General Physician Investment Officer - 02/17/14 AD Medical Thad Mckeon, PCP - Assigned PCP 12/16/13 09/07/18 [place] [address] [place] [address] Thad Mckeon, Assigned PCP 12/16/13 PA-C [address] [address] [place] [address] documented as of this encounter
--- OUTSIDE RECORDS SUMMARY | 2022-04-02 23:54 | XMS_ITS | Encounter Summary ---
:1995 Author Organization [facility] Address [address] [place] [address] Care Team Providers Name Role Phone Unavailable Primary Care Provider Unavailable Encounter Details Date Type Department Care Team Description 08/05/2006 Therapy Visit [place] for Bryan Higgins AFT CARE H EAL TRAUM FRAC LOWER LEG; Athletic Medicine - W, PT POSTSURGICAL STATES NEC; [place] [facility] [address] [place] HIMA NT PAIN-ANKLE Therapy [facility] [address] [address] [address] [address] [place], [place] [phone] [address] (Work) [phone] Social History Tobacco Use Types Packs/Day Years Used Date Never Assessed Sex Assigned at Date Recorded Female 12/21/2020 8:52 AM CDT documented as of this encounter Progress Notes Bryan Higgins - 08/24/2006 8:50 AM CST Please refer to initial evaluation for discharge objective status. RAL ROAD SUPERVISOR Bryan Higgins - 08/05/2006 5:13 PM CST Initial evaluation was completed. Please refer to the daily flowsheet for treatment today. RAL ROAD SUPERVISOR documented in this encounter Plan of Treatment Upcoming Encounters Date Type Specialty Care Team Description 05/08/2022 Office Visit Family [facility] Kyle Hidalgo PA-C [address] [address] [place], [place] [address] (Wo rk) 05/08/2022 Lab Lab documented as of this encounter Procedures Procedure Name Priority Date/Time Associated Diagnosis Comme nts ZZC THERAPEUTIC Routine 08/05/2006 5:15 PM Aft Care Heal Traum EXERCISES GENERAL [address] SUPERVISOR Frac Lower Leg Postsurgical States Nec Joint Pain-Ankle ZZC HOT OR COLD PACKS Routine 08/05/2006 5:15 PM Aft Care Heal Traum THERAPY [address] SUPERVISOR Frac Lower Leg Postsurgical States Nec Joint Pain-Ankle documented in this encounter Visit Diagnoses Diagnosis Aftercare for healing traumatic fracture of lower leg Other postprocedural status(V45.89) Other postprocedural status Pain in joint, ankle and foot documented in this encounter
--- OUTSIDE RECORDS SUMMARY | 2022-04-02 23:54 | XMS_ITS | Encounter Summary ---
:1995 Author Organization [place] Address [address] [place] [address] Care Team Providers Name Role Phone [facility] Primary Care Provider [phone] Thad Mckeon PA-C Unavailable [phone] Thad Mckeon PA-C Unavailable [phone] Reason for Visit Reason Comments New Patient Musculoskeletal Problem fell in shower, right lower leg, tile floor/shower, hitting reza Encounter Details Date Type Department Care Team Description 01/09/2014 Office Visit [place] [facility] Thad Mckeon Pain i n joint involving lower leg, right (Primary Dx); Clinic [place] AD [place], [place] [id number] [address] [address] [facility], [address] [place] [address] [place], [place] [phone] (Wo rk) [address] [phone] Social History Tobacco Use Types Packs/Day Years Used Date Former Smoker Smokeless Tobacco: Never Used Alcohol Use Standard Drinks/Week Comments No 0 (1 standard drink = 0.6 oz pure alcoho l) Sex Assigned at Date Recorded Female 12/21/2020 8:52 AM CDT documented as of this encounter Last Filed Vital Signs Vital Sign Reading Time Taken Comments Blood Pressure 98/80 01/09/2014 4:21 PM CDT Pulse 88 01/09/2014 4:21 PM CDT Temperature 37 ??C (98.6 ??F) 01/09/2014 4:21 PM CDT Respiratory Rate 20 01/09/2014 4:21 PM CDT Oxygen Saturation - - Inhaled Oxygen Concentration - - Weight 86.2 kg (190 lb) 01/09/2014 4:21 PM CDT Height 166.4 cm (5' 5.5) 01/09/2014 4:21 PM CDT Body Mass Index 31.14 01/09/2014 4:21 PM CDT documented in this encounter Progress Notes Thad Salinas PA-C - 01/09/2014 4:24 PM CDT SUBJECTIVE: Ruthie Nieto is a 18 year old female who presents to clinic today for the following health issues: Joint Pain ?? Onset: 01/06/14 ?? Description: Location: right lower leg Character: Sharp ?? Intensity: mild ?? Progression of Symptoms: same ?? Accompanying Signs & Symptoms: Other symptoms: tingling, warmth, swelling and discoloration of foot, lower leg ?? History: Previous similar pain: no ?? Precipitating factors: Trauma or overuse: YES- fell ?? Alleviating factors: Improved by: NSAID - Ibuprofen and not standing ?? Therapies Tried and outcome: Ibuprofen, Ice, elevated Problem list and histories reviewed & adjusted, as indicated. Additional history: as documented Problem list, Medication list, Allergies, and Medical/Social/Surgical histories reviewed in [facility] andupdated as appropriate. ROS: Constitutional, HEENT, cardiovascular, pulmonary, gi and gu systems are negative, except as otherwise noted. OBJECTIVE: BP 98/80 Pulse 88 Temp(Src) 98.6 ??F (37 ??C) (Oral) Resp 20 Ht 5' 5.5 (1.664 m) Wt 190 lb (86.183 kg) BMI 31.13 kg/m2 LMP 11/09/2013 ? No Body mass index is 31.13 kg/(m^2). GENERAL APPEARANCE: healthy, alert and no distress MS: peripheral pulses normal and normal range of motion of knee and ankle. Bruising, swelling and tenderness of distal fibula but not maleolous noted. No pitting edema. SKIN: no suspicious lesions or rashes NEURO: Normal strength and tone, mentation intact and speech normal PSYCH: mentation appears normal and affect normal/bright Diagnostic test results: Xray - no fracture ASSESSMENT/PLAN: (719.46) Pain in joint involving lower leg, right (primary encounter diagnosis) Comment: Plan: XR Tibia & Fibula Right 2 Views, HYDROcodone-acetaminophen (NORCO) 5-325 MG per tablet (924.5) Contusion of leg, right, initial encounter Comment: Plan: HYDROcodone-acetaminophen (NORCO) 5-325 MG per Tablet Elevate, YEISON wrap, ice and rest from activity one week. Follow up if not improving as discussed. Thad Salinas PA-C [facility] documented in this encounter Nursing Notes Isa Saab MA - 01/09/2014 4:29 PM CDT Chief Complaint Patient presents with ??? New Patient ??? Musculoskeletal Problem fell in shower, right lower leg, tile floor/shower, hitting reza Initial BP 98/80 Pulse 88 Temp(Src) 98.6 ??F (37 ??C) (Oral) Resp 20 Ht 5' 5.5 (1.664 m) Wt 190 lb (86.183 kg) BMI 31.13 kg/m2 LMP 11/09/2013 ? No Estimated body mass index is 31.13 kg/(m^2) as calculated from the following: Height as of this encounter: 5' 5.5 (1.664 m). Weight as of this encounter: 190 lb (86.183 kg). BP completed using cuff size: regular Isa Saab MA documented in this encounter Plan of Treatment Upcoming Encounters Date Type Specialty Care Team Description 05/08/2022 Office Visit Family [facility] Kyle Hidalgo PA-C [address] [facility] Stefan [place], [place] [address] (Wo rk) 05/08/2022 Lab Lab documented as of this encounter Procedures Procedure Name Priority Date/Time Associated Diagnosis Comme nts XR TIBIA AND FIBULA Routine 01/09/2014 4:57 PM Pain in joint R esults for this RIGHT 2 VIEWS CDT involving lower leg, proced ure are in right the results section. documented in this encounter Results XR Tibia & Fibula Right 2 Views (01/09/2014 4:57 PM CDT) Anatomical Region Laterality Modality Leg, Knee, Ankle Right Computed Radiography Specimen (Source) Anatomical Location Collection Method / Collectio n Time Received Time / Laterality Volume Impressions 01/10/2014 7:18 AM CDT IMPRESSION: ??Negative. LALITA ARRIAGA MD Narrative 01/10/2014 7:18 AM CDT XR TIBIA & FIBULA RT 2 VW ??01/09/2014 4:57 PM HISTORY: ??Trauma. COMPARISON: ??None. Procedure Note Lalita Arriaga MD - 4 XR TIBIA & FIBULA RT 2 VW 01/09/2014 4:57 PM HISTORY: Trauma. COMPARISON: None. IMPRESSION IMPRESSION: Negative. LALITA ARRIAGA MD Thad Mckeon PA-C IMG DIAGNOSTIC IMAGING ORDER [place] documented in this encounter Visit Diagnoses Diagnosis Pain in joint involving lower leg, right - Primary Contusion of leg, right, initial encount er documented in this encounter Care Teams Bindery Assistant Relationship Specialty Start Date End Date [facility] Medical PCP - General 10/25/13 02/16/14 [id number] [place] [address] Thad Mckeon PA-C PCP - Assigned PCP 12/16/13 09/07/18 [id number] [place] [address] Thad Mckeon PA-C Assigned PCP 12/16/13 12/22/20 [address] [place] [address] documented as of this encounter
--- OUTSIDE RECORDS SUMMARY | 2022-04-02 23:54 | XMS_ITS | Encounter Summary ---
:1995 Author Organization [place] Address [facility] [place] [address] Care Team Providers Name Role Phone Thad Mckeon PA-C Primary Care Provider [phone] Thad Mckeon PA-C Unavailable [phone] Thad Mckeon PA-C Unavailable [phone] Reason for Visit Reason Onset Date Comments Insomnia 11/23/2015 Not better Acne 11/23/2015 Getting worse Encounter Details Date Type Department Care Team Description 11/23/2015 Telephone [facility] Thad Mckeon Insomn ia (Not better); Clinic [place] AD [place]aud Acne (Getting worse) [facility], [address] [place] [address] [address] [place] [address] [place], [place] [phone] (Wo rk) [address] [phone] Social History Tobacco Use Types Packs/Day Years Used Date Former Smoker Smokeless Tobacco: Never Used Alcohol Use Standard Drinks/Week Comments No 0 (1 standard drink = 0.6 oz pure alcoho l) Sex Assigned at Date Recorded Female 12/21/2020 8:52 AM CDT documented as of this encounter Miscellaneous Notes Telephone Encounter - Sylvia Howell RN - 11/29/2015 11:22 AM CDT Verified with pharmacy that patient already picked up rx's. Sylvia Howell RN Telephone Encounter - Isa Saab MA - 11/23/2015 4:19 PM CDT Rx faxed to [facility] message on about Rx to be picked up later. Isa Saab MA Telephone Encounter - Thad Mckeon PA-C - 11/23/2015 4:14 PM CDT Keep using cream for acne, will send in ABX to use also daily. Will also send in Restoril for her totry for sleep. ajp Telephone Encounter - Sylvia Howell RN - 11/23/2015 3:00 PM CDT 1. Patient calling stating she increased her Trazodone to taking 2 at bedtime and it is not helping.If anything, she states that it is keeping her up more. 2. Patient wanted to talk about her acne at her visit but it was forgotten. She is currently using benzoclin and it is not helping much. She is in a wedding in 2 months and would like it cleared. Please send new prescription to pharmacy. [phone] Sylvia Howell RN documented in this encounter Plan of Treatment Upcoming Encounters Date Type Specialty Care Team Description 05/08/2022 Office Visit Family Practice Kyle Hidalgo PA-C [address] [address] [address] (Wo rk) 05/08/2022 Lab Lab documented as of this encounter Visit Diagnoses Diagnosis Acne, unspecified acne type - Primary Other insomnia documented in this encounter Care Teams Director Maternal Child Relationship Specialty Start Date End Date Thad Mckeon, PCP - General Physician Silo Tender - 02/17/14 AD Medical Thad Mckeon, PCP - Assigned PCP 12/16/13 09/07/18 [place] [id number] [address] [id number] Thad Mckeon, Assigned PCP 12/16/13 [place] [address] [address] [id number] documented as of this encounter
--- OUTSIDE RECORDS SUMMARY | 2022-04-02 23:54 | XMS_ITS | Encounter Summary ---
:1995 Author Organization [place] Address [facility] [place] [address] Care Team Providers Name Role Phone Thad Mckeon PA-C Primary Care Provider [phone] Thad Mckeon PA-C Unavailable [phone] Thad Mckeon PA-C Unavailable [phone] Reason for Visit Reason Onset Date Comments Medication Question 06/08/2015 acne Encounter Details Date Type Department Care Team Description 06/08/2015 Telephone [facility] Thad Mckeon Mediclizett tion Question Clinic [place] AD [place] (acne) [address] [place] [address] [place], [place] [phone] (Wo rk) [address] [phone] Social History Tobacco Use Types Packs/Day Years Used Date Former Smoker Smokeless Tobacco: Never Used Alcohol Use Standard Drinks/Week Comments No 0 (1 standard drink = 0.6 oz pure alcoho l) Sex Assigned at Date Recorded Female 12/21/2020 8:52 AM CDT documented as of this encounter Miscellaneous Notes Telephone Encounter - Sylvia Howell RN - 06/12/2015 11:54 AM CST Patient notified. She states that she already picked up the medication and it is helping. Sylvia Howell, RN SUPERVISOR Telephone Encounter - Thad Mckeon PA-C - 06/11/2015 4:36 PM CAR SUPERVISOR Have her try this cream. Perhaps it was all just acne related. If it does not clear up in 4- 6 weeksshe should come back to see me. Thad Maza SUPERVISOR Telephone Encounter - Clari King - 06/08/2015 4:22 PM CST Pt seen 05/24 for acne. It did not clear up and she would like a new med without having to come backand be seen Clari GARRIDO Junior Underwriter [facility] SUPERVISOR documented in this encounter Plan of Treatment Upcoming Encounters Date Type Specialty Care Team Description 05/08/2022 Office Visit Family Practice Kyle Hidalgo PA-C [address] [address] [address] (Wo rk) 05/08/2022 Lab Lab documented as of this encounter Visit Diagnoses Diagnosis Other acne - Primary documented in this encounter Care Teams Packing Machine Can Feeder Relationship Specialty Start Date End Date Thad Mckeon, PCP - General Physician Slitter Service And Setter - 02/17/14 AD Medical Thad Mckeon, PCP - Assigned PCP 12/16/13 09/07/18 [place] [address] [address] [address] Thad Mckeon, Assigned PCP 12/16/13 [place] [address] [address] [id number] documented as of this encounter
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
--- OUTSIDE RECORDS SUMMARY | 2022-04-02 23:54 | XMS_ITS | Encounter Summary ---
:1995 Author Organization [facility] Address [address] [place] [address] Care Team Providers Name Role Phone [facility] Primary Care Provider [phone] Thad Mckeon PA-C Unavailable [phone] Thad Mckeon PA-C Unavailable [phone] Reason for Visit Reason Comments Anxiety new onset, ongoing for years , sees mirian, needs more help now Encounter Details Date Type Department Care Team Description 01/26/2014 Office Visit [facility] Thad Mckeon y (Primary Dx) Clinic [place] [address] [place] [address] [facility], [address] [place] [address] [place], [place] [phone] (Wo rk) [address] [phone] Social History Tobacco Use Types Packs/Day Years Used Date Former Smoker Smokeless Tobacco: Never Used Alcohol Use Standard Drinks/Week Comments No 0 (1 standard drink = 0.6 oz pure alcoho l) Sex Assigned at Date Recorded Female 12/21/2020 8:52 AM CDT documented as of this encounter Last Filed Vital Signs Vital Sign Reading Time Taken Comments Blood Pressure 100/68 01/26/2014 11:04 AM CDT Pulse 80 01/26/2014 11:04 AM CDT Temperature 37.1 ??C (98.8 ??F) 01/26/2014 11:04 AM CDT Respiratory Rate 20 01/26/2014 11:04 AM CDT Oxygen Saturation - - Inhaled Oxygen Concentration - - Weight 88 kg (194 lb) 01/26/2014 11:04 AM CDT Height - - Body Mass Index 31.79 01/09/2014 4:21 PM CDT documented in this encounter Progress Notes Thad Salinas PA-C - 01/26/2014 11:01 AM CDT SUBJECTIVE: Ruthie Nieto is a 18 year old female who presents to clinic today for the following health issues: Abnormal Mood Symptoms ?? Onset: years ?? Description: Depression: no Anxiety: YES ?? Accompanying Signs & Symptoms: Still participating in activities that you used to enjoy: YES Fatigue: YES Irritability: YES Difficulty concentrating: YES Changes in appetite: YES- decreased appetite Problems with sleep: YES- every night Heart racing/beating fast : YES Thoughts of hurting yourself or others: none ?? History: Recent stress: no Prior depression hospitalization: None Family history of depression: no Family history of anxiety: no ?? Precipitating factors: Alcohol/drug use: no ?? Alleviating factors: nothing ?? Therapies Tried and outcome: counseling Ruthie is feeling stressed and anxious. She feels this has always been pattern for her but she feels it is now affecting her life. She is starting to look for a job and worried that this anxiety may getin the way of that. She lives at home with her mom and that is going well. She is thinking about going back to school. She has a significant other and that relationship is fine. FH negative for anxiety/depression or thyroid disorders. She does not feel any acute panic type sx but occasionally has palpitations. She is having trouble sleeping at night due to this. Problem list and histories reviewed & adjusted, as indicated. Additional history: as documented Problem list, Medication list, Allergies, and Medical/Social/Surgical histories reviewed in EPIC andupdated as appropriate. ROS: Constitutional, HEENT, cardiovascular, pulmonary, gi and gu systems are negative, except as otherwise noted. OBJECTIVE: BP 100/68 Pulse 80 Temp(Src) 98.8 ??F (37.1 ??C) (Oral) Resp 20 Wt 194 lb (87.998 kg) BMI 31.78 kg/m2 ? No Body mass index is 31.78 kg/(m^2). GENERAL APPEARANCE: healthy, alert and no distress RESP: lungs clear to auscultation - no rales, rhonchi or wheezes CV: regular rates and rhythm, normal S1 S2, no S3 or S4 and no murmur, click or rub SKIN: no suspicious lesions or rashes PSYCH: mentation appears normal, affect normal/brightbut tearful at times Diagnostic test results: none ASSESSMENT/PLAN: (300.00) Anxiety (primary encounter diagnosis) Comment: Plan: citalopram (CELEXA) 20 MG tablet, LORazepam (ATIVAN) 0.5 MG tablet, GENERAL ANXIETY DISORDER QUESTIONNAIRE (BEATRIZ) Will start Celexa. Can use ativan for sleep or acute sx prn until celexa effective. Discussed time to efficacy, side effects and duration expected of treatment. Follow up 2-3 weeks, sooner prn. Discussed that Iram Bhatti is available for outpatient counseling if needed as well. Thad Salinas PA-C [facility] documented in this encounter Nursing Notes Isa Saab MA - 01/26/2014 11:07 AM CDT Chief Complaint Patient presents with ??? Anxiety new onset, ongoing for years, sees mirian, needs more help now Initial BP 100/68 Pulse 80 Temp(Src) 98.8 ??F (37.1 ??C) (Oral) Resp 20 Wt 194 lb (87.998 kg) BMI 31.78 kg/m2 ? No Estimated body mass index is 31.78 kg/(m^2) as calculated from the following: Height as of 01/09/14: 5' 5.5 (1.664 m). Weight as of this encounter: 194 lb (87.998 kg). BP completed using cuff size: large Isa Saab MA documented in this encounter Plan of Treatment Upcoming Encounters Date Type Specialty Care Team Description 05/08/2022 Office Visit Family Practice Kyle Hidalgo PA-C [address] [place] [address] (Wo rk) 05/08/2022 Lab Lab documented as of this encounter Visit Diagnoses Diagnosis Anxiety - Primary Anxiety state, unspecified documented in this encounter Care Teams Ground Water Pump Installer Relationship Specialty Start Date End Date [facility] Medical PCP - General 10/25/13 02/16/14 [address] [address] [place], [place] [phone] Thad Mckeon PA-C PCP - Assigned PCP 12/16/13 09/07/18 [address] [address] [id number] Thad Mckeon PA-C Assigned PCP 12/16/13 12/22/20 [address] [address] [place] [id number] documented as of this encounter
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
--- OUTSIDE RECORDS SUMMARY | 2022-04-02 23:54 | XMS_ITS | Encounter Summary ---
:1995 Author Organization [place] Address [facility] [place] [address] Care Team Providers Name Role Phone [facility] Primary Care Provider [phone] Thad Mckeon PA-C Unavailable [phone] Thad Mckeon PA-C Unavailable [phone] Encounter Details Date Type Department Care Team Description 01/09/2014 Radiant Appointment [facility] Thad Mckeon [place] [address] [facility], [id number] [place] [address] [address] [place] [address] [place], [place] [phone] (Wo rk) [address] [phone] Social History Tobacco Use Types Packs/Day Years [...] Office Visit Family Practice Kyle Hidalgo PA-C [address] [place], [place] [address] (Wo rk) 05/08/2022 Lab Lab documented as [...] Impressions 01/10/2014 7:18 AM CDT IMPRESSION: ??Negative. MYNOR ARRIAGA MD Narrative 01/10/2014 7:18 AM CDT XR TIBIA & FIBULA RT 2 VW ??01/09/2014 4:57 PM HISTORY: ??Trauma. COMPARISON: ??None. Procedure Note Mynro Arriaga MD - 4 XR TIBIA & FIBULA RT 2 VW 01/09/2014 4:57 PM HISTORY: Trauma. COMPARISON: None. IMPRESSION IMPRESSION: Negative. MYNOR ARRIAGA MD Thad Mckeon PA-C [facility] documented in this encounter Visit Diagnoses Not on filedocumented in this encounter Care Teams Support Team Member Relationship Specialty Start Date End Date [facility] Medical PCP - General 10/25/13 02/16/14 [address] [place] [address] Thad Mckeon PA-C PCP - Assigned PCP 12/16/13 09/07/18 [address] [place] [address] Thad Mckeon PA-C Assigned PCP 12/16/13 12/22/20 [address] [address] [place] [address] documented as of this encounter
--- OUTSIDE RECORDS SUMMARY | 2022-04-02 23:54 | XMS_ITS | Encounter Summary ---
:1995 Author Organization [facility] Address [address] [place] [address] Care Team Providers Name Role [facility] Primary Care Provider [phone] Reason for Visit Reason Comments Insect Bite Encounter Details Date Type Department Care Team Description 12/10/2013 - Emergency [facility] Pradeep Eaton MD Cellulitis (Primary 12/11/2013 [facility] Emergency EMERGENCY PHYSICIANS Dx) Dept [place] [address] [facility] [address] [place], [place] [id number] [phone] Social History Tobacco Use Types Packs/Day Years Used Date Former Smoker Alcohol Use Standard Drinks/Week Comments No 0 (1 standard drink = 0.6 oz pure alcoho l) Sex Assigned at Date Recorded Female 12/21/2020 8:52 AM CDT documented as of this encounter Last Filed Vital Signs Vital Sign Reading Time Taken Comments Blood Pressure 118/78 12/11/2013 12:23 AM CDT Pulse 74 12/11/2013 12:23 AM CDT Temperature 36.4 ??C (97.5 ??F) 12/10/2013 11:08 PM CDT Respiratory Rate 20 12/11/2013 12:23 AM CDT Oxygen Saturation 99% 12/11/2013 12:23 AM CDT Inhaled Oxygen Concentration - - Weight - - Height - - Body Mass Index - - documented in this encounter Discharge Instructions Discharge InstructionsPradeep Eaton MD - 12/11/2013 12:04 AM CDT Discharge Instructions Cellulitis Cellulitis is an infection of the skin that occurs when bacteria enter the skin. Symptoms are generally redness, swelling, warmth and pain. Your infection appeared to be appropriate to treat at home with antibiotics. However, sometimes your infection may be worse than it seemed at first, or may worsenwith time. If you have new or worse symptoms, you may need to be seen again in the Emergency Department or by your primary doctor. Return to the Emergency Department if: ??? The redness, pain, or swelling gets a lot worse. If the red area was marked, return if it is redbeyond the marked area. ??? You are unable to get your antibiotics, or are vomiting them up or you can???t take them. ??? You are feeling more ill, weak or lightheaded. ? ? You start to run a new fever (temperature >101). ??? Anything else about the infection worries or concerns you. Treatment: ??? Start your antibiotics right away, and take them as prescribed. Be sure to finish the whole prescription, even if you are better. ??? Apply a heating pad, warm packs, or warm water soaks to the infected area for 15 minutes at a time, at least 3 times a day. Do not use a heating pad on your feet or legs if you have diabetes. Do not sleep with a heating pad on, since this can cause novoa or skin injury. ??? Rest your injured area for at least 1-2 days. After that you may start using your extremity again as long as there is not too much pain. ??? Raise the injured area above the level of your heart as much as possible in the first 1-2 days. ??? Tylenol?? (acetaminophen), Motrin?? (ibuprofen), or Advil?? (ibuprofen) may help may help reducepain and fever and may help you feel more comfortable. Be sure to read and follow the package directions, and ask your doctor if you have questions. Follow-up with your doctor: ??? Re-check in clinic within 2-3 days. Probiotics: If you have been given an antibiotic, you may want to also take a probiotic pill or eat yogurt with live cultures. Probiotics have good bacteria to help your intestines stay healthy. Studies have shown that probiotics help prevent diarrhea and other intestine problems (including C. diff infection) when you take antibiotics. You can buy these without a prescription in the pharmacy section of the store. If you were given a prescription for [...] contain Tylenol?? (acetaminophen), including Vicodin??, Tylenol #3??, [place]??, Lortab??, and Percocet??. You should not take [...] Sig Dispensed Refills Start Date End Date cephALEXin (KEFLEX) 500 Take 1 capsule (500 40 capsule 0 02/201412/21/2013 MG capsule mg) by mouth 4 times daily for 10 days HYDROcodone-acetaminophe Take 1-2 tablets by 15 tablet 0 01/09/2014 n (NORCO) 5-325 MG per mouth every 4 hours tablet as needed for moderate to severe pain NO ACTIVE MEDICATIONS 0 documented as of this encounter ED Notes Camille Durán RN - 12/11/2013 12:22 AM CDT Skin marker used to draw outline of redness around bite. Pradeep Eaton MD - 12/10/2013 11:56 PM CDT History Chief Complaint: Insect Bite HPI Ruthie Nieto is a 18 year old female who presents with an insect bite. The patient states that yesterday she woke up with a red bump on her left forearm. She says that she tried to squeeze the bump and was able to drain some purulent fluid, but then she developed redness in a circular area around the bump. She denies any pain to her left armpit. Otherwise the patient denies any fever, chills, nausea, vomiting or any other physical complaints at this time. Allergies: No Known Allergies Medications: [place] Past Medical History: History reviewed. No significant past medical history. Past Surgical History: Orthopedic surgery Family History: Family history reviewed. No relevant family history. Social History: Marital status: single Tobacco use: former smoker Alcohol use: no Patient presents to the ED with mother. Review of Systems Constitutional: Negative for fever and chills. Gastrointestinal: Negative for nausea and vomiting. Musculoskeletal: Negative for pain to left armpit. Skin: Positive for small bump to left forearm with surrounding erythema. Physical Exam First Vitals: BP: 111/63 mmHg Pulse: 76 Temp: 97.5 ??F (36.4 ??C) Resp: 16 SpO2: 99 % Physical Exam General: Resting on the gurney HEENT: The scalp and head appear normal The pupils are equal, round, and reactive to light Extraocular muscles are intact. The nose is normal. The oropharynx is normal. Uvula is in the midline. There is no peritonsillar abscess. Neck: Normal range of motion. Lungs: Clear. No rales, no wheezing. There is no tachypnea. Non-labored. Cardiac: Regular rate. Normal S1 and S2. No S3 or S4. No pathological murmur. No pericardial rub. Abdomen: Soft. No distension. No tympani. No rebound. Non-tender. Lymph: No anterior or posterior cervical lymphadenopathy noted. MS: Normal tone. Normal movement of all extremities. Neuro: Normal mentation. No focal motor or sensory changes. Speech normal. Psych: Awake. Alert. Normal affect. Appropriate interactions. Skin: Small red macule to the medial aspect of the left forearm with surrounding erythema suggestiveof cellulitis. Increased warmth, tenderness. No fluctuance. No lesions. Emergency Department Course Incision and Drainage: The area was cleaned with betadine and a small pimple was lanced with a 19 gauge needle with a scantamount of pus released. Emergency Department Course: 2355 Nursing notes and vitals reviewed. I obtained a history from the patient. I performed an exam of the patient as documented above. We discussed the plan of care including I&D. Recheck. The patient is resting comfortably. I discussed with the patient the results of the above procedures and she will be discharged to home with a prescription for Keflex. All questions were answered prior to discharge, and the patient was told to follow up per discharge instructions. Reasons forreturn as well as follow up were reviewed with the patient. She expressed understanding and agreement. Impression & Plan Medical Decision Making: This patient has a bug bite with cellulitis. They are going to check if she is up to date on tetanus, the mother thinks she is. They will check on that on Thursday. I recommend a tetanus shot if she has not had one since age 11. We aristeo a line around the area of erythema and increased warmth. She will go home on Keflex 500 mg PO QID x 10 days, warm moist compresses 4 x a day for 5-10 minutes, Ibuprofenas needed for discomfort and inflammation, and follow up as directed on Thursday. Diagnosis: ICD-9-CM 1. Cellulitis 682.9 Plan: As outlined above I, Ebony Gill, am serving as a scribe on 12/10/2013 at 11:56 PM to personally document services performed by Dr. Eaton based on my observations and the provider's statements to me. Ebony Gill 12/10/2013 [facility] EMERGENCY DEPARTMENT Pradeep Eaton MD 12/11/13 1360 Camille Daly RN - 12/10/2013 11:10 PM CDT Pt has an insect bite to the left forearm that has a white head on it and a red ring around it. documented in this encounter Plan of Treatment Upcoming Encounters Date Type Specialty Care Team Description 05/08/2022 Office Visit Family [facility] Kyle Hidalgo PA-C [address] [address] [address] (Wo rk) 05/08/2022 Lab Lab documented as of this encounter Visit Diagnoses Diagnosis Cellulitis - Primary Cellulitis and abscess of unspecified si te documented in this encounter Care Teams [employer] Sales Relationship Specialty Start Date End Date [place], [facility] PCP - General 10/25/13 02/16/14 [address] [address] [place], [place] [phone] documented as of this encounter
--- OUTSIDE RECORDS SUMMARY | 2022-04-02 23:54 | XMS_ITS | Encounter Summary ---
:1995 Author Organization [place] Address [address] [place] [address] Care Team Providers Name Role Phone Thad Mckeon PA-C Primary Care Provider [phone] Thad Mckeon PA-C Unavailable [phone] Thad Mckeon PA-C Unavailable [phone] Reason for Visit Reason Comments Recheck Medication Anxiety Encounter Details Date Type Department Care Team Description 08/16/2014 Office Visit [facility] Thad Mckeon y (Primary Dx) Clinic [place] [address] [place] [address] [facility], [address] [place] [address] [place], [place] [phone] (Wo rk) [address] [phone] Social History Tobacco Use Types Packs/Day Years Used Date Former Smoker Smokeless Tobacco: Never Used Alcohol Use Standard Drinks/Week Comments No 0 (1 standard drink = 0.6 oz pure alcoho l) Sex Assigned at Date Recorded Female 12/21/2020 8:52 AM CDT documented as of this encounter Last Filed Vital Signs Vital Sign Reading Time Taken Comments Blood Pressure 82/58 08/16/2014 10:51 AM MACHINE TENDER Pulse 100 08/16/2014 10:51 AM MACHINE TENDER Temperature 36.8 ??C (98.2 ??F) 08/16/2014 10:51 AM MACHINE TENDER Respiratory Rate 20 08/16/2014 10:51 AM MACHINE TENDER Oxygen Saturation - - Inhaled Oxygen Concentration - - Weight 96.6 kg (213 lb) 08/16/2014 10:51 AM MACHINE TENDER Height 166.4 cm (5' 5.5) 08/16/2014 10:51 AM MACHINE TENDER Body Mass Index 34.91 08/16/2014 10:51 AM MACHINE TENDER documented in this encounter Progress Notes Thad Mckeon PA-C - 08/16/2014 10:26 AM CST HPI SUBJECTIVE: Ruthie Nieto is a 19 year old female who presents to clinic today for the following health issues: Anxiety Follow-Up ?? Status since last visit: Improved still times of frustrastions ?? Other associated symptoms:None ?? Complicating factors: Significant life event: No Current substance abuse: None Depression symptoms: No BEATRIZ-7 SCORE 01/26/2014 02/17/2014 Total Score 21 3 GAD7 ?? Amount of exercise or physical activity: None ?? Problems taking medications regularly: No ?? Medication side effects: none ?? Diet: regular (no restrictions) Occasionally has trouble falling asleep. Takes medication in AM. 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 Hoping to buy new house soon. Job is going well. 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 Problem list and histories reviewed & adjusted, as indicated. Additional history: as documented Problem list, Medication list, Allergies, and Medical/Social/Surgical histories reviewed in [facility] andupdated as appropriate. ROS: Constitutional, HEENT, cardiovascular, pulmonary, gi and gu systems are negative, except as otherwise noted. OBJECTIVE: BP 82/58 Pulse 100 Temp(Src) 98.2 ??F (36.8 ??C) (Oral) Resp 20 Ht 5' 5.5 (1.664 m) Wt 213 lb (96.616 kg) BMI 34.89 kg/m2 ? No Body mass index is 34.89 kg/(m^2). GENERAL: healthy, alert and no distress PSYCH: mentation appears normal, affect normal/bright No further exam 15 minutes total with discussion and counselling equal to >%50 of visit. Diagnostic Test Results: none ASSESSMENT/PLAN: Problem List Items Addressed This Visit Anxiety - Primary Relevant Medications citalopram (celeXA) tablet MEDICATIONS: Continue current medications without change. Recheck again 6mo, sooner prn. Trial of melatonin 3mg for sleep if desired. Follow up regarding this prn. Thad Mckeon PA-C [facility] Physical Exam INE TENDER documented in this encounter Nursing Notes Isa Saab MA - 08/16/2014 10:59 AM CST Chief Complaint Patient presents with ??? Recheck Medication ??? Anxiety Initial BP 82/58 Pulse 100 Temp(Src) 98.2 ??F (36.8 ??C) (Oral) Resp 20 Ht 5' 5.5 (1.664 m) Wt 213 lb (96.616 kg) BMI 34.89 kg/m2 ? No Estimated body mass index is 34.89 kg/(m^2) as calculated from the following: Height as of this encounter: 5' 5.5 (1.664 m). Weight as of this encounter: 213 lb (96.616 kg). BP completed using cuff size: large Isa Saab MA INE TENDER documented in this encounter Plan of Treatment Upcoming Encounters Date Type Specialty Care Team Description 05/08/2022 Office Visit Family [facility] Kyle Hidalgo PA-C [address] [address] [place], [place] [address] (Wo rk) 05/08/2022 Lab Lab documented as of this encounter Visit Diagnoses Diagnosis Anxiety - Primary Anxiety state, unspecified documented in this encounter Care Teams Battery Technician Relationship Specialty Start Date End Date Thad Mckeon, PCP - General Physician Art Installer - 02/17/14 [facility] Thad Mckeon, PCP - Assigned PCP 12/16/13 09/07/18 PA-C [address] [place] [address] Thad Mckeon, Assigned PCP 12/16/13 PA-C [address] [place] [address] documented as of this encounter
--- OUTSIDE RECORDS SUMMARY | 2022-04-02 23:54 | XMS_ITS | Encounter Summary ---
:1995 Author Organization [facility] Address [address] [place] [address] Care Team Providers Name Role Phone Unavailable Primary Care Provider Unavailable Encounter Details Date Type Department Care Team Description 06/08/2006 Operative Report Rox Hernandez MD (Drywall Boardhanger) [place] [phone] (Wo rk) Social History Tobacco Use Types Packs/Day Years Used Date Never Assessed Sex Assigned at Date Recorded Female 12/21/2020 8:52 AM CDT documented as of this encounter Progress Notes Interface, Drywall Boardhanger - 06/30/2006 1:59 PM BAILING MACHINE OPERATOR FINAL 1st Resident Care Supervisor: 2nd Resident Care Supervisor: PREOPERATIVE DIAGNOSIS: Bimalleolar fracture of the left ankle. POSTOPERATIVE DIAGNOSIS: Bimalleolar fracture of the left ankle. PROCEDURE: Open reduction and internal fixation Salter II fracture medial malleolus left ankle. BRIEF HISTORY: Ruthie Jensen sustained this ankle fracture a little over a week ago when she slipped on the steps at home. She was seen in the clinic a week ago today and the surgery was delayed twicein the past week due to symptoms from GI flu. She and her parent were advised preoperatively the nature of the procedure, anticipated outcome, recovery, risks and complications of wound healing, infecti on, neurovascular injury, incomplete relief of symptoms and the slight chance of disturbance of the growth center. DESCRIPTION OF PROCEDURE: With the patient under general anesthesia, she was given a gram of Ancef IV. The right lower extremity was prepped and draped in a sterile manner, elevated, exsanguinated kun tourniquet around the calf well below the peroneal nerve was inflated to 200 mmHg. A curvilinear incision was made over the medial malleolus fracture which was found to be comminuted in the portion which was intra-articular as well as along the periosteal area. The fracture site was irrigated of clot and debris and reduced with a towel clamp fracture clamp device. C arm evaluation at this time showed that the articular surface was congruent and that the off set at the proximal aspect of the fractur e line was restored. Two longitudinal K wires with a tension band were then inserted and repeat films confirmed satisfactory reduction and placement of the fixation devices. The wound was then thoroughly irrigated with antibiotic solution. Closure was accomplished with interrupted 2-0 Vicryl in the deep tissues and a subcuticular closure of 3-0 Vicryl reinforced with tincture of Benzoin and Steri-Strips. The surgical site was injected with Marcaine, 0.5% lidocaine 1% with epinephrine 20 cc postop. Sterile dressing of adaptic soaked in Betadine solution, 4 X 4's, and abundant amounts of Missael & Missael waffle cast padding were then applied and a short leg fiberglass cast in slight plantar flexion and inversion. She tolerated the procedure well. There were no complications. Electronically signed on 06/30/2006 13:58 by ROX HERNANDEZ MD MT: dora Name: RUTHIE JENSEN MRN: [id number] Account: [id number] : 1995 Procedure Date: 06/08/2006 Document: [id number] cc: Jose Thurman MD ING MACHINE OPERATOR documented in this encounter Plan of Treatment Upcoming Encounters Date Type Specialty Care Team Description 05/08/2022 Office Visit [facility] Kyle Hidalgo PA-C [address] [address] [place] [address] (Wo ulysses) 05/08/2022 Lab Lab documented as of this encounter Visit Diagnoses Not on filedocumented in this encounter
--- OUTSIDE RECORDS SUMMARY | 2022-04-02 23:54 | XMS_ITS | Encounter Summary ---
:1995 Author Organization [facility] Address [address] [place] [address] Care Team Providers Name Role Phone Thad Mckeon PA-C Primary Care Provider [phone] Thad Mckeon PA-C Unavailable [phone] Thad Mckeon PA-C Unavailable [phone] Reason for Visit Reason Onset Date Comments Medication Request 11/08/2015 Oral Contraceptives for cysts Encounter Details Date Type Department Care Team Description 11/08/2015 Telephone [facility] Thad Mckeon Mediclizett tion Request ([facility] [place] Contraceptives for [place] [address] cysts) [facility], [address] [place] [address] [place], [place] [phone] (Wo rk) [address] [phone] Social History Tobacco Use Types Packs/Day Years Used Date Former Smoker Smokeless Tobacco: Never Used Alcohol Use Standard Drinks/Week Comments No 0 (1 standard drink = 0.6 oz pure alcoho l) Sex Assigned at Date Recorded Female 12/21/2020 8:52 AM CDT documented as of this encounter Miscellaneous Notes Telephone Encounter - Sylvia Howell RN - 11/08/2015 2:30 PM CDT Patient notified. Sylvia Howell RN Telephone Encounter - Thad Mckeon PA-C - 11/08/2015 1:48 PM CDT OK. Has she taken OCP's before? That's the only thing I do not remember. We did talk about it. I'll send something in for her. This is a nice low dose OCP. She can start with the Thursday Start method or just Day 1 (which would be any day she wants). Thad Maza Telephone Encounter - Sylvia Howell RN - 11/08/2015 8:39 AM CDT Patient calling requesting rx for an Oral Contraceptive to help with her ovarian cysts. She states that the two of you have discussed this in the past. She is requesting a pill that will NOT make her gain any weight as she recently just lost 12 lbs and does not want to put it back on. Please advise. [phone] Sylvia Howell RN documented in this encounter Plan of Treatment Upcoming Encounters Date Type Specialty Care Team Description 05/08/2022 Office Visit [facility]idal[facility] [address] [facility] [place] [place] [address] (Wo rk) 05/08/2022 Lab Lab documented as of this encounter Visit Diagnoses Diagnosis Encounter for initial prescription of co ntraceptive pills - Primary General counseling for prescription of o ral contraceptives documented in this encounter Care Teams Installation Engineer Relationship Specialty Start Date End Date Thad Mckeon, PCP - General Physician Meat Stuffer - 02/17/14 AD Medical Thad Mckeon, PCP - Assigned PCP 12/16/13 09/07/18 PA-C [address] [place] [address] Thad Mckeon, Assigned PCP 12/16/13 PA-C [address] [address] [place], [place] [address] documented as of this encounter
--- OUTSIDE RECORDS SUMMARY | 2022-04-02 23:54 | XMS_ITS | Encounter Summary ---
:1995 Author Organization [place] Address [facility] [place] [address] Care Team Providers Name Role Phone Thad Mckeon PA-C Primary Care Provider [phone] Thad Mckeon PA-C Unavailable [phone] Thad Mckeon PA-C Unavailable [phone] Reason for Visit Reason Onset Date Comments ER F/U 04/16/2015 ER visit on 04[facility]15/15 [facility] for right sided low back pa w/o sciatica 10 ER/IP Encounter Details Date Type Department Care Team Description 04/16/2015 Telephone [facility] Thad Mckeon ER F/U (ER visit on Clinic [place] AD [place] 04/15/15 [facility] for [address] [facility], [address] [facility] right sided low back [address] [place] [address] pa w/o sciatica 1/0 [place], [place] [phone] (Wo rk) ER/IP) [address] [phone] Social History Tobacco Use Types Packs/Day Years Used Date Former Smoker Smokeless Tobacco: Never Used Alcohol Use Standard Drinks/Week Comments No 0 (1 standard drink = 0.6 oz pure alcoho l) Sex Assigned at Date Recorded Female 12/21/2020 8:52 AM CDT documented as of this encounter Miscellaneous Notes Telephone Encounter - Sylvia Howell RN - 04/18/2015 8:36 AM CDT ED / Discharge Outreach Protocol ER on 04/15/2015 for right sided low back pain Patient Contact Attempt # 2 Was call answered? No. Left message on voicemail with information to call me back. Sylvia Howell RN Telephone Encounter - Sylvia Howell RN - 04/16/2015 4:19 PM CDT ED / Discharge Outreach Protocol ER on 04/15/2015 for right sided low back pain Patient Contact Attempt # 1 Was call answered? No. Left message on voicemail with information to call me back. Sylvia Howell RN Telephone Encounter - Clari King - 04/16/2015 11:20 AM CDT Please call ER visit on 04/15/15 [facility] for right sided low back pa w/o sciatica 1/0 ER/IP documented in this encounter Plan of Treatment Upcoming Encounters Date Type Specialty Care Team Description 05/08/2022 Office Visit Family [facility] Kyle Hidalgo PA-C [address] [place], [place] [address] (Wo rk) 05/08/2022 Lab Lab documented as of this encounter Visit Diagnoses Not on filedocumented in this encounter Care Teams Senior Licensing Manager Relationship Specialty Start Date End Date Thad Mckeon, PCP - General Physician Integrated Circuit Fabricator - 02/17/14 AD Medical Thad Mckeon, PCP - Assigned PCP 12/16/13 09/07/18 PA-C [address] [place] [address] Thad Mckeon, Assigned PCP 12/16/13 PA-C [address] [place] [address] documented as of this encounter
--- OUTSIDE RECORDS SUMMARY | 2022-04-02 23:54 | XMS_ITS | Encounter Summary ---
:1995 Author Organization [facility] Address [address] [place] [address] Care Team Providers Name Role Phone Unavailable Primary Care Provider Unavailable Encounter Details Date Type Department Care Team Description 06/08/2006 Results Only [facility] Dane Hernandez MD [facility] Results [place] [address] (Wo rk) Social History Tobacco Use Types Packs/Day Years Used Date Never Assessed Sex Assigned at Date Recorded Female 12/21/2020 8:52 AM CDT documented as of this encounter Plan of Treatment Upcoming Encounters Date Type Specialty Care Team Description 05/08/2022 Office Visit Family Practice Kyle Hidalgo PA-C [address] [address] [place], [place] [address] (Wo rk) 05/08/2022 Lab Lab documented as of this encounter Procedures Procedure Name Priority Date/Time Associated Diagnosis Comme [facility] LT X-RAY ANKLE Routine 06/08/2006 8:35 AM Res ults for this [address] procedure are i n the results section. documented in this encounter Results LT X-RAY ANKLE 2 VW (06/08/2006 8:[address]) Specimen (Source) Anatomical Collection Method Collection Time Re ceived Time Location / / Volume Laterality 06/08/2006 8:[address] Impressions RADIOLOGY RESULTS - 06/08/2006 1:[address] ANKLE 2 VIEW PORTABLE LEFT ?Jun 08, 2006 8:35:00 AM History: eval orif left ankle fluoro 14 secs 8 c arm images Findings: ?Intra operative films dem onstrate ORIF of medial malleolar fracture. The bones appear in near-anatomic alignment. Dane Hernandez MD GENERAL IMAGING Performing Organization Address City/State/ZIP Code Phon e Number RADIOLOGY RESULTS documented in this encounter Visit Diagnoses Not on filedocumented in this encounter
--- OUTSIDE RECORDS SUMMARY | 2022-04-02 23:54 | XMS_ITS | Encounter Summary ---
:1995 Author Organization [facility] Address [address] [place] [address] Care Team Providers Name Role Phone Thad Mckeon PA-C Primary Care Provider [phone] Thad Mckeon PA-C Unavailable [phone] Thad Mckeon PA-C Unavailable [phone] Reason for Visit Reason Onset Date Comments Refill Request 07/18/2014 Citalopram 20mg Encounter Details Date Type Department Care Team Description 07/18/2014 Refill M [facility] Thad Mckeon Refill Request Clinic [place] AD [place] (Citalopram 20mg) [address] [place] [address] [place], [place] [phone] (Wo rk) [address] [phone] Social History Tobacco Use Types Packs/Day Years Used Date Former Smoker Smokeless Tobacco: Never Used Alcohol Use Standard Drinks/Week Comments No 0 (1 standard drink = 0.6 oz pure alcoho l) Sex Assigned at Date Recorded Female 12/21/2020 8:52 AM CDT documented as of this encounter Miscellaneous Notes Telephone Encounter - Sylvia Howell RN - 07/19/2014 10:45 AM CST Letter sent to patient. Sylvia Howell RN ENT SAFETY MANAGER Telephone Encounter - Sylvia Howell RN - 07/18/2014 9:57 AM CST Pending Prescriptions: Disp Refills citalopram (CELEXA) 20 MG tablet 30 tab*3 Si tablet orally daily Last Office Visit R/T Diagnosis: 02/17/2014 Provider Notes: recheck x Follow up with Provider in 1 month for med check Last PHQ-9 score on record= 3 Date: 02/17/2014 Patient takes med for ANXIETY. Sylvia Howell RN ENT SAFETY MANAGER documented in this encounter Plan of Treatment Upcoming Encounters Date Type Specialty Care Team Description 05/08/2022 Office Visit Family Practice Kyle Hidalgo PA-C [address] [place] [address] (Wo rk) 05/08/2022 Lab Lab documented as of this encounter Visit Diagnoses Diagnosis Anxiety - Primary Anxiety state, unspecified documented in this encounter Care Teams Upholsterer Assembly Line Relationship Specialty Start Date End Date Thad Mckeon, PCP - General Physician Glycerine Plant Operator - 02/17/14 AD Medical Thad Mckeon, PCP - Assigned PCP 12/16/13 09/07/18 [place] [address] [place] [address] Thad Mckeon, Assigned PCP 12/16/13 [place] [address] [place] [address] documented as of this encounter
--- OUTSIDE RECORDS SUMMARY | 2022-04-02 23:54 | XMS_ITS | Encounter Summary ---
:1995 Author Organization [place] Address [address] [place] [id number] Care Team Providers Name Role Phone Thad Mckeon PA-C Primary Care Provider [phone] Thad Mckeon PA-C Unavailable [phone] Thad Mckeon PA-C Unavailable [phone] Reason for Visit Reason Comments UTI right back pain Encounter Details Date Type Department Care Team Description 04/15/2015 Emergency [facility] Dianna Car Right -sided low back [facility] MD Tu pain without sciatica [address] [facility] [place], [place] [id number] 5433 [facility] [phone] [place], [place] [address] (Wo rk) Social History Tobacco Use Types Packs/Day Years Used Date Former Smoker Smokeless Tobacco: Never Used Alcohol Use Standard Drinks/Week Comments No 0 (1 standard drink = 0.6 oz pure alcoho l) Sex Assigned at Date Recorded Female 12/21/2020 8:52 AM CDT documented as of this encounter Last Filed Vital Signs Vital Sign Reading Time Taken Comments Blood Pressure 102/75 04/15/2015 12:18 PM CDT Pulse 74 04/15/2015 12:18 PM CDT Temperature 37.1 ??C (98.7 ??F) 04/15/2015 10:35 AM CDT Respiratory Rate 16 04/15/2015 12:18 PM CDT Oxygen Saturation 99% 04/15/2015 12:18 PM CDT Inhaled Oxygen Concentration - - Weight 71.2 kg (157 lb) 04/15/2015 10:35 AM CDT Height - - Body Mass Index 25.34 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 Back pain can have many causes, but most will get better without surgery or other specific treatment. Sometimes there is a herniated (???slipped?? ) disc. We don???t usually do MRI scans to look for these right away, since most herniated discs will get better on their own with time. Today, we did not find any evidence that your back pain was caused by a serious condition, such as an infection, fracture, or tumor. However, sometimes symptoms develop over time and cannot be found during an emergency visit, so it is very important that you follow up with your primarydoctor. Return to the Emergency Department if: ??? You develop a fever with your back pain. ??? You have weakness or change in sensation in one or both legs. ??? You lose control of your bowels or bladder, or can???t empty your bladder. ??? Your pain gets much worse. Follow-up with your doctor: ??? Unless your pain has completely gone away, please make an appointment with your doctor within one week. You may need further management of your back pain, such as more pain medication, imaging suchas an X-ray or MRI, or physical therapy. What can I do to help myself? Remain Active -- People are often afraid that they will hurt their back further or delay recovery by remaining active, but this is one of the best things you can do for your back. In fact, prolonged bed rest is not recommended. Studies have shown that people with low back pain recover faster when they remain active. Movement helps to bring blood flow to the muscles and relieve muscle spasms as well as preventing loss of muscle strength. ??? Heat -- Using a heating pad can help with low back pain during the first few weeks. Do not sleepwith a heating pad, as you can be burned. ??? Pain medications - You may take a pain medication such as Tylenol?? (acetaminophen), Advil??, Nuprin?? (ibuprofen) or Aleve?? (naproxen). If you have been given a narcotic such as Vicodin?? (hydrocodone with acetaminophen), Percocet?? (oxycodone with acetaminophen), codeine, or a muscle relaxant such as Flexeril?? (cyclobenzaprine) or Soma?? (carisoprodol), do not drive for four hours after you have taken it. If the narcotic contains Tylenol?? (acetaminophen), do not take Tylenol?? with it. All narcotics will cause constipation, so eat a high fiber diet. If you were given a prescription for [...] Sig Dispensed Refills Start Date End Date citalopram (CELEXA) 20 Take 1 tablet (20 mg) 90 tablet 1 08/20/2015 MG tabletIndications: by mouth daily Anxiety ibuprofen (ADVIL,MOTRIN) Take 3 tablets (600 1 tablet 0 05/24/2015 200 MG tablet mg) by mouth every 8 hours as needed for mild pain lidocaine (XYLOCAINE) 2 Take 15 mLs by mouth 100 mL 0 05/24/2015 % solution every 2 hours as (viscous)Indications: needed for moderate Acute pharyngitis pain swish and spit every 3-8 hours as needed; max 8 doses/24 hour period documented as of this encounter ED Notes Dianna Car MD - 04/15/2015 11:10 AM CDT History Chief Complaint: Back Pain HPI Ruthie Nieto is a 20 year old female who presents with back pain. The patient says she has had right sided mid back pain for the past 4-5 days. There is associated urinary frequency and urgency,but no dysuria or hematuria. She says she felt similar symptoms when she had kidney infection. Denies fevers, but has felt chilled at home. Her last menstrual period was in March, and Ruthie holloway is late for this month. Denies as she has three negative home tests. Allergies: NKDA Medications: Celexa Past Medical History: Hyperlipidemia Anxiety Past Surgical History: Orthopedic surgery Family History: Cervical cancer Diabetes Social History: Marital Status: Single Former everyday smoker. Negative for alcohol use. Review of Systems Constitutional: Positive for chills. Negative for fever. Genitourinary: Positive for urgency, frequency and menstrual problem. Negative for dysuria and hematuria. Musculoskeletal: Positive for back pain. All other systems reviewed and are negative. Physical Exam First Vitals: BP: 94/68 mmHg Pulse: 78 Heart Rate: 78 Temp: 98.7 ??F (37.1 ??C) Resp: 16 Weight: 71.215 kg (157 lb) SpO2: 98 % Physical Exam Nursing note and vitals reviewed. Constitutional: Pleasant and well groomed. HENT: Mouth/Throat: Oropharynx is without swelling or erythema. Oral mucosa moist. Eyes: Conjunctivae normal are normal. No scleral icterus. Neck: Neck supple. Cardiovascular: Normal rate, regular rhythm and intact distal pulses. Pulmonary/Chest: Effort normal and breath sounds normal. Abdominal: Soft. No distension. There is no tenderness. Musculoskeletal: No edema, No calf tenderness. No CVA tenderness to percussion. Neurological:Alert. Coordination normal. Lower extremity strength intact throughout. Lower extremitylight touch sensation. Skin: Skin is warm and dry. Psychiatric: Normal mood and affect. Emergency Department Course Laboratory: UA: Protein Albumin 10, Bacteria Few, Squamous Epithelial/HPF 10 (H), Mucous Present , WBC/HPF 3 (H), o/w negative Urine culture: pending HCG qualitative: Negative Interventions: Pyridium, 200 mg tablet PO Ibuprofen, 600 mg tablet PO Emergency Department Course: Nursing notes and vitals reviewed. I performed an exam of the patient as documented above. Urine sample was obtained and sent for testing, results above. 1210 Recheck. Discussed results with patient. Findings and plan explained to the Patient. Patient discharged home with instructions regarding supportive care, medications, and reasons to return. The importance of close follow-up was reviewed. The patient was prescribed Ibuprofen. I personally reviewed the laboratory results with the Patient and answered all related questions prior to discharge. New Prescriptions IBUPROFEN (ADVIL,MOTRIN) 200 MG TABLET Take 3 tablets (600 mg) by mouth every 8 hours as needed formild pain Impression & Plan Medical Decision Making: Ruthie Nieto is a 20 year old female who presents with right sided back pain in addition to urinary frequency. Differential diagnosis included but was not limited to urinary tract infection, pyelonephritis, musculoskeletal back pain. ED evaluation is as noted above. She did not have a concerning abdominal exam. She has no pulmonary symptoms. Urine was not suggestive of a urinary tract infection and test was negative. At this point I felt that the back pain was most likely musculoskeletal in nature, however with the frequency and urgency of urine that she was describing, I did send the urine for culture as we may be catching her very early in the course. She understands to return with new or worse symptoms, otherwise follow up in clinic in two days if not improving as anticipated. Diagnosis: (M54.5) Right-sided low back pain without sciatica Plan: 1. Ibuprofen as needed for pain. 2. Standard EPPA discharge instructions for back pain. Carina Avina 04/15/2015 [facility] I, Carina Avina, am serving as a scribe on 04/15/2015 at 11:10 to personally document services performed by Dr. Car based on my observations and the provider's statements to me. Dianna Car MD 04/17/15 1201 Eileen Martinez RN - 04/15/2015 10:35 AM CDT uti s/s; right back pain 4-5 days ; aox3 abc' s intact; hx of uti / kidney problems; documented in this encounter Plan of Treatment Upcoming Encounters Date Type Specialty Care Team Description 05/08/2022 Office Visit Family Practice Kyle Hidalgo PA-C [id number] [address] [place], [place] [address] (Wo rk) 05/08/2022 Lab Lab documented as of this encounter Procedures Procedure Name Priority Date/Time Associated Comments Diagnosis HCG QUALITATIVE URINE STAT 04/15/2015 11:00 Re sults for this AM CDT procedure are i n the results section. ROUTINE UA WITH STAT 04/15/2015 11:00 Results for this MICROSCOPIC AM CDT procedure are i n the results section. URINE CULTURE Routine 04/15/2015 11:00 Right-sided low Results for this AM CDT back pain without procedure are in sciatica the results section. documented in this encounter Results Urine Culture Aerobic Bacterial (04/15/2015 11:00 AM CDT) Component Value Ref Test Analysis Performed At [facility] gist Range Method Time Signature Specimen Midstream Urine [facility] Special Specimen received [facility] Requests in preservative [facility] Culture Micro 10,000 to 50,000 colonies/mL mixed urogenital morgan Susceptibility testing not INFECTIOUS routinely done [facility] Micro Report FINAL 04/16/2015 INFECTIOUS Status DISEASE DI[facility]NOSTIC LABORATORY Specimen Anatomical Collection Method Collection Time Receive d Time (Source) Location / / Volume Laterality 04/15/2015 11:00 04/15/2015 AM CDT 12:28 PM CDT Dianna Car MD LAB - MICRO GENERAL ORDERAB LES Performing Organization Address City/State/ZIP Code Phon e Number INFECTIOUS DISEASES [address] [place] [address] DIAGNOSTIC LABORATORY, [facility] [address] [phone] [address] INFECTIOUS DISEASE [address] [place], [place] [address] HCG qualitative urine (04/15/2015 11:00 AM CDT) P athologist Signature HCG Qual Urine Negative NEG [facility] Specimen Anatomical Collection Method Collection Time Receive d Time (Source) Location / / Volume Laterality Urine specimen URINE SPECIMEN 04/15/2015 11:00 015 (specimen) OBTAINED BY CLEAN AM CDT 11:13 AM C DT CATCH PROCEDURE / Unknown Soledad Fowler MD LAB - URINE ORDERABLES Performing Organization Address City/State/ZIP Code Phon e Number [place] [address] [place] [address] [facility] [address] [phone] (ABNORMAL) Routine UA with microscopic (04/15/2015 11:00 AM CDT) Patholo gist Method Time Signature Color Urine Yellow [facility] Appearance Urine Slightly [place] Cloudy [facility] Glucose Urine Negative NEG mg/dL [facility] Bilirubin Urine Negative NEG [facility] Ketones Urine Negative NEG mg/dL [facility] Specific [place] 1.023 1.003 - [place] Urine 1.035 [facility] Blood Urine Negative NEG [facility] pH Urine 6.0 5.0 - 7.0 [place] pH [facility] Protein Albumin 10 (A) NEG mg/dL [facility] Urobilinogen Normal 0.0 - 2.0 [place] mg/dL mg/dL [facility] Nitrite Urine Negative NEG [facility] Leukocyte Negative NEG [place] Esterase Urine [facility] Source Midstream [facility] WBC Urine 3 (H) 0 - 2 [place] /HPF [facility] RBC Urine 2 0 - 2 [facility] Bacteria Urine Few (A) NEG /HPF [facility] Squamous 10 (H) 0 - 1 [place] Epithelial /HPF /HPF [facility] Transitional Epi <1 0 - 1 [place] /[facility] Mucous Urine Present (A) NEG /LPF [facility] Specimen Anatomical Collection Method Collection Time Receive d Time (Source) Location / / Volume Laterality Urine specimen URINE SPECIMEN 04/15/2015 11:00 015 (specimen) OBTAINED BY CLEAN AM CDT 11:13 AM C DT CATCH PROCEDURE / Unknown Soledad Fowler MD LAB - URINE ORDERABLES Performing Organization Address City/State/ZIP Code Phon e Number M [facility] [address] [place], [place] [address] [facility] [address] [place], [place] [address] [facility] [phone] documented in this encounter Visit Diagnoses Diagnosis Right-sided low back pain without sciati ca documented in this encounter Administered Medications Inactive Administered Medications - up to 3 most recent administrations Medication Order MAR Action Action Date Dose Rate Site ibuprofen (ADVIL,MOTRIN) tablet Given 04/15/2015 11:40 AM CDT 60 0 mg 600 mg 600 mg, Oral, ONCE, On 04/15/15 at 1116, For 1 dose phenazopyridine (PYRIDIUM) tablet 200 mg Given 04/15/2015 11:40 AM CDT 200 mg 200 mg, Oral, ONCE, On 04/15/15 at 1116, For 1 dose documented in this encounter Active and Recently Administered Medications Times are shown in CDT. Scheduled Medication Order 04/13/2015 04/14/2015 04/15/2015 ibuprofen (ADVIL,MOTRIN) tablet 600 mg (COMPLETED) 1140 (Given - Provider: Jaqui Tanner, YNES) 600 mg, Oral, ONCE, 04/15/15 at 1116, For 1 dose phenazopyridine (PYRIDIUM) tablet 200 mg (COMPLETED) 1140 (Given - Provider: Jaqui Tanner RN) 200 mg, Oral, ONCE, 04/15/15 at 1116, For 1 dose documented in this encounter Care Teams Skin Installer Relationship Specialty Start Date End Date Thad Mckeon, PCP - General Physician Home Health Care Worker - 02/17/14 AD Medical Thad Mckeon, PCP - Assigned PCP 12/16/13 09/07/18 [place] [id number] [address]ADO [id number] Thad Mckeon, Assigned PCP 12/16/13 [place] [address] T[place] [place]O [id number] documented as of this encounter
--- OUTSIDE RECORDS SUMMARY | 2022-04-02 23:54 | XMS_ITS | Encounter Summary ---
:1995 Author Organization [place] Address [address] [place] [address] Care Team Providers Name Role Phone System, Provider Not In Primary Care Provider Unavailable Reason for Visit Reason Comments Laceration Encounter Details Date Type Department Care Team Description 06/25/2012 - [facility] Aurora Olson on [facility] 06/26/2012 [facility] Emergency MD ava Rodriguez right (Primary Dept EMERGENCY PHYSICIANS Dx) [address] [place], [place] [address] [facility] [address] [facility] [phone] [place], [place] [id number] (Wo rk) Social History Tobacco Use Types Packs/Day Years Used Date Current Every Day Smoker Alcohol Use Standard Drinks/Week Comments No 0 (1 standard drink = 0.6 oz pure alcoho l) Sex Assigned at Date Recorded Female 12/21/2020 8:52 AM CDT documented as of this encounter Last Filed Vital Signs Vital Sign Reading Time Taken Comments Blood Pressure 125/76 06/25/2012 11:56 PM ENERGY PROJECTS LEAD Pulse 80 06/25/2012 11:56 PM ENERGY PROJECTS LEAD Temperature 36.5 ??C (97.7 ??F) 06/25/2012 10:56 PM ENERGY PROJECTS LEAD Respiratory Rate 16 06/25/2012 11:56 PM ENERGY PROJECTS LEAD Oxygen Saturation 98% 06/25/2012 11:56 PM ENERGY PROJECTS LEAD Inhaled Oxygen Concentration - - Weight 65.8 kg (145 lb) 06/25/2012 10:56 PM ENERGY PROJECTS LEAD Height 165.1 cm (5' 5) 06/25/2012 10:56 PM ENERGY PROJECTS LEAD Body Mass Index 24.13 06/25/2012 10:56 PM ENERGY PROJECTS LEAD Body Mass Index Percentile 76.41 % 06/25/2012 10:[address] Growth Chart: [facility] (Girls, 2-20 Years) documented in this encounter Discharge Instructions Discharge InstructionsAurora Olson MD - 06/25/2012 11:18 PM ENERGY PROJECTS LEAD Discharge Instructions Laceration (Cut) You were seen today for a laceration (cut). Your doctor examined your laceration for any problems such a buried foreign body (like glass, a splinter, or gravel), or injury to blood vessels, tendons, and nerves. Your doctor may have also rinsed and/or scrubbed your laceration to help prevent an infection. Your laceration may have been closed with glue, velia or sutures (stitches). It may not be possible to find all problems with your laceration on the first visit, and we can't always prevent infections. Antibiotics are only given when the benefit is more than the risk, and don'tprevent all infections. Some lacerations are too high risk to close, and are left open to heal. All l acerations, no matter how expertly repaired, will cause scarring. Return to the Emergency Department right away if: You have more redness, swelling, pain, drainage (pus), a bad smell, or red streaking from your laceration. You have a fever of 101oF or more. You have bleeding that you can???t stop at home. If your cut starts to bleed, hold pressure on the bleeding area with a clean cloth or put pressure over the bandage. If the bleeding doesn???t stop after using constant pressure for 30 minutes, you should return to the Emergency Department for further treatment. An area past the laceration is cool, pale, or blue compared with the other side, or has a slower return of color when squeezed. Your dressing seems too tight or starts to get uncomfortable or painful. You have loss of normal function or use of an area, such as being unable to straighten or bend a finger normally. You have a numb area past the laceration. Return to the Emergency Department or see your regular doctor if: The laceration starts to come open. You have something coming out of the cut or a feeling that there is something in the laceration. Your wound will not heal, or keeps breaking open. There can always be glass, wood, dirt or other things in any wound. They won???t always show up even on x- rays. If a wound doesn???t heal, this may bewhy, and it is important to follow- up with your regular doctor Home Care: Take your dressing off in 12 hours, or as instructed by your doctor, to check your laceration. Remove the dressing sooner if it seems too tight or painful, or if it is getting numb, tingly, or pale past the dressing. Gently wash your laceration 2 times a day with clean cloth and soap. It is okay to shower, but do not let the laceration soak in water. If your laceration was closed with wound adhesive or strips: pat it dry and leave it open to the air. For all other repairs: after you wash your laceration, or at least 2 times a day, apply bacitracin or other antibiotic ointment to the laceration, then cover it with a band-aid or gauze. Keep the laceration clean. Wear gloves or other protective clothing if you are around dirt. Follow-up: You need to follow-up with your regular doctor in ___5-7 days. Your sutures or velia need to be removed in __N/A days. Schedule an appointment with your regular doctor (or return to the Emergency Department) to have this done. Scars: To help minimize scarring: Wear sunscreen over the healed laceration when out in the sun. Massage the area regularly. You may use Vitamin E Oil. Wait a year. Most scars will start to fade within a year. Remember that you can always come back to the Emergency Department if you are not able to see your normal doctor in the amount of time listed above, if you get any new symptoms, or if there is anythingthat worries you. GY PROJECTS LEAD documented in this encounter Medications at Time of Discharge Medication Sig Dispensed Refills Start Date End Date ibuprofen (ADVIL,MOTRIN) Take 1 tablet by 24 tablet 0 06/2507/03/2012 800 MG tablet mouth every 8 hours as needed for pain for 8 days. NO ACTIVE MEDICATIONS 0 documented as of this encounter ED Notes Aurora Olson MD - 06/25/2012 11:25 PM CST CHIEF COMPLAINT: This is an 17-year-old female patient who was seen at [facility]. Chief complaint today is laceration of the right great toe. She presents to the ER in the care of ingris. HISTORY OF PRESENT ILLNESS: The patient states that she was cleaning her apartment. She was cleaningaround a metal bed frame and headboard area and she kicked the undersurface of the metal bed frame and sustained a laceration over the dorsum of the right great toe. This occurred at approximately 10:00 p.m. on this night of service. She has been able to move the toe normally and has been able walk without significant discomfort. Bleeding was well controlled with direct pressure. She reports no otherfurther injury. She states her last tetanus immunization was earlier this year in 2011. She denies any further injury or further problems and states she has otherwise been in good health recently without further symptoms or issues. PAST MEDICAL HISTORY: Significant for a left ankle fracture and left ankle surgery. Immunizations are up-to-date and current, including her tetanus. MEDICATIONS: None. ALLERGIES: No known drug allergies. SOCIAL HISTORY: She does smoke cigarettes. She denies recreational drug use or alcohol use. FAMILY HISTORY: She denies medical problems in her family members. REVIEW OF SYSTEMS: All other systems are negative aside from those mentioned previously. PHYSICAL EXAMINATION: VITAL SIGNS: Presenting vital signs include initial blood pressure 123/66, pulse rate of 120. Repeatpulse rate is in the 80s and 90s, respiratory rate 16, temperature is 97.7 orally, oxygen saturations 100% on room air. GENERAL: Ruthie Jensen is an alert, appropriately oriented 17-year-old female. She is in no acute distress during my exam. HEENT: Head is atraumatic and normocephalic. NECK: Exam is normal. CHEST: Lungs are clear to auscultation. CARDIOVASCULAR: Regular rate and rhythm. ABDOMEN: Soft and nontender. MUSCULOSKELETAL: The right foot and ankle area reveals no decreased range of motion or further injuries aside from a simple skin laceration that is superficial in nature only, over the dorsum of the right great toe. She is able to move her toes well. Capillary refill is normal. Distal pulses are equaland symmetric. SKIN: Focused examination of the right great toe reveals a 1.2 cm laceration in a diagonal orientation over the distal phalanx and medial aspect of the right great toe. This is a superficial lacerationand there is no significant bleeding. There is no gross contamination of the wound. NEUROLOGIC: Normal and nonfocal. LABORATORY AND DIAGNOSTIC IMAGING: None. EMERGENCY DEPARTMENT COURSE: While in the ER Ruthie Jensen had laceration repair/care as noted below. PROCEDURE NOTE: This is a laceration repair of the right toe laceration. The laceration was irrigated with sterile normal saline (~100ccs). Following irrigation, the wound was evaluated to the deep tissue layers. It was noted to be superficial in nature only. Secondary to the superficial nature of thewound it was closed easily with the application of Dermabond skin adhesive. She had no further complications. She tolerated this wound closure well. The toes were jennifer taped across the nail between the right great toe and second toe on the right foot. Emergency Department course was otherwise uneventful. This is a simple right toe laceration requiring repair with Dermabond skin adhesive only. She will be discharged with a prescription for Motrin for discomfort. She will jennifer tape the toes as needed. She will follow up for wound recheck in 5-7 days through primary care at [facility]. Ms. Jensen is in agreement with this plan of care and is discharged without further complication. FINAL DIAGNOSIS: Simple, superficial right first (great) toe laceration. AURORA OLSON MD MT: [id number] Name: RUTHIE JENSEN MRN: [id number] Account: [id number] : 1995 Visit Date: 06/25/2012 Document: [id number] GY PROJECTS LEAD Bettina Manuel RN - 06/25/2012 10:57 PM CST Pt Alert and oriented x3. Airway, breathing and circulation intact. Pt was cleaning cut right great toe on head board. No active bleeding at this time GY PROJECTS LEAD documented in this encounter Plan of Treatment Upcoming Encounters Date Type Specialty Care Team Description 05/08/2022 Office Visit [facility] Kyle Hidalgo PA-C [address] [address] [place], [place] [address] (Wo rk) 05/08/2022 Lab Lab documented as of this encounter Visit Diagnoses Diagnosis Laceration of great toe, right - Primary Open wound of toe(s), without mention of complication documented in this encounter Active and Recently Administered Medications Care Teams Draw Operator Relationship Specialty Start Date End Date System, Provider Not In PCP - General 06/25/12 10/24/13 documented as of this encounter
--- OUTSIDE RECORDS SUMMARY | 2022-04-02 23:54 | XMS_ITS | Encounter Summary ---
:1995 Author Organization [place] Address [address] [place] [address] Care Team Providers Name Role Phone Thad Mckeon PA-C Primary Care Provider [phone] Thad Mckeon PA-C Unavailable [phone] Thad Mckeon PA-C Unavailable [phone] Reason for Visit Reason Comments Vaginal Problem BUMP ON OUTSIDE OF VAGINA Encounter Details Date Type Department Care Team Description 10/23/2015 Office Visit [facility] Thad Mckeon Vagina l cyst (Primary Dx); [facility] Persaud Other insomnia [place] [address] [facility], [address] [place] [address] [place], [place] [phone] (Wo rk) [address] [phone] Social History Tobacco Use Types Packs/Day Years Used Date Former Smoker Smokeless Tobacco: Never Used Alcohol Use Standard Drinks/Week Comments No 0 (1 standard drink = 0.6 oz pure alcoho l) Sex Assigned at Date Recorded Female 12/21/2020 8:52 AM CDT documented as of this encounter Last Filed Vital Signs Vital Sign Reading Time Taken Comments Blood Pressure 126/84 10/23/2015 9:59 AM CDT Pulse 88 10/23/2015 9:59 AM CDT Temperature 36.6 ??C (97.8 ??F) 10/23/2015 9:59 AM CDT Respiratory Rate - - Oxygen Saturation 98% 10/23/2015 9:59 AM CDT Inhaled Oxygen Concentration - - Weight 86.6 kg (191 lb) 10/23/2015 9:59 AM CDT Height 167.6 cm (5' 6) 10/23/2015 9:59 AM CDT Body Mass Index 30.83 10/23/2015 9:59 AM CDT documented in this encounter Progress Notes Thad Mckeon PA-C - 10/23/2015 9:46 AM CDT HPI SUBJECTIVE: Rtuhie Nieto is a 20 year old female who presents to clinic today for the following health issues: Cyst?- VAGINAL ?? Duration: noticed 3 days ago ?? Description (location/character/radiation): outside of vagina, left of clitoris ?? Intensity: Not painful, its just there ?? Accompanying signs and symptoms: none ?? History (similar episodes/previous evaluation): never had anything external, has had several cysts internal- ovarian ?? Precipitating or alleviating factors: None ?? Therapies tried and outcome: hot baths Ruthie has concerns about a vaginal bump today. She recently split from her fiancee, does not have major concerns over STD's. No pain in this area, no discharge or dysuria noted. She is having a difficult time sleeping since her breakup. Mood still seems stable. She is working out and getting daily walks in with her dog. Wondering about taking something for sleep. Does not want to restart Celexa now, made her feel too much in her own head. Problem list and histories reviewed & adjusted, as indicated. Additional history: as documented Labs reviewed in [facility] Problem list, Medication list, Allergies, and Medical/Social/Surgical histories reviewed in [facility] andupdated as appropriate. ROS: Constitutional, HEENT, cardiovascular, pulmonary, gi and gu systems are negative, except as otherwise noted. OBJECTIVE: BP 126/84 mmHg Pulse 88 Temp(Src) 97.8 ??F (36.6 ??C) (Oral) Ht 5' 6 (1.676 m) Wt 191 lb (86.637 kg) BMI 30.84 kg/m2 SpO2 98% LMP 10/09/2015 (Approximate) Body mass index is 30.84 kg/(m^2). GENERAL: healthy, alert and no distress (female): normal female external genitalia, normal urethral meatus, vaginal mucosa normal withoutdischarge. Small less than pea sized cystic lesion left labia minora. Non tendern, no redness or drainage noted. MS: no gross musculoskeletal defects noted, no edema PSYCH: mentation appears normal, affect normal/bright Diagnostic Test Results: none ASSESSMENT/PLAN: 1. Vaginal cyst - SITZ baths recommended, watch for any signs of infection and follow up as needed. If concerns arise about STD's she will also follow up. 2. Other insomnia - traZODone (DESYREL) 50 MG tablet; Take 1 tablet (50 mg) by mouth nightly as needed for sleep Dispense: 30 tablet; Refill: 1 Thad Mckeon PA-C [facility] Physical Exam documented in this encounter Nursing Notes Jayla Gonzales CMA - 10/23/2015 10:04 AM CDT Chief Complaint Patient presents with ??? Vaginal Problem BUMP ON OUTSIDE OF VAGINA Initial BP 126/84 mmHg Pulse 88 Temp(Src) 97.8 ??F (36.6 ??C) (Oral) Ht 5' 6 (1.676 m) Wt 191 lb (86.637 kg) BMI 30.84 kg/m2 SpO2 98% LMP 10/09/2015 (Approximate) Estimated body mass index is 30.84 kg/(m^2) as calculated from the following: Height as of this encounter: 5' 6 (1.676 m). Weight as of this encounter: 191 lb (86.637 kg). BP completed using cuff size: karina Gonzales CMA documented in this encounter Plan of Treatment Upcoming Encounters Date Type Specialty Care Team Description 05/08/2022 Office Visit Family Practice Kyle Hidalgo PA-C [address] [address] [phone] (Wo rk) 05/08/2022 Lab Lab documented as of this encounter Visit Diagnoses Diagnosis Vaginal cyst - Primary Other specified noninflammatory disorder of vagina Other insomnia documented in this encounter Care Teams Spooling Supervisor Relationship Specialty Start Date End Date Thad Mckeon, PCP - General Physician Warehouse Director - 02/17/14 AD Medical Thad Mckeon, PCP - Assigned PCP 12/16/13 09/07/18 [place] [id number] [address] [address] Thad Mckeon, Assigned PCP 12/16/13 [place] [id number] [address] [id number] documented as of this encounter
--- OUTSIDE RECORDS SUMMARY | 2022-04-02 23:54 | XMS_ITS | Encounter Summary ---
:1995 Author Organization [place] Address [address] [place] [address] Care Team Providers Name Role Phone Thad Mckeon PA-C Primary Care Provider [phone] Thad Mckeon PA-C Unavailable [phone] Thad Mckeon PA-C Unavailable [phone] Reason for Visit Reason Onset Date Comments Refill Request 03/24/2014 Citalopram 20mg Encounter Details Date Type Department Care Team Description 03/24/2014 Refill [facility] Thad Mckeon Refill Request Clinic [place] AD Persaud (Citalopram 20mg) [address] [place] [address] [place], [place] [phone] (Wo rk) [address] [phone] Social History Tobacco Use Types Packs/Day Years Used Date Former Smoker Smokeless Tobacco: Never Used Alcohol Use Standard Drinks/Week Comments No 0 (1 standard drink = 0.6 oz pure alcoho l) Sex Assigned at Date Recorded Female 12/21/2020 8:52 AM CDT documented as of this encounter Miscellaneous Notes Telephone Encounter - Sylvia Howell RN - 03/24/2014 10:31 AM CDT Pending Prescriptions: Disp Refills citalopram (CELEXA) 20 MG tablet 30 tab*1 Si tablet orally daily Last Office Visit R/T Diagnosis: 02/17/2014 Provider Notes: recheck x Follow up with Provider in 1 month for med check. Last PHQ-9 score on record= 3, Date: 02/17/2014 Unable to fill per RN protocol. Will route to provider. Sylvia Howell RN documented in this encounter Plan of Treatment Upcoming Encounters Date Type Specialty Care Team Description 05/08/2022 Office Visit Family Practice Kyle Hidalgo PA-C [address] [address] [phone] (Wo rk) 05/08/2022 Lab Lab documented as of this encounter Visit Diagnoses Diagnosis Anxiety Anxiety state, unspecified documented in this encounter Care Teams Oncology Specialist Relationship Specialty Start Date End Date Thad Mckeon, PCP - General Physician Postmaster Relief - 02/17/14 AD Medical Thad Mckeon, PCP - Assigned PCP 12/16/13 09/07/18 [place] [id number] [address] [id number] Thad Mckeon, Assigned PCP 12/16/13 [place] [id number] [address] [id number] documented as of this encounter
--- OUTSIDE RECORDS SUMMARY | 2022-04-02 23:54 | XMS_ITS | Encounter Summary ---
:1995 Author Organization [place] Address [facility] [place] [address] Care Team Providers Name Role Phone Unavailable Primary Care Provider Unavailable Encounter Details Date Type Department Care Team Description 06/03/2006 Admission H&P Jose King MD (Organic Preparation Technician) [facility] [address] [place] [phone] (Wo rk) Social History Tobacco Use Types Packs/Day Years Used Date Never Assessed Sex Assigned at Date Recorded Female 12/21/2020 8:52 AM CDT documented as of this encounter Progress Notes Jose King - 08/25/2006 4:38 PM DESK OFFICER FINAL HISTORY: Ruthie Jensen is a 11-year-old female who fell down approximately seven stairs at home at approximately 9:30 p.m. on 05/30, who landed on her left foot ankle and twisted it underneath her andwas unable to walk or bear weight and seen in urgent care at that time for a medial malleolar fracture in association with a lateral ankle sprain. She sustained a Salter-Paredes IV fracture through the metaphysis, growth plate and epiphysis of the medial malleolus on the left and fragments are displaced 2 mm. medially. She has had no other past medical history of any significance. She is having significant pain with one Vicodin only lasting approximately an hour and a half for pain relief. PAST MEDICAL HISTORY: As noted above is negative. Menarche was last summer and she has irregular menses and cannot recall her last menstrual period. MEDICATIONS: Vicodin and Tylenol p.r.n. FAMILY HISTORY: Unremarkable. No previous surgeries. ALLERGIES: None. REVIEW OF SYSTEMS: Is completely unremarkable. She has had no recent illnesses. She was seen in consultation by Dr. Hernandez today. PHYSICAL EXAMINATION: Ruthie is a very pleasant 11-year-old female with a lower leg foot posterior fiberglass splint with Andrey wrap and is seated in a wheelchair (she has been ambulating on crutches 100% of the time) VITAL SIGNS: Pulse is 88 and regular. Respirations are 14, blood pressure is 90/60. Afebrile. HEAD, EYES, EARS, NOSE AND THROAT: Negative NECK: Normal LUNGS: Clear to auscultation and percussion CARDIOVASCULAR: Normal S-1 and S-2 without murmur ABDOMEN: Negative EXTREMITIES: The splint is intact on the left lower extremity as noted above. Sensation and movement is normal in the toes and no significant swelling. X-ray as noted above. IMPRESSION: As above. PLAN: I see no contraindication to surgery. She will increase her Vicodin to 2 every 4 hours p.r.n.for pain relief. Electronically signed on 08/25/2006 16:37 by JOSE KING MD MT: [place] Name: RUTHIE JENSEN MRN: [id number] Account: [id number] : 1995 Admitted: [id number] Document: [id number] OFFICER documented in this encounter Plan of Treatment Upcoming Encounters Date Type Specialty Care Team Description 05/08/2022 Office Visit Family Practice Kyle Hidalgo PA-C [address] [address] [phone] (Wo rk) 05/08/2022 Lab Lab documented as of this encounter Visit Diagnoses Not on filedocumented in this encounter
--- OUTSIDE RECORDS SUMMARY | 2022-04-02 23:54 | XMS_ITS | Encounter Summary ---
:1995 Author Organization [place] Address [address] [place] [address] Care Team Providers Name Role Phone Thad Mckeon PA-C Primary Care Provider [phone] Thad Mckeon PA-C Unavailable [phone] Thad Mckeon PA-C Unavailable [phone] Reason for Visit Reason Onset Date Comments Refill Request 08/15/2014 Citalopram HBR 20 MG Encounter Details Date Type Department Care Team Description 08/15/2014 Refill [facility] Thad Mckeon Refill Request Clinic [place] AD Persaud (Citalopram HBR 20 MG) [facility], [address] [place] [address] [address] [place] [address] [place], [place] [phone] (Wo rk) [address] [phone] Social History Tobacco Use Types Packs/Day Years Used Date Former Smoker Smokeless Tobacco: Never Used Alcohol Use Standard Drinks/Week Comments No 0 (1 standard drink = 0.6 oz pure alcoho l) Sex Assigned at Date Recorded Female 12/21/2020 8:52 AM CDT documented as of this encounter Miscellaneous Notes Telephone Encounter - Aidee Harris RN - 08/17/2014 2:13 PM CST Pt was seen 08/16/14 Aidee Harris RN, BSN RETAILER Telephone Encounter - Aidee Harris RN - 08/15/2014 4:19 PM CST Pt is overdue for follow up from February appt. Letter has already been sent and last refill was a onetime fill LMTRC and schedule Aidee Harris RN, BSN RETAILER Telephone Encounter - Clari King - 08/15/2014 3:54 PM CST [facility] Citalopram HBR 20 MG Tab Qty: 30 Last OV: Last refill: 07/18/2014 DEPRESSION/ANXIETY BP Readings from Last 3 Encounters: 02/17/14 100/70 01/26/14 100/68 01/09/14 98/80 RETAILER documented in this encounter Plan of Treatment Upcoming Encounters Date Type Specialty Care Team Description 05/08/2022 Office Visit Family Practice Kyle Hidalgo PA-C [address] [address] [phone] (Wo rk) 05/08/2022 Lab Lab documented as of this encounter Visit Diagnoses Diagnosis Anxiety - Primary Anxiety state, unspecified documented in this encounter Care Teams Ink Printer Relationship Specialty Start Date End Date Thad Mckeon, PCP - General Physician Field Secretary - 02/17/14 AD Medical Thad Mckeon, PCP - Assigned PCP 12/16/13 09/07/18 [place] [address] [address] [address] Thad Mckeon, Assigned PCP 12/16/13 [place] [address] [address] [address] documented as of this encounter
--- OUTSIDE RECORDS SUMMARY | 2022-04-02 23:54 | XMS_ITS | Encounter Summary ---
:1995 Author Organization [facility] Address [address] [place] [id number] Care Team Providers Name Role Phone Thad Mckeon PA-C Primary Care Provider [phone] Thad Mckeon PA-C Unavailable [phone] Thad Mckeon PA-C Unavailable [phone] Reason for Visit Reason Comments Rash Encounter Details Date Type Department Care Team Description 05/24/2015 Office Visit [facility] Thad Mckeon icial bacterial skin infection (Primary Dx); [facility] Screening examination for venereal disea se [place] [address] [facility], [address] [place] [address] [place], [place] [phone] (Wo rk) [id number] [phone] Social History Tobacco Use Types Packs/Day Years Used Date Former Smoker Smokeless Tobacco: Never Used Alcohol Use Standard Drinks/Week Comments No 0 (1 standard drink = 0.6 oz pure alcoho l) Sex Assigned at Date Recorded Female 12/21/2020 8:52 AM CDT documented as of this encounter Last Filed Vital Signs Vital Sign Reading Time Taken Comments Blood Pressure 112/70 05/24/2015 10:10 AM REIMBURSEMENT AUDITOR Pulse 83 05/24/2015 10:10 AM REIMBURSEMENT AUDITOR Temperature 36.7 ??C (98 ??F) 05/24/2015 10:10 AM REIMBURSEMENT AUDITOR Respiratory Rate 16 05/24/2015 10:10 AM REIMBURSEMENT AUDITOR Oxygen Saturation 96% 05/24/2015 10:10 AM REIMBURSEMENT AUDITOR Inhaled Oxygen Concentration - - Weight 91.1 kg (200 lb 14.4 oz) 05/24/2015 10:10 AM REIMBURSEMENT AUDITOR Height - - Body Mass Index 32.43 08/25/2014 10:10 AM REIMBURSEMENT AUDITOR documented in this encounter Progress Notes Thad Mckeon PA-C - 05/24/2015 9:50 AM CST HPI SUBJECTIVE: Ruthie Nieto is a 20 year old female who presents to clinic today for the following health issues: Rash ?? Duration: 3 weeks ?? Description Location: chin area and right side of face. Itching: severe ?? Intensity: moderate ?? Accompanying signs and symptoms: None ?? History (similar episodes/previous evaluation[facility] ?? Precipitating or alleviating factors: New exposures: None Recent travel: no ?? Therapies tried and outcome: hydrocortisone cream - not effective Rash not resolving. [facility], given a cream that is not working. Mildly itchy. Some acne popping up on her lately but she does not think it is related. 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 Problem list and histories reviewed & adjusted, as indicated. Additional history: as documented Problem list, Medication list, Allergies, and Medical/Social/Surgical histories reviewed in [facility] andupdated as appropriate. ROS: Constitutional, HEENT, cardiovascular, pulmonary, gi and gu systems are negative, except as otherwise noted. OBJECTIVE: BP 112/70 mmHg Pulse 83 Temp(Src) 98 ??F (36.7 ??C) (Oral) Resp 16 Wt 200 lb 14.4 oz (91.128kg) SpO2 96% LMP 05/04/2015 Body mass index is 32.44 kg/(m^2). GENERAL APPEARANCE: healthy, alert and no distress LYMPHATICS: normal ant/post cervical and supraclavicular nodes SKIN: erythematous papules and some pustules - chin and mild facial acne- cheeks PSYCH: mentation appears normal and affect normal/bright Diagnostic test results: none ASSESSMENT/PLAN: ICD-10-CM 1. Superficial bacterial skin infection L08.9 cephALEXin (KEFLEX) 500 MG capsule B96.89 2. Screening examination for venereal disease Z11.3 Chlamydia trachomatis PCR Follow up with Provider - for physical and PAP. Thad Mckeon PA-C [facility] ROS Physical Exam BURSEMENT AUDITOR documented in this encounter Nursing Notes Michelle Perrin CMA - 05/24/2015 10:14 AM CST Chief Complaint Patient presents with ??? Rash Initial BP 112/70 mmHg Pulse 83 Temp(Src) 98 ??F (36.7 ??C) (Oral) Resp 16 Wt 200 lb 14.4 oz(91.128 kg) SpO2 96% LMP 05/04/2015 Estimated body mass index is 32.44 kg/(m^2) as calculated from the following: Height as of 15: 5' 6 (1.676 m). Weight as of this encounter: 200 lb 14.4 oz (91.128 kg). BP completed using cuff size large RIGHT arm. Michelle Perrin CMA BURSEMENT AUDITOR documented in this encounter Plan of Treatment Upcoming Encounters Date Type Specialty Care Team Description 05/08/2022 Office Visit Family Practice Kyle Hidalgo PA-C [address] [place] [place], [place] [address] (Wo rk) 05/08/2022 Lab Lab documented as of this encounter Procedures Procedure Name Priority Date/Time Associated Diagnosis Comme nts CHLAMYDIA Routine 05/24/2015 10:37 Screening Results for this TRACHOMATIS PCR AM REIMBURSEMENT AUDITOR examination for procedure are in venereal disease the results section. documented in this encounter Results Chlamydia trachomatis PCR (05/24/2015 10:37 AM REIMBURSEMENT AUDITOR) Component Value Ref Test Analysis Performed At [facility] Range Method Time Signature Specimen Vagina [facility] [place] Chlamydia Negative [facility] Trachomatis Negative for C. trachomatis rRNA by environmental programs manager mediated amplification. [place] [facility] A negative result by transc ription mediated amplification does not preclude the [facility] presence of C. trachomatis infection because re sults are dependent on proper BANK and adequate collection, absence of inhibitors, and suffici ent rRNA to be detected. Specimen Anatomical Collection Method Collection Time Receive d Time (Source) Location / / Volume Laterality Specimen from 05/24/2015 10:37 05/24/2015 vagina AM REIMBURSEMENT AUDITOR 10:38 AM REIMBURSEMENT AUDITOR (specimen) Thad Mckeon PA-C LAB - MICRO GENERAL ORDERABL ES Performing Organization Address City/State/ZIP Code Phon e Number [address] [address] documented in this encounter Visit Diagnoses Diagnosis Superficial bacterial skin infection - P rimary Cellulitis and abscess of unspecified si te Screening examination for venereal disea se documented in this encounter Care Teams Tile Edger Relationship Specialty Start Date End Date Thad Mckeon, PCP - General Physician Processing Inspector - 02/17/14 AD Medical Thad Mckeon, PCP - Assigned PCP 12/16/13 09/07/18 [place] [id number] [place] [address] Thad Mckeon, Assigned PCP 12/16/13 [place] [address] [address] [place] [id number] documented as of this encounter
--- OUTSIDE RECORDS SUMMARY | 2022-04-02 23:54 | XMS_ITS | Encounter Summary ---
:1995 Author Organization [facility] Address [address] [place] [id number] Care Team Providers Name Role [facility] Primary Care Provider [phone] Reason for Visit Reason Comments Abdominal Pain Encounter Details Date Type Department Care Team Description 10/25/2013 - Emergency [facility] John Mckeon Other and unspecified ovarian cyst (Primary Dx); 10/26/2013 [facility] Emergency MD Justin Dysuria Dept [facility] [address] [place], [place] [address] [id number] [place] [address] [place], [place] [id number] (Wo rk) Social History Tobacco Use Types Packs/Day Years Used Date Former Smoker Alcohol Use Standard Drinks/Week Comments No 0 (1 standard drink = 0.6 oz pure alcoho l) Sex Assigned at Date Recorded Female 12/21/2020 8:52 AM CDT documented as of this encounter Last Filed Vital Signs Vital Sign Reading Time Taken Comments Blood Pressure 100/59 10/26/2013 12:45 AM CDT Pulse 80 10/25/2013 11:05 PM CDT Temperature 36 ??C (96.8 ??F) 10/25/2013 11:05 PM CDT Respiratory Rate 18 10/25/2013 11:05 PM CDT Oxygen Saturation 97% 10/26/2013 12:45 AM CDT Inhaled Oxygen Concentration - - Weight 65.8 kg (145 lb) 10/25/2013 11:05 PM CDT Height 165.1 cm (5' 5) 10/25/2013 11:05 PM CDT Body Mass Index 24.13 10/25/2013 11:05 PM CDT documented in this encounter Discharge Instructions Discharge InstructionsPetersJohn disla MD - 10/26/2013 1:46 AM CDT Home Back SP fr pl RU [facility] Ovarian Cyst The ovary is a small organ located on each side of the uterus. During each menstrual cycle a tiny egg sac forms in the ovary. If the egg is released but does not occur, this sac usually dissolves. Sometimes, the sac may fill with fluid. It then enlarges into a painful cyst. Usually the cyst will rupture or shrink on its own. In either case, the pain gradually goes away over the next 1-3 days. If the cyst does not shrink or rupture, it may cause continued pain. Home Care: ?? Rest in bed and avoid heavy exertion until you are feeling better. ?? Heat to the lower abdomen usually helps (heating pad or hot packs -- a small towel soaked in hot water). ?? You may use acetaminophen (Tylenol) or ibuprofen (Motrin, Advil) to control pain, unless another pain medicine was prescribed. [NOTE: If you have chronic liver or kidney disease or ever had a stomach ulcer or GI bleeding, talk with your doctor before using these medicines.] Follow Up: See your doctor within the next 2-3 days if your pain doesn???t improve. Otherwise, follow up with your doctor after your next period or as directed by our staff. Get Prompt Medical Attention if any of the following occur: ?? Pain worsens or fails to respond to the above measures ?? Fever of 100.4??F (38??C) or higher, or as directed by your healthcare provider ?? Heavy vaginal bleeding (soaking one pad an hour for three hours) ?? You feel weak or dizzy ?? Fainting ?? Passage of a pink or fischer tissue with menstrual bleeding ?? [id number] [facility], [address] [place] [address], ZULEIKA Sequeira [address]. All rights reserved. This information is not intended as a substitute for professional medical care. Always follow your healthcare professional's instructions. Discharge Instructions Abdominal Pain Abdominal pain can be caused by many things. Your evaluation today does not show the exact cause foryour pain. Your doctor today has decided that it is unlikely your pain is due to a life threatening problem, or a problem requiring surgery or hospital admission. Sometimes those problems cannot be found right away, so it is very important that you follow up as directed. Sometimes only the changes which occur over time allow the cause of your pain to be found. Return to the Emergency Department for a recheck in 8-12 hours if your pain continues. If your pain gets worse, changes in location, or feels different, return to the Emergency Department right away. ADULTS: Return to the Emergency Department right away if: ??? You get an oral temperature above 102oF or as directed by your doctor. ??? You have blood in your stools (bright red or black, tarry stools). ??? You keep throwing up or can???t drink liquids. ??? You see blood when you throw up. ??? You can???t have a bowel movement or you can???t pass gas. ??? Your stomach gets bloated or bigger. ??? Your skin or the whites of your eyes look yellow. ??? You faint. ??? You have bloody, frequent or painful urination. ??? You have new symptoms or anything that worries you. CHILDREN: Return to the Emergency Department right away if your child has any of the above-listed symptoms or the following: ??? Pushes your hand away or screams/cries when his/her belly is touched. ??? You notice your child is very fussy or weak. ??? Your child is very tired and is too tired to eat or drink. ??? Your child is dehydrated. Signs of dehydration can be: o Your has had no wet diapers in 4-5 hours. o Your older child has not passed urine in 6-8 hours. o Your infant or child starts to have dry mouth and lips, or no saliva or tears. MORE INFORMATION: Appendicitis: A possible cause of abdominal pain in any person who still has their appendix is acuteappendicitis. Appendicitis is often hard to diagnose. Testing does not always rule out early appendicitis or other causes of abdominal pain. Close follow-up with your doctor and re-evaluations may be needed to figure out the reason for your abdominal pain. Follow-up: It is very important that you make an appointment with your clinic and go to the appointment. If you do not follow-up with your primary doctor, it may result in missing an important development which could result in permanent injury or disability and/or lasting pain. If there is any problemkeeping your appointment, call your doctor or return to the Emergency Department. Medications: Take your medications as directed by your doctor today. Before using lzcc-evy-aylryfg medications, ask your doctor and make sure to take the medications as directed. If you have any questions about medications, ask your doctor. Diet: Resume your normal diet as much as possible, but do not eat fried, fatty or spicy foods while you have pain. Do not drink alcohol or have caffeine. Do not smoke tobacco. Remember that you can always come back to the Emergency Department if you are not able to see your normal doctor in the amount of time listed above, if you get any new symptoms, or if there is anythingthat worries you. documented in this encounter Medications at Time of Discharge Medication Sig Dispensed Refills Start Date End Date ondansetron (ZOFRAN ODT) 4 Take 1 tablet (4 10 tablet 0 10/29/2013 MG disintegrating tablet mg) by mouth every 8 hours as needed for nausea sulfamethoxazole-trimethop Take 1 tablet by 6 tablet 0 10/29/2013 rim (BACTRIM DS) 800-160 mouth 2 times daily MG per tablet for 3 days HYDROcodone-acetaminophen Take 1-2 tablets by 15 tablet 0 0 10/26/2013 01/09/2014 (NORCO) 5-325 MG per mouth every 4 hours tablet as needed for moderate to severe pain NO ACTIVE MEDICATIONS 0 documented as of this encounter ED Notes Suzanna Winn RN - 10/26/2013 12:04 AM CDT Pt refusing blood draw aware and ok with plan of u/s and repeat ua All questions answered Pt painis improveing John Mckeon MD - 10/25/2013 11:49 PM CDT History Chief Complaint: Abdominal Pain HPI Ruthie Nieto is an otherwise healthy 18 year old female who presents to the emergency department for the evaluation of abdominal pain. The patient reports a sudden onset of abdominal pain approximately 1-2 hours ago while laying down. The patient describes a non-radiating, cramping pain to her s uprapubic abdomen that she rates as a 8/10 in severity with no exacerbating or alleviating factors, but notes it has since mostly resolved. On examination, the patient describes the most discomfort in her right lower quadrant abdomen with deep palpation. The patient associated nausea and vomiting en route to the emergency department, without hematemesis. She otherwise denies bowel or bladder changes,flank pain, fevers, chills, vaginal bleeding, discharge, or any other concerning symptoms. She denies recent surgeries or trauma to the abdomen. Of note, the patient states her last menstrual period was 3 weeks ago that was normal for her. The patient voices no further concerns at this time. Allergies: No Known Drug Allergies Medications: No active medications Past Medical History: History reviewed. No significant past medical history. Past Surgical History: Orthopedic surgery Family History: History reviewed. No significant family history. Social History: The patient presents to the emergency department with her fiance and mother at bedside. Tobacco use: Former smoker Alcohol use: No current alcohol use Marital Status: Engaged Review of Systems Constitutional: Negative for fever, chills and appetite change. Gastrointestinal: Positive for nausea, vomiting and abdominal pain. Negative for diarrhea, constipation, blood in stool and abdominal distention. Genitourinary: Negative for dysuria, hematuria, flank pain, vaginal bleeding, vaginal discharge and vaginal pain. Musculoskeletal: Negative for back pain. All other systems reviewed and are negative. Physical Exam First Vitals: BP: 109/60 mmHg Pulse: 80 Temp: 96.8 ??F (36 ??C) Resp: 18 Height: 165.1 cm (5' 5) Weight: 65.772 kg (145 lb) SpO2: 100 % Physical Exam Constitutional: Appears well-developed and well-nourished. Alert. Conversant. Non toxic. HENT: Head: Atraumatic. Nose: Nose normal. Mouth/Throat: Oropharynx is clear and moist. Eyes: Conjunctivae normal. EOM are normal. Pupils are equal, round, and reactive to light. No scleral icterus. Neck: Normal range of motion. Neck supple. No tracheal deviation present. Cardiovascular: Normal rate, regular rhythm. Exam reveals no gallop and no friction rub. No murmur heard. Symmetric radial artery pulses Pulmonary/Chest: Effort normal. No stridor. No respiratory distress. No wheezes. No rales. No rhonchi . No tenderness. Abdominal: Soft. Bowel sounds are normal. No distension. No mass. There is suprapubic and RLQ tenderness. There is no rebound and no guarding. No CVA tenderness. Pelvic: deffered Musculoskeletal: Normal range of motion. No edema. No tenderness. No deformity Lymph: No cervical adenopathy. Neurological: Alert and oriented to person, place, and time. Normal strength. CN II-VII intact. No sensory deficit. GCS eye subscore is 4. GCS verbal subscore is 5. GCS motor subscore is 6. Normal coordination Skin: Skin is warm and dry. No rash noted. No pallor. Normal capillary refill. Psychiatric: normal mood and affect. Emergency Department Course Imaging: US Pelvis: 1. 2.7 cm mildly complex lesion in the right ovary. This is nonspecific, but most likely a functional cyst. 2. Both ovaries have several small peripheral follicles, an appearance that can be seen with polycystic ovarian syndrome. 3. Otherwise, unremarkable appearance of the uterus and ovaries. Blood flow is present in both ovaries. 4. A small amount of nonspecific free fluid in the pelvis. Report per radiology. Radiographic findings were communicated with the patient and family who voiced understanding of the findings. Laboratory: UA: Ketone 10 (A), Protein Albumin 10 (A), WBC 7 (high), Bacterial Few (A), Squamous Epithelial 3 (high), Mucous Present (A) o/w negative. HCG Qualitative: Negative Interventions: 00:44 Vicodin 5-325 mg PO 00:44 Ondansetron 4 mg PO Emergency Department Course: The patient arrived in triage where her vitals were measured and recorded. The patient was then escorted back to the emergency department. The patient's medical records were reviewed. Nursing notes andvitals reviewed. 23:49 I performed an exam of the patient as documented above. The patient and her mother are in agreement with my plan of care. She refused IV access at this time, despite my recommendation for blood work. 00:09 The patient was sent for a pelvic US while here in the emergency department, findings above. Recheck: pain improved. Comfortable. The patient is discharged home, status improved, with instructions regarding supportive care, medications, and reasons to return as well as the importance of close follow-up was reviewed. Discharge Medications: Vicodin 5-325 mg, take every 4 hours PRN, given 15 tablets. Ondansetron 4 mg, take every 8 hours PRN, given 10 tablets. Bactrim 800-160 mg, take BID, given 6 tablets. Impression & Plan Medical Decision Making: The patient is a pleasant 18 year old female who came in with abrupt onset of suprapubic abdominal pain that started this evening while she was at home. The pain has much improved by the time she arrived here to the ER. It did linger on in a mild fashion. She declined any pokes, lab draws, or IV start, but we did give her some PO [place], which made her pain much better. We discussed that deferring labdraws limits my ability to assess the cause of her pain and could lead to delay in diagnosis. She understands the risks and still doesn't want lab draw. She clearly has her own medical decision making capacity. Initially, urinalysis was contaminated, but repeat UA did indicate a mild UTI. I am not convinced that this is the source of her pain, but I will treat her with a 3 day course of Bactrim. She is not . With the abrupt onset of pain, I was concerned about possible ovarian pathology. Pelvic US did show a 2.7 cm complex cyst on the right ovary with normal blood flow bilaterally. With a cyst of this size, I would doubt torsion. I also considered kidney stone, but there is no hematuria noted or flank pain, so I doubt that. There is no upper abdominal pain to indicate cholecystitis, pancreatis, etc. I did consider appendicitis with her pain in the suprapubic and right lower quadrant, but she does not have classic migratory pain, anorexia, or fever to indicate appendicitis. At this point, she is declining IV start or lab workup. I feel this is reasonable with her overall mild pain and alternative explanation for her symptoms to hold off on doing a CT scan. I did advise her that if she has progressive pain, fever, or worsening symptoms, she should return to the ER immediately for recheck. otherwise, she is to recheck with [facility]/ [facility] in 1-2 weeks for recheck of her cyst. Diagnosis: ICD-9-CM 1. Other and unspecified ovarian cyst, right 620.2 2. Dysuria, UTI 788.1 3. Abdominal pain IDestiny, jose serving as a scribe at 11:49 PM on 10/25/2013 to document services personally performed by John Pond, *, based on my observations and the provider's statements to me. Destiny Bird 10/25/2013 [facility] EMERGENCY DEPARTMENT John Mckeon MD 10/26/13 0503 Bethany Fernandez RN - 10/25/2013 11:10 PM CDT IN TRIAGE airway,breathing and circulation intact, without need for intervention . Alert and interacting appropriately for age and situation. Lower abdominal pain for 40 min . Gradual, got worse , vomited once documented in this encounter Plan of Treatment Upcoming Encounters Date Type Specialty Care Team Description 05/08/2022 Office Visit Family [facility] Hidal[facility]C [id number] [facility] [place] [place] [address] (Wo rk) 05/08/2022 Lab Lab documented as of this encounter Procedures Procedure Name Priority Date/Time Associated Comments Diagnosis US PELVIS COMPLETE W STAT 10/26/2013 12:33 Res ults for this TRANSVAGINAL AND AM CDT procedure a re in DOPPLER LIMITED the results section. ROUTINE UA WITH STAT 10/26/2013 12:05 Results for this MICROSCOPIC AM CDT procedure are i n the results section. HCG QUALITATIVE URINE STAT 10/25/2013 11:30 Re sults for this PM CDT procedure are i n the results section. ROUTINE UA WITH STAT 10/25/2013 11:30 Results for this MICROSCOPIC PM CDT procedure are i n the results section. documented in this encounter Results US Pelvic Complete w Transvaginal & Abd/Pel Duplex Limited (10/26/2013 12:33 AM CDT) Anatomical Region Laterality Modality Abdomen/Pelvis Ultrasound Specimen (Source) Anatomical Location Collection Method / Collectio n Time Received Time / Laterality Volume Impressions 10/26/2013 2:57 PM CDT IMPRESSION: 1. Mildly complex right ovarian cystic l esion measures 2.7 cm, and could be physiologic. 2. Multiple small peripheral follicles a re seen in both ovaries. In the proper clinical setting, polycystic ovarian syndrome would be a differential consideration. 3. Small amount of free fluid in the pel vis is nonspecific, and could also be physiologic. 4. Otherwise unremarkable pelvic ultraso und. No convincing sonographic evidence for ovarian torsion. The preliminary report was provided by Gustavo العراقي at 12:45 AM. JOHN BIRD MD Narrative 10/26/2013 2:57 PM CDT ULTRASOUND PELVIS COMPLETE WITH TRANSVAGINAL AND ABDOMEN/PELVIC DUPLEX LIMITED October 26, 2013 12:33 AM HISTORY: Pelvic pain. TECHNIQUE: Transvaginal images were perf ormed to better evaluate the patient's uterus, ovaries and endometria l stripe. Spectral Doppler and wave form analysis was also performed to evaluate blood flow to the ovaries. COMPARISON: None. FINDINGS: The uterus is measured at 7 x 3.9 x 3 cm. No fibroids are evident. Endometrial stripe measures 1.1 cm and is within normal limits for a premenopausal patient. The right ovary contains a mildly complex 2.7 cm cystic lesion. Both ovari es contain several small peripheral follicles, with an appearance that can be seen in the setting of polycystic ovarian syndrome. No solid adnexal masses are identified. Small amount of anechoic clovis e pelvic fluid is present. Spectral Doppler and waveform analysis d emonstrate arterial and venous flow to both ovaries. Procedure Note John Bird MD - 10/26/2013Forma tting of this note might be different from the original. ULTRASOUND PELVIS COMPLETE WITH TRANSVAG INAL AND ABDOMEN/PELVIC DUPLEX LIMITED October 26, 2013 12:33 AM HISTORY: Pelvic pain. TECHNIQUE: Transvaginal images were perf ormed to better evaluate the patient's uterus, ovaries and endometria l stripe. Spectral Doppler and wave form analysis was also performed to evaluate blood flow to the ovaries. COMPARISON: None. FINDINGS: The uterus is measured at 7 x 3.9 x 3 cm. No fibroids are evident. Endometrial stripe measures 1.1 cm and is within normal limits for a premenopausal patient. The right ovary contains a mildly complex 2.7 cm cystic lesion. Both ovari es contain several small peripheral follicles, with an appearance that can be seen in the setting of polycystic ovarian syndrome. No solid adnexal masses are identified. Small amount of anechoic clovis e pelvic fluid is present. Spectral Doppler and waveform analysis d emonstrate arterial and venous flow to both ovaries. IMPRESSION IMPRESSION: 1. Mildly complex right ovarian cystic l esion measures 2.7 cm, and could be physiologic. 2. Multiple small peripheral follicles a re seen in both ovaries. In the proper clinical setting, polycystic ovarian syndrome would be a differential consideration. 3. Small amount of free fluid in the pel vis is nonspecific, and could also be physiologic. 4. Otherwise unremarkable pelvic ultraso und. No convincing sonographic evidence for ovarian torsion. The preliminary report was provided by Gustavo العراقي at 12:45 AM. JOHN BIRD MD John Mckeon MD IMG US ORDERABLES (ABNORMAL) UA with Microscopic (10/26/2013 12:05 AM CDT) [facility] Method Time Signature Color Urine Yellow [facility] Appearance Urine Clear [facility] Glucose Urine Negative NEG mg/dL [facility] Bilirubin Urine Negative NEG [facility] Ketones Urine 10 (A) NEG mg/dL [facility] Specific [place] 1.028 1.003 - [place] Urine 1.035 [facility] Blood Urine Negative NEG [facility] pH Urine 5.5 5.0 - 7.0 [place] pH [facility] Protein Albumin 10 (A) NEG mg/dL [facility] Urobilinogen 2.0 0.0 - 2.0 [place] mg/dL mg/dL [facility] Nitrite Urine Negative NEG [facility] Leukocyte Negative NEG [place] Esterase Urine [facility] Source Midstream [facility] WBC Urine 7 (H) 0 - 2 [place] /[facility] RBC Urine 1 0 - 2 [facility] Bacteria Urine Few (A) NEG /HPF [facility] Squamous 3 (H) 0 - 1 [place] Epithelial /HPF /[facility] Mucous Urine Present (A) NEG /[facility] Specimen Anatomical Collection Method Collection Time Receive d Time (Source) Location / / Volume Laterality Urine specimen URINE SPECIMEN 10/26/2013 12:05 014 (specimen) OBTAINED BY CLEAN AM CDT 12:14 AM C DT CATCH PROCEDURE / Unknown John Mckeon MD LAB - URINE ORDERABLES Performing Organization Address City/State/ZIP Code Phon e Number M [facility] [address] [place] [place], [place] [address] [facility] (ABNORMAL) UA with Microscopic (10/25/2013 11:30 PM CDT) [facility] Method Time Signature Color Urine Yellow [facility] Appearance Urine Slightly [place] Cloudy [facility] Glucose Urine Negative NEG mg/dL [facility] Bilirubin Urine Negative NEG [facility] Ketones Urine 5 (A) NEG mg/dL [facility] Specific [place] 1.025 1.003 - [place] Urine 1.035 [facility] Blood Urine Negative NEG [facility] pH Urine 5.5 5.0 - 7.0 [place] pH [facility] Protein Albumin 30 (A) NEG mg/dL [facility] Urobilinogen 2.0 0.0 - 2.0 [place] mg/dL mg/dL [facility] Nitrite Urine Negative NEG [facility] Leukocyte Trace (A) NEG [place] Esterase Urine [facility] Source Midstream [facility] WBC Urine 10 (H) 0 - 2 [facility] RBC Urine 1 0 - 2 [facility] Bacteria Urine Few (A) NEG /[facility] Squamous 8 (H) 0 - 1 [place] Epithelial /[facility] /[facility] Transitional Epi <1 0 - 1 [facility] Mucous Urine Present (A) NEG /LPF [facility] Specimen Anatomical Collection Method Collection Time Receive d Time (Source) Location / / Volume Laterality Urine specimen URINE SPECIMEN 10/25/2013 11:30 014 (specimen) OBTAINED BY CLEAN PM CDT 11:37 PM C DT CATCH PROCEDURE / Unknown Jeyson Guerrier MD LAB - URINE ORDERABLES Performing Organization Address City/State/ZIP Code Phon e Number Marit[facility] [address], [place] [address] [facility] HCG qualitative urine (10/25/2013 11:30 PM CDT) athologist Signature HCG Qual Urine Negative NEG [facility] Specimen Anatomical Collection Method Collection Time Receive d Time (Source) Location / / Volume Laterality Urine specimen URINE SPECIMEN 10/25/2013 11:30 014 (specimen) OBTAINED BY CLEAN PM CDT 11:37 PM C DT CATCH PROCEDURE / Unknown Jeyson Guerrier MD LAB - URINE ORDERABLES Performing Organization Address City/State/ZIP [facility] e Number [place] [address], [place] [address] [facility] documented in this encounter Visit Diagnoses Diagnosis Other and unspecified ovarian cyst - Katerina nadeem Dysuria documented in this encounter Administered Medications Inactive Administered Medications - up to 3 most recent administrations Medication Order MAR Action Action Date Dose Rate Site HYDROcodone-acetaminophen Given 10/26/2013 12:44 AM CDT 1 tablet (NORCO) 5-325 MG per tablet 2 tablet 2 tablet, Oral, ONCE, On Thu10/26/13 at 0045, For 1 dose, Maximum acetaminophen dose from all sources= 75 mg/kg/day not to exceed 4 grams ondansetron (ZOFRAN-ODT) disintegrating tablet Given 0 10/26/2013 12:44 AM CDT 4 mg 4 mg 4 mg, Oral, ONCE, On Thu10/26/13 at 0045, For 1 dose, With dry hands, peel back foil backing and gently remove tablet; do not push oral disintegrating tablet through foil backing; administer immediately on tongue and oral disintegrating tablet dissolves in seconds; then swallow with saliva; liquid not required. documented in this encounter Active and Recently Administered Medications Times are shown in CDT. Scheduled Medication Order 10/24/2013 10/25/2013 10/26/2013 HYDROcodone-acetaminophen (NORCO) 5-325 MG per tablet 2 tablet ( COMPLETED) 43 (Given - Provider: Suzanna Winn, YNES) 2 tablet, Oral, ONCE, Thu10/26/13 at 004 5, For 1 dose, Maximum acetaminophen dose from all sources= 75 mg/kg/day not to exceed 4 grams ondansetron (ZOFRAN-ODT) disintegrating tablet 4 mg (COMPLETED) 43 (Given - Provider: Suzanna Winn RN) 4 mg, Oral, ONCE, Thu10/26/13 at 0045, F or 1 dose, With dry hands, peel back foil backing and gently remove tablet; do not push oral disintegrating tablet through foil backing; administer immediately on tongue and oral disintegrating tablet d issolves in seconds; then swallow with saliva; liquid not required. documented in this encounter Care Teams Risk Reduction Counselor Relationship Specialty Start Date End Date [facility] PCP - General 10/25/13 02/16/14 [address] [place] [address] documented as of this encounter
--- OUTSIDE RECORDS SUMMARY | 2022-04-02 23:54 | XMS_ITS | Encounter Summary ---
:1995 Author Organization [facility] Address [address] [place] [address] Care Team Providers Name Role Phone Thad Mckeon PA-C Primary Care Provider [phone] Thad Mckeon PA-C Unavailable [phone] Thad Mckeon PA-C Unavailable [phone] Reason for Visit Reason Onset Date Comments Refill Request 12/18/2015 traZODone (DESYREL) 50 MG tablet Encounter Details Date Type Department Care Team Description 12/18/2015 Refill [facility] Thad Mckeon Refill Request Clinic [place] [facility] [place] (traZODone (DESYREL) [id number] MG tablet) [address] [place] [address] [place], [place] [phone] (Wo rk) [address] [phone] Social History Tobacco Use Types Packs/Day Years Used Date Former Smoker Smokeless Tobacco: Never Used Alcohol Use Standard Drinks/Week Comments No 0 (1 standard drink = 0.6 oz pure alcoho l) Sex Assigned at Date Recorded Female 12/21/2020 8:52 AM CDT documented as of this encounter Miscellaneous Notes Telephone Encounter - Aidee Harris RN - 12/18/2015 11:44 AM CDT Spoke with patient and she is not taking the trazodone but was trying to request the restoril. Advised she is due for an OV and the soonest she can schedule is 01/15/16 due to work. RN sent in rx for lexapro as she is almost out Please advise on refill Aidee Harris RN, BSN Telephone Encounter - Lincoln Piedra - 12/18/2015 11:30 AM CDT traZODone (DESYREL) 50 MG tablet Last Written Prescription Date: 11-21-2015 Last Fill Quantity: 30; # refills: 0 Last Office Visit with [facility] or [facility] prescribing provider: 11-21-2015 Last PHQ-9 score on record= PHQ-9 SCORE 08/16/2014 Total Score 2 No results found for this basename: ast No results found for this basename: alt documented in this encounter Plan of Treatment Upcoming Encounters Date Type Specialty Care Team Description 05/08/2022 Office Visit Family Practice Kyle Hidalgo PA-C [address] [address] [address] (Wo rk) 05/08/2022 Lab Lab documented as of this encounter Visit Diagnoses Diagnosis Other insomnia - Primary Anxiety Anxiety state, unspecified documented in this encounter Care Teams Currency Exchange Specialist Relationship Specialty Start Date End Date Thad Mckeon, PCP - General Physician Plumbing And Heating Mechanic - 02/17/14 AD [facility] Thad Mckeon, PCP - Assigned PCP 12/16/13 09/07/18 [place] [id number] [address] [address] Thad Mckeon, Assigned PCP 12/16/13 [place] [address] [place] [address] documented as of this encounter
--- OUTSIDE RECORDS SUMMARY | 2022-04-02 23:54 | XMS_ITS | Encounter Summary ---
:1995 Author Organization [facility] Address [address] [place] [address] Care Team Providers Name Role Phone Thad Mckeon PA-C Primary Care Provider [phone] Thad Mckeon PA-C Unavailable [phone] Thad Mckeon PA-C Unavailable [phone] Reason for Visit Reason Comments Pharyngitis Encounter Details Date Type Department Care Team Description 08/25/2014 Office Visit [facility] Thad Mckeon Acute pharyngitis Clinic [place] Persaud (Primary Dx) [address] [place] [address] [facility], [address] [place] [address] [place], [place] [phone] (Wo rk) [address] [phone] Social History Tobacco Use Types Packs/Day Years Used Date Former Smoker Smokeless Tobacco: Never Used Alcohol Use Standard Drinks/Week Comments No 0 (1 standard drink = 0.6 oz pure alcoho l) Sex Assigned at Date Recorded Female 12/21/2020 8:52 AM CDT documented as of this encounter Last Filed Vital Signs Vital Sign Reading Time Taken Comments Blood Pressure 90/60 08/25/2014 10:10 AM EXPERIMENTAL FLIGHT TEST MECHANIC Pulse 85 08/25/2014 10:10 AM EXPERIMENTAL FLIGHT TEST MECHANIC Temperature 36.8 ??C (98.2 ??F) 08/25/2014 10:10 AM EXPERIMENTAL FLIGHT TEST MECHANIC Respiratory Rate 24 08/25/2014 10:10 AM EXPERIMENTAL FLIGHT TEST MECHANIC Oxygen Saturation 97% 08/25/2014 10:10 AM EXPERIMENTAL FLIGHT TEST MECHANIC Inhaled Oxygen Concentration - - Weight 93.8 kg (206 lb 11.2 oz) 08/25/2014 10:10 AM EXPERIMENTAL FLIGHT TEST MECHANIC Height 167.6 cm (5' 6) 08/25/2014 10:10 AM EXPERIMENTAL FLIGHT TEST MECHANIC Body Mass Index 33.36 08/25/2014 10:10 AM EXPERIMENTAL FLIGHT TEST MECHANIC documented in this encounter Patient Instructions Patient InstructionsPeThad zepeda PA-C - 08/25/2014 10:30 AM EXPERIMENTAL FLIGHT TEST MECHANIC 3 ibuprofen every 6 hours RIMENTAL FLIGHT TEST MECHANIC documented in this encounter Progress Notes Thad Mckeon PA-C - 08/25/2014 10:08 AM CST HPI SUBJECTIVE: Ruthie Nieto is a 19 year old female who presents to clinic today for the following health issues: RESPIRATORY SYMPTOMS ?? Duration: Since Thursday ?? Description sore throat, fever, chills, fatigue/malaise, hoarse voice and sweats ?? Severity: severe ?? Accompanying signs and symptoms: None ?? 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 ?? Precipitating or alleviating factors: nanny ?? Therapies tried and outcome: rest and fluids acetaminophen Throat is very sore, a lot of hoarseness in voice. Feeling feverish. Problem list and histories reviewed & adjusted, as indicated. Additional history: as documented Problem list, Medication list, Allergies, and Medical/Social/Surgical histories reviewed in [facility] andupdated as appropriate. ROS: Constitutional, HEENT, cardiovascular, pulmonary, gi and gu systems are negative, except as otherwise noted. OBJECTIVE: BP 90/60 Pulse 85 Temp(Src) 98.2 ??F (36.8 ??C) (Oral) Resp 24 Ht 5' 6 (1.676 m) Wt 206 lb 11.2 oz (93.759 kg) BMI 33.38 kg/m2 SpO2 97% Body mass index is 33.38 kg/(m^2). GENERAL: healthy, alert and no distress HENT: normal cephalic/atraumatic, ear canals and TM's normal, nose and mouth without ulcers or lesions, oropharynx clear, oral mucous membranes moist, tonsillar hypertrophy and tonsillar erythema RESP: lungs clear to auscultation - no rales, rhonchi or wheezes CV: regular rate and rhythm, normal S1 S2, no S3 or S4, no murmur, click or rub, no peripheral edemaand peripheral pulses strong MS: no gross musculoskeletal defects noted, no edema SKIN: no suspicious lesions or rashes PSYCH: mentation appears normal, affect normal/bright LYMPH: no cervical, supraclavicular, axillary, or inguinal adenopathy Diagnostic Test Results: Results for orders placed in visit on 08/25/14 (from the past 24 hour(s)) RAPID STREP SCREEN Result Value Ref Range Specimen Description Throat Rapid Strep A Screen Value: NEGATIVE: No Group A streptococcal antigen detected by immunoassay, await culture report. Micro Report Status FINAL 08/25/2014 ASSESSMENT/PLAN: Problem List Items Addressed This Visit None Visit Diagnoses Acute pharyngitis - Primary Relevant Medications lidocaine viscous 2% po Xylocaine Other Relevant Orders Strep, Rapid Screen (Completed) Beta strep group A culture (Completed) Recommended supportive cares including warm salt water gargles, Tylenol/Ibuprofen as directed OTC, rest, humidifier. Follow-up in 2-3 days if symptoms are worsening or not improving as expected/discussed. Thad Mckeon PA-C [facility] Physical Exam RIMENTAL FLIGHT TEST MECHANIC documented in this encounter Nursing Notes Michelle Perrin CMA - 08/25/2014 10:13 AM CST Chief Complaint Patient presents with ??? Pharyngitis Initial BP 90/60 Pulse 85 Temp(Src) 98.2 ??F (36.8 ??C) (Oral) Resp 24 Ht 5' 6 (1.676 m) Wt 206 lb 11.2 oz (93.759 kg) BMI 33.38 kg/m2 SpO2 97% Estimated body mass index is 33.38 kg/(m^2) as calculated from the following: Height as of this encounter: 5' 6 (1.676 m). Weight as of this encounter: 206 lb 11.2 oz (93.759 kg). BP completed using cuff size large right arm. Michelle Perrin CMA RIMENTAL FLIGHT TEST MECHANIC documented in this encounter Plan of Treatment Upcoming Encounters Date Type Specialty Care Team Description 05/08/2022 Office Visit Family Practice Kyle Hidalgo PA-C [address] [address] [place], [place] [phone] (Wo rk) 05/08/2022 Lab Lab documented as of this encounter Procedures Procedure Name Priority Date/Time Associated Diagnosis Comme nts RAPID STREP SCREEN Routine 08/25/2014 10:28 AM Acute Pharyngit is Results for this THROAT SWAB EXPERIMENTAL FLIGHT TEST MECHANIC procedure are i n the results section. BETA HEMOLYTIC Routine 08/25/2014 10:28 AM Acute Pharyngitis R esults for this STREP GROUP A EXPERIMENTAL FLIGHT TEST MECHANIC procedure are in CULTURE the results section. documented in this encounter Results Beta strep group A culture (08/25/2014 10:28 AM EXPERIMENTAL FLIGHT TEST MECHANIC) Component Value Ref [facility] Method Time Signature Specimen [facility] [facility] Culture Micro No Beta [place] Streptococcus CLINICS isolated [facility] Micro Report FINAL 08/27/2014 [facility] Specimen Anatomical Collection Method Collection Time Receive d Time (Source) Location / / Volume Laterality Specimen from 08/25/2014 10:28 08/25/2014 throat AM EXPERIMENTAL FLIGHT TEST MECHANIC 10:29 AM EXPERIMENTAL FLIGHT TEST MECHANIC (specimen) Thad Mckeon PA-C LAB - MICRO GENERAL ORDERABL ES Performing Organization Address City/State/ZIP Code Phon e Number [facility] [address] [place], [place] [address] [facility] [address] [place] [address] Strep, Rapid Screen (08/25/2014 10:28 AM EXPERIMENTAL FLIGHT TEST MECHANIC) Component Value Ref Test Analysis Performed At [facility] [place] Method Time Signature Specimen Throat [facility] Rapid Strep A NEGATIVE: No Group A strepto coccal antigen detected by immunoassay, await [place] Screen culture report. [facility] Micro Report FINAL 08/25/2014 [place] Status [facility] Specimen Anatomical Collection Method Collection Time Receive d Time (Source) Location / / Volume Laterality Specimen from 08/25/2014 10:28 08/25/2014 throat AM EXPERIMENTAL FLIGHT TEST MECHANIC 10:29 AM EXPERIMENTAL FLIGHT TEST MECHANIC (specimen) Thad Mckeon PA-C LAB - MICRO GENERAL ORDERABL ES Performing Organization Address City/State/ZIP Code Phon e Number [facility] [address] [place] [address] documented in this encounter Visit Diagnoses Diagnosis Acute pharyngitis - Primary documented in this encounter Care Teams Shaft Repairer Relationship Specialty Start Date End Date Thad Mckeon, PCP - General Physician Snaker - 02/17/14 AD Medical Thad Mckeon, PCP - Assigned PCP 12/16/13 09/07/18 [place] [address] [address] [id number] Thad Mckeon, Assigned PCP 12/16/13 [place] [address] [address] [id number] documented as of this encounter
--- OUTSIDE RECORDS SUMMARY | 2022-04-02 23:55 | XMS_ITS | Clinical Summary ---
:1995 Author Organization [facility] Address [place] [address] Care Team Providers Name Role Phone Thad Mckeon Primary Care Provider Unavailable Allergies No known active allergies Medications Medication Sig Dispensed Refills Start End Status Date Date Take 1 tablet by 0 10/19/19 Act pepper [id number]- mouth once daily. 20 FA ( VITAMIN) tab tablet cholecalciferol Take 1,000 units 0 Active (VITAMIN D) 1,000 by mouth once unit tablet daily. doxycycline Take 1 tablet by 2 Tablet 0 03/04/20 A ctive (VIBRAMYCIN) 100 mg mouth 12 and 2 22 tabletIndications: hours prior Encounter for procedure fertility testing acetaminophen Take 2 tablets by 100 tablet 0 05/07/20 Discontinued (TYLENOL) 325 mg mouth every 4 20 022 (*Patient tabletIndications: hours if needed states no Status post (mild pain). Max l onger delivery acetaminophen taking/Not on dose: 4000mg in send ing 24 hrs. facility l ist) ibuprofen (ADVIL; Take 1 tablet by 100 tablet 0 05/07/20 08/3 0/2 Discontinued MOTRIN) 600 mg mouth every 6 20 022 ( *Patient tabletIndications: hours if needed states no Status post for Pain or longer delivery uterine cramping. taking/Not on Take with food. send ing facility l ist) oxyCODONE Take 1 tablet by 20 tablet 0 05/07/20 Dis continued (ROXICODONE) 5 mg mouth every 4 20 022 (*Patient immediate release hours if needed states no tabletIndications: for Pain (for longer Status post moderate to taking /Not on delivery severe pain not sending controlled with faci lity list) ibuprofen and acetaminophen) Breast Pump - Electric breast 1 Device 0 05/07/20 Discontinued PurchaseIndications pump for home (*Patient : care use. st ates no and examination of l onger lactating mother franck ing/Not on sending facility l ist) oxyCODONE-acetamino Take 1 tablet by 25 tablet 0 06/20/20 Discontinued phen, 5-325 mg, mouth every 6 20 022 (*Patient (PERCOCET) 5-325 mg hours Max states no per acetaminophen longer tabletIndications: dose: 4000mg in taking/Not on Nephrolithiasis 24 hrs. send ing facility l ist) Active Problems Problem Noted Date Nephrolithiasis 06/20/2020 Breech presentation delivered 05/05/2020 Supervision of normal first in [facility] 10/19/2019 Overview: 24 y.o. Concerns this : spotting in ear ly which has resolved (resassuring rise in HCG levels and normal US x2) Medical concerns: Hx miscarriage x2, anx iety, depression, cold sores, chlamydia Genetic screening: Undecided, will conta ct her insurance regarding coverage BMI:# 27 Recommended wt gain 15-25 lbs HSV: Type 1, oral cold sores only Ultrasound findings: 09/21/19, 10/05/19- si ngle IUP SUZY 05/19/20 Flu vaccine: Declines Single/FOB involved: Sánchez Encounters Date Type Specialty Care Team Description 03/30/2022 Orders Only Sade Nayak <No scans attached> MD Leslye 03/27/2022 Telephone Sade Nayak abnormal r nicole Gavin MD 03/26/2022 Hospital Encounter Sade Nayak Enco unter for fertility MD Leslye testing 03/26/2022 Travel 03/04/2022 Telemedicine Sade Nayak Telehealth (Virtual MD Leslye visit-no vitals taken); Manager Graphic Exam (Martina morenoy visit) from Last 3 Months Immunizations Name Administration Dates Next Due DTaP 02/28/1999 HPV 9 (Gardasil 9) 11/12/2017, 07/13/2017 Hepatitis B (Peds) 10/15/2000 Human Papilloma Virus Vaccine 08/12/2018 Influenza, IIV4 03/30/2020 MMR 02/28/1999 Meningococcal Vaccine (Menactra) 02/01/2009 Tdap 03/01/2020, 07/28/2016, 02/16/2006 Family History Medical History Relation Name Comments Anxiety disorder Brother Anxiety disorder Father Depression Father Psoriasis Father COPD Maternal Grandfather Diabetes Maternal Grandfather Anxiety disorder Maternal Grandmother Cancer Maternal Grandmother cervix Depression Maternal Grandmother Anxiety disorder Mother Depression Mother Good Health Paternal Grandfather COPD Paternal Grandmother Anxiety disorder Sister Relation Name Status Comments Brother Alive Father Alive Maternal Grandfather Alive Maternal Grandmother Alive Mother Alive Paternal Grandfather Alive Paternal Grandmother Alive Sister Alive Social History Tobacco Use Types Packs/Day Years Used Date Former Smoker Quit: 2015 Smokeless Tobacco: Never Used Tobacco Cessation: Counseling Given: Yes Alcohol Use Standard Drinks/Week Comments Not Currently 0 (1 standard drink = 0.6 oz pure alcoho l) Sex Assigned at Date Recorded Not on file COVID-19 Exposure Response Date Recorded In the last 10 days, have you been in contact with No / Unsu re 03/26/2022 6:36 AM CDT someone who was confirmed or suspected to have Coronavirus/COVID-19? Obstetrics History Para Term AB IAB SAB Ectopic Multiple Living Live Births 3 1 1 0 2 0 2 0 0 1 1 Date Outcome GA Total Labor/2nd/3rd Weight Sex Delivery Anes PTL Shama A 1 A5 Name Clin Labor SAB SAB 05/05 Term 38w 3.66 kg M Spina Yesenia 9 9 RENY Guo /2019 0d (8 lb l ng PH,BB Pe sek 1.1 oz) KENDY Delivery Location: [facility] (UTD 2000 MB L&D TRIAGE) Last Filed Vital Signs Vital Sign Reading Time Taken Comments Blood Pressure 113/55 06/20/2020 9:30 PM BUSINESS LAWYER Pulse 85 06/20/2020 9:30 PM BUSINESS LAWYER Temperature 36.8 ??C (98.3 ??F) 06/20/2020 8:15 PM BUSINESS LAWYER Respiratory Rate 18 06/20/2020 9:30 PM BUSINESS LAWYER Oxygen Saturation 97% 06/20/2020 9:30 PM BUSINESS LAWYER Inhaled Oxygen Concentration - - Weight 91.2 kg (201 lb) 06/20/2020 5:17 AM BUSINESS LAWYER Height 170.2 cm (5' 7) 06/20/2020 5:17 AM BUSINESS LAWYER Body Mass Index 31.48 06/20/2020 5:17 AM BUSINESS LAWYER Plan of Treatment Upcoming Encounters Date Type Specialty Care Team Description 05/01/2022 Office Visit Sade Nayak MD [address] [place], [place] [phone] (Wo rk) 05/12/2022 Hospital Encounter Sade Nayak MD [address] [place] [phone] (Wo rk) 05/12/2022 Surgery Sade Nayak diagnostic laparoscopy, MD Leslye possible cautery of [address] endometriosis, tubal dye [address] study [place] [phone] (Wo rk) 06/03/2022 Office Visit Sade Nayak MD [address] [place] [phone] (Wo rk) Scheduled Procedures Name Priority Associated Diagnoses Date/Time LAPAROSCOPIC DIAGNOSTIC Female infertili ty 05/12/2022 1:34 PM BUSINESS LAWYER 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 Health Maintenance Due Date Last Done Comments BMI (ht and wt on same day) for 11/10/2020 11/11/2019, 10/04, age 18+ 05/26/2019 COVID-19 vaccine series (3 - 07/28/2021 02/25/2021, 021 Booster for Moderna series) Influenza for age 9-49 03/06/2022 03/30/2020 Pap test for age 21-65 03/09/2022 03/09/2019 (Completed out side of [facility]) Depression screening for age 12+ 03/04/2023 03/04/2022, , 11/11/2019, Additional history exists Tetanus booster 03/01/2030 03/01/2020, 07/28/2016, 02/16/2006 Hepatitis C screening for age Completed 11/11/2019 18-79 Tdap Completed 03/01/2020, 07/28/2016, 02/16/2006 Medical Devices Implanted Type Area Shrink Pit Supervisor Device Shelf Model / Identifier Expiration Date Ser ial / Lot Stent Uret [id number] Percuflex Hydroplus - [id number] [place] [facility] 02/28/2023 [id number] / Implanted: Qty: 1 on 06/20/2020 by Han Johnson MD at [facility] Ureter / [id number] Procedures Procedure Name Priority Date/Time Associated Comments Diagnosis XR HYSTEROSALPINGOGRAM Routine 03/26/2022 7:57 AM Encounter fo r Results for this CDT fertility testing procedure are in the results section. from Last 3 Months Results XR HYSTEROSALPINGOGRAM (03/26/2022 7:57 AM CDT) Anatomical Region Laterality Modality UTERUS Computed Radiography Specimen (Source) Anatomical Collection Method Collection Time Re ceived Time Location / / Volume Laterality 03/26/2022 7:57 AM CDT Impressions 03/26/2022 8:35 AM CDT 1. ??Normal-appearing uterus. 2. ??Right fallopian tube never fills. 3. ??Left lobe. Tube has free extravasat ion at approximately 1 cm with contrast extending into the peritoneum as well as some of the contrast partially entering the distal fallopian tube but never completely fills. Narrative 03/26/2022 8:35 AM CDT For Patients: As a result of the Cures Act, medical imaging exams and procedure reports are released immediately into your electronic medical record. You may view this report before your re ferring provider. If you have questions, please contact your health care provider. EXAM: XR HYSTEROSALPINGOGRAM LOCATION: [facility] MEDICAL IMAGING DATE/TIME: 03/26/2022 7:57 AM INDICATION: Encounter For Fertility Test ing COMPARISON: None. PROCEDURE: Procedure and risks explained and consent received. A time out was performed where the proper patient, procedure, and site were confirmed. Using sterile technique, a hysterosalpingogram nadia ter was placed into the cervix by self a nd 8 mL Omni 300 contrast material was injected into the uterus and fallopian tubes under direct fluoroscopic supervision. Routine images obtained. COMPLICATIONS: None. RADIOLOGIC SUPERVISION AND INTERPRETATIO N: UTERUS: Normal configuration with no jacoby ling defects or strictures. FALLOPIAN TUBES: Right fallopian tube ne shelby fills. The left fallopian tube partially fills an approximately 1 cm there is extravasation of contrast into the peritoneum. Part of the distal fallopian tube partially fills. FLUOROSCOPIC TIME: 1 min NUMBER OF IMAGES: 4 Procedure Note Zach Patel MD - 03/26/2022Fo rmatting of this note might be different from the original. For Patients: As a result of the ntury Cures Act, medical imaging exams and procedure reports are released immediately into your electronic medical record. You may view this report before your referring provider. If you have questions, please contact [facility] care provider. EXAM: XR HYSTEROSALPINGOGRAM LOCATION: [facility] MEDICAL IMAGING DATE/TIME: 03/26/2022 7:57 AM INDICATION: Encounter For Fertility Test ing COMPARISON: None. PROCEDURE: Procedure and risks explained and consent received. A time out was performed where the proper patient, procedure, and site were confirmed. Using sterile technique, a hysterosalpingogram catheter was placed into the cervix by self and 8 mL Omni 300 contrast material was injected into the uterus and fallopian tubes under direct fluoroscopic supervision. Routine images obtained. COMPLICATIONS: None. RADIOLOGIC SUPERVISION AND INTERPRETATIO N: UTERUS: Normal configuration with no jacoby ling defects or strictures. FALLOPIAN TUBES: Right fallopian tube ne shelby fills. The left fallopian tube partially fills an approximately 1 cm there is extravasation of contrast into the peritoneum. Part of the distal fallopian tube partially fills. FLUOROSCOPIC TIME: 1 min NUMBER OF IMAGES: 4 IMPRESSION: 1. Normal-appearing uterus. 2. Right fallopian tube never fills. 3. Left lobe. Tube has free extravasatio n at approximately 1 cm with contrast extending into the peritoneum as well as some of the contrast partially entering the distal fallopian tube but never completely fills. Sade Nayak MD FLUOROSCOPY from Last 3 Months Insurance Payer Benefit Plan / Subscriber ID Effective Dates Phone Addre ss Type Group DANE VELA [place] [id number] 2021-Present [address] [place] [address] Kendy Nieto Personal/Family Self [birth year] [address] [place] (Home) [place] [id number] Advance Directives Latest Code Status on File Code Status Date Activated Date Inactivated Comments Full Code 06/20/2020 11:20 AM 06/21/2020 12:54 AM Code Status Discussion: Discussed Full Code 05/05/2020 4:17 AM 05/08/2020 3:11 PM Code Status Discussion: Discussed Care Teams Looper Operator Relationship Specialty Start Date End Date Thad Mckeon PCP - General Physician Facility Planner 03/28/19
[2022-04-03 00:12] VITALS: BP 101/66; PULSE 99; RESP 18; TEMP 36.6
[2022-04-03 00:19] VITALS: BP 112/74; PULSE 84; RESP 18; TEMP 36.6; O2SAT 98
== END 2022-04-03 00:20 | disposition home or self-care (01) ==
PROVIDERS: Emergency Provider Family Medicine
DX: S05.01XA Injury of conjunctiva and corneal abrasion without foreign body, right eye, initial encounter (principal); W26.8XXA Contact with other sharp object(s), not elsewhere classified, initial encounter
CPT/HCPCS: 99283; A9270

== ENCOUNTER 2022-08-23 21:45 | Emergency (ER) | payer MEDICAID, SELFPAY ==
[2022-08-23 22:06] VITALS: BP 116/46; PULSE 76; RESP 16; TEMP 36.4; O2SAT 100; BMI 30.4
--- NOTE | 2022-08-23 22:32 | ED_ITS ---
HPI - General Adult General Time Seen by Provider: 22:37 Date Seen: 08/23/22 Chief complaint: Abdominal Pain Stated complaint: Sharp pain lower right abdominal Time Seen by Provider: 08/23/22 22:08 Source: patient and RN notes reviewed Mode of arrival: ambulatory Limitations: no limitations History of Present Illness HPI narrative: 27-year-old female who comes in today with right lower quadrant abdominal pain. Patient bent forward when prednisone bed and had abrupt onset of right lower quadrant pain. This occurred just prior to coming the emergency department has been constant. Patient was feeling fine prior to this. She denies nausea, vomiting, diarrhea, urinary symptoms. Unsure if she is or not, last menstrual period was about 1 month ago. She has not taken anything for the pain. Since worsened movement. She has a history of kidney stones and says this does not feel similar. Related Data Home Medications Medication Instructions Recorded Confirmed No Known Home Medications 12/31/21 04/02/22 Allergies Allergy/AdvReac Type Severity Reaction Status Date / Time No Known Drug Allergies Allergy Verified 08/23/22 22:09 [facility] Medical History (Updated 08/24/22 @ 01:26 by Eldon Rodrigues MD) No significant past medical history Surgical History (Updated 04/03/22 @ 00:36 by Thomas Hill RN) No significant past surgical history Social History Smoking Status: Never smoker Do you use any of these nicotine containing products: None Second hand tobacco smoke exposure: No How often do you have a drink containing alcohol: monthly or less How often do you have six or more drinks on one occasion: Never AUDIT-C Alcohol total score: 1 Non-prescribed substance use: denies use and other Non-prescribed substance use details: none service: No Exam Narrative: Exam Narrative: General: Well-developed and well-nourished, no acute distress Head: Atraumatic and normocephalic Eyes: Pupils are equal reactive, extraocular motions intact, conjunctiva clear ENT: External nose and ears are normal, posterior pharynx without erythema or exudate Neck: No midline cervical tenderness, full spontaneous range of motion the neck, trachea midline, no adenopathy Heart: Regular rate and rhythm no murmurs or thrills Lungs: Clear to auscultation bilaterally without wheezes or crackles Abdomen: Soft, right lower quadrant tenderness medial to McBurney's point,, nondistended with active bowel sounds. Carnett sign negative. Musculoskeletal: No tenderness, deformity, or edema Neurologic: Awake, alert, and oriented x3, no gross focal neurologic deficits, cranial nerves intact as tested Psych: Mood and affect are appropriate Skin: No rashes Const: Vital Signs, click to edit/add: Vital Signs - 24 hr 08/23/22 22:06 Temperature 97.6 F Pulse Rate [Pulse Oximeter] 76 Respiratory Rate 16 Blood Pressure [Le ft Upper Arm] 116/46 L Pulse Oximetry 100 Oxygen Delivery Me thod Room Air Course Course Hospital Course: Patient seen and examined, prior records are reviewed. Patient presents today with right-sided abdominal pain starting with activity just prior to coming the emergency department. On exam here, tenderness is medial to expected McBurney's point, Carnett sign negative. Pain seems adnexal, ultrasound is ordered. If this is negative, consider CT scan for further evaluation. Reevaluation(s) Reevaluation #1: Urinalysis with blood but no other acute findings for infection. Pelvic ultrasound negative for acute findings including torsion or cyst. Difficulty getting IV started. CT scan without contrast will be done Time: 00:12 Reevaluation #2: CT scan independently interpreted by me does not demonstrate any acute intra abdominal findings, appendix is visualized and appears normal. Labs independently interpreted by me demonstrate leukocytosis but no other acute abnormalities, basic panel is reassuring. Patient is stable for discharge with outpatient follow-up, Tylenol or ibuprofen as needed for pain. Time: 01:24 Vital Signs Vital signs: Initial Vital Signs Temperature 97.6 F 08/23/22 22:06 Temperature Source Temporal Artery Scan 08/23/22 22:06 Pulse Rate 76 08/23/22 22:06 Pulse Rhythm 08/23/22 22:06 Pulse Strength 3+ Normal 08/23/22 22:06 Respiratory Rate 16 08/23/22 22:06 Blood Pressure 116/46 L 08/23/22 22:06 Blood Pressure Mean 69 08/23/22 22:06 Blood Pressure Position Supine 08/23/22 22:06 Pulse Oximetry 100 08/23/22 22:06 Oxygen Delivery Method 08/23/22 22:06 Vital Signs Temperature 97.6 F 08/23/22 22:06 Pulse Rate 76 08/23/22 22:06 Respiratory Rate 16 08/23/22 22:06 Blood Pressure 116/46 L 08/23/22 22:06 Pulse Oximetry 100 08/23/22 22:06 Oxygen Delivery Method 08/23/22 22:06 Temperature 97.6 F 08/23/22 22:06 Pulse Rate 76 08/23/22 22:06 Respiratory Rate 16 08/23/22 22:06 Blood Pressure 116/46 L 08/23/22 22:06 Pulse Oximetry 100 08/23/22 22:06 Oxygen Delivery Method 08/23/22 22:06 Medical Decision Making Lab Data Labs: Lab Results 08/23/22 08/23/22 08/23/22 Range/Units 00:36 00:36 22:21 WBC 13.20 H (4.50-11.00) K/uL RBC 5.14 (4.00-5.20) m/uL Hgb 15.3 (12.0-16.0) gm/dL Hct 45.5 (33.0-51.0) % MCV 89 (80-100) fL MCH 30 (26-34) pg MCHC 34 (32-36) gm/dL RDW Coeff of Laya 12.2 (11.5-15.5) % Plt Count 245 (140-440) K/uL Neut % (Auto) 65.2 (42.0-72.0) % Lymph % (Auto) 25.1 (20-44) % [place] % (Auto) 7.0 (0.0-11.0) % Eos % (Auto) 2.0 (0.0-7.0) % Baso % (Auto) 0.5 (0.0-3.0) % Neut # (Auto) 8.60 H (1.7-7.0) K/uL Lymph # (Auto) 3.30 H (0.90-2.90) K/uL [place] # (Auto) 0.90 (0.00-0.90) K/UL Eos # (Auto) 0.30 (0.00-0.50) K/uL Baso # (Auto) 0.10 (0.00-0.30) K/uL Sodium 139 (135-149) mmol/L Potassium 4.9 (3.6-5.1) mmol/L Chloride 111 (96-114) mmol/L Carbon Dioxide 20 (20-32) mmol/L BUN 15 (5-24) mg/dL Creatinine 0.6 (0.5-1.5) mg/dL Estimated Creat Clear 135.75 Estimated GFR 125 ml/min Glucose 96 (60-115) mg/dL Calcium 9.3 (8.4-10.6) mg/dL HCG, Qual Negative (Negative) Urine Color Yellow (Yellow) Urine Appearance Clear (Clear) Urine pH 7.0 (5.0-8.5) Ur Specific [place] 1.015 (1.000-1.030) Urine Protein Negative (Negative) Urine Glucose (UA) Negative (Negative) Urine Ketones Negative (Negative) Urine Blood 2+ A (Negative) Urine Nitrite Negative (Negative) Urine Bilirubin Negative (Negative) Urine Urobilinogen 0.2 (0.2-1.0) Ur Leukocyte Esterase Trace A (Negative) Urine RBC 0-2 (0-2) Urine WBC 0-2 (0-5) Ur Squamous Epith Cells Few (None-Few) Urine Bacteria Few A (None) Discharge Plan Discharge Clinical Impression: Abdominal pain, RLQ Patient Disposition: Home, Self-Care Condition: Stable Instructions: Acute Abdominal Pain (DC) Additional Instructions: Tylenol and ibuprofen as needed for pain. Follow-up in 1-2 days with your primary care provider. Activity Level: No strenuous activity Prescriptions: No Action No Known Home Medications Follow Up/Referrals: Provider,Not a Local [Primary Care Provider] - Stand Alone Forms: [employer] Info Instructions
--- NOTE | 2022-08-23 22:36 | CRLHL7_ITS ---
For Patients: As a result of the Century Cures Act, medical imaging exams and procedure reports are released immediately into your electronic medical record. You may view this report before your referring provider. If you have questions, please contact your health care provider. INDICATION: RLQ pain. TECHNIQUE: Ultrasound pelvis transabdominal and transvaginal for better assessment or to better visualize the endometrium. Real-time sonographic images with spectral and color Doppler imaging of the ovaries were obtained. COMPARISON: None. FINDINGS: Uterus: 7.6 x 4.5 x 5.7 cm. Normal echotexture of the myometrium. No masses. scar is noted. Endometrium: Transvaginal imaging was performed to better evaluate the endometrium. Endometrial thickness measures 8 mm. No sign of endometrial mass or fluid. Right ovary measures 4.4 x 2.4 x 2 7 cm and left ovary measures 2.9 x 2.0 x 1.6 cm. No ovarian or adnexal masses. Normal arterial and venous blood flow is demonstrated in both ovaries. Cul-de-sac: No significant free fluid. IMPRESSION: IMPRESSION: Dictated by Katie German MD @ 08/24/2022 12:11:59 AM (Electronically Signed)
[2022-08-23 23:43] LABS: Appearance Urine Clear (Clear); Bilirubin Urine Negative (Negative); Blood Urine 2+ (Negative); Color Urine Yellow (Yellow); Glucose Urine Negative (Negative); Ketones Urine Negative (Negative); Leukocyte Esterase Urine Trace (Negative); Nitrite Urine Negative (Negative); Protein Urine Negative (Negative); Specific Gravity Urine 1.015 (1.000-1.030); Urobilinogen Urine 0.2 (0.2-1.0)
[2022-08-23 23:46] LABS: HCG Qualitative* Negative (Negative)
[2022-08-23 23:58] LABS: RBC Urine 0-2 (0-2); Squamous Epithelial Cell Urine Few (None-Few); WBC Urine 0-2 (0-5)
[2022-08-23 23:59] LABS: Bacteria Urine Few
--- NOTE | 2022-08-24 00:13 | CRLHL7_ITS ---
For Patients: As a result of the Century Cures Act, medical imaging exams and procedure reports are released immediately into your electronic medical record. You may view this report before your referring provider. If you have questions, please contact your health care provider. INDICATION: Right lower quadrant pain, hematuria. History of stones.. TECHNIQUE: CT abdomen and pelvis without contrast. COMPARISON: None. FINDINGS: Limited evaluation of the intra-abdominal solid organs without IV contrast. Lower chest: Unremarkable. Liver: Normal in size and attenuation. No suspicious masses. Gallbladder and bile ducts: No stones or inflammation. No biliary dilatation. Pancreas: Unremarkable. No mass or inflammation. Spleen: Normal in size. No masses. Adrenal glands: Normal in size. No nodules. Kidneys: Normal in size. No suspicious masses, stones, or hydronephrosis. GI tract: Small hiatal hernia. Normal in caliber. No sign of mass or inflammation. Normal appendix. Vasculature: Abdominal aorta is normal in caliber. Lymph nodes: No lymphadenopathy. Peritoneum/Abdominal Wall: Unremarkable. No sign of mass or infiltration. No free air or significant free fluid. Pelvic organs: Unremarkable. No pelvic masses. Bones: Unremarkable for age. IMPRESSION: No acute intra-abdominal process identified. Please note that all CT scans at this facility use dose modulation, iterative reconstruction, and/or weight-based dosing when appropriate to reduce radiation dose to as low as reasonably achievable. Dictated by Katie German MD @ 08/24/2022 1:21:37 AM (Electronically Signed)
[2022-08-24 00:54] LABS: Basophils Percent Auto 0.5 % (0.0-3.0); Hematocrit 45.5 % (33.0-51.0); Hemoglobin* 15.3 gm/dL (12.0-16.0); Immature Granulocytes Pct Auto 0.2 %; Lymphocytes Percent Auto 25.1 % (20-44); Mean Corpuscular HGB Conc 34 gm/dL (32-36); Mean Corpuscular Hemoglobin 30 pg (26-34); Mean Corpuscular Volume 89 fL (80-100); Neutrophils Percent Auto 65.2 % (42.0-72.0); Platelet Count* 245 K/uL (140-440); RDW Coefficient of Variation % 12.2 % (11.5-15.5); Red Blood Count 5.14 m/uL (4.00-5.20)
[2022-08-24 00:55] LABS: Slide Review Reflex No
[2022-08-24 00:57] LABS: Chloride* 111 mmol/L (96-114); Sodium* 139 mmol/L (135-149)
[2022-08-24 00:58] LABS: Potassium* 4.9 mmol/L (3.6-5.1)
[2022-08-24 01:00] LABS: Creatinine* 0.6 mg/dL (0.5-1.5); Est. Creatinine Clearance* 135.75; Estimated Glomerular Filt Rate 125 ml/min
[2022-08-24 01:01] LABS: Blood Urea Nitrogen* 15 mg/dL (5-24); Calcium* 9.3 mg/dL (8.4-10.6); Carbon Dioxide* 20 mmol/L (20-32); Glucose* 96 mg/dL (60-115)
== END 2022-08-24 01:38 | disposition home or self-care (01) ==
PROVIDERS: Emergency Provider Family Medicine
DX: R10.31 Right lower quadrant pain (principal)
CPT/HCPCS: 36415; 74176; 76830; 76856; 80048; 81001; 84703; 85025; 87086; 99284

== ENCOUNTER 2023-04-26 08:12 | Emergency (ER) | payer MEDICAID, SELFPAY ==
[2023-04-26 08:26] VITALS: BP 117/74; PULSE 86; RESP 18; TEMP 36.3; O2SAT 98; BMI 33.1
--- NOTE | 2023-04-26 08:26 | CRLHL7_ITS ---
For Patients: As a result of the Century Cures Act, medical imaging exams and procedure reports are released immediately into your electronic medical record. You may view this report before your referring provider. If you have questions, please contact your health care provider. INDICATION: Vaginal bleeding, 6 weeks TECHNIQUE: Ultrasound OB pelvis transvaginal. Real time fischer scale imaging of the pelvis was performed. COMPARISON: None FINDINGS: Sonographic imaging demonstrates no intrauterine . The endometrial stripe measures up to 10 millimeters in thickness and is heterogeneous in echogenicity with no mass or polyp. No uterine mass or abnormality is demonstrated. The right ovary measures 4.5 x 2.6 x 3.1 centimeters and is normal in appearance. The left ovary measures 3.4 x 2.2 x 2.8 centimeters and has a small cyst measuring 2.1 x 1.6 x 1.1 centimeters possibly representing a corpus luteum. A 2nd small 8 millimeter centrally hypoechoic structure in the left adnexal adjacent to the left ovary is present and could represent an ectopic . No other evidence for pelvic ectopic is seen. IMPRESSION: 1. No intrauterine is demonstrated. 2. Small 8 millimeter centrally hypoechoic structure in the left adnexa adjacent to the left ovary is indeterminate. An ectopic is not excluded. Correlation with serial beta HCGs and/or follow-up sonography in 2-3 weeks is recommended. 3. Suspect a left ovarian corpus luteum. Dictated by Dane Boateng MD @ 04/26/2023 10:18:56 AM (Electronically Signed)
--- NOTE | 2023-04-26 08:34 | ED.GENADULT ---
HPI - General Adult General Time Seen by Provider: 08:35 Date Seen: 04/26/23 Chief complaint: Vaginal Bleeding Stated complaint: 6 weeks , bleeding Time Seen by Provider: 04/26/23 08:13 Source: patient Mode of arrival: ambulatory Limitations: no limitations History of Present Illness HPI narrative: Patient is a 28-year-old female who has got 2 children and 1 miscarriage, she had bleeding with prior pregnancies, she is about 6 weeks estimated gestational age right now after a round of Clomid she got . She has been trying for about 3 years. She does not know her blood type. She [facility] with the [facility] [place] through [facility]. The patient is not lightheaded or dizzy she noticed a little bit of spotting all this week and was consulted with her OBGYN and there hCG was elevating. She had a little bit heavier bleeding last 9 presents to the ER. No further cramping no further bleeding noted. Not lightheaded or dizzy. Related Data Home Medications Medication Instructions Recorded Confirmed No Known Home Medications 12/31/21 04/02/22 Allergies Allergy/AdvReac Type Severity Reaction Status Date / Time No Known Drug Allergies Allergy Verified 08/23/22 22:09 Review of Systems Status of ROS: Reports: 6 or more systems reviewed and unremarkable except as noted in History and below [facility] Medical History No significant past medical history Surgical History No significant past surgical history Social History Smoking Status: Never smoker Do you use any of these nicotine containing products: None Second hand tobacco smoke exposure: No How often do you have a drink containing alcohol: monthly or less How often do you have six or more drinks on one occasion: Never AUDIT-C Alcohol total score: 1 Non-prescribed substance use: denies use and other Non-prescribed substance use details: none service: No Exam Narrative: Exam Narrative: Objective: Vital signs unremarkable in general patient is no apparent distress Abdomen is benign soft nontender patient is alert orient x3 Vital signs unremarkable pulses normal No suprapubic tenderness or abdominal pain to palpation. Good peripheral perfusion noted Const: Vital Signs, click to edit/add: Vital Signs - 24 hr 04/26/23 08:26 Temperature 97.4 F L Pulse Rate [Right Pulse Oximeter] 86 Respiratory Rate 18 Blood Pressure [Ri ght Upper Arm] 117/74 Pulse Oximetry 98 Oxygen Delivery Me thod Room Air Course Vital Signs Vital signs: Initial Vital Signs Temperature 97.4 F L 04/26/23 08:26 Temperature Source Temporal Artery Scan 04/26/23 08:26 Pulse Rate 86 04/26/23 08:26 Respiratory Rate 18 04/26/23 08:26 Blood Pressure 117/74 04/26/23 08:26 Blood Pressure Mean 88 04/26/23 08:26 Blood Pressure Position Sitting 04/26/23 08:26 Pulse Oximetry 98 04/26/23 08:26 Oxygen Delivery Method Room Air 04/26/23 08:26 Vital Signs Temperature 97.4 F L 04/26/23 08:26 Pulse Rate 86 04/26/23 08:26 Respiratory Rate 18 04/26/23 08:26 Blood Pressure 117/74 04/26/23 08:26 Pulse Oximetry 98 04/26/23 08:26 Oxygen Delivery Method Room Air 04/26/23 08:26 Temperature 97.4 F L 04/26/23 08:26 Pulse Rate 86 04/26/23 08:26 Respiratory Rate 18 04/26/23 08:26 Blood Pressure 117/74 04/26/23 08:26 Pulse Oximetry 98 04/26/23 08:26 Oxygen Delivery Method Room Air 04/26/23 08:26 Medical Decision Making MDM Narrative Medical decision making narrative: 28-year-old white female who had infertility for about 3 years got on the 1st round of Clomid, is now on supportive progesterone. She is about 6 weeks age estimated gestational age is had some spotting this week. She did have a reassuring hCG earlier this week with her OBGYN. She had a little bit heavier bleeding last night and wishes to be checked for this again, I think at this point will check pelvic ultrasound makes see if there is any intrauterine , would also do an hCG quantitative, blood type, hemoglobin. Disposition pending findings above Addendum 10:23 a.m. patient has an ultrasound that demonstrates a ovarian cystic type structure on the left ovary that looks like corpus luteum cyst but also a small 8 mm hypoechoic structure. Her HCG is at a 1000 slightly lower than expected. 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 Addendum 11:[address] Che CHRISTIE who recommended follow-up with primary care in 48 hours, return sooner for increased bleeding or abdominal pain of any kind or dizziness. Patient is comfortable plan will follow up as directed. She will need a repeat hCG on Thursday. Lab Data Labs: Lab Results 04/26/23 Range/Units 08:39 WBC 5.95 (4.50-11.00) K/uL RBC 4.86 (4.00-5.20) m/uL Hgb 14.1 (12.0-16.0) gm/dL Hct 42.8 (33.0-51.0) % MCV 88 (80-100) fL MCH 29 (26-34) pg MCHC 33 (32-36) gm/dL RDW Coeff of Laya 13.0 (11.5-15.5) % Plt Count 279 (140-440) K/uL Neut % (Auto) 64.7 (42.0-72.0) % Lymph % (Auto) 25.5 (20-44) % [place] % (Auto) 6.6 (0.0-11.0) % Eos % (Auto) 2.5 (0.0-7.0) % Baso % (Auto) 0.5 (0.0-3.0) % Neut # (Auto) 3.85 (1.7-7.0) K/uL Lymph # (Auto) 1.52 (0.90-2.90) K/uL [place] # (Auto) 0.40 (0.00-0.90) K/UL Eos # (Auto) 0.15 (0.00-0.50) K/uL Baso # (Auto) 0.03 (0.00-0.30) K/uL Abs Immat Gran (auto) 0.01 (0.00-0.30) K/uL Imm/Tot Granulo (auto) 0.2 % Sodium 138 (135-149) mmol/L Potassium 3.9 (3.6-5.1) mmol/L Chloride 106 (96-114) mmol/L Carbon Dioxide 22 (20-32) mmol/L Anion Gap 10 (7-15) mEq/L BUN 13 (5-24) mg/dL Creatinine 0.6 (0.5-1.5) mg/dL Estimated Creat Clear 124.49 Estimated GFR 125 ml/min Glucose 101 (60-115) mg/dL Calcium 9.2 (8.4-10.6) mg/dL HCG, Quant 1035.00 mIU/mL Blood Type A Positive Discharge Plan Discharge Clinical Impression: Antepartum hemorrhage in first trimester Patient Disposition: Home w/ Parent or Adult Condition: Stable Additional Instructions: Follow-up with your regular doctor in 2 days for repeat hCG level. If you have increased bleeding or abdominal pain or dizziness you to return to the ED promptly as a potential for an ectopic exist, but it is unlikely. Recheck with your regular doctor as described. Return as needed. Activity Level: Light activity Discharge Diet: Regular Prescriptions: No Action No Known Home Medications Follow Up/Referrals: Provider,Not a Local [Primary Care Provider] - Stand Alone Forms: [employer] Info Instructions
[2023-04-26 08:53] LABS: Basophils Absolute Auto 0.03 K/uL (0.00-0.30); Basophils Percent Auto 0.5 % (0.0-3.0); Eosinophils Absolute Auto 0.15 K/uL (0.00-0.50); Eosinophils Percent Auto 2.5 % (0.0-7.0); Hematocrit 42.8 % (33.0-51.0); Hemoglobin* 14.1 gm/dL (12.0-16.0); Immature Granulocytes Abs Auto 0.01 K/uL (0.00-0.30); Immature Granulocytes Pct Auto 0.2 %; Lymphocytes Absolute Auto 1.52 K/uL (0.90-2.90); Lymphocytes Percent Auto 25.5 % (20-44); Mean Corpuscular HGB Conc 33 gm/dL (32-36); Mean Corpuscular Hemoglobin 29 pg (26-34); Mean Corpuscular Volume 88 fL (80-100); Monocytes Percent Auto 6.6 % (0.0-11.0); Neutrophils Absolute Auto 3.85 K/uL (1.7-7.0); Neutrophils Percent Auto 64.7 % (42.0-72.0); Platelet Count* 279 K/uL (140-440); Red Blood Count 4.86 m/uL (4.00-5.20); White Blood Count* 5.95 K/uL (4.50-11.00)
[2023-04-26 09:12] LABS: Slide Review Reflex No
[2023-04-26 09:22] LABS: Chloride* 106 mmol/L (96-114); Potassium* 3.9 mmol/L (3.6-5.1); Sodium* 138 mmol/L (135-149)
[2023-04-26 09:24] LABS: Creatinine* 0.6 mg/dL (0.5-1.5); Est. Creatinine Clearance* 124.49; Estimated Glomerular Filt Rate 125 ml/min
[2023-04-26 09:25] LABS: Anion Gap 10 mEq/L (7-15); Blood Urea Nitrogen* 13 mg/dL (5-24); Calcium* 9.2 mg/dL (8.4-10.6); Carbon Dioxide* 22 mmol/L (20-32); Glucose* 101 mg/dL (60-115)
== END 2023-04-26 12:17 | disposition home or self-care (01) ==
PROVIDERS: Emergency Provider Family Medicine
DX: O20.9 Hemorrhage in early pregnancy, unspecified (principal); Z3A.01 Less than 8 weeks gestation of pregnancy
CPT/HCPCS: 36415; 76817; 80048; 84702; 85025; 86900; 86901; 99284

== ENCOUNTER 2023-05-14 12:17 | Emergency (ER) | payer MEDICAID, SELFPAY ==
[2023-05-14 12:23] VITALS: BP 114/70; PULSE 97; RESP 16; TEMP 36.4; O2SAT 96; BMI 33.3
--- NOTE | 2023-05-14 12:36 | ED_ITS ---
HPI - General Adult General Date Seen: 05/14/23 Chief complaint: Insect Bite Stated complaint: infected tick bite Time Seen by Provider: 05/14/23 12:23 Source: patient Mode of arrival: ambulatory Limitations: no limitations History of Present Illness HPI narrative: Patient is a 28-year-old female with no pertinent medical problems presenting to emergency department for a tick bite to the left upper extremity. She states 3 weeks ago she pulled a tick of her left upper arm. She states it was a deer tick. She knows is she has continued to have some mild erythema around it was concerned she could have Lyme disease. Denies chest pain, shortness of breath, joint pain, fevers, chills, rashes. No other complaints at this time Related Data Home Medications Medication Instructions Recorded Confirmed No Known Home Medications 12/31/21 04/02/22 Allergies Allergy/AdvReac Type Severity Reaction Status Date / Time No Known Drug Allergies Allergy Verified 05/14/23 12:25 Review of Systems Status of ROS: Reports: 10 or more systems reviewed and unremarkable except as noted in History and below [facility] Medical History No significant past medical history Surgical History No significant past surgical history Social History Smoking Status: Never smoker Do you use any of these nicotine containing products: None Second hand tobacco smoke exposure: No How often do you have a drink containing alcohol: monthly or less How often do you have six or more drinks on one occasion: Never AUDIT-C Alcohol total score: 1 Non-prescribed substance use: denies use and other Non-prescribed substance use details: none service: No Exam Narrative: Exam Narrative: Const: Well-nourished, Well-developed, in mild distress Eyes: PERRL, no conjunctival injection, and symmetrical lids HENT: Atraumatic external nose and ears. Moist mucous membranes. Neck: Symmetric, trachea midline, No thyromegaly. CVS: RRR, No murmurs or gallops. Peripheral pulses 2+ and equal in all extremities RESP: Unlabored respiratory effort. Clear to auscultation bilaterally. GI: Nontender/Nondistended, No rebound or guarding. MSK:Extremities w/o deformity, Normal Active ROM Skin: Warm, Dry. Very small insert my seen on her left medial upper arm. Mildly warm very mildly erythematous around it. No rashes seen Neuro: Normal Muscle tone, No focal neurological deficits. Psych: Awake, Alert, & Oriented x3. Appropriate mood and affect. Const: Vital Signs, click to edit/add: Vital Signs - 24 hr 05/14/23 12:23 Temperature 97.5 F L Pulse Rate [Right Pulse Oximeter] 97 Respiratory Rate 16 Blood Pressure [Ri ght Upper Arm] 114/70 Pulse Oximetry 96 Oxygen Delivery Me thod Room Air Course Vital Signs Vital signs: Initial Vital Signs Temperature 97.5 F L 05/14/23 12:23 Temperature Source Temporal Artery Scan 05/14/23 12:23 Pulse Rate 97 05/14/23 12:23 Pulse Rhythm Regular 05/14/23 12:23 Pulse Strength 3+ Normal 05/14/23 12:23 Respiratory Rate 16 05/14/23 12:23 Blood Pressure 114/70 05/14/23 12:23 Blood Pressure Mean 84 05/14/23 12:23 Blood Pressure Position Sitting 05/14/23 12:23 Pulse Oximetry 96 05/14/23 12:23 Oxygen Delivery Method Room Air 05/14/23 12:23 Vital Signs Temperature 97.5 F L 05/14/23 12:23 Pulse Rate 97 05/14/23 12:23 Respiratory Rate 16 05/14/23 12:23 Blood Pressure 114/70 05/14/23 12:23 Pulse Oximetry 96 05/14/23 12:23 Oxygen Delivery Method Room Air 05/14/23 12:23 Temperature 97.5 F L 05/14/23 12:23 Pulse Rate 97 05/14/23 12:23 Respiratory Rate 16 05/14/23 12:23 Blood Pressure 114/70 05/14/23 12:23 Pulse Oximetry 96 05/14/23 12:23 Oxygen Delivery Method Room Air 05/14/23 12:23 Medical Decision Making MDM Narrative Medical decision making narrative: Patient is a 28-year-old female presenting for concern for Lyme disease. She removed the tick 3 weeks ago. At this point she is on the window for prophylaxis. She is not having no other symptoms of Lyme disease at this time. We will test for Lyme disease. At this time and I believe it is necessary to do empiric antibiotic treatment. She is agreeable to this plan. Patient will be discharged will be informed of the results when they come back Discharge Plan Discharge Clinical Impression: Insect bite Qualifiers: Encounter type: initial encounter Site of insect bite: upper arm Laterality: left Qualified Code(s): S40.862A - Insect bite (nonvenomous) of left upper arm, initial encounter Patient Disposition: Home, Self-Care Condition: Stable Instructions: Tick Bite (ED) Additional Instructions: You will be informed of results if they are positive the next few days when they return. Return for new or worsening symptoms. Prescriptions: No Action No Known Home Medications Follow Up/Referrals: Provider,Not a Local [Primary Care Provider] - Stand Alone Forms: [employer] Info Instructions
[2023-05-16 06:52] LABS: Lyme ELISA Reflex 0.53 IV (<=0.90)
== END 2023-05-14 12:55 | disposition home or self-care (01) ==
PROVIDERS: Emergency Provider Student in an Organized Health Care Education/Training Program
DX: S40.862A Insect bite (nonvenomous) of left upper arm, initial encounter (principal); W57.XXXA Bitten or stung by nonvenomous insect and other nonvenomous arthropods, initial encounter
CPT/HCPCS: 36415; 86618; 99282

== ENCOUNTER 2023-08-27 15:34 | Emergency (ER) | payer MEDICAID, SELFPAY ==
[2023-08-27 15:51] VITALS: BP 102/71; PULSE 77; RESP 18; TEMP 36.3; O2SAT 100; BMI 31.6
[2023-08-27 16:13] LABS: Appearance Urine Clear (Clear); Bilirubin Urine Negative (Negative); Blood Urine Negative (Negative); Color Urine Yellow (Yellow); Glucose Urine Negative (Negative); Ketones Urine Negative (Negative); Leukocyte Esterase Urine Negative (Negative); Nitrite Urine Negative (Negative); Protein Urine 1+ (Negative); Specific Gravity Urine >= 1.030 (1.000-1.030); Urobilinogen Urine 0.2 (0.2-1.0)
[2023-08-27 16:23] LABS: Bacteria Urine Few; RBC Urine 0-2 (0-2); Squamous Epithelial Cell Urine Many (None-Few)
== END 2023-08-27 16:23 | disposition left against medical advice (07) ==
PROVIDERS: Emergency Provider Emergency Medicine
DX: Z53.21 Procedure and treatment not carried out due to patient leaving prior to being seen by health care provider (principal)
CPT/HCPCS: 81001; 87086; 87186

== ENCOUNTER 2023-10-25 18:20 | Emergency (ER) | payer MEDICAID, SELFPAY ==
[2023-10-25 18:29] VITALS: BP 109/72; PULSE 93; RESP 18; TEMP 36.8; O2SAT 98; BMI 31.6
--- NOTE | 2023-10-25 18:47 | ED_ITS ---
HPI - General Adult General Chief complaint: Ear/Nose/Throat Problem Stated complaint: R ear infection Time Seen by Provider: 10/25/23 18:30 History of Present Illness HPI narrative: This 28-year-old female comes in with severe pain in her right lower teeth. This pain is radiating now to her right ear. She states that she is unable to sleep because the pain is so intense. She did go to her dentist a few days ago and x-rays were obtained. She was prescribed amoxicillin and instructed to come to the emergency department if worsening. The patient arrives with normal vital signs. She is not prescribed any medicine for pain. Related Data Home Medications Medication Instructions Recorded Confirmed amoxicillin 500 mg tablet 500 mg PO QID 10/25/23 10/25/23 fluoxetine 10 mg capsule 10 mg PO DAILY 10/25/23 10/25/23 levonorgestrel-ethinyl estradiol 1 tab PO DAILY 10/25/23 10/25/23 0.1 mg-20 mcg tablet (Aviane) phentermine 15 mg capsule 15 mg PO QAM 10/25/23 10/25/23 Allergies Allergy/AdvReac Type Severity Reaction Status Date / Time bee pollen Allergy Severe Anaphylaxis Verified 10/25/23 18:35 Review of Systems Status of ROS: Reports: 10 or more systems reviewed and unremarkable except as noted in History and below Narrative: Constitutional: No fevers, no weight gain or loss. Eyes: No discharge. No vision changes. HENT: No congestion, no sore throat. Dental pain on the right side radiating toward her ear. Cardiovascular: No chest pain, no palpitations. Respiratory: No shortness of breath, no wheezes, no cough. Gastrointestinal: No abdominal pain, no vomiting, no diarrhea. Genitourinary: No dysuria, no hematuria. Musculoskeletal: Normal range of motion. Skin: No rashes, no pruritis. Neurological: No dizziness, weakness, sensory change, speech change. Endo/Heme/Allergies: No bruising or bleeding. No polydipsia. Pysch: no suicidality, no anxiety, no insomnia. All other systems reviewed and are negative. [facility] Medical History No significant past medical history Surgical History No significant past surgical history Social History Smoking Status: Former smoker Do you use any of these nicotine containing products: None Second hand tobacco smoke exposure: No How often do you have a drink containing alcohol: never How often do you have six or more drinks on one occasion: Never AUDIT-C Alcohol total score: 0 Non-prescribed substance use: denies use and other Non-prescribed substance use details: none service: No Exam Narrative: Exam Narrative: Constitutional: Well-developed, well-nourished. HEENT: Normocephalic, atraumatic. Good dentition. No sign of abscess. Neck: Normal range of motion. Nontender. Supple. Heart: Intact distal pulses. Lungs: No chest discomfort. No wheezes, rhonchi, or rales. Abdomen: Nontender. Back: Normal range of motion. Extremities: Normal range of motion. No injury. Skin: Intact. No rash. Warm. No erythema or pallor. Neurologic: No altered sensation. No weakness. Alert and oriented. Psychiatric: No suicidality. No anxiety or depression. No insomnia. Nursing notes and vitals signs are reviewed. Const: Vital Signs, click to edit/add: Vital Signs - 24 hr 10/25/23 18:29 Temperature 98.2 F Pulse Rate [Pulse Oximeter] 93 Respiratory Rate 18 Blood Pressure [Ri ght Upper Arm] 109/72 Pulse Oximetry 98 Oxygen Delivery Me thod Room Air Course Vital Signs Vital signs: Initial Vital Signs Temperature 98.2 F 10/25/23 18:29 Temperature Source Temporal Artery Scan 10/25/23 18:29 Pulse Rate 93 10/25/23 18:29 Respiratory Rate 18 10/25/23 18:29 Blood Pressure 109/72 10/25/23 18:29 Blood Pressure Mean 84 10/25/23 18:29 Blood Pressure Position Sitting 10/25/23 18:29 Pulse Oximetry 98 10/25/23 18:29 Oxygen Delivery Method Room Air 10/25/23 18:29 Vital Signs Temperature 98.2 F 10/25/23 18:29 Pulse Rate 93 10/25/23 18:29 Respiratory Rate 18 10/25/23 18:29 Blood Pressure 109/72 10/25/23 18:29 Pulse Oximetry 98 10/25/23 18:29 Oxygen Delivery Method Room Air 10/25/23 18:29 Temperature 98.2 F 10/25/23 18:29 Pulse Rate 93 10/25/23 18:29 Respiratory Rate 18 10/25/23 18:29 Blood Pressure 109/72 10/25/23 18:29 Pulse Oximetry 98 10/25/23 18:29 Oxygen Delivery Method Room Air 10/25/23 18:29 Medical Decision Making MDM Narrative Medical decision making narrative: This patient comes in with worsening dental pain. She has seen a dentist but is not taking anything for pain. She was prescribed amoxicillin and continues to take that. I recommended a dental block of the inferior alveolar nerve. The patient is agreeable to this plan. She received Marcaine 0.25% injected around the inferior alveolar nerve. This created complete relief to her pain. She is okay to be discharged home and encouraged to follow up with her dentist. She did receive a prescription for Toradol. Discharge Plan Discharge Clinical Impression: Pain, dental Patient Disposition: Home, Self-Care Condition: Improved Additional Instructions: Follow-up with dentist. Take medication as needed and indicated. Follow up otherwise with MD as needed. Prescriptions: No Action levonorgestrel-ethinyl estrad [Aviane] 0.1-20 mg-mcg tablet 1 tab PO DAILY phentermine 15 mg capsule 15 mg PO QAM amoxicillin 500 mg tablet 500 mg PO QID fluoxetine 10 mg capsule 10 mg PO DAILY Follow Up/Referrals: Provider,Not a Local [Primary Care Provider] - Stand Alone Forms: [employer] Info Instructions
[2023-10-25] MEDS: BUPIVACAINE 0.25% 30 ML INJECTION (18:50)
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
--- OUTSIDE RECORDS SUMMARY | 2023-10-25 18:53 | XMS_ITS | Clinical Summary ---
Author Name Unknown Organization [employer] [facility] Address [place], [place] [address] Care Team Providers Care Inspector Eyeglass Frames Name Role Phone Thad Mckeon Primary Care Provider Unav ailable Allergies Active Allergy Reactions Criticality Noted Date Comments Bee Venom Protein (Honey Bee) Hives,Itching,Myalgia,Angio edema 02/20/2021 Medications Medication Sig Dispensed Refills Start Date End Date Status cholecalciferol (VITAMIN D3) 1,000 unit tablet Take 1,000 units by mouth once daily. Active valACYclovir (VALTREX) 500 mg tablet Take 500 mg by mouth once daily. 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 Max acetaminophen dose: 4000mg in 24 hrs. 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 100 Tablet 2 Active FLUoxetine (PROZAC) 10 mg capsule Take 10 mg by mouth once daily. 3 Active sertraline (ZOLOFT) 25 mg tablet Take 25 mg by mouth. 3 Active acetaminophen (TYLENOL) 325 mg tabletIndications: Severe dysplasia of cervix (NIMO III) Take 3 Tablets (975 mg) by mouth every 6 hours. Max acetaminophen dose: 4000mg in 24 hrs. 100 Tablet 3 Active ibuprofen (ADVIL; MOTRIN) 200 mg tabletIndications: Severe dysplasia of cervix (NIMO III) Take 3 Tablets (600 mg) by mouth every 6 hours. 100 Tablet 3 Active phentermine HCl (PHENTERMINE ORAL) Take by mouth. Ac tive levonorgestrel-eth inyl estrad, 0.1mg-20mcg, (ALESSE-28) 0.1-20 mg-mcg tabletIndications: OCP (oral contraceptive pills) initiation Take 1 Tablet by mouth once daily. 84 Tablet 4 4 Active Yejyzqof-Sp-Ozh-Fe -FA ( VITAMIN) tab tablet Take 1 tablet by mouth once daily. 0 0 09/27/19 Discontinue d(*Patient states no longer taking) clomiPHENE citrate (Clomid) 50 mg tabletIndications: Infertility, anovulation Take 1 Tablet (50 mg) by mouth once daily. Day 5-9 of cycle. 5 Tablet 2 3 09/27/19 24 Discontinue d(*Patient states no longer taking) progesterone micronized (PROMETRIUM) 200 mg capsuleIndications :Bleeding in early ,History of miscarriage Insert 1 Capsule (200 mg) into the vagina at bedtime. This product contains peanut oil. Please verify patient allergies. 90 Capsule 3 09/27/19 24 Discontinue d(*Patient states no longer taking) nitrofurantoin macrocrystals/mono hydrate (MACROBID) 100 mg capsuleIndications :UTI (urinary tract infection), uncomplicated Take 1 Capsule (100 mg) by mouth two times daily for 5 days. 10 Capsule 4 10/02/19 Active Problems Problem Noted Date Diagnosed Date High temperature 09/15/2023 ASCUS with positive high risk HPV cervical 11/05 Overview: 10/2022 ASCUS/HPV+, HPV 16/18 Negative 11/2022 Sublette: ECC NIMO 2-3 01/2023 LEEP: benign Provider plan: Pap/HPV due 01/2024 Nephrolithiasis 06/20/2020 Breech presentation delivered 05/05/2020 Supervision of normal first in first t rimester 10/19/2019 Overview: 24 y.o. Concerns this : spotting in early which has resolved (resassuring rise in HCG levels and normal US x2) Medical concerns: Hx miscarriage x2, anxiety, depression, cold sores, chlamydia Genetic screening: Undecided, will contact her insurance regarding coverage BMI:# 27 Recommended wt gain 15-25 lbs HSV: Type 1, oral cold sores only Ultrasound findings: 09/21/19, 10/05/19- single IUP SUZY 05/19/20 Flu vaccine: Declines Single/FOB involved: Sánchez Encounters Date Type Department Care Team Description 09/27/2023 9:25 AM CDT Office Visit [facility] [address] [place] [phone] Nivia Mann NP UTI 09/27/2023 Travel 09/15/2023 4:30 PM CDT Office Visit [address] [phone] Tulio Luong NP Shortness Of Breath; Cough; Weak; Chills 09/15/2023 Travel 09/03/2023 11:30 AM COD CLERK Office Visit [facility] [address] [place] [phone] Ann Lee PA Wheelage Clerk Exam (STD check) 09/03/2023 Travel 08/27/2023 2:55 PM COD CLERK Office Visit [address] [phone] Error-please disregard (appt cancellation) 08/27/2023 Travel from Last 3 Months Immunizations Name Administration Dates Next Due DTaP 02/28/1999 HPV 9 (Gardasil 9) 11/12/2017,07/13/2017 Hepatitis B (Peds) 10/15/2000 Human Papilloma Virus Vaccine 08/12/2018 Influenza, IIV4 03/30/2020 MMR 02/28/1999 Meningococcal Vaccine (Menactra) 02/01/2009 Tdap 03/01/2020,07/28/2016,02/16/2006 Family History Medical History Relation Name Comments Anxiety disorder Brother Anxiety disorder Father Depression Father Psoriasis Father COPD Maternal Grandfather Diabetes Maternal Grandfather Anxiety disorder Maternal Grandmother Cancer Maternal Grandmother cervix Depression Maternal Grandmother Anxiety disorder Mother Depression Mother Other Mother prediabetic Good Health Paternal Grandfather COPD Paternal Grandmother Anxiety disorder Sister Relation Name Status Comments Brother Alive Father Alive Maternal Grandfather Alive Maternal Grandmother Alive Mother Alive Paternal Grandfather Alive Paternal Grandmother Alive Sister Alive Social History Tobacco Use Types Packs/Day Years Used Date Smoking Tobacco: Former Cigarettes 0.1 4 2 012 - 2016 Smokeless Tobacco: Never Tobacco Cessation:Counseling Given: Not Answered Alcohol Use Standard Drinks/Week Comments Not Currently 0 (1 standard drink = 0.6 oz pur e alcohol) PHQ-2 Answer Date Recorded PHQ-2 TOTAL SCORE 0 10/07/2022 Social Connections Answer Date Recorded Frequency of Communication with Friends and Fami ly 0 09/27/2023 Financial Resource Strain Answer Date R ecorded Difficulty of Paying Living Expenses 3 09/27/2023 Difficulty of Paying Living Expenses Not on file 09/27/2023 Food Insecurity Answer Date Recorded Worried About Running Out of Food in the Last Ye ar 1 09/27/2023 Transportation Needs Answer Date Record ed Lack of Transportation (Medical) 1 09/27/2023 Housing Stability Answer Date Recorded Unable to Pay for Housing in the Last Year 1 09/27/2023 Sex and Gender Information Value Date Recorded Sex Assigned at Not on file Gender Identity Not on file Sexual Orientation Not on file Obstetrics History Para Term AB IAB SAB Ectopic Multiple Livin g Live Births 3 1 1 0 2 0 2 0 0 1 1 Date Outcome GA Total Labor Labor/2nd/3rd Weight Sex Delivery Anes PTL Shama A1 A5 Name Cl in SAB SAB 05/05 Term 38w 0d 3.66 kg (8 lb 1.1 oz) M Spina l Yesenia ng 9 9 RENY PH,BB KENDY Mack Delivery Location:[facility] (UTD 1999 MB L&D TRIAGE) Last Filed Vital Signs Vital Sign Reading Time Taken Comments Blood Pressure 95/51 09/27/2023 9:45 AM CDT Pulse 75 09/27/2023 9:45 AM CDT Temperature 36.6 ??C (97.9 ??F) 09/27/2023 9:45 AM CD T Respiratory Rate 20 09/15/2023 4:41 PM CDT Oxygen Saturation 98% 09/27/2023 9:45 AM CDT Inhaled Oxygen Concentration - - Weight 87.1 kg (192 lb) 09/03/2023 11:33 AM COD CLERK Height 166.4 cm (5' 5.5) 01/23/2023 6:53 AM CDT Body Mass Index 31.46 01/23/2023 6:53 AM CDT Plan of Treatment Health Maintenance Due Date Last Done Comments COVID-19 vaccine series ( season) 2023 02/25/2021, 01/28/2021 BMI (ht and wt on same day) for age 18+ 10/08/2023 10/07/2022, 08/12/2022, 11/11/2019, Additional history exists Depression screening for age 12+ 10/08/2023 10/07/2022, 10/07/2022, 03/04/2022, Additional history exists Pap test for age 21-65 01/24/2024 (Verified in Care Everywhere or Patient Record), 11/26/2022 (Verified in Care Everywhere or Patient Record), 10/07/2022, Additional history exists Influenza for age 9-49 03/06/2024 03/30/2020 Tetanus booster 03/01/2030 03/01/2020, 07/07, 02/16/2006 Hepatitis C screening for age 18-79 Completed 11/11/2019 Tdap Completed 03/01/2020, 07/07, 02/16/2006 HIV for age 15-65 Completed 09/03/2023, 11/11/2019 Pneumococcal series for age 6-64 Aged Out No longer eligible based on patient's age to complete this topic Medical Devices Implanted Type Area Coordinator Volunteer [employer] Device Identifier Shelf Expiration Date Model / Serial / Lot Stent Uret [id number] Percuflex Hydroplus - [id number] Implanted:Qty: 1 on 06/20/2020 by Han Johnson MD at [facility] Left: Ureter [employer] [facility] 02/28/2023 [id number] / / [id number] Procedures Procedure Name Priority Date/Time Associated Diagnosis Comments GC CHLAMYDIA TRACH PROBE Routine 09/27/2023 11:25 AM CDT Unprotected sexual intercourse URINALYSIS MICROSCOPIC Routine 09/27/2023 9:56 AM CDT UTI symptoms URINE CULTURE Routine 09/27/2023 9:56 AM CDT UTI symptoms UA W/ SEDIMENT EXAM REFLEXED PER CRITERIA Routine 09/27/2023 9:56 AM CDT UTI symptoms STREP A PCR Routine 09/15/2023 4:52 PM CDT Cough, unspecified type COVID/FLU/RSV PANEL Routine 09/15/2023 4 :52 PM CDT Cough, unspecified type THROAT RAPID STREP ONLY CLINIC Routine 09/15/2023 4:52 PM CDT Cough, unspecified type GC CHLAMYDIA TRACH PROBE Routine 09/03/2023 11:50 AM COD CLERK Screen for STD (sexually transmitted disease) ANTI HIV 1/2 Routine 09/03/2023 11:49 AM COD CLERK Screening for human immunodeficiency virus TREPONEMA PALLIDUM Routine 09/03/2023 11 :49 AM COD CLERK Screen for STD (sexually transmitted disease) GC CHLAMYDIA TRACH PROBE Routine 09/03/2023 11:30 AM COD CLERK Screen for STD (sexually transmitted disease) SEAMLESS TUBE DRAWER THIN PREP PAP SCREEN IMAGED Routine 10/07/2022 9:20 AM CDT Screening for malignant neoplasm of cervix ANTI HCV Routine 11/11/2019 12:03 PM CDT Encounter for supervision of normal first in second trimester from Last 3 Months or Most Recently Relevant to Health Maintenance Results * GC CHLAMYDIA - Urine (09/27/2023 11:25 AM CDT) Only the most recent of3 resultswithin the time period is included. CHLAMYDIA PROBE Negative 12:33 PM CDT [facility] N GONORRHOEAE PROBE Negative 09/28/2023 12:33 PM CDT [facility] Other URINE SPECIMEN / Unknown Non-Blood / Unknown 09/27/2023 11:25 AM CDT 09/27/2023 11:25 AM CDT Nivia Mann NP MICROBIOLOGY [facility] [address] [place] [address], [place] * (ABNORMAL) URINALYSIS MICROSCOPIC (09/27/2023 9:56 AM CDT) RBC 11-25(A) 0-2, None Seen /HPF 09/27/2023 10:01 AM CDT [facility] WBC >100(A) 0-2, 3-5, None Seen /HPF 09/27/2023 10:01 AM CDT [facility] BACTERIA Few None Seen, Rare, Few Bacteria/H PF 09/27/2023 10:01 AM CDT [facility] EPITHELIAL CELLS Moderate(A ) None Seen, Few Epi/HPF 09/27/2023 10:01 AM CDT [facility] Urine URINE SPECIMEN / Unknown Non-Blood / Unknown 09/27/2023 9:56 AM CDT 09/27/2023 9:56 AM CDT Rain Hernandez PA URINE Performing Organization Address City/[facility]/ZIP Co de Phone Number [facility] [address] [place] [address], [place] * (ABNORMAL) URINE CULTURE (09/27/2023 9:56 AM CDT) CULTURE RESULT(A) 09/28/2023 12:45 PM CDT [facility] CULTURE 50,000-100,000 CFU/mL Staphylococcus saprophyticus 09/28/2023 12:45 PM CDT [facility] Comment:Staphylococcus sapro phyticus typically responds to urine concentrations of agents commonly used to treat acute uncomplicated UTIs (nitrofurantoin, trimethoprim plus or minus sulfa, or a fluoroquinolone). CULTURE <10,000 CFU/mL Multiple organisms probable contaminants 09/28/2023 12:45 PM CDT [facility] Urine URINE SPECIMEN / Unknown Non-Blood / Unknown 09/27/2023 9:56 AM CDT 09/27/2023 9:56 AM CDT Rain TO MICROBIOLOGY [facility] [address] [place] [address], [place] * (ABNORMAL) UA W/ SEDIMENT EXAM REFLEXED PER CRITERIA (09/27/2023 9:56 AM CDT) COLOR Yellow Yellow Color 09/27/2023 10:01 AM CDT [facility] CLARITY Cloudy(A) Clear Clarity 09/27/2023 10:01 AM CDT [facility] SPECIFIC GRAVITY,URINE 1.020 1.010, 1.015, 1.020, 1.025 09/27/2023 10:01 AM CDT [facility] PH,URINE 8.0 6.0, 7.0, 8.0, 5.5, 6.5, 7.5, 8.5 09/27/2023 10:01 AM CDT [facility] UROBILINOGEN, QUALITATIVE Normal Normal EU/dl 09/27/2023 10:01 AM CDT [facility] PROTEIN, URINE >=300(A) Negative mg/dL 09/27/2023 10:01 AM CDT [facility] GLUCOSE, URINE Negative Negative mg/dL 09/27/2023 10:01 AM CDT [facility] KETONES,URINE Negative Negative mg/dL 09/27/2023 10:01 AM CDT [facility] BILIRUBIN,URI NE Negative Negative 09/27/2023 10:01 AM CDT [facility] OCCULT BLOOD,URINE Moderate(A) Negative 09/27/2023 10:01 AM CDT [facility] NITRITE Negative Negative 09/27/2023 10:01 AM CDT [facility] LEUKOCYTE ESTERASE Moderate(A) Negative 09/27/2023 10:01 AM CDT [facility] Urine URINE SPECIMEN / Unknown Non-Blood / Unknown 09/27/2023 9:56 AM CDT 09/27/2023 9:56 AM CDT Rain TO URINE [facility] [address] [place] [address], * (ABNORMAL) COVID/FLU/RSV PANEL (09/15/2023 4:52 PM CDT) COVID 19 [facility] MOLECULAR Negative Negative 09/15/2023 9:55 PM CDT [facility] Comment:All PCR tests are ruelas bject to false negative result due to variability in viral load and collection technique. A negative result does not rule out a SARS-CoV-2 infection. Clinical correlation required. INFLUENZA A PCR Positive(A) 09/15/19 9:55 PM CDT [facility] INFLUENZA B PCR Negative 9:55 PM CDT [facility] Respiratory Syncytial Virus Negative 09/15/2023 9:55 PM CDT [facility] Swab SPECIMEN FROM NASOPHARYNGEAL STRUCTURE / Unknown Non-Blood / Unknown 09/15/2023 4:52 PM CDT 09/15/2023 5:09 PM CDT Narrative [facility] - 09/15/2023 9:55 PM CDT This test has been authorized by FDA under an Emergency Use Authorization (EUA). This test is only authorized for the duration of time the declaration that circumstances exist justifying the authorization of the emergency use of in vitro diagnostic tests for detection of SARS-CoV-2 virus and/or diagnosis of COVID-19 infection under section 564(b)(1) of the Act, 21 U.S.C. 360bbb-3(b) (1), unless the authorization is terminated or revoked sooner. Rain TO MICROBIOLOGY [facility] [address] [place] [address], [place] * STREP A PCR (09/15/2023 4:52 PM CDT) GROUP A STREP Negative 09/15/2023 11:08 PM CDT [facility] Throat SPECIMEN FROM THROAT / Unknown Non-Blood / Unknown 09/15/2023 4:52 PM CDT 09/15/2023 5:09 PM CDT Rain TO MICROBIOLOGY Performing Organization Address City/[facility]/ZIP Co de Phone Number [facility] [address] [place] [address], [place] * THROAT RAPID STREP ONLY CLINIC (09/15/2023 4:52 PM CDT) THROAT RAPID STREP A ANTIGEN Negative 09/15/2023 5:18 PM CDT [facility] Throat SPECIMEN FROM THROAT / Unknown Non-Blood / Unknown 09/15/2023 4:52 PM CDT 09/15/2023 5:09 PM CDT Rain TO MICROBIOLOGY [facility] [address] [place] [address], * TREPONEMA PALLIDUM (09/03/2023 11:49 AM COD CLERK) TREPONEMA PALLIDUM Non-Reacti ve Non-Reacti ve 09/03/2023 10:28 PM COD CLERK [facility] Blood BLOOD SPECIMEN / Unknown Butterfly / Unknown 09/03/2023 11:49 AM COD CLERK 09/03/2023 11:49 AM COD CLERK Ann TO SEND OUTS Performing Organization Address [facility] Co de Phone Number [facility] [address] [place] [address] * ANTI HIV 1/2 (09/03/2023 11:49 AM COD CLERK) Pathologist [facility] HIV-1/HIV-2 SCREEN Non-Reacti ve Non-Reacti ve 09/03/2023 10:18 PM COD CLERK [facility] Comment:HIV-1 p24 and HIV-1/ HIV-2 Ab Not Detected. Blood BLOOD SPECIMEN / Unknown Butterfly / Unknown 09/03/2023 11:49 AM COD CLERK 09/03/2023 11:49 AM COD CLERK Ann TO SEND OUTS Performing Organization Address [email or web address]] de Phone Number [facility] [address] [place] [address] * (ABNORMAL) SEAMLESS TUBE DRAWER THIN PREP PAP SCREEN IMAGED (10/07/2022 9:20 AM CDT) Pathologist [facility] Case Report Gynecologic Cytology Report ? Case: [id number] ? Authorizing Provider: ??Sade Nayak, ??Collected: ? 10/07/2022 0920 ? MD ? Ordering Location: ? [facility] ?Received: ?10/07/2022 1000 ? [facility] ? First Screen: ?Elmer Jones A ? Pathologist: ? Ruby Esposito ? MD Yasemin ? Specimen: ?SEAMLESS TUBE DRAWER ThinPrep Vial Screening, Cervical ? 11/05/2022 2:24 PM CDT [facility] INTERPRETATION/ RESULT ATYPICAL SQUAMOUS CELLS OF UNDETERMINED SIGNIFICANCE (ASCUS)(A) (none) 11/05/2022 2:24 PM CDT [facility] IMEN ADEQUACY Satisfactory for evaluation Endocervical component present 11/05/2022 2:24 PM CDT [facility] HPV REQUEST HPV and PAP 11/05/2022 2:24 PM CDT [facility] Date of LMP [id number] 11/05/2022 2:24 PM CDT [facility] Last Pap Date [id number] 11/05/2022 2:24 PM CDT [facility] Last Pap Result NIL 2:24 PM CDT [facility] Abnormal Pap or Sublette Bx in last 5 years No 11/05/2022 2:24 PM CDT [facility] Menstrual Status Regular Periods 11/05/2022 2:24 PM CDT [facility] Sublette Bx Done Today No 11/05/2022 2:24 PM CDT [facility] Additional Information None given 11/05/2022 2:24 PM CDT [facility] Comment: Cytology is screened at [facility] - [address], [place] [address] and [facility] - [address] [place] [place] [address] and [facility] - [address] [place] [address] Interpreted at [facility] - [address], [place] [address] Automated Review Successful 11/05/2022 2:24 PM CDT [facility] Comment:Specimen processed s uccessfully by automated electrician rectifier maintenance device, ThinPrep Imaging System, [facility] ANCILLARY TESTING SEAMLESS TUBE DRAWER HPV Ordered, Please see separate report 11/05/2022 2:24 PM CDT [facility] Note The pap test is a screening technique, not a diagnostic procedure. It is used primarily to screen for squamous cancers and precursor lesions. Published studies have shown that it is subject to both false negative and false positive results. The pap test should not be used as the sole means to diagnose or exclude pre-malignant and malignant lesions. 11/05/2022 2:24 PM CDT [facility] Other (Cervical) Non-Blood / Unknown 10/07/2022 9:20 AM CDT 10/07/2022 10:00 AM CDT Sade Nayak MD PATHOLOGY/CYT OLOGY [facility] [address] [place] [address], * ANTI HCV (11/11/2019 12:03 PM CDT) HEPATITIS C ANTIBODY Non-React pepper Non-React pepper 11/11/2019 8:42 PM CDT [facility] Comment:Antibodies to HCV no t detected; does not exclude the possibility of exposure to HCV. Blood BLOOD SPECIMEN / Unknown Venipuncture / Unknown 11/11/2019 12:03 PM CDT 11/11/2019 12:13 PM CDT Alberta Gabriel DO SEND OUTS Performing Organization Address City/[facility]/ZIP Co de Phone Number [facility] [address] [place] [address], from Last 3 Months or Most Recently Relevant to Health Maintenance Advance Directives * Full Code (Latest Code Status on File) Date Activated Date Inactivated Comments 01/23/2023 6:04 AM 01/23/2023 11:53 AM Question Answer Comments Code Status Discussion: Reviewed Preferences * Full Code Date Activated Date Inactivated Comments 05/12/2022 11:59 AM 05/12/2022 8:59 PM Question Answer Comments Code Status Discussion: Reviewed Preferences * Full Code Date Activated Date Inactivated Comments 06/20/2020 11:20 AM 06/21/2020 12:54 AM Question Answer Comments Code Status Discussion: Discussed * Full Code Date Activated Date Inactivated Comments 05/05/2020 4:17 AM 05/08/2020 3:11 PM Question Answer Comments Code Status Discussion: Discussed Care Teams Inspector Eyeglass Frames Relationship Specialty Start Date End Date Thad Mckeon PCP - General Physician Relay Tester Helper 03/28/19
--- OUTSIDE RECORDS SUMMARY | 2023-10-25 18:53 | XMS_ITS | Clinical Summary ---
Author Name Unknown Organization [place] Address [address] [place] [address] Care Team Providers Care Candlemaking Laborer Name Role Phone Thad Mckeon PA-C Primary Care Provider Thad Mckeon PA-C Unavailable [phone] Allergies Active Allergy Reactions Criticality Noted Date [...] and foot 08/05/2006 08/24/2006 Encounters Date Type Department Care Team Description 10/15/2023 MyC Medical Advice [facility] [address] [place] [phone] Thad Mckeon PA-C 10/05/2023 3:00 PM CDT Office Visit [facility] [address] [place] [phone] Thad Mckeon PA-C Class 1 obesity without serious comorbidity with body mass index (BMI) of 31.0 to 31.9 in adult, unspecified obesity type; Anxiety 10/05/2023 Travel 10/01/2023 MyC Medical Advice [facility] [address] [place] [phone] Lisa Encarnacion 09/29/2023 MyC Medical Advice [facility] [address] [place] [phone] Lisa Encarnacion 09/29/2023 MyC Refill [facility] [address] [place] [phone] Thad Mckeon PA-C Refill Request 09/29/2023 MyC Refill [facility] [address] [place] [phone] Thad Mckeon PA-C Refill Request 09/26/2023 MyC Medical Advice [facility] [address] [place] [phone] Thad Mckeon PA-C 08/18/2023 MyC Refill [facility] [address] [place] [address] Thad Mckeon PA-C Refill Request from Last 3 Months Immunizations Name Administration Dates Next Due DTAP (<7y) 02/28/1999 HPV Quadrivalent 08/12/2018 HPV9 11/12/2017,07/13/2017 Hepatitis B, Adult 10/20/2022 Hepatitis B, Peds 10/15/2000 Influenza Vaccine >6 months,quad, PF 03/30/2020 MMR 02/28/1999 Meningococcal ACWY (Menactra??) 02/01/2009 TDAP (Adacel,Boostrix) 03/01/2020,02/16/2006 TDAP Vaccine (Adacel) 07/28/2016 Family History Medical History Relation Comments Diabetes [...] Respiratory Rate 16 07/16/2023 12:0 6 AM SUPERVISOR FINE GRADING Oxygen Saturation 96% 10/05/2023 2:42 PM CDT Inhaled Oxygen Concentration - - Weight 87.5 kg (192 lb 12.8 oz) 10/05/2023 2:42 PM CDT Height 165.1 cm (5' 5) 10/05/2023 2:42 PM CDT Body Mass Index 32.08 10/05/2023 2:42 PM CDT Plan of Treatment Health Maintenance Due Date Last Done Comments [employer]ANNING 1994 HEPATITIS B IMMUNIZATION (3 of 3 - 3-dose series) 12/15/2022 10/20/2022, 10/15/2000 COVID-19 Vaccine ( season) 2023 02/25/2021, 01/28/2021 INFLUENZA VACCINE (#1) 2023 , 08/12/2018 (Declined) YEARLY PREVENTIVE VISIT 10/08/2023 10/08/19, 10/07/2022, 03/09/2019, Additional history exists ANNUAL REVIEW OF HM ORDERS 07/08/202407/08, 02/26/2022, 01/16/2021 PAP 10/07/2025 10/07/2022, 0410/2022, 10/07/2022, Additional history exists DTAP/TDAP/TD IMMUNIZATION (5 - Td or Tdap) 03/01/2030 03/01/2020, 07/28/2016, 02/16/2006, Additional history exists MENINGITIS IMMUNIZATION Aged Out 02/01/2009 No l onger eligible based on patient's age to complete this topic HEPATITIS C SCREENING Completed 07/13/2017, 017 HIV SCREENING Completed 07/13/2017, 07/28/2016 HPV IMMUNIZATION Completed 08/12/2018, 04/2018, 07/13/2017 PHQ-2 (once per calendar year) Completed 10/05/2023, 10/05/2023, 07/08/2023, Additional history exists IPV IMMUNIZATION Aged Out No longer e ligible based on patient's age to complete this topic Pneumococcal Vaccine: Pediatrics (0 to 5 Years) and At-Risk Patients (6 to 64 Years) Aged Out No longer eligible based on patient's age to complete this topic RSV MONOCLONAL ANTIBODY Aged Out No l onger eligible based on patient's age to complete this topic Procedures Procedure Name Priority Date/Time Associated Diagnosis Comments HIV ANTIGEN ANTIBODY COMBO Routine 07/13/2017 9:14 AM SUPERVISOR FINE GRADING Screen for STD (sexually transmitted disease) HEPATITIS C SCREEN REFLEX TO HCV RNA QUANT AND GENOTYPE Routine 07/13/2017 9:14 AM SUPERVISOR FINE GRADING Screen for STD (sexually transmitted disease) REMOVE IMPACTED EAR WAX Routine 09/16/2000 1:35 PM SUPERVISOR FINE GRADING Impacted Cerumen HCL PAP SMEAR Routine 11/28/1998 1:18 PM CDT Gynecologic Examination from Last 3 Months or Most Recently Relevant to Health Maintenance Results * HIV Antigen Antibody Combo (07/13/2017 9:14 AM SUPERVISOR FINE GRADING) HIV Antigen Antibody Combo Nonreactive NR^Nonrea ctive 07/13/2017 9:01 PM SUPERVISOR FINE GRADING [facility] Comment:HIV-1 p24 Ag & HIV-1 /HIV-2 Ab Not Detected Blood specimen (specimen) 07/13/2017 9:14 AM SUPERVISOR FINE GRADING 07/13/2017 9:19 AM SUPERVISOR FINE GRADING Thad Mckeon PA-C LAB - BLOOD OR DERABLES [facility] [address] [place] [address] * Hepatitis C Screen Reflex to HCV RNA Quant and Genotype (07/13/2017 9:14 AM SUPERVISOR FINE GRADING) Hepatitis C Antibody Nonreactive NR^Nonre active 07/13/2017 9:07 PM SUPERVISOR FINE GRADING [facility] Comment: Assay performance characteristics have not been established for newborns, infants, and children Blood specimen (specimen) 07/13/2017 9:14 AM SUPERVISOR FINE GRADING 07/13/2017 9:19 AM SUPERVISOR FINE GRADING Thad Mckeon PA-C LAB - BLOOD OR DERABLES [facility] [address] [place] [address] * PAP SMEAR (11/28/1998 1:18 PM CDT) Pathologist [facility] Unlabelled DNR [facility] Biopsy Sent DNR [facility] Source VAG,CERV,E NDOCERV [facility] LMP POST [facility] PARA 3 [facility] 2 [facility] Clinical History DNR [facility] Therapy DNR [facility] Last Pap Diagnosis WITHIN NORMAL LIMITS [facility] PAP Date [id number] [facility] Specimen # DNR [facility] Tissue DNR [facility] Tissue Date DNR [facility] Statement of Adequacy [facility] Comment: SATISFACTORY FOR INTERPRETATION POST MENOPAUSAL PATIENT. ??NO ENDOCERVICAL CELLS SEEN. General Categorization DNR [facility] Descriptive Diagnosis [facility] Comment: WITHIN NORMAL LIMITS ATROPHIC CELL PATTERN Recommendations DNR [employer] DNR 114,,,,,, [facility] DNR DNR [facility] DNR DNR [facility] DNR DNR [facility] . [facility] Comment: ?PAP SMEARS ARE SUBJECT TO BOTH FALSE NEGATIVE AND FALSE ? POSITIVE RESULTS EVIDENCED BY DATA PUBLISHED IN THE ? MEDICAL LITERATURE. ??YOUR PATIENT'S RESULT SHOULD BE ? INTERPRETED IN THIS CONTEXT, TOGETHER WITH THE PATIENT'S ? HISTORY AND CLINICAL FINDINGS. TESTING LOCATION ? [facility] ? [address] [facility]. [address] ? PHONE NUMBERS FOR CYTOLOGY INQUIRES, INCLUDING SLIDE REQUESTS ? EXT. [id number] ?? EXT. [id number] 11/26/1998 Amina Krishnamurthy MD LABORATORY [facility] from Last 3 Months or Most Recently Relevant to Health Maintenance Care Teams Candlemaking Laborer Relationship Specialty Start Date End Date Thad Mckeon PA-C [address] [place] [address] PCP - General Physician Commercial Sales Consultant - Medical 02/17/14 Thad Mckeon PA-C [address] [address] [place] [id number] Assigned PCP 12/23/20
--- OUTSIDE RECORDS SUMMARY | 2023-10-25 18:53 | XMS_ITS | Encounter Summary ---
Author Name Unknown Organization [facility] Address [address] [place] [address]. [place] [address] Care Team Providers Care Director Adult Name Role Phone Thad Mckeon PA-C Primary Care Provider Thad Mckeon PA-C Unavailable + [phone] Encounter Details Date Type Department Care Team (Late st Contact Info) Description 10/15/2023 MyC Medical Advice [facility] [address] [place] [address] Thad Mckeon PA-C [address] [place] [address] Social History Tobacco Use Types Packs/Day Years Used Date Smoking Tobacco: Former Cigarettes Passive Smoke Exposure: Past Smokeless Tobacco: Never Alcohol Use Standard Drinks/Week Comments Not Currently [...] Orientation Straight 12/21/2020 8: 52 AM CDT documented as of this encounter Miscellaneous Notes * Telephone Encounter - Thad Mckeon PA-C - 10/15/2023 12:42 PM CDT I did just see her. I haven't prescribed control for her since 2021. Probably a visit thoughtlooks like she may have a GNY (for PAP's)? They might be able to if she's been on it with them morerecently. Thad * Telephone Encounter - Lissette Huizar RN - 10/15/2023 8:02 AM CDT I see that patient was recently seen, but I don't see notes about control discussion. Do you want patient to submit e-visit? Lissette Huizar RN on 10/15/2023 at 8:11 AM documented in this encounter Plan of Treatment Not on file documented as of this encounter Visit Diagnoses Not on filedocumented in this encounter Additional Health Concerns Assessment Noted Time PHQ-9 Depression Total Score: 10 024 3:15 PM CDT documented as of this encounter Care Teams Director Adult Relationship Specialty Start Date End Date Thad Mckeon PA-C [address] [address] PCP - General Physician Launching Pad Mechanic - Medical 02/17/14 Thad Mckeon PA-C [address] [address] [address] Assigned PCP 12/23/20 documented as of this encounter
--- OUTSIDE RECORDS SUMMARY | 2023-10-25 18:53 | XMS_ITS | Encounter Summary ---
Author Name Unknown Organization [place] Address [address] [place] [address]. [place] [address] Care Team Providers Care Citizenship Instructor Name Role Phone Thad Mckeon PA-C Primary Care Provider Thad Mckeon PA-C Unavailable [phone] Encounter Details Date Type Department Care Team (Latest Contact Info) Description 10/05/2023 Travel Social History Tobacco Use Types Packs/Day [...] as of this encounter Plan of Treatment Not on file documented as of this encounter Visit Diagnoses Not on filedocumented in this encounter Additional Health Concerns Assessment Noted Time PHQ-9 Depression Total Score: 10 024 3:15 PM CDT documented as of this encounter Care Teams Citizenship Instructor Relationship Specialty Start Date End Date Thad Mckeon PA-C [address] [place] [address] PCP - General Physician Parliamentary Librarian - Medical 02/17/14 Thad Mckeon PA-C [address] [facility] [address] Assigned PCP 12/23/20 documented as of this encounter
--- OUTSIDE RECORDS SUMMARY | 2023-10-25 18:54 | XMS_ITS | Encounter Summary ---
Author Name Unknown Organization [place] Address [address] [place] [address] Care Team Providers Care Shrimp Peeling Machine Tender Name Role Phone Thad Mckeon PA-C Primary Care Provider Thad Mckeon PA-C Unavailable + [phone] Encounter Details Date Type Department Care Team (Late st Contact Info) Description 06/16/2023 MyC Medical Advice [address] [address] Roberta Rousseau Social History Tobacco Use Types Packs/Day Years Used Date Smoking Tobacco: Former Cigarettes Smokeless Tobacco: Never Alcohol Use Standard Drinks/Week Comments Not Currently 0 (1 standard drink = 0.6 oz pur e alcohol) very little PHQ-2 Answer Date Recorded PHQ-2 Score 0 02/09/2023 Adolescent Education Answer Date Record ed Getting School Help Needed Not on file 04/10 Sex and Gender Information Value Date Recorded [...] Noted Time PHQ-9 Depression Total Score: 7 02/10/20 23 8:54 AM CDT documented as of this encounter Care Teams Shrimp Peeling Machine Tender Relationship Specialty Start Date End Date Thad Mckeon PA-C [address] [address] [address] PCP - General Physician Economic Developer - Medical 02/17/14 Thad Mckeon PA-C [address] [address] [address] Assigned PCP 12/23/20 documented as of this encounter
--- OUTSIDE RECORDS SUMMARY | 2023-10-25 18:54 | XMS_ITS | Encounter Summary ---
Author Name Unknown Organization [facility] Address [address] [place] [address]. [place] [address] Care Team Providers Care Adjunct Faculty Instructor Name Role Phone Thad Mckeon PA-C Primary Care Provider Thad Mckeon PA-C Unavailable + [phone] Reason for Visit * Reason Onset Date Comments Refill Request 06/15/2023 Encounter Details Date Type Department Care Team (Late st Contact Info) Description 06/15/2023 Flavio Salas [facility] [address] [place] [address] [place] [address] [place] [address] Refill Request Social History Tobacco Use Types Packs/Day Years [...] encounter Miscellaneous Notes * Telephone Encounter - Roberta Rousseau - 06/23/2023 11:31 AM CST LVM requesting a call back for an appt. One more attempt will be made. Roberta Rousseau Lead Hydraulic Assembler TER PERSON * Telephone Encounter - Roberta Rousseau - 06/16/2023 10:25 AM CST Sent kapt[employer] message requesting a call back for an appt. Two more attempts will be made. 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
--- OUTSIDE RECORDS SUMMARY | 2023-10-25 18:54 | XMS_ITS | Encounter Summary ---
Author Name Unknown Organization [place] Address [address] [place] [address]. [place] [address] Care Team Providers Care Cassandra Consultant Name Role Phone Thad Mckeon PA-C Primary Care Provider Thad Mckeon PA-C Unavailable + [phone] Encounter Details Date Type Department Care Team (Late st Contact Info) Description 09/26/2023 MyC Medical Advice [facility] [address] [place] [address] Thad Mckeon PA-C [address] [place] [address] Social History Tobacco Use Types Packs/Day Years Used Date Smoking Tobacco: Former Cigarettes Smokeless Tobacco: Never Alcohol Use Standard Drinks/Week Comments Not Currently 0 (1 standard drink = 0.6 oz pur e alcohol) very little PHQ-2 Answer Date Recorded PHQ-2 Score 6 07/08/2023 Adolescent Education Answer Date Record ed Getting [...] getting things that you need? No 07/01/2023 Sex and Gender Information Value Date Recorded [...] Assessment Noted Time PHQ-9 Depression Total Score: 23 024 1:43 PM PRIVATE BRANCH EXCHANGE SERVICE ADVISOR documented as of this encounter Care Teams Cassandra Consultant Relationship Specialty Start Date End Date Thad Mckeon PA-C [address] [address] [address] PCP - General Physician Coke Drawer - Medical 02/17/14 Thad Mckeon PA-C [address] [address] [address] Assigned PCP 12/23/20 documented as of this encounter
--- OUTSIDE RECORDS SUMMARY | 2023-10-25 18:54 | XMS_ITS | Encounter Summary ---
Author Name Unknown Organization [place] Address [address] [place] [address] Care Team Providers Care Shank Scourer Name Role Phone Thad Mckeon PA-C Primary Care Provider Thad Mckeon PA-C Unavailable + [phone] Encounter Details Date Type Department Care Team (Late st Contact Info) Description 05/08/2021 MyC Medical Advice [address] [address] Isa Saab MA Social History Tobacco Use Types Packs/Day Years Used Date Smoking Tobacco: Former Cigarettes Smokeless Tobacco: Never Alcohol Use Standard Drinks/Week Comments Not Currently 0 (1 standard drink = 0.6 oz pur e alcohol) very little PHQ-2 Answer Date Recorded PHQ-2 Score 0 03/09/2019 Sex and Gender Information Value Date Recorded [...] Noted Time PHQ-9 Depression Total Score: 7 01/16/20 21 7:02 AM CDT documented as of this encounter Care Teams Shank Scourer Relationship Specialty Start Date End Date Thad Mckeon PA-C [address] [address] [address] PCP - General Physician Serging Machine Operator - Medical 02/17/14 Thad Mckeon PA-C [address] [address] [address] Assigned PCP 12/23/20 documented as of this encounter
--- OUTSIDE RECORDS SUMMARY | 2023-10-25 18:54 | XMS_ITS | Encounter Summary ---
Author Name Unknown Organization [facility] Address [address] [place] [address]. [place] [address] Care Team Providers Care Asbestos Textile Supervisor Name Role Phone Thad Mckeon PA-C Primary Care Provider Thad Mckeon PA-C Unavailable + [phone] Encounter Details Date Type Department Care Team (Late st Contact Info) Description 03/06/2021 MyC Medical Advice [facility] [address] [place] [address] Thad Mckeon PA-C [address] [place] [address] Social History Tobacco Use Types [...] Orientation Straight 12/21/2020 8: 52 AM CDT COVID-19 Exposure Response Date Recorded In the last month, have you been in contact with someone who was confirmed or suspected to have Coronavirus / COVID-19? No / Unsure 02/20/2021 10:30 AM CDT documented as of this encounter Miscellaneous Notes * Telephone Encounter - Manda Aragon RN - 03/06/2021 10:33 AM CDT Will forward to Thad Mckeon and the [facility] team. documented in this encounter Plan of Treatment Not on file documented as of this encounter Visit Diagnoses Not on filedocumented in this encounter Additional Health Concerns Assessment Noted Time PHQ-9 Depression Total Score: 7 01/16/20 21 7:02 AM CDT documented as of this encounter Care Teams Asbestos Textile Supervisor Relationship Specialty Start Date End Date Thad Mckeon PA-C [address] [address] [address] PCP - General Physician Cattle Broker - Medical 02/17/14 Thad Mckeon PA-C [address] [address] [address] Assigned PCP 12/23/20 documented as of this encounter
--- OUTSIDE RECORDS SUMMARY | 2023-10-25 18:54 | XMS_ITS | Encounter Summary ---
Author Name Unknown Organization [place] Address [address] [place] [address] Care Team Providers Care Biomedical Engineering Professor Name Role Phone Thad Mckeon PA-C Primary Care Provider Thad Mckeon PA-C Unavailable + [phone] Encounter Details Date Type Department Care Team (Late st Contact Info) Description 09/17/2022 MyC Medical Advice [facility] [address] [place] [address] [place] [address] [place] [address] Social History Tobacco Use Types Packs/Day Years Used Date Smoking Tobacco: Former Cigarettes Smokeless Tobacco: Never Alcohol Use Standard Drinks/Week Comments Not Currently 0 (1 standard drink = 0.6 oz pur e alcohol) very little PHQ-2 Answer Date Recorded PHQ-2 Score 2 09/16/2022 Sex and Gender Information Value Date Recorded Sex Assigned at Female 12/21/2020 8:52 AM CDT Gender Identity Female 12/21/2020 8:52 AM CDT Sexual Orientation Straight 12/21/2020 8: 52 AM CDT COVID-19 Exposure Response Date Recorded In the last 10 days, have yo u been in contact with someone who was confirmed or suspected to have Coronavirus/COVID-19? No / Unsure 09/16/2022 7:13 AM CDT documented as of this encounter Plan of Treatment Not on file documented as of this encounter Visit Diagnoses Not on filedocumented in this encounter Additional Health Concerns Assessment Noted Time PHQ-9 Depression Total Score: 12 09/16/ 023 2:08 PM CDT documented as of this encounter Care Teams Biomedical Engineering Professor Relationship Specialty Start Date End Date Thad Mckeon PA-C [address] [address] [address] PCP - General Physician Health Promotion Officer - Medical 02/17/14 Thad Mckeon PA-C [address] [address] [address] Assigned PCP 12/23/20 documented as of this encounter
--- OUTSIDE RECORDS SUMMARY | 2023-10-25 18:54 | XMS_ITS | Encounter Summary ---
Author Name Unknown Organization [facility] Address [address] [place] [address]. [place] [address] Care Team Providers Care Sales Consultant Insurance Name Role Phone Thad Mckeon PA-C Primary Care Provider Thad Mckeon PA-C Unavailable + [phone] Reason for Visit * Reason Onset Date Comments Refill Request 11/17/2022 Encounter Details Date Type Department Care Team (Late st Contact Info) Description 11/17/2022 Flavio Salas [facility] [address] [place] [address] [place] [address] [place] [address] Refill Request Social History Tobacco Use Types Packs/Day Years Used Date Smoking Tobacco: Former Cigarettes Smokeless Tobacco: Never Alcohol Use Standard Drinks/Week Comments Not Currently 0 (1 standard drink = 0.6 oz pur e alcohol) very little PHQ-2 Answer Date Recorded PHQ-2 Score 1 10/20/2022 Sex and Gender Information Value Date Recorded Sex Assigned at Female 12/21/2020 8:52 AM CDT Gender Identity Female 12/21/2020 8:52 AM CDT Sexual Orientation Straight 12/21/2020 8: 52 AM CDT COVID-19 Exposure Response Date Recorded In the last 10 days, have yo u been in contact with someone who was confirmed or suspected to have Coronavirus/COVID-19? No / Unsure 11/06/2022 10:48 AM CDT documented as of this encounter Miscellaneous Notes * Telephone Encounter - Purvi Rojas - 12/04/2022 7:15 AM CDT Mailed Letter as final attempt to schedule. Purvi Stubbs Operational Meteorologist * Telephone Encounter - Purvi Rojas - 11/27/2022 9:02 AM CDT LVM requesting a call back for an appt. One more attempt will be made. Purvi Stubbs Operational Meteorologist * Telephone Encounter - Purvi Rojas - 11/20/2022 10:32 AM CDT Sent [employer] message requesting a call back for an appt (med check in January or February, virtual ok). Two more attempts will be made. Purvi Stubbs Operational Meteorologist * Telephone Encounter - Thad Mckeon PA-C - 11/20/2022 10:21 AM CDT I assume the message is telling me she wants to stay on the Prozac. I'll fill now. Let me know if incorrect. Med check in 2-3 months please. Thad * Telephone Encounter - Camille Hillman RN - 11/19/2022 2:08 PM CDT Routing refill request to provider for review/approval because: A break in medication Per last office visit: Generalized anxiety disorder Patient's OB recommended that we change Prozac to Zoloft. Ruthie is feeling good on Prozac so far but is willing to make this change. Start with 25mg daily and follow up in one month, sooner prn. - sertraline (ZOLOFT) 25 MG tablet; Take 1 tablet (25 mg) by mouth daily Patient states :pausing conception so I would like to stay... Thanks! Camille Jacobs RN, BSN documented in this encounter Plan of Treatment Not on file documented as of this encounter Visit Diagnoses Diagnosis Anxiety Anxiety state, unspecified documented in this encounter Additional Health Concerns Assessment Noted Time PHQ-9 Depression Total Score: 6 10/21/19 23 2:27 PM CDT documented as of this encounter Care Teams Sales Consultant Insurance Relationship Specialty Start Date End Date Thad Mckeon PA-C [address] [address] [address] PCP - General Physician Ingredient Scaler - Medical 02/17/14 Thad Mckeon PA-C [address] [address] [address] Assigned PCP 12/23/20 documented as of this encounter
--- OUTSIDE RECORDS SUMMARY | 2023-10-25 18:54 | XMS_ITS | Encounter Summary ---
Author Name Unknown Organization [facility] Address [address] [place] [address]. [place] [address] Care Team Providers Care Yard Foreman Name Role Phone Thad Mckeon PA-C Primary Care Provider Thad Mckeon PA-C Unavailable + [phone] Encounter Details Date Type Department Care Team (Late st Contact Info) Description 01/30/2021 MyC Medical Advice [facility] [address] [place] [address] Thad Mckeon PA-C [address] [place] [address] Social History Tobacco Use Types Packs/Day Years Used Date Smoking Tobacco: Former Smokeless Tobacco: Never Alcohol Use Standard Drinks/Week Comments Yes 0 [...] documented as of this encounter Care Teams Yard Foreman Relationship Specialty Start Date End Date Thad Mckeon PA-C [address] [address] [address] PCP - General Physician Flight Control Specialist - Medical 02/17/14 Thad Mckeon PA-C [address] [address] [address] Assigned PCP 12/23/20 documented as of this encounter
--- OUTSIDE RECORDS SUMMARY | 2023-10-25 18:54 | XMS_ITS | Encounter Summary ---
Author Name Unknown Organization [facility] Address [address] [place] [address]. [place] [address] Care Team Providers Care Senior Procurement Manager Name Role Phone Thad Mckeon PA-C Primary Care Provider Thad Mckeon PA-C Unavailable + [phone] Encounter Details Date Type Department Care Team (Late st Contact Info) Description 2021 MyC Medical Advice [facility] [address] [place] [address] Thad Mckeon PA-C [address] [place] [address] Social History Tobacco Use Types [...] encounter Miscellaneous Notes * Telephone Encounter - Sylvia Howell RN - 2021 4:55 PM CDT Consulted with Vickie Ha and she suggested that if patient feels like she is not improving to be seen in Urgent Care. Sylvia Howell RN documented in this encounter Plan of Treatment Not on file documented as of this encounter Visit Diagnoses Not on filedocumented in this encounter Additional Health Concerns Assessment Noted Time PHQ-9 Depression Total Score: 7 01/16/20 21 7:02 AM CDT documented as of this encounter Care Teams Senior Procurement Manager Relationship Specialty Start Date End Date Thad Mckeon PA-C 73567 TASHA GUARDADO [address] PCP - General Physician Certified Hearing Instrument Dispenser - Medical 02/17/14 Thad Mckeon PA-C 84175 TASHA GUARDADO [address] Assigned PCP 12/23/20 documented as of this encounter
--- OUTSIDE RECORDS SUMMARY | 2023-10-25 18:54 | XMS_ITS | Encounter Summary ---
Author Name Unknown Organization [facility] Address [address] [place] [address]. [place] [address] Care Team Providers Care Ball Point Splitter Name Role Phone Thad Mckeon PA-C Primary Care Provider Thad Mckeon PA-C Unavailable + [phone] Encounter Details Date Type Department Care Team (Late st Contact Info) Description 02/26/2021 MyC Medical Advice [facility] [address] [place] [address] Thad Mckeon PA-C [address] [place] [address] Social History Tobacco Use Types [...] documented as of this encounter Care Teams Ball Point Splitter Relationship Specialty Start Date End Date Thad Mckeon PA-C 25645 TASHA GUARDADO [address] PCP - General Physician Tucking Machine Operator - Medical 02/17/14 Thad Mckeon PA-C 89639 TASHA GUARDADO [address]18 Assigned PCP 12/23/20 documented as of this encounter
--- OUTSIDE RECORDS SUMMARY | 2023-10-25 18:54 | XMS_ITS | Encounter Summary ---
Author Name Unknown Organization [facility] Address [address] [place] [address]. [place] [address] Care Team Providers Care Doors Prefitter Name Role Phone Thad Mckeon PA-C Primary Care Provider Thad Mckeon PA-C Unavailable + [phone] Encounter Details Date Type Department Care Team (Late st Contact Info) Description 01/02/2023 MyC Medical Advice [facility] [address] [place] [address] Thad Mckeon PA-C [address] [place] [address] Social History Tobacco Use Types [...] documented as of this encounter Care Teams Doors Prefitter Relationship Specialty Start Date End Date Thad Mckeon PA-C 59377 TASHA GUARDADO [address] PCP - General Physician Cable Ferryboat Operator - Medical 02/17/14 Thad Mckeon PA-C 50748 TASHA GUARDADO [address] Assigned PCP 12/23/20 documented as of this encounter
--- OUTSIDE RECORDS SUMMARY | 2023-10-25 18:54 | XMS_ITS | Encounter Summary ---
Author Name Unknown Organization [facility] Address [address] [place] [address]. [place] [address] Care Team Providers Care Coring Machine Operator Name Role Phone Thad Mckeon PA-C Primary Care Provider Thad Mckeon PA-C Unavailable + [phone] Encounter Details Date Type Department Care Team (Late st Contact Info) Description 02/21/[address] [facility] [address] [place] [address] Thad Mckeon PA-C [address] [place] [address] Social History Tobacco Use Types [...] Telephone Encounter - Thad Mckeon PA-C - 02/25/2021 10:43 AM CDT I'm sorry I didn't see that part. Just saw the refill request. She would need an appointment to discuss weight loss options. She mentioned her weight at the last minute of our appointment but we did not talk more about it. Thad documented in this encounter Plan of Treatment Not on file documented as of this encounter Visit Diagnoses Not on filedocumented in this encounter Additional Health Concerns Assessment Noted Time PHQ-9 Depression Total Score: 7 01/16/20 21 7:02 AM CDT documented as of this encounter Care Teams Coring Machine Operator Relationship Specialty Start Date End Date Thad Mckeon PA-C 83068 TASHA GUARDADO [address] PCP - General Physician Desk Assistant - Medical 02/17/14 Thad Mckeon PA-C 58893 TASHA GUARDADO 18899 Assigned PCP 12/23/20 documented as of this encounter
--- OUTSIDE RECORDS SUMMARY | 2023-10-25 18:54 | XMS_ITS | Encounter Summary ---
Author Name Unknown Organization [facility] Address [address] [place] [address]. [place] [address] Care Team Providers Care Business Information Consultant Name Role Phone Thad Mckeon PA-C Primary Care Provider Thad Mckeon PA-C Unavailable + [phone] Encounter Details Date Type Department Care Team (Late st Contact Info) Description 07/05/2021 MyC Medical Advice [facility] [address] [place] [address] Thad Mckeon PA-C [address] [place] [address] Social History Tobacco Use Types [...] documented as of this encounter Care Teams Business Information Consultant Relationship Specialty Start Date End Date Thad Mckeon PA-C 37844 TASHA GUARDADO [address] PCP - General Physician Chief Engineer Drilling And Recovery - Medical 02/17/14 Thad Mckeon PA-C 55107 TASHA GUARDADO 85819 Assigned PCP 12/23/20 documented as of this encounter
--- OUTSIDE RECORDS SUMMARY | 2023-10-25 18:54 | XMS_ITS | Encounter Summary ---
Author Name Unknown Organization [facility] Address [address] [place] [address]. [place] [address] Care Team Providers Care Professor Of Economics Name Role Phone Thad Mckeon PA-C Primary Care Provider Thad Mckeon PA-C Unavailable + [phone] Encounter Details Date Type Department Care Team (Late st Contact Info) Description 02/18/2021 MyC Medical Advice [facility] [address] [place] [address] Thad Mckeon PA-C [address] [place] [address] Social History Tobacco Use Types [...] encounter Miscellaneous Notes * Telephone Encounter - Belkis Redman APRN CNP - 02/19/2021 4:05 PM CDT This is a duplicate--see other encounter. Belkis Redman CNP * Telephone Encounter - Sylvia Howell RN - 02/18/2021 3:18 PM CDT Belkis, Can you review this for Thad? Patient does not want to be seen again but want an antibiotic. Sylvia Howell RN * Telephone Encounter - Karo Henderson RN - 02/18/2021 2:40 PM CDT Patient contacted in regards to bee sting (see Peak message) Recommending patient be seen at urgent care and ER if symptoms progress. Karo Henderson RN 02/18/2021 at 2:45 PM documented in this encounter Plan of Treatment Not on file documented as of this encounter Visit Diagnoses Not on filedocumented in this encounter Additional Health Concerns Assessment Noted Time PHQ-9 Depression Total Score: 7 01/16/20 21 7:02 AM CDT documented as of this encounter Care Teams Professor Of Economics Relationship Specialty Start Date End Date Thad Mckeon PA-C 32149 TAS[address] GUARDADO [address] PCP - General Physician Librarian Helper - Medical 02/17/14 Thad Mckeon PA-C 09402 TASHA GUARDADO 37956 Assigned PCP 12/23/20 documented as of this encounter
--- OUTSIDE RECORDS SUMMARY | 2023-10-25 18:54 | XMS_ITS | Encounter Summary ---
Author Name Unknown Organization [facility] Address [address] [place] [address]. [place] [address] Care Team Providers Care Typewriter Tester Name Role Phone Thad Mckeon PA-C Primary Care Provider Thad Mckeon PA-C Unavailable + [phone] Encounter Details Date Type Department Care Team (Late st Contact Info) Description 09/21/2021 MyC Medical Advice [facility] [address] [place] [address] Thad Mckeon PA-C [address] [place] [address] Social History Tobacco Use Types [...] Telephone Encounter - Manda Aragon RN - 09/23/2021 7:43 AM CDT Pt has an appt scheduled for tomorrow. Will forward to Thad Mckeon so she is aware - see [facility] messages. documented in this encounter Plan of Treatment Not on file documented as of this encounter Visit Diagnoses Not on filedocumented in this encounter Additional Health Concerns Assessment Noted Time PHQ-9 Depression Total Score: 7 01/16/20 21 7:02 AM CDT documented as of this encounter Care Teams Typewriter Tester Relationship Specialty Start Date End Date Thad Mckeon PA-C 02991 TASHA GUARDADO [id number] PCP - General Physician Healthcare Educator - Medical 02/17/14 Thad Mckeon PA-C 63127 TASHA GUARDADO 95453 Assigned PCP 12/23/20 documented as of this encounter
--- OUTSIDE RECORDS SUMMARY | 2023-10-25 18:54 | XMS_ITS | Encounter Summary ---
Author Name Unknown Organization [facility] Address [address] [place] [address]. [place] [address] Care Team Providers Care Product Director Name Role Phone Thad Mckeon PA-C Primary Care Provider Thad Mckeon PA-C Unavailable + [phone] Reason for Visit * Reason Onset Date Comments Refill Request 09/29/2023 Encounter Details Date Type Department Care Team (Late st Contact Info) Description 09/29/2023 Flavio Salas [facility] [address] [place] [address] Thad Mckeon PA-C [address] [place] [address] Refill Request Social History Tobacco [...] encounter Miscellaneous Notes * Telephone Encounter - Lisa Encarnacion - 09/29/2023 3:14 PM CDT LVM & sent MCM to get pt scheduled. Lisa Stubbs Budget Counselor * Telephone Encounter - Thad Mckeon PA-C - 09/29/2023 1:32 PM CDT Needs in person appointment for refills of this. Thad documented in this encounter Plan of Treatment Not on file documented as of this encounter Visit Diagnoses Diagnosis Class 1 obesity without serious comorbidity with body mass index (BMI) of 31.0 to 31.9 in adult, unspecified obesity type documented in this encounter Additional Health Concerns Assessment Noted Time PHQ-9 Depression Total Score: 23 024 1:43 PM LATHE MECHANIC documented as of this encounter Care Teams Product Director Relationship Specialty Start Date End Date Thad Mckeon PA-C 49802 TASHA GUARDADO 34598 PCP - General Physician Sales Representative [facility] - Medical 02/17/14 Thad Mckeon PA-C 58531 TASHA GUARDADO 90020 Assigned PCP 12/23/20 documented as of this encounter
--- OUTSIDE RECORDS SUMMARY | 2023-10-25 18:54 | XMS_ITS | Encounter Summary ---
Author Name Unknown Organization [facility] Address [address] [place] [address]. [place] [address] Care Team Providers Care Bridge Manager Name Role Phone Thad Mckeon PA-C Primary Care Provider Thad Mckeon PA-C Unavailable + [phone] Encounter Details Date Type Department Care Team (Late st Contact Info) Description 03/21/2021 MyC Medical Advice [facility] [address] [place] [address] Thad Mckeon PA-C [address] [place] [address] Social History Tobacco Use Types [...] have Coronavirus / COVID-19? No / Unsure 03/12/2021 10:20 AM CDT documented as of this encounter Plan of Treatment Not on file documented as of this encounter Visit Diagnoses Not on filedocumented in this encounter Additional Health Concerns Assessment Noted Time PHQ-9 Depression Total Score: 7 01/16/20 7:02 AM CDT documented as of this encounter Care Teams Bridge Manager Relationship Specialty Start Date End Date Thad Mckeon PA-C 06322 TASHA GUARDADO 13565 PCP - General Physician Marble Chip Terrazzo Worker - Medical 02/17/14 Thad Mckeon PA-C 16006 TASHA GUARDADO 65579 Assigned PCP 12/23/20 documented as of this encounter
--- OUTSIDE RECORDS SUMMARY | 2023-10-25 18:54 | XMS_ITS | Encounter Summary ---
Author Name Unknown Organization [facility] Address [address] [place] [address] Care Team Providers Care Music Industry Intern Name Role Phone Thad Mckeon PA-C Primary Care Provider Thad Mckeon PA-C Unavailable + [phone] Encounter Details Date Type Department Care Team (Late st Contact Info) Description 10/01/2023 MyC Medical Advice [facility] [address] [address] Lisa Encarnacion Social History Tobacco Use Types Packs/Day Years [...] Depression Total Score: 23 024 1:43 PM FUEL STORAGE TECHNICIAN documented as of this encounter Care Teams Music Industry Intern Relationship Specialty Start Date End Date Thad Mckeon PA-C 68660 TASHA GUARDADO [address]117 PCP - General Physician Lock Up Worker - Medical 02/17/14 Thad Mckeon PA-C 71672 TASHA GUARDADO 86333 Assigned PCP 12/23/20 documented as of this encounter
--- OUTSIDE RECORDS SUMMARY | 2023-10-25 18:54 | XMS_ITS | Encounter Summary ---
Author Name Unknown Organization [facility] Address [address] [place] [address]. [place] [address] Care Team Providers Care Acute Care Certified Nursing Assistant Name Role Phone Thad Mckeon PA-C Primary Care Provider Thad Mckeon PA-C Unavailable + [phone] Encounter Details Date Type Department Care Team (Late st Contact Info) Description 07/22/2022 MyC Medical Advice [facility] [address] [place] [address] Thad Mckeon PA-C [address] [place] [address] Social History Tobacco Use Types Packs/Day Years Used Date Smoking Tobacco: Former Cigarettes Smokeless Tobacco: Never Alcohol Use Standard Drinks/Week Comments Not Currently 0 (1 standard drink = 0.6 oz pur e alcohol) very little PHQ-2 Answer Date Recorded PHQ-2 Score 1 05/08/2022 Sex and Gender Information Value Date Recorded Sex Assigned at Female 12/21/2020 8:52 AM CDT Gender Identity Female 12/21/2020 8:52 AM CDT Sexual Orientation Straight 12/21/2020 8: 52 AM CDT COVID-19 Exposure Response Date Recorded In the last 10 days, have yo u been in contact with someone who was confirmed or suspected to have Coronavirus/COVID-19? No / Unsure 07/23/2022 12:36 PM CERTIFIED DIETARY MANAGER documented as of this encounter Miscellaneous Notes * Telephone Encounter - Manda Aragon RN - 07/23/2022 7:55 AM CERTIFIED DIETARY MANAGER Called the pt to discuss. Advised she should be seen for this. Appt was scheduled for today. IFIED DIETARY MANAGER documented in this encounter Plan of Treatment Not on file documented as of this encounter Visit Diagnoses Not on filedocumented in this encounter Additional Health Concerns Assessment Noted Time PHQ-9 Depression Total Score: 4 05/08/20 22 1:27 PM CDT documented as of this encounter Care Teams Acute Care Certified Nursing Assistant Relationship Specialty Start Date End Date Thad Mckeon PA-C 50129 TASHA GUARDADO 12964 PCP - General Physician National Business Director - Medical 02/17/14 Thad Mckeon PA-C 38899 TASHA GUARDADO 63049 Assigned PCP 12/23/20 documented as of this encounter
--- OUTSIDE RECORDS SUMMARY | 2023-10-25 18:54 | XMS_ITS | Encounter Summary ---
Author Name Unknown Organization [facility] Address [address] [place] [address]. [place] [address] Care Team Providers Care Websphere Administrator Name Role Phone Thad Mckeon PA-C Primary Care Provider Thad Mckeon PA-C Unavailable + [phone] Reason for Visit * Reason Onset Date Comments Refill Request 08/18/2023 Encounter Details Date Type Department Care Team (Late st Contact Info) Description 08/18/2023 Flavio Salas [facility] [address] [place] [address] Thad Mckeon PA-C [address] [place] [address] Refill Request Social History Tobacco [...] Depression Total Score: 23 024 1:43 PM LEGAL BILLING ANALYST documented as of this encounter Care Teams Websphere Administrator Relationship Specialty Start Date End Date Thad Mckeon PA-C [address] [place] [address] PCP - General Physician Ada Accommodation Consultant - Medical 02/17/14 Thad Mckeon PA-C [address] [place] [address] Assigned PCP 12/23/20 documented as of this encounter
--- OUTSIDE RECORDS SUMMARY | 2023-10-25 18:54 | XMS_ITS | Encounter Summary ---
Author Name Unknown Organization [facility] Address [address] [place] [address] Care Team Providers Care Stenotype Operator Name Role Phone Thad Mckeon PA-C Primary Care Provider Thad Mckeon PA-C Unavailable + [phone] Encounter Details Date Type Department Care Team (Late st Contact Info) Description 05/05/2022 Orders Only [facility] [address] [place] [address] Mervin Mayo MD [address] [place], [place] [id number] Encounter for laboratory testing for COVID-19 virus Social History Tobacco Use Types Packs/Day Years [...] suspected to have Coronavirus/COVID-19? No / Unsure 05/08/2022 1:25 PM CDT documented as of this encounter Plan of Treatment Not on file documented as of this encounter Results * Asymptomatic COVID-19 Virus (Coronavirus) by PCR Nose (05/08/2022 2:30 PM CDT) SARS CoV2 PCR Negative Negative 05/09/2022 11:28 AM CDT [facility] Comment:NEGATIVE: SARS-CoV-2 (COVID-19) RNA not detected, presumed negative. Swab NASAL STRUCTURE / Unknown Non-blood Collection / Unknown 05/08/2022 2:30 PM CDT 05/08/2022 2:30 PM CDT Narrative [facility] - 05/09/2022 11:28 AM CDT Testing was performed using the marisela SARS-CoV-2 assay on the marisela Orderlord0 System. This test should be ordered for the detection of SARS-CoV-2 in individuals who meet SARS-CoV-2 clinical and/or epidemiological criteria. Test performance is unknown in asymptomatic patients. This test is for in vitro diagnostic use under the FDA EUA for laboratories certified under CLIA to perform high and/or moderate complexity testing. This test has not been FDA cleared or approved. A negative result does not rule out the presence of PCR inhibitors in the specimen or target RNA in concentration below the limit of detection for the assay. The possibility of a false negative should be considered if the patient's recent exposure or clinical presentation suggests COVID-19. This test was validated by the [facility] Infectious Diseases [facility]. This laboratory is certified under the Clinical Laboratory Improvement Amendments of 1988 (CLIA-88) as qualified to perform high and/or moderate complexity laboratory testing. Mervin Mayo MD LAB - MICRO GENERAL ORDERABLES [facility] Inf. Diseases Diag. Lab [address] [facility], [address] [place] [address], [place] [phone] documented in this encounter Visit Diagnoses Diagnosis Encounter for laboratory testing for COVID-19 virus documented in this encounter Additional Health Concerns Assessment Noted Time PHQ-9 Depression Total Score: 7 07/13/20 21 7:02 AM CDT documented as of this encounter Care Teams Stenotype Operator Relationship Specialty Start Date End Date Thad Mckeon PA-C 08087 TASHA GUARDADO [address] PCP - General Physician Contact Acid Plant Operator Helper - Medical 02/17/14 Thad Mckeon PA-C 76949 TASHA GUARDADO [address]236 Assigned PCP 12/23/20 documented as of this encounter
--- OUTSIDE RECORDS SUMMARY | 2023-10-25 18:54 | XMS_ITS | Encounter Summary ---
Author Name Unknown Organization [facility] Address [address] [place] [address] Care Team Providers Care Channel Specialist Name Role Phone Thad Mckeon PA-C Primary Care Provider Thad Mckeon PA-C Unavailable + [phone] Encounter Details Date Type Department Care Team (Late st Contact Info) Description 11/20/2022 MyC Medical Advice [address] [address] Purvi Rojas Social History Tobacco Use Types Packs/Day Years [...] documented as of this encounter Care Teams Channel Specialist Relationship Specialty Start Date End Date Thad Mckeon PA-C 75517 TASHA GUARDADO [address] PCP - General Physician Office Coordinator - Medical 02/17/14 Thad Mckeon PA-C 10839 TASHA GUARDADO 81256 Assigned PCP 12/23/20 documented as of this encounter
--- OUTSIDE RECORDS SUMMARY | 2023-10-25 18:54 | XMS_ITS | Encounter Summary ---
Author Name Unknown Organization [facility] Address [address] [place] [address]. [place] [address] Care Team Providers Care Rn Homecare Name Role Phone Thad Mckeon PA-C Primary Care Provider Thad Mckeon PA-C Unavailable + [phone] Encounter Details Date Type Department Care Team (Late st Contact Info) Description 06/05/2021 MyC Medical Advice [facility] [address] [place] [address] Thad Mckeon PA-C [address] [place] [address] Social History Tobacco Use Types [...] documented as of this encounter Care Teams Rn Homecare Relationship Specialty Start Date End Date Thda Mckeon PA-C 32124 TASHA GUARDADO [address] PCP - General Physician Automatic Fabric Cutter - Medical 02/17/14 Thad Mckeon PA-C 39775 TASHA GUARDADO 56[address] Assigned PCP 12/23/20 documented as of this encounter
--- OUTSIDE RECORDS SUMMARY | 2023-10-25 18:54 | XMS_ITS | Encounter Summary ---
Author Name Unknown Organization [facility] Address [address] [place] [address]. [place] [address] Care Team Providers Care Central Office Supervisor Name Role Phone Thad Mckeon PA-C Primary Care Provider Thad Mckeon PA-C Unavailable + [phone] Encounter Details Date Type Department Care Team (Late st Contact Info) Description 05/03/2021 MyC Medical Advice [facility] [address] [place] [address] Thad Mckeon PA-C [address] [place] [address] Generalized anxiety disorder (Primary Dx) Social History Tobacco Use Types Packs/Day Years [...] encounter Miscellaneous Notes * Telephone Encounter - Isa Saab MA - 05/08/2021 8:51 AM CDT Sent My Chart message to patient asking for dosage of Sertraline. Isa Saab MA * Telephone Encounter - Thad Mckeon PA-C - 05/08/2021 8:06 AM CDT I would need to know what dose to send. Thanks. Thad * Telephone Encounter - Katharina Guerra - 05/07/2021 9:59 AM CDT Spoke with Ruthie states that she does not like the side effects of celexa. Has some left over sertraline which she has been taking, would like a fill of that sent to her [facility] pharmacy. States that she is doing better and had just had a Really rough weekend Jennifer Guerra- Merchant Mill Utility Worker * Telephone Encounter - Thad Mckeon PA-C - 05/06/2021 8:22 AM CDT Please call Ruthie. I sent in Celexa for her to start on which she has been on before. I sent a [employer] message as well. I'd like to see her in about 2 weeks. Virtual is ok or in person. Help make appointment? Thanks! Thad documented in this encounter Plan of Treatment Not on file documented as of this encounter Visit Diagnoses Diagnosis Generalized anxiety disorder- Primary documented in this encounter Additional Health Concerns Assessment Noted Time PHQ-9 Depression Total Score: 7 01/16/20 21 7:02 AM CDT documented as of this encounter Care Teams Central Office Supervisor Relationship Specialty Start Date End Date Thad Mckeon PA-C 32039 TASHA GUARDADO [address] PCP - General Physician Snaker Tractor Driver - Medical 02/17/14 Thad Mckeon PA-C 01936 TASHA GUARDADO 422[address] Assigned PCP 12/23/20 documented as of this encounter
--- OUTSIDE RECORDS SUMMARY | 2023-10-25 18:54 | XMS_ITS | Encounter Summary ---
Author Name Unknown Organization [facility] Address [address] [place] [address]. [place] [address] Care Team Providers Care Working Supervisor Name Role Phone Thad Mckeon PA-C Primary Care Provider Thad Mckeon PA-C Unavailable + [phone] Reason for Visit * Reason Onset Date Comments Refill Request 09/29/2023 Encounter Details Date Type Department Care Team (Late st Contact Info) Description 09/29/2023 Flavio Salas [facility] [address] [place] [address] Thad Mckeon PA-C [address] [place] [address] Refill Request Social History Tobacco [...] history of other infectious and parasitic disease Anxiety Anxiety state, unspecified documented in this encounter Additional Health Concerns Assessment Noted Time PHQ-9 Depression Total Score: 23 024 1:43 PM ASSISTANT BRANCH MANAGER documented as of this encounter Care Teams Working Supervisor Relationship Specialty Start Date End Date Thad Mckeon PA-C [address] [place] [address] PCP - General Physician Nursing Secretary - Medical 02/17/14 Thad Mckeon PA-C 77981 TASHA GUARDADO 73773 Assigned PCP 12/23/20 documented as of this encounter
--- OUTSIDE RECORDS SUMMARY | 2023-10-25 18:54 | XMS_ITS | Encounter Summary ---
Author Name Unknown Organization [facility] Address [address] [place] [address]. [place] [address] Care Team Providers Care Health And Safety Inspector Name Role Phone Thad Mckeon PA-C Primary Care Provider Thad Mckeon PA-C Unavailable + [phone] Reason for Visit * Reason Comments Medication Request Encounter Details Date Type Department Care Team (Late st Contact Info) Description 10/05/2023 3:00 PM CDT Office Visit [facility] [id number] [place] [address] Thad Mckeon PA-C [address] [place] [address] Class 1 obesity without serious comorbidity with body mass index (BMI) of 31.0 to 31.9 in adult, unspecified obesity type; Anxiety Social History Tobacco Use Types Packs/Day Years [...] 10/05/2023 2:42 PM CD T Respiratory Rate - - Oxygen Saturation 96% 10/05/2023 2:42 PM CDT Inhaled Oxygen Concentration - - Weight 87.5 kg (192 lb 12.8 oz) 10/05/2023 2:42 PM CDT Height 165.1 cm (5' 5) 10/05/2023 2:42 PM CDT Body Mass Index 32.08 10/05/2023 2:42 PM CDT documented in this encounter Progress Notes * Thad Mckeon PA-C - 10/05/2023 3:00 PM CDT Assessment & Plan Class 1 obesity without serious comorbidity with body mass index (BMI) of 31.0 to 31.9 in adult, unspecified obesity type Refilling. Ok to continue to use as has been helpful for her. Follow up 6 months in person. - phentermine 15 MG capsule; Take 1 capsule (15 mg) by mouth every morning Anxiety Mood stable, PHQ/BEATRIZ scores a bit high right now due to stress - FLUoxetine (PROZAC) 20 MG capsule; Take 1 capsule (20 mg) by mouth daily Juan Ramon Hendricks is a 28 year old, presenting for the following health issues: Medication Request 10/05/2023 2:37 PM Additional Questions Roomed by Argenis SAVAGE History of Present Illness Reason for visit: Meds She eats 2-3 servings of fruits and vegetables daily.She consumes 0 sweetened beverage(s) daily.Sheexercises with enough effort to increase her heart rate 60 or more minutes per day. She exercises with enough effort to increase her heart rate 6 days per week. She is taking medications regularly. Patient feeling a bit stressed with working a lot. Tired in general but mood ok overall Still taking prozac. Wants refill of phentermine as well. 15mg has worked well for her in the past. Has been out for a couple weeks now and would like to get back on. Depression and Anxiety How are you doing with your depression since your last visit? No change How are you doing with your anxiety since your last visit? No change Are you having other symptoms that might be associated with depression or anxiety? No Have you had a significant life event? No Do you have any concerns with your use of alcohol or other drugs? No Social History Tobacco Use Smoking status: Former Packs/day: 0.00 Years: 0.00 Additional pack years: 0.00 Total pack years: 0.00 Types: Cigarettes Passive exposure: Past Smokeless tobacco: Never Vaping Use Vaping Use: Never used Substance Use Topics Alcohol use: Not Currently Alcohol/week: 0.0 standard drinks of alcohol Comment: very little Drug use: No 01/19/2023 12:42 PM 02/09/2023 8:52 AM 07/08/2023 1:43 PM PHQ PHQ-9 Total Score 3 7 23 Q9: Thoughts of better off /self-harm past 2 weeks Not at all Not at all Several days F/U: Thoughts of suicide or self-harm No F/U: Safety concerns No 10/20/2022 12:28 PM 02/09/2023 8:52 AM 07/01/2023 1:28 PM BEATRIZ-7 SCORE Total Score 10 (moderate anxiety) 18 (severe anxiety) Total Score 10 6 18 Review of Systems Constitutional, HEENT, cardiovascular, pulmonary, gi and gu systems are negative, except as otherwise noted. Objective BP 118/82 (BP Location: Right arm, Patient Position: Sitting, Cuff Size: Adult Regular) Pulse 110 Temp 98.2 ??F (36.8 ??C) (Oral) Ht 1.651 m (5' 5) Wt 87.5 kg (192 lb 12.8 oz) LMP 09/04/2023 (Approximate) SpO2 96% BMI 32.08 kg/m?? Body mass index is 32.08 kg/m??. Physical Exam GENERAL: alert and no distress CV: regular rate and rhythm, normal S1 S2, no S3 or S4, no murmur, click or rub, no peripheral edema MS: no gross musculoskeletal defects noted, no edema SKIN: no suspicious lesions or rashes PSYCH: mentation appears normal, affect normal/bright Signed Electronically by: Thad Mckeon PA-C documented in this encounter Plan of Treatment Not on file documented as of this encounter Visit Diagnoses Diagnosis Class 1 obesity without serious comorbidity with body mass index (BMI) of 31.0 to 31.9 in adult, unspecified obesity type Anxiety Anxiety state, unspecified documented in this encounter Additional Health Concerns Assessment Noted Time PHQ-9 Depression Total Score: 10 024 3:15 PM CDT documented as of this encounter Care Teams Health And Safety Inspector Relationship Specialty Start Date End Date Thad Mckeon PA-C [address] [place] [address] PCP - General Physician Wrapping Machine Helper - Medical 02/17/14 Thad Mckeon PA-C [address] [address] [address] Assigned PCP 12/23/20 documented as of this encounter
--- OUTSIDE RECORDS SUMMARY | 2023-10-25 18:54 | XMS_ITS | Encounter Summary ---
Author Name Unknown Organization [facility] Address [address] [place] [address]. [place] [address] Care Team Providers Care Loom Changer Name Role Phone Thad Mckeon PA-C Primary Care Provider Thad Mckeon PA-C Unavailable + [phone] Encounter Details Date Type Department Care Team (Late st Contact Info) Description 06/26/2021 MyC Medical Advice [facility] [address] [place] [address] Thad Mckeon PA-C [address] [place] [address] Social History Tobacco Use Types [...] Telephone Encounter - Manda Aragon RN - 06/26/2021 2:33 PM ELECTRICAL MANAGER See mycharts from 06/25/21. TRICAL MANAGER documented in this encounter Plan of Treatment Not on file documented as of this encounter Visit Diagnoses Not on filedocumented in this encounter Additional Health Concerns Assessment Noted Time PHQ-9 Depression Total Score: 7 01/16/20 7:02 AM CDT documented as of this encounter Care Teams Loom Changer Relationship Specialty Start Date End Date Thad Mckeon PA-C [address] [address] [address] PCP - General Physician Dice Spotter - Medical 02/17/14 Thad Mckeon PA-C 15752 [address]ARD[address] [address] Assigned PCP 12/23/20 documented as of this encounter
--- OUTSIDE RECORDS SUMMARY | 2023-10-25 18:54 | XMS_ITS | Encounter Summary ---
Author Name Unknown Organization [facility] Address [address] [place] [address]. [place] [address] Care Team Providers Care Senior Embedded Software Engineer Name Role Phone Thad Mckeon PA-C Primary Care Provider Thad Mckeon PA-C Unavailable + [phone] Encounter Details Date Type Department Care Team (Late st Contact Info) Description 05/14/2023 MyC Medical Advice [facility] [address] [place] [address] Thad Mckeon PA-C [address] [place] [address] Social History Tobacco Use Types [...] as of this encounter Care Teams Senior Embedded Software Engineer Relationship Specialty Start Date End Date Thad Mckeon PA-C [address]662 [address] [address] PCP - General Physician Shower Enclosure Installer - Medical 02/17/14 Thad Mckeon PA-C [address]3395 [address] [address] Assigned PCP 12/23/20 documented as of this encounter
--- OUTSIDE RECORDS SUMMARY | 2023-10-25 18:54 | XMS_ITS | Encounter Summary ---
Author Name Unknown Organization [facility] Address [address] [place] [address]. [place] [address] Care Team Providers Care Sas Analyst Name Role Phone Thad Mckeon PA-C Primary Care Provider Thad Mckeon PA-C Unavailable + [phone] Reason for Visit * Reason Onset Date Comments Cat Bite 11/20/2021 Encounter Details Date Type Department Care Team (Late st Contact Info) Description 11/20/2021 MyC Medical Advice [facility] [address] [place] [address] Thad Mckeon PA-C [address] [place] [address] Cat Bite Social History Tobacco Use Types Packs/Day Years [...] Telephone Encounter - Sylvia Howell RN - 11/21/2021 8:15 AM CDT Tdap: 03/01/2020 documented in this encounter Plan of Treatment Not on file documented as of this encounter Visit Diagnoses Not on filedocumented in this encounter Additional Health Concerns Assessment Noted Time PHQ-9 Depression Total Score: 7 01/16/20 21 7:02 AM CDT documented as of this encounter Care Teams Sas Analyst Relationship Specialty Start Date End Date Thad Mckeon PA-C [address]164 [address] [address] PCP - General Physician Fish Packer - Medical 02/17/14 Thad Mckeon PA-C 24696 T[address]ARD[address] [address] Assigned PCP 12/23/20 documented as of this encounter
--- OUTSIDE RECORDS SUMMARY | 2023-10-25 18:54 | XMS_ITS | Encounter Summary ---
Author Name Unknown Organization [facility] Address [address] [place] [address]. [place] [address] Care Team Providers Care Transport Medic Name Role Phone Thad Mckeon PA-C Primary Care Provider Thad Mckeon PA-C Unavailable + [phone] Encounter Details Date Type Department Care Team (Late st Contact Info) Description 04/21/2023 MyC Medical Advice [facility] [address] [place] [address] Thad Mckeon PA-C [address] [place] [address] Social History Tobacco Use Types [...] documented as of this encounter Care Teams Transport Medic Relationship Specialty Start Date End Date Thad Mckeon PA-C [address]90 [address] [address] PCP - General Physician Metal Alloy Scientist - Medical 02/17/14 Thad Mckeon PA-C 23840 [address]ARD[address] [address] Assigned PCP 12/23/20 documented as of this encounter
--- OUTSIDE RECORDS SUMMARY | 2023-10-25 18:54 | XMS_ITS | Encounter Summary ---
Author Name Unknown Organization [facility] Address [address] [place] [address] Care Team Providers Care Head Of Acquisitions Name Role Phone Thad Mckeon PA-C Primary Care Provider Thad Mckeon PA-C Unavailable + [phone] Encounter Details Date Type Department Care Team (Late st Contact Info) Description 09/29/2023 MyC Medical Advice [facility] [address] [address] Lisa Encarnacion Social History Tobacco [...] Depression Total Score: 23 024 1:43 PM DIRECTOR OF FINANCE documented as of this encounter Care Teams Head Of Acquisitions Relationship Specialty Start Date End Date Thad Mckeon PA-C [address] [place] [address] PCP - General Physician Formula Clerk - Medical 02/17/14 Thad Mckeon PA-C [address] [place] [address] Assigned PCP 12/23/20 documented as of this encounter
--- OUTSIDE RECORDS SUMMARY | 2023-10-25 18:54 | XMS_ITS | Encounter Summary ---
Author Name Unknown Organization [facility] Address [address] [place] [address]. [place] [address] Care Team Providers Care Board Handler Name Role Phone Thad Mckeon PA-C Primary Care Provider Thad Mckeon PA-C Unavailable + [phone] Encounter Details Date Type Department Care Team (Late st Contact Info) Description 02/18/2021 MyC Medical Advice [facility] [address] [place] [address] Thad Mckeon PA-C [address] [place] [address] Social History Tobacco Use Types [...] documented as of this encounter Care Teams Board Handler Relationship Specialty Start Date End Date Thad Mckeon PA-C [address]103 [address] [address] PCP - General Physician Award Machine Operator - Medical 02/17/14 Thad Mckeon PA-C 58107 T[address]ARDADO [address] Assigned PCP 12/23/20 documented as of this encounter
--- OUTSIDE RECORDS SUMMARY | 2023-10-25 18:55 | XMS_ITS | Encounter Summary ---
Author Name Unknown Organization [facility] Address [address] [place] [address]. [place] [address] Care Team Providers Care Liquor Tester Name Role Phone Thad Mckeon PA-C Primary Care Provider Thad Mckeon PA-C Unavailable + [phone] Encounter Details Date Type Department Care Team (Late st Contact Info) Description 01/14/2021 MyC Medical Advice [facility] [address] [place] [address] Thad Mckeon PA-C [address] [place] [address] Social History Tobacco Use Types [...] documented as of this encounter Care Teams Liquor Tester Relationship Specialty Start Date End Date Thad Mckeon PA-C [address] [address] [address] PCP - General Physician Forestry Workers - Medical 02/17/14 Thad Mckeon PA-C 16462 T[address]ARDADO [address] Assigned PCP 12/23/20 documented as of this encounter
--- OUTSIDE RECORDS SUMMARY | 2023-10-25 18:55 | XMS_ITS | Encounter Summary ---
Author Name Unknown Organization [facility] Address [address] [place] [address]. [place] [address] Care Team Providers Care Director Internal Audit Name Role Phone Thad Mckeon PA-C Primary Care Provider Thad Mckeon PA-C Unavailable + [phone] Reason for Visit * Reason Onset Date Comments Covid Concern 01/28/2021 Covid vaccine Encounter Details Date Type Department Care Team (Late st Contact Info) Description 01/28/2021 [facility] Medical Advice [facility] [address] [place] [address] Thad Mckeon PA-C [address] [place] [address] Covid Concern (Covid vaccine) Social History Tobacco Use Types Packs/Day Years [...] as of this encounter Care Teams Director Internal Audit Relationship Specialty Start Date End Date Thad Mckeon PA-C [address]67 [address] [address] PCP - General Physician Senior Planning Manager - Medical 02/17/14 Thad Mckeon PA-C [address]5844 [address]ARD[address] [address] Assigned PCP 12/23/20 documented as of this encounter
--- OUTSIDE RECORDS SUMMARY | 2023-10-25 18:55 | XMS_ITS | Encounter Summary ---
Author Name Unknown Organization [facility] Address [address] [place] [address]. [place] [address] Care Team Providers Care Senior Software Qa Engineer Name Role Phone Thad Mckeon PA-C Primary Care Provider Thad Mckeon PA-C Unavailable + [phone] Reason for Visit * Reason Onset Date Comments Covid Concern 01/28/2021 Covid Vaccine Encounter Details Date Type Department Care Team (Late st Contact Info) Description 01/28/2021 [facility] Medical Advice [facility] [address] [place] [address] Thad Mckeon PA-C [address] [place] [address] Covid Concern (Covid Vaccine) Social History Tobacco Use Types Packs/Day Years [...] as of this encounter Care Teams Senior Software Qa Engineer Relationship Specialty Start Date End Date Thad Mckeon PA-C [address]13 [address] [address] PCP - General Physician Unscrambler - Medical 02/17/14 Thad Mckeon PA-C [address]3042 T[address]ARD[address]O [address] Assigned PCP 12/23/20 documented as of this encounter
--- OUTSIDE RECORDS SUMMARY | 2023-10-25 18:55 | XMS_ITS | Encounter Summary ---
Author Name Unknown Organization [facility] Address [address] [place] [address] Care Team Providers Care Candy Attendant Name Role Phone Thad Mckeon PA-C Primary Care Provider Thad Mckeon PA-C Unavailable + [phone] Thad Mckeon PA-C Unavailable + [phone] Encounter Details Date Type Department Care Team (Late st Contact Info) Description 09/25/2020 [facility] [address] [place] [address] Thad Mckeon PA-C [address] [place] [address] Social History Tobacco Use Types [...] Noted Time PHQ-9 Depression Total Score: 14 021 7:07 AM PAN PULLER documented as of this encounter Care Teams Candy Attendant Relationship Specialty Start Date End Date Thad Mckeon PA-C [address]123 [address] [address] PCP - General Physician Cloud Developer - Medical 02/17/14 Thad Mckeon PA-C 10839 T[address]ARD[address] [address] Assigned PCP 12/16/13 12/22/20 Thad Mckeon PA-C 02107 T[address]ARDADO [address] Assigned PCP 12/23/20 documented as of this encounter
--- OUTSIDE RECORDS SUMMARY | 2023-10-25 18:55 | XMS_ITS | Encounter Summary ---
Author Name Unknown Organization [facility] Address [address] [place] [address] Care Team Providers Care Film Inspector Name Role Phone Thad Mckeon PA-C Primary Care Provider Thad Mckeon PA-C Unavailable + [phone] Thad Mckeon PA-C Unavailable + [phone] Thad Mckeon PA-C Unavailable + [phone] Encounter Details Date Type Department Care Team (Late st Contact Info) Description 01/12/2018 MyC Medical Advice [address], [address] [place] [address] Thad Mckeon PA-C [address] [place] [address] Social History Tobacco Use Types Packs/Day Years Used Date Smoking Tobacco: Former Smokeless Tobacco: Never Alcohol Use Standard Drinks/Week Comments No 0 (1 standard drink = 0.6 oz pur e alcohol) Sex and Gender Information Value Date Recorded [...] Noted Time PHQ-9 Depression Total Score: 3 04/15/20 17 10:35 AM CDT documented as of this encounter Care Teams Film Inspector Relationship Specialty Start Date End Date Thad Mckeon PA-C 67809 T[address]ARDADO [address] PCP - General Physician Aperture Mask Etcher - Medical 02/17/14 Thad Mckeon PA-C [address]4532 T[address] GUARDADO [address] PCP - Assigned PCP 12/16/13 09/07/18 Thad Mckeon PA-C 25788 T[address]ARDADO [address] Assigned PCP 12/16/13 12/22/20 Thad Mckeon PA-C 57451 TAS[address] GUARDADO [address]58[address] Assigned PCP 12/23/20 documented as of this encounter
--- OUTSIDE RECORDS SUMMARY | 2023-10-25 18:55 | XMS_ITS | Encounter Summary ---
Author Name Unknown Organization [facility] Address [address] [place] [address] Care Team Providers Care Quilting Machine Operator Name Role Phone Thad Mckeon PA-C Primary Care Provider Thad Mckeon PA-C Unavailable + [phone] Thad Mckeon PA-C Unavailable + [phone] Reason for Visit * Reason Onset Date Comments Lab Result Notice 03/15/2019 Pap Encounter Details Date Type Department Care Team (Late st Contact Info) Description 03/15/2019 MyC Medical Advice [address], [address] [place] [address] Thad Mckeon PA-C [address] [place] [address] Lab Result Notice (Pap) Social History Tobacco Use Types Packs/Day Years [...] documented as of this encounter Care Teams Quilting Machine Operator Relationship Specialty Start Date End Date Thad Mckeon PA-C [address]37 T[address]ARD[address] [address] PCP - General Physician Flag Signalman - Medical 02/17/14 Thad Mckeon PA-C 1960[address] T[address] GUARDAD[place] [address] Assigned PCP 12/16/13 12/22/20 Thad Mckeon PA-C [address]21 TAS[address] GUARDADO 101[address] Assigned PCP 12/23/20 documented as of this encounter
== END 2023-10-25 19:18 | disposition home or self-care (01) ==
PROVIDERS: Emergency Provider Emergency Medicine Emergency Medical Services
DX: K08.89 Other specified disorders of teeth and supporting structures (principal)
CPT/HCPCS: 64400; 99282; 99284; J0665